=== PATIENT | male | born 1945 | race Caucasian/White ===

== ENCOUNTER 2016-03-24 15:42 | Inpatient (IN) | payer MEDICARE, MEDICAID ==
[~2016-03-24] VITALS: Ht 167.6 cm; Wt 52.8 kg
[2016-03-24] MEDS ORDERED: SOD CHLORIDE 0.9% 1,000 ML IV STA (16:36)
[2016-03-24] MEDS ORDERED: DONE5TAB7 PO (17:11)
[2016-03-24] MEDS ORDERED: ENOX40DI14 SC (17:12)
[2016-03-24] MEDS ORDERED: FER325 PO (17:12)
[2016-03-24] MEDS ORDERED: MULT-371 PO (17:13)
[2016-03-24] MEDS ORDERED: MEMA5TAB PO (17:13)
[2016-03-24] MEDS ORDERED: PANT40TA3 PO (17:17)
[2016-03-24] MEDS ORDERED: CLOP75TA27 PO (17:18)
[2016-03-24] MEDS ORDERED: ATOR40TA68 PO (17:18)
[2016-03-24] MEDS ORDERED: DOCU-144 PO (17:18)
[2016-03-24] MEDS ORDERED: INSU100C SQ (17:23)
[2016-03-24] MEDS ORDERED: HYDR-906 PO (17:24)
[2016-03-24] MEDS ORDERED: ACET-2047 PO (17:25)
[2016-03-24] MEDS ORDERED: ACET-141 PO (17:25)
[2016-03-24] MEDS ORDERED: MAGN400O4 PO (17:26)
[2016-03-24] MEDS ORDERED: BISA10SU55 RC (17:27)
[2016-03-24] MEDS ORDERED: ONDANSETRON 4 MG INJ IV STA (17:31)
[2016-03-24] MEDS ORDERED: morphine 4 MG/ML VIAL IV STA (17:31)
[2016-03-24 17:36] LABS: ADD SCAN DIFF NO
[2016-03-24 17:38] LABS: BASOPHILS % 0.4 % (0.0-2.0); EOSINOPHILS # 0.2 10^3/ul (0.0-0.5); EOSINOPHILS % 2.5 % (0.0-7.0); HEMATOCRIT 40.3 % (42.0-52.0); HEMOGLOBIN 13.4 g/dl (14.0-18.0); LYMPHOCYTES # 1.3 10^3/ul (0.8-2.9); LYMPHOCYTES % 13.4 % (15.0-51.0); MEAN CORPUSCULAR HEMOGLOBIN 30.6 pg (29.0-33.0); MEAN CORPUSCULAR HGB CONC 33.3 g/dl (32.0-37.0); MONOCYTE # 0.9 10^3/ul (0.3-0.9); MONOCYTES % 8.9 % (0.0-11.0); NEUTROPHIL # 7.1 10^3/ul (1.6-7.5); NEUTROPHILS % 74.1 % (39.0-77.0); PLATELET COUNT 463 10^3/UL (140-415); RED BLOOD COUNT 4.38 10^6/ul (4.70-6.10); RED CELL DISTRIBUTION WIDTH 14.8 % (11.5-14.5); WHITE BLOOD COUNT 9.6 10^3/ul (4.8-10.8)
[2016-03-24 17:49] LABS: INR 1.01; PROTIME 13.3 Sec (12.2-14.2)
[2016-03-24 17:52] LABS: ALBUMIN 3.1 g/dl (3.3-4.9); CHLORIDE 102 mmol/L (97-110); SODIUM 139 mmol/L (135-144)
--- NOTE | 2016-03-24 17:52 | RADRPT ---
PROCEDURE: Chest Radiograph. CLINICAL INDICATION: Cough TECHNIQUE: Single frontal chest radiograph. COMPARISON: None available FINDINGS: A left chest wall dual lead implantable pacer is in place. Heart size is within normal limits.. N o infiltrate or effusion is seen. The bones are intact. IMPRESSION: 1. No evidence of acute cardiopulmonary disease. RPTAT: [facility] .Salo Feldman MD, MD Date Time Electronically viewed and signed by .Salo Feldman MD, on 03/24/2016 17:52 .B/
[2016-03-24 17:53] LABS: POTASSIUM 4.1 mmol/L (3.5-5.1)
[2016-03-24 17:54] LABS: CREATININE 0.94 mg/dl (0.61-1.24)
[2016-03-24 17:55] LABS: ALANINE AMINOTRANSFERASE 48 IU/L (13-69); ALBUMIN/GLOBULIN RATIO 0.86; ALKALINE PHOSPHATASE 151 IU/L (42-121); ANION GAP 13 (8-16); ASPARTATE AMINO TRANSFERASE 61 IU/L (15-46); BILIRUBIN,INDIRECT 0.8 mg/dl (0-1.1); BILIRUBIN,TOTAL 0.8 mg/dl (0.2-1.3); BLOOD UREA NITROGEN 18 mg/dl (7-20); CALCIUM 8.7 mg/dl (8.4-10.2); CARBON DIOXIDE 28 mmol/L (21-31); GLUCOSE 119 mg/dl (70-220); TOTAL PROTEIN 6.7 g/dl (6.1-8.1)
[2016-03-24] MEDS ORDERED: ASPIRIN 325 MG TAB PO ONE (18:00)
--- NOTE | 2016-03-24 18:00 | ERA ---
ER Documentation Chief Complaint Date/Time DATE: 03/24/16 TIME: 17:46 Chief Complaint BIB RA FOR EVAL OF BILAT DVT'S SENT BY PMD HPI 70-year-old man referred here by his cardiothoracic surgeon to rule out aortoiliac disease. Patient recently developed blue toe syndrome to both feet and a recent arterial color Doppler ultrasound of the lower extremities was negative for hemodynamically significant thrombosis or stenosis. Although given his continued symptoms and toe discoloration a CT angiogram of the abdomen with IV contrast runoff was ordered today. Patient has had no fevers or chills, no vomiting or diarrhea. HPI was supplemented by reviewing past medical history, halfway records, and later speaking to his PMD. ROS All systems reviewed and are negative except as per history of present illness. Medications Home Meds Reported Medications Bisacodyl (Dulcolax) 10 Mg Supp.rect, 10 MG RC DAILY Y for CONSTIPATION, SUPP.RECT 03/24/16 Magnesium Hydroxide* (Milk Of Magnesia*) 400 Mg/5 Ml Oral.susp, 30 ML PO DAILY Y for CONSTIPATION, ML 03/24/16 Acetaminophen* (Acetaminophen*) 500 MG Extra Strength Tablet, 1000 MG PO Q4 Y for MODERATE PAIN LEVEL 4-6, TAB 03/24/16 Acetaminophen* (Acetaminophen*) 650 Mg Tablet, 650 MG PO Q4 Y for PAIN AND OR ELEVATED TEMP, #30 TAB 03/24/16 Hydrocodone/Acetaminophen ([place] 5-325 Tablet) 1 Each Tablet, 1 EACH PO Q4H WHILE AWAKE Y for SEVERE PAIN LEVEL 7-10, TAB 03/24/16 Insulin Lispro (Humalog) 100 Unit/1 Ml Cartridge, 0 SQ AC MEALS AND BEDTIME SLIDING SCALE 150-199 = 1 UNIT 200-249 =2 UNITS 250-299 =3 UNITS 300-349 =4 UNITS 350-399 =5 UNITS 400 = 6 UNITS OVER 400 CALL MD BELOW 80 CALL MD MAY GIVE ORANGE JUICE BY MOUTH 03/24/16 Atorvastatin* (Atorvastatin*) 40 Mg Tablet, 40 MG PO QHS, #30 TAB 03/24/16 Clopidogrel Bisulfate (Clopidogrel) 75 Mg Tablet, 75 MG PO DAILY, #30 TAB 03/24/16 Docusate Sodium* (Colace*) 100 Mg Capsule, 200 MG PO DAILY, #30 CAP 03/24/16 Pantoprazole* (Protonix*) 40 Mg Tablet.dr, 40 MG PO DAILY, TAB 03/24/16 Multivitamin with Minerals (One Daily Complete) 1 Each Tablet, 1 EACH PO DAILY, TAB 03/24/16 Memantine* (Namenda*) 5 Mg Tablet, 5 MG PO BID, #60 TAB 03/24/16 Ferrous Sulfate* (Ferrous Sulfate*) 325 Mg Tabec, 325 MG PO BID, TAB 03/24/16 Enoxaparin Sodium* (Lovenox*) 40 Mg/0.4 Ml Syringe, 40 MG SC DAILY, SYR 03/24/16 Donepezil* (Donepezil*) 5 Mg Tablet, 5 MG PO QHS, #30 TAB 03/24/16 Allergies Allergies: Coded Allergies: No Known Allergy (Unverified , 03/24/16) PMhx/Soc Dementia, chronic encephalopathy, chronic recurrent left hip dislocation, anemia , diabetes mellitus, coronary artery disease, pacemaker Hx Alcohol Use: No Hx Substance Use: No Hx Tobacco Use: No Smoking Status: Never smoker FmHx Family History: No diabetes Physical Exam Vitals Vital Signs Date Time Temp Pulse Resp B/P Pulse Ox O2 Delivery O2 Flow Rate FiO2 03/24/16 15:42 97.9 86 20 133/65 100 Physical Exam GENERAL: Elderly, dehydrated man, mild discomfort, afebrile HEENT: Dry mucous membranes pink conjunctiva, no cervical spine tenderness or step-off deformities, no goiter, no jaundice or icterus, extraocular movements intact without pain. No submandibular induration, and no pharyngeal erythema NEURO: Alert and oriented 1, able to follow simple commands and answer simple questions, cranial nerves II through XII intact bilaterally, pupils equal round reactive to light, no focal deficits or facial asymmetry, diffuse muscular wasting CARDIAC: Regular rate and rhythm, positive holosystolic murmur, no gallops LUNGS: Clear bilaterally no wheezing crackles or stridor ABDOMEN: Abdominal examination is limited as patient because patient is swinging although I do appreciate voluntary guarding and a large mildly tender pulsatile abdominal mass in the hypogastrium, no splenomegaly palpated SKIN: Warm and dry to touch, dorsal aspect of both feet and toes are erythematous and there is bluish discoloration to the padding of the toes of both feet, there is superficial upper extremity ecchymoses, no lacerations or ulcers noted EXTREMITIES: No clubbing cyanosis or edema, calves are bilaterally symmetrical, no Homans sign, no popliteal cord sign. Distal pulses equal and bilateral PSYCH: Agitated Result Diagram: 03/24/16 1700 Results 24 hrs Laboratory Tests Test 03/24/16 17:00 Basophils # 0.010^3/ul Basophils % 0.4% Eosinophils # 0.210^3/ul Eosinophils % 2.5% Hematocrit 40.3% Hemoglobin 13.4g/dl Lymphocytes # 1.310^3/ul Lymphocytes % 13.4% Mean Corpuscular Hemoglobin 30.6pg Mean Corpuscular Hemoglobin Concent 33.3g/dl Mean Corpuscular Volume 92.0fl Mean Platelet Volume 9.0fl Monocytes # 0.910^3/ul Monocytes % 8.9% Neutrophils # 7.110^3/ul Neutrophils % 74.1% Nucleated Red Blood Cells # 0.010^3/ul Nucleated Red Blood Cells % 0.0/100WBC Platelet Count 55320^3/UL Red Blood Count 4.3810^6/ul Red Cell Distribution Width 14.8% White Blood Count 9.610^3/ul Current Medications Medications (Trade) Dose Ordered Sig/Rohan Route PRN Reason Start Time Stop Time Status Last Admin Dose Admin Sodium Chloride (NS) 1,000 ml @ 1,000 mls/hr Q1H STAT IV 03/24/16 16:36 03/24/16 17:35 DC 03/24/16 17:10 Morphine Sulfate (morphine) 4 mg ONCE STAT IV 03/24/16 17:31 03/24/16 17:32 DC 03/24/16 17:42 Ondansetron HCl (Zofran Inj) 4 mg ONCE STAT IV 03/24/16 17:31 03/24/16 17:32 DC 03/24/16 17:42 Aspirin (Aspirin) 325 mg ONCE ONCE PO 03/24/16 18:00 03/24/16 18:01 03/24/16 17:42 Procedures/MDM IV line was established patient was placed on nuclear monitoring technician rhythm strip revealed a sinus rhythm at about 70 bpm with upright P and T waves. Patient was afebrile. EKG performed, read by me: 68 bpm, normal sinus rhythm, normal axis, no acute ST segment changes, narrow QRS complex, with good R-wave progression in precordial leads. One view chest x-ray performed, read by me there is a pacemaker in the left chest with wires intact, atelectatic changes bilaterally, no acute infiltrates, no pneumothorax. CT angiogram with runoff revealed a right common iliac artery aneurysm with a large irregular protruding atherosclerotic plaque within it as well as the distal aorta, which is most likely the source of micro emboli. There was also severe stenosis to the proximal posterior tibial artery and anterior tibial artery on the left. Please refer to radiologist dictation for full report. I ordered 1 L normal saline intravenously, morphine 4 mg IV, and Zofran 4 mg IV. Also ordered aspirin 325 mg p.o., which the patient tolerated without difficulty. I will defer further anticoagulation to safety physician and cardiothoracic surgeon. CBC and coagulation profile was unremarkable, electrolytes liver function tests were normal, troponin was negative. Patient admitted to telemetry setting. Departure Diagnosis: Primary Impression: Aneurysm artery, iliac common Additional Impressions: Chronic distal aortic occlusion Gangrene of toe Ischemic toe Condition: Serious TAB MCCOLLUM MD Mar 24, 2016 17:58
[2016-03-24] MEDS: SOD CHLORIDE 0.9% 1,000 ML IV SCH (18:04)
--- NOTE | 2016-03-24 18:04 | HP ---
Date/Time of Note Date/Time of Note DATE: 03/24/16 TIME: 17:56 Assessment/Plan VTE Prophylaxis VTE Prophylaxis Intervention: heparin Assessment/Plan Assessment/Plan 70 yo male with a past medical history of dementia, type II DM, CAD, anemia - chronic, s/p pacemaker, who presents with "Blue Toe Syndrome". 1. Blue toe syndrome - will admit the patient to telemetry, consult vascular surgery, consult cardiology, start heparin drip, monitor pulses, possible angiogram with angioplasty/thrombectomy. 2. Type II DM - will check [id number], ISS 3. S/P pacemaker/CAD - aspirin 4. Anemia - chronic - monitor H/H 5. Dementia - re-orient patient as needed 6. GI ppx - protonix 7. DVT ppx - heparin as per clinical course. this history and physical took greater then 45 minutes to complete HPI/ROS Admit Date/Time Admit Date/Time 03/24/2016, 5:56 pm Hx of Present Illness 70 yo male with a past medical history of dementia, type II DM, CAD, anemia - chronic, s/p pacemaker, who presents with "Blue Toe Syndrome". The patient was sent to the vascular surgeon's office, Dr. Mondragon, who was evaluating the patient for PAD/PVD. He noticed that bilateral lower extremities had decreased pulses, and discoloration. Otherwise no fevers/chills, nausea/vomiting/diarrhea or other constitutional symptoms. All the information was gathered from the chart and ER physician, as the patient is non-verbal. ROS Subjective hx not possible: pt non-verbal PMH/Family/Social Past Medical History anemia- chronic, dementia Medical History: coronary artery disease, diabetes Past Surgical History LEONCIO, s/p pacemaker Family History Significant Family History: no pertinent family hx, cancer (none), COPD (none) , hypertension (none) Social History Alcohol Use: none Smoking Status: Former smoker Drug Use: none Exam/Review of Systems Vital Signs Vitals Vital Signs Date Time Temp Pulse Resp B/P Pulse Ox O2 Delivery O2 Flow Rate FiO2 03/24/16 15:42 97.9 86 20 133/65 100 Exam Exam Gen Thania: NAD, Alert to self HEENT: NC/AT, PERRLA, EOMI, no pharyngeal erythema, no tonsillar exudates, no lymphadenopathy, no JVD, no carotid bruits NECK: supple, no thyromegaly THORAX: symmetrical, no obvious deformities CV: S1S2, RRR, II/ systolic murmur best heard over tricuspid area Lungs: CTAB no W/C/R/R Abd: soft, NT/ND, +BS, no rebound, no guarding, neg HSM EXT: 1/2+ pitting edema bilateral lower extremities with diminished pulses, bluish hue to the all toes noted Neuro: non-verbal no focal deficits Psych: fair mood and affect Skin: decreased skin turgor Labs Result Diagram: 03/24/16 1700 Medications Medications Current Medications Aspirin (Aspirin) 325 mg ONCE ONCE PO Last administered on 03/24/16t 17:42; Admin Dose 325 MG; Start 03/24/16 at 18:00; Stop 03/24/16 at 18:[address] angiogram abdominal IMPRESSION: 1. Right common iliac artery aneurysm is identified measuring 2.1 cm. Markedly irregular, protruding atherosclerotic plaque is identified within the distal aorta and right common iliac artery - this may represent a source of embolic disease. 2. No evidence of hemodynamically significant stenosis is seen in the right lower extremity. Right foot arteries are not well visualized beyond the proximal foot. 3. There are severe focal stenoses at the origins of the left anterior and posterior tibial arteries - distally these arteries are patent into the distal foot. 4. Indeterminate rim enhancing collection is identified in the deep posterior calf musculature on the left, as described above - muscular abscess is not excluded. 5. Diffuse arterial atherosclerotic calcifications are present. 6. Mild left pleural effusion is noted. 7. Scattered colonic diverticula are seen without diverticulitis. 8. No mass or lymphadenopathy is seen. MARYAM VALENCIA MD Mar 24, 2016 18:04
[2016-03-24 18:08] LABS: TROPONIN-I < 0.012 ng/ml (0.00-0.12)
[2016-03-24] MEDS ORDERED: DEXTROSE 50% 50 ML SYRINGE IV PRN ×2 (18:30)
[2016-03-24] MEDS ORDERED: GLUCOSE GEL 15 GRAM TUBE PO PRN ×2 (18:30)
[2016-03-24] MEDS ORDERED: HEPARIN 25000 UNITS/250 ML 250 ML IV SCH (18:30)
[2016-03-24] MEDS ORDERED: GLUCOSE GEL 15 GRAM TUBE BUCCAL PRN (18:30)
[2016-03-24] MEDS ORDERED: GLUCAGON 1 MG INJ IM PRN (18:30)
[2016-03-24] MEDS ORDERED: NITROGLYCERIN (SL) 0.4 MG TAB SL PRN (18:30)
[2016-03-24] MEDS ORDERED: ONDANSETRON 4 MG INJ IV PRN (18:30)
[2016-03-24] MEDS ORDERED: ACETAMINOPHEN 325 MG TAB PO PRN (18:30)
[2016-03-24] MEDS ORDERED: HEPARIN 1000 UNITS/ML 10 ML INJ IV PRN ×2 (18:30)
[2016-03-24] MEDS ORDERED: NACL 0.9% 3 ML SYG IV SCH (18:30)
--- NOTE | 2016-03-24 19:46 | CONS ---
DATE OF ADMISSION: 03/24/2016 DATE OF CONSULTATION: 03/24/2016 CARDIOLOGY CONSULTATION REASON FOR CONSULTATION: Abnormal electrocardiogram, preoperative evaluation. REQUESTING PHYSICIAN: Fredrick Gross MD HISTORY OF PRESENT ILLNESS: Mr. Smith is a 70-year-old male with a history of hip dislocation, dani ntia, diabetes mellitus, coronary artery disease, permanent pacemaker who had initially presented to an outside hospital at [facility] with change in his toe colors with blue toes. The patient was ev aluated at that time by arterial ultrasound, was not found to have any arterial occlusions. He did have some moderate stenoses of his superficial femoral artery and profunda femoral arteries. The abdi martinez was then referred to [facility] where he was evaluated by Dr. Gross and underwent a CT scan of the lower extremities which revealed a right common iliac artery aneurysm measuring 2.1 cm, a markedly regular protruding atherosclerotic plaque within the right commo n iliac hemodynamically significant stenosis in right lower extremity, several focal stenoses origins of the left anterior and posterior tibial arteries, indeterminate rim enhancing collection i s identified in deep posterior calf musculature. Deep arteriosclerotic calcifications are present. The patient subsequently sent to the emergency department for further evaluation where initially up on arrival, temperature 97.9, blood pressure 132/65, pulse 86, respiratory rate 20, saturating 100%. Patient's labs were notable for white count of 9.6, hemoglobin 13.4, platelet count of 463. INR o f 1.0. The patient's electrocardiogram revealed sinus rhythm, rate of 79 with borderline inferior Q 's. The patient has been treated with morphine, Zofran, IV fluid hydration, aspirin, is to be start ed on blood thinners. Will be admitted to the floor for further evaluation and treatment with possi ble need for surgery to prevent further embolic phenomenon and treatment of peripheral arterial dise ase. At this time, the patient does not respond clearly to questions pertaining to chest pain or sh ortness of breath. PAST MEDICAL HISTORY: As above in HPI. MEDICATIONS: Prior to admit: 1. Plavix 75 mg daily. 2. Lovenox 20 mg subcutaneous daily. 3. Ferrous sulfate 325 mg p.o. b.i.d. 4. Atorvastatin 40 mg at bedtime. 5. Tylenol p.r.n. 6. [place] p.r.n. 7. Namenda 5 mg b.i.d. 8. Dulcolax. 9. Colace. 10. Protonix 40 mg daily. 11. Insulin multivite. 12. Aricept. ALLERGIES: NO KNOWN DRUG ALLERGIES. SOCIAL HISTORY: No current tobacco, ETOH, or illicit drug use. FAMILY HISTORY: Negative for sudden cardiac or early CAD. REVIEW OF SYSTEMS: As above in HPI. CONSTITUTIONAL: No fevers, chills. PULMONARY: Shortness of breath. CARDIOVASCULAR: Abnormal electrocardiogram, atherosclerotic plaque in the periphery. GASTROINTESTINAL: No vomiting. Tenderness to palpation of abdomen. GENITOURINARY: No hematuria. MUSCULOSKELETAL: Blue toes. Signs of peripheral arterial disease. PHYSICAL EXAMINATION: VITAL SIGNS: Temperature 97.9, blood pressure 132/65, pulse 86, respiratory rate 20, saturating 10 0%. GENERAL: The patient is alert, awake, in no acute distress. Complaining of pain in his abdomen and toes. NECK: Jugular distention of 8 to 9 cm of water. CHEST: Decreased breath sounds at the base bilaterally. HEART: Regular rate and rhythm. Normal S1, S2, I/ systolic murmur, nondisplaced PMI. ABDOMEN: Positive bowel sounds, positive tenderness to palpation diffusely. EXTREMITIES: Cyanosis with blue color of the toes. Difficult to palpate distal pulses bilaterally, posterior tibial, dorsalis pedis, trace lower extremity edema, decreased hair in the lower extremit ies. LABORATORIES: As above in HPI. No further labs for my review at this time. IMAGING STUDIES: As above in HPI. No further imaging studies for my review at this time. ELECTROCARDIOGRAM: As above in HPI. No further electrocardiograms for my review at this time. IMPRESSION: 1. Abnormal electrocardiogram, assess for acute coronary syndrome. 2. Hypertension. 3. Peripheral arterial disease at aortoiliac bifurcation with likely embolic phenomenon. 4. Dyslipidemia. 5. Hypertension. 6. Diabetes mellitus. 7. Iliac artery aneurysm. 8. Coronary artery disease. 9. Dementia. 10. Permanent pacemaker. RECOMMENDATIONS: 1. At this time, would admit patient to telemetry monitoring to follow rhythm and rate closely. 2. Complete a rule out for myocardial infarction to ensure that the patient's constellation of symp toms have not resulted in or are the result of any acute coronary syndrome such as acute myocardial infarction. 3. Continue the patient's aspirin and agree with initiation of systemic anticoagulation and will sybil fleming resume the patient's Plavix additionally. 4. Continue the patient's current statin therapy and adjust it according to a fasting lipid panel t hat should be checked. 5. Check a 2-D echocardiogram to further assess the patient's ejection fraction, wall motion, and m ajor valve abnormalities. 6. Continue to check serial EKGs to assess for any significant ongoing changes. An EKG in the [facility], EKG for any complaints of chest pain or change in rhythm. 7. Would initiate the patient on low-dose beta vinay in the setting of coronary artery disease, p eripheral arterial disease, abnormal electrocardiogram findings. 8. Further workup and treatment of the patient's ongoing clinical issues including peripheral arter ial disease and embolic phenomenon, iliac artery aneurysm per PMD, and alternative consulting vascul ar physicians. Dictated By: NICANOR ALLEN/IMELDA Conf#: [id number] DID#: [id number] CC: MARYAM VALENCIA MD; FREDRICK GROSS MD;*EndCC*
[2016-03-24 20:25] LABS: ADD SCAN DIFF NO
[2016-03-24 20:39] LABS: BASOPHIL # 0.1 10^3/ul (0.0-0.1); BASOPHILS % 0.6 % (0.0-2.0); EOSINOPHILS # 0.3 10^3/ul (0.0-0.5); EOSINOPHILS % 3.1 % (0.0-7.0); HEMATOCRIT 37.5 % (42.0-52.0); HEMOGLOBIN 12.3 g/dl (14.0-18.0); LYMPHOCYTES # 1.6 10^3/ul (0.8-2.9); LYMPHOCYTES % 18.3 % (15.0-51.0); MEAN CORPUSCULAR HEMOGLOBIN 30.4 pg (29.0-33.0); MEAN CORPUSCULAR HGB CONC 32.8 g/dl (32.0-37.0); MEAN CORPUSCULAR VOLUME 92.6 fl (82.0-101.0); MEAN PLATELET VOLUME 8.9 fl (7.4-10.4); MONOCYTE # 0.9 10^3/ul (0.3-0.9); MONOCYTES % 10.6 % (0.0-11.0); NEUTROPHIL # 5.8 10^3/ul (1.6-7.5); NEUTROPHILS % 66.6 % (39.0-77.0); PLATELET COUNT 429 10^3/UL (140-415); RED BLOOD COUNT 4.05 10^6/ul (4.70-6.10); RED CELL DISTRIBUTION WIDTH 14.8 % (11.5-14.5); WHITE BLOOD COUNT 8.7 10^3/ul (4.8-10.8)
[2016-03-24 20:44] LABS: INR 0.99; PROTIME 13.1 Sec (12.2-14.2)
[2016-03-24 20:45] LABS: PARTIAL THROMBOPLASTIN TIME 33.7 Sec (25.0-35.0)
[2016-03-24 20:48] LABS: CHOL/HDL RATIO 3.9 RATIO
[2016-03-24] MEDS: DONEPEZIL 5 MG TAB PO SCH (21:00)
[2016-03-24] MEDS: INSULIN ASPART [NOVOLOG] 3 ML PEN SC SCH (21:00)
[2016-03-24 21:53] LABS: THYROID STIMULATING HORMONE 4.51 MIU/L (0.465-4.680)
[2016-03-24 22:44] VITALS: PULSE 69
[2016-03-24] MEDS: ATORVASTATIN 40 MG TAB PO SCH (23:00)
[2016-03-24] MEDS: FERROUS SULFATE (EC) 325 MG TAB PO SCH (23:00)
[2016-03-24] MEDS: MEMANTINE 5 MG TAB PO SCH (23:00)
[2016-03-24 23:58] VITALS: Ht 167.6 cm; Wt 52.8 kg
[2016-03-25] VITALS (12 sets, daily range): BP systolic 124–164; BP diastolic 64–75; PULSE 65–95; RESP 15–19
[2016-03-25] MEDS: PANTOPRAZOLE 40 MG INJ IV SCH (05:02)
[2016-03-25] MEDS: LORAZEPAM 2 MG INJ IV PRN (05:55)
[2016-03-25 06:36] LABS: ADD SCAN DIFF NO
[2016-03-25 06:39] LABS: BASOPHIL # 0.1 10^3/ul (0.0-0.1); BASOPHILS % 0.6 % (0.0-2.0); EOSINOPHILS # 0.2 10^3/ul (0.0-0.5); EOSINOPHILS % 2.1 % (0.0-7.0); HEMATOCRIT 34.8 % (42.0-52.0); HEMOGLOBIN 11.3 g/dl (14.0-18.0); LYMPHOCYTES # 1.4 10^3/ul (0.8-2.9); LYMPHOCYTES % 14.8 % (15.0-51.0); MEAN CORPUSCULAR HEMOGLOBIN 30.1 pg (29.0-33.0); MEAN CORPUSCULAR HGB CONC 32.5 g/dl (32.0-37.0); MEAN CORPUSCULAR VOLUME 92.8 fl (82.0-101.0); MONOCYTE # 0.9 10^3/ul (0.3-0.9); MONOCYTES % 9.9 % (0.0-11.0); NEUTROPHIL # 6.8 10^3/ul (1.6-7.5); NEUTROPHILS % 71.9 % (39.0-77.0); PLATELET COUNT 430 10^3/UL (140-415); RED BLOOD COUNT 3.75 10^6/ul (4.70-6.10); RED CELL DISTRIBUTION WIDTH 14.6 % (11.5-14.5); WHITE BLOOD COUNT 9.4 10^3/ul (4.8-10.8)
[2016-03-25 07:08] LABS: POTASSIUM 3.5 mmol/L (3.5-5.1)
[2016-03-25 07:10] LABS: CREATININE 0.56 mg/dl (0.61-1.24)
[2016-03-25 07:11] LABS: CALCIUM 7.9 mg/dl (8.4-10.2)
[2016-03-25] MEDS: INSULIN ASPART [NOVOLOG] 3 ML PEN SC SCH ×4 (07:37→20:33)
[2016-03-25] MEDS: MEMANTINE 5 MG TAB PO SCH ×2 (09:21→22:09)
[2016-03-25] MEDS: FERROUS SULFATE (EC) 325 MG TAB PO SCH ×2 (09:22→22:09)
--- NOTE | 2016-03-25 10:09 | CONS ---
Date/Time of Note Date/Time of Note DATE: 03/25/16 TIME: 10:09 Consultation Date/Type/Reason Admit Date/Time 03/24/2016, 5:56 pm Hx of Present Illness DATE OF ADMISSION: 03/24/2016 VASCULAR SURGERY HISTORY AND PHYSICAL Dear Doctors: Mr. Smith is a 70-year-old gentleman who had presented to [facility] back on 03/21/2016, with presentation of bilateral lower extremity blue toes. The patient was evaluated at that time and was identified on arterial ultrasound that the patient did not have arterial occlusion of bilateral lower extremities; however, he did have a 30% to 49% stenosis of the right mid SFA and left profunda femoris arteries. Otherwise, it did not identify any hemodynamic significant stenosis. The patient was sent to our vascular office for further evaluation. He is currently in assisted living for acute rehabilitation as he had recent left hip surgery after a fracture. The patient currently denies shortness of breath, chest pain, nausea, vomiting, fever or chills. He does have some complaint of mild abdominal pain that seems to be in the left lower quadrant mainly upon palpation. REVIEW OF SYSTEMS: A 12-point review performed and negative except what is mentioned in the HPI. He does have some tenderness of his toes upon palpation as well. PAST MEDICAL HISTORY: Entails left hip dislocation, encephalopathy, dementia, anemia, diabetes, atherosclerotic heart disease, cardiac pacemaker. PAST SURGICAL HISTORY: Entails hip arthroplasty, pacemaker. SOCIAL HISTORY: He has had a history of tobacco in the past, however, currently denies tobacco, alcohol or illicit drug use. FAMILY HISTORY: Noncontributory. PHYSICAL EXAMINATION: GENERAL: He is awake and alert and able to answer questions. HEENT: Normocephalic. EOMI. Mucosa moist. NECK: Supple. No carotid bruit. PULMONARY: Clear to auscultation bilaterally. No crackles. CARDIOVASCULAR: S1, S2 present. No murmurs. ABDOMEN: Soft. Left lower quadrant tenderness mild and has a pulsatile mass and it is palpated in the umbilicus in the left lower quadrant. Bowel sounds positive. EXTREMITIES: He has palpable femoral pulses, nonpalpable pedal pulses. Motor, sensory intact. Capillary refill 2 seconds. On the right, the first 3 toes have bluish discoloration. On the left, all 5 toes have bluish discoloration. He does have some edema about 1+, specifically in the forefoot area. ASSESSMENT AND PLAN: Bilateral lower extremity atherosclerosis and aortoiliac atherosclerotic disease with rest pain: It seems that the patient has developed blue toe syndrome, bilateral lower extremities. We would need to have the patient have a workup done as to why the patient has developed these new findings. There is concern this may be a cardiac source; however, upon his recent admission, there was no identification of any abnormal heart rhythm suggesting that he may have a mural thrombus associated with atrial fibrillation. Though on his exam, he does have a pulsatile abdominal mass which is concerning for a possible aneurysm. Therefore, we will plan to obtain a CT angiography of the abdomen and pelvis with bilateral lower extremity runoff to better elucidate the findings on physical examination with what might be the underlying atherosclerotic disease that could potentially even have embolized. Discussed findings, plan and management with the patient's care provider. We will plan to obtain the CT. Optimize vascular status (BP meds, diet, nutrition, exercise, sugar control, antiplatelets). Thank you for allowing us to partake in the care of your patient. Please call with any questions. Past Medical History Medical History: coronary artery disease, diabetes Social History Alcohol Use: none Smoking Status: Unknown if ever smoked Drug Use: none Exam/Review of Systems Vital Signs Vitals Vital Signs Date Time Temp Pulse Resp B/P Pulse Ox O2 Delivery O2 Flow Rate FiO2 03/25/16 08:20 87 03/25/16 07:31 98.7 19 129/64 96 03/24/16 21:33 Room Air Results Result Diagram: 03/25/16 0558 03/25/16 0558 Results 24 hrs Laboratory Tests Test 03/24/16 17:00 03/24/16 19:10 03/24/16 22:32 03/25/16 05:58 Alanine Aminotransferase (ALT/SGPT) 48 Albumin 3.1 L Albumin/Globulin Ratio 0.86 Alkaline Phosphatase 151 H Anion Gap 13 13 Aspartate Amino Transf (AST/SGOT) 61 H Basophils # 0.0 0.1 0.1 Basophils % 0.4 0.6 0.6 Blood Urea Nitrogen 18 15 Calcium Level 8.7 7.9 L Carbon Dioxide Level 28 25 Chloride Level 102 106 Creatinine 0.94 0.56 L Direct Bilirubin 0.00 Eosinophils # 0.2 0.3 0.2 Eosinophils % 2.5 3.1 2.1 Globulin 3.60 H Glucose Level 119 91 Hematocrit 40.3 L 37.5 L 34.8 L Hemoglobin 13.4 L 12.3 L 11.3 L INR International Normalized Ratio 1.01 0.99 Indirect Bilirubin 0.8 Lipase 83 Lymphocytes # 1.3 1.6 1.4 Lymphocytes % 13.4 L 18.3 14.8 L Mean Corpuscular Hemoglobin 30.6 30.4 30.1 Mean Corpuscular Hemoglobin Concent 33.3 32.8 32.5 Mean Corpuscular Volume 92.0 92.6 92.8 Mean Platelet Volume 9.0 8.9 9.0 Monocytes # 0.9 0.9 0.9 Monocytes % 8.9 10.6 9.9 Neutrophils # 7.1 5.8 6.8 Neutrophils % 74.1 66.6 71.9 Nucleated Red Blood Cells # 0.0 0.0 0.0 Nucleated Red Blood Cells % 0.0 0.0 0.0 Platelet Count 463 H 429 H 430 H Potassium Level 4.1 3.5 Prothrombin Time 13.3 13.1 Prothrombin Time Ratio 1.0 1.0 Red Blood Count 4.38 L 4.05 L 3.75 L Red Cell Distribution Width 14.8 H 14.8 H 14.6 H Sodium Level 139 140 Total Bilirubin 0.8 Total Protein 6.7 Troponin I < 0.012 White Blood Count 9.6 8.7 9.4 Activated Partial Thromboplast Time 33.7 > 180.0 *H Cholesterol Level 110 Cholesterol/HDL Ratio 3.9 HDL Cholesterol 28 L Hemoglobin A1c 5.5 LDL Cholesterol, Calculated 68 Magnesium Level 2.0 Thyroid Stimulating Hormone (TSH) 4.510 Triglycerides Level 72 Bedside Glucose 89 Test 03/25/16 07:17 Bedside Glucose 85 Medications Medications Current Medications Sodium Chloride (NS) 1,000 ml @ 50 mls/hr Q20H IV Last administered on 18:04; Admin Dose 50 MLS/HR; Start 03/24/16 at 18:04 Lorazepam (Ativan) 0.5 mg Q6H PRN IV ANXIETY Last administered on 03/25/16 05: 55; Admin Dose 0.5 MG; Start 03/24/16 at 18:30 Ondansetron HCl (Zofran Inj) 4 mg Q6H PRN IV NAUSEA AND/OR VOMITING; Start 03/24 at 18:30 Nitroglycerin (Nitroglycerin (Sl Tab) 0.4 Mg) 1 tab Q5M PRN SL CHEST PAIN; Start 03/24/16 at 18:30 Acetaminophen (Tylenol Tab) 650 mg Q6H PRN PO PAIN LEVEL 1-3 OR FEVER; Start at 18:30 Morphine Sulfate (morphine) 2 mg Q4H PRN IV PAIN LEVEL 7-10; Start 03/24/16 at 18:30 Pantoprazole (Protonix Iv) 40 mg DAILY@06 IV Last administered on 03/25/16 05: 02; Admin Dose 40 MG; Start 03/25/16 at 06:00 Atorvastatin Calcium (Lipitor) 40 mg QHS PO Last administered on 03/24/16 23:00 ; Admin Dose 40 MG; Start 03/24/16 at 21:00 Donepezil HCl (Aricept) 5 mg QHS PO ; Start 03/24/16 at 21:00 Ferrous Sulfate (Ferrous Sulfate (Ec)) 325 mg BID PO Last administered on 09:22; Admin Dose 325 MG; Start 03/24/16 at 21:00 Memantine (Namenda) 5 mg BID PO Last administered on 03/25/16 09:21; Admin Dose 5 MG; Start 03/24/16 at 21:00 Miscellaneous Information 1 ea NOTE XX ; Start 03/24/16 at 18:30 Glucose (Glutose) 15 gm Q15M PRN PO DECREASED GLUCOSE; Start 03/24/16 at 18:30 Glucose (Glutose) 22.5 gm Q15M PRN PO DECREASED GLUCOSE; Start 03/24/16 at 18:30 Dextrose (D50w Syringe) 25 ml Q15M PRN IV DECREASED GLUCOSE; Start 03/24/16 at 18:30 Dextrose (D50w Syringe) 50 ml Q15M PRN IV DECREASED GLUCOSE; Start 03/24/16 at 18:30 Glucagon (Glucagen) 1 mg Q15M PRN IM DECREASED GLUCOSE; Start 03/24/16 at 18:30 Glucose (Glutose) 15 gm Q15M PRN BUCCAL DECREASED GLUCOSE; Start 03/24/16 at 18: 30 Influenza Virus Vaccine (Fluzone) 0.5 ml ONCE ONCE IM* ; Start 03/27/16 at 09:00 ; Stop 03/27/16 at 09:01 Hydromorphone HCl (Dilaudid) 1 mg Q4H PRN IV PAIN; Start 03/25/16 at 06:30 ANN GROSS MD Mar 25, 2016 10:09
--- NOTE | 2016-03-25 10:23 | PN ---
Date/Time of Note Date/Time of Note DATE: 03/25/16 TIME: : Assessment/Plan VTE Prophylaxis VTE Prophylaxis Intervention: heparin Lines/Catheters IV Catheter Type (from [facility]): Peripheral IV Urinary Cath still in place: No Assessment/Plan Assessment/Plan 70 yo male with a past medical history of dementia, type II DM, CAD, anemia - chronic, s/p pacemaker, who presents with "Blue Toe Syndrome". 1. Blue toe syndrome - hold heparin drip, appreciate vascular surgery recs, monitor acute changes, angiogram needed 2. Type II DM - hgba1c 5.5, ISS 3. S/P pacemaker/CAD - aspirin 4. Anemia - chronic - monitor H/H - stable for now - transfuse as needed 5. Dementia - re-orient patient as needed 6. GI ppx - protonix 7. DVT ppx - heparin - on hold as per clinical course. f/u recs - fall risks precautions, check left hip x- ray. Daughter is DPOA - will f/u for code status this progress note took greater than 40 minutes to complete Subjective 24 Hr Interval Summary Free Text/Dictation Patient was admitted yesterday for "Blue toe syndrome". He was placed on heparin , but because of bleeding, and elevated PTT, heparin was stopped. He had a fall as well. Spoke to the nurse about the care plan. 40 minutes spent. Exam/Review of Systems Vital Signs Vitals Vital Signs Date Time Temp Pulse Resp B/P Pulse Ox O2 Delivery O2 Flow Rate FiO2 03/25/16 08:20 87 03/25/16 07:31 98.7 19 129/64 96 03/24/16 21:33 Room Air Exam Gen Thania: NAD, Alert to self HEENT: NC/AT, PERRLA, EOMI, no pharyngeal erythema, no tonsillar exudates, no lymphadenopathy, no JVD, no carotid bruits NECK: supple, no thyromegaly THORAX: symmetrical, no obvious deformities CV: S1S2, RRR, II/ systolic murmur best heard over tricuspid area Lungs: CTAB no W/C/R/R Abd: soft, NT/ND, +BS, no rebound, no guarding, neg HSM EXT: 1/2+ pitting edema bilateral lower extremities with diminished pulses, bluish hue to the all toes noted Neuro: non-verbal no focal deficits Psych: fair mood and affect Skin: decreased skin turgor Results Result Diagram: 03/25/16 0558 03/25/16 0558 Results 24 hrs Laboratory Tests Test 03/24/16 17:00 03/24/16 19:10 03/24/16 22:32 03/25/16 05:58 Alanine Aminotransferase (ALT/SGPT) 48 Albumin 3.1 L Albumin/Globulin Ratio 0.86 Alkaline Phosphatase 151 H Anion Gap 13 13 Aspartate Amino Transf (AST/SGOT) 61 H Basophils # 0.0 0.1 0.1 Basophils % 0.4 0.6 0.6 Blood Urea Nitrogen 18 15 Calcium Level 8.7 7.9 L Carbon Dioxide Level 28 25 Chloride Level 102 106 Creatinine 0.94 0.56 L Direct Bilirubin 0.00 Eosinophils # 0.2 0.3 0.2 Eosinophils % 2.5 3.1 2.1 Globulin 3.60 H Glucose Level 119 91 Hematocrit 40.3 L 37.5 L 34.8 L Hemoglobin 13.4 L 12.3 L 11.3 L INR International Normalized Ratio 1.01 0.99 Indirect Bilirubin 0.8 Lipase 83 Lymphocytes # 1.3 1.6 1.4 Lymphocytes % 13.4 L 18.3 14.8 L Mean Corpuscular Hemoglobin 30.6 30.4 30.1 Mean Corpuscular Hemoglobin Concent 33.3 32.8 32.5 Mean Corpuscular Volume 92.0 92.6 92.8 Mean Platelet Volume 9.0 8.9 9.0 Monocytes # 0.9 0.9 0.9 Monocytes % 8.9 10.6 9.9 Neutrophils # 7.1 5.8 6.8 Neutrophils % 74.1 66.6 71.9 Nucleated Red Blood Cells # 0.0 0.0 0.0 Nucleated Red Blood Cells % 0.0 0.0 0.0 Platelet Count 463 H 429 H 430 H Potassium Level 4.1 3.5 Prothrombin Time 13.3 13.1 Prothrombin Time Ratio 1.0 1.0 Red Blood Count 4.38 L 4.05 L 3.75 L Red Cell Distribution Width 14.8 H 14.8 H 14.6 H Sodium Level 139 140 Total Bilirubin 0.8 Total Protein 6.7 Troponin I < 0.012 White Blood Count 9.6 8.7 9.4 Activated Partial Thromboplast Time 33.7 > 180.0 *H Cholesterol Level 110 Cholesterol/HDL Ratio 3.9 HDL Cholesterol 28 L Hemoglobin A1c 5.5 LDL Cholesterol, Calculated 68 Magnesium Level 2.0 Thyroid Stimulating Hormone (TSH) 4.510 Triglycerides Level 72 Bedside Glucose 89 Test 03/25/16 07:17 Bedside Glucose 85 Medications Medications Current Medications Sodium Chloride (NS) 1,000 ml @ 50 mls/hr Q20H IV Last administered on 18:04; Admin Dose 50 MLS/HR; Start 03/24/16 at 18:04 Lorazepam (Ativan) 0.5 mg Q6H PRN IV ANXIETY Last administered on 03/25/16 05: 55; Admin Dose 0.5 MG; Start 03/24/16 at 18:30 Ondansetron HCl (Zofran Inj) 4 mg Q6H PRN IV NAUSEA AND/OR VOMITING; Start 03/24 at 18:30 Nitroglycerin (Nitroglycerin (Sl Tab) 0.4 Mg) 1 tab Q5M PRN SL CHEST PAIN; Start 03/24/16 at 18:30 Acetaminophen (Tylenol Tab) 650 mg Q6H PRN PO PAIN LEVEL 1-3 OR FEVER; Start at 18:30 Morphine Sulfate (morphine) 2 mg Q4H PRN IV PAIN LEVEL 7-10; Start 03/24/16 at 18:30 Pantoprazole (Protonix Iv) 40 mg DAILY@06 IV Last administered on 03/25/16 05: 02; Admin Dose 40 MG; Start 03/25/16 at 06:00 Atorvastatin Calcium (Lipitor) 40 mg QHS PO Last administered on 03/24/16 23:00 ; Admin Dose 40 MG; Start 03/24/16 at 21:00 Donepezil HCl (Aricept) 5 mg QHS PO ; Start 03/24/16 at 21:00 Ferrous Sulfate (Ferrous Sulfate (Ec)) 325 mg BID PO Last administered on 09:22; Admin Dose 325 MG; Start 03/24/16 at 21:00 Memantine (Namenda) 5 mg BID PO Last administered on 03/25/16 09:21; Admin Dose 5 MG; Start 03/24/16 at 21:00 Miscellaneous Information 1 ea NOTE XX ; Start 03/24/16 at 18:30 Glucose (Glutose) 15 gm Q15M PRN PO DECREASED GLUCOSE; Start 03/24/16 at 18:30 Glucose (Glutose) 22.5 gm Q15M PRN PO DECREASED GLUCOSE; Start 03/24/16 at 18:30 Dextrose (D50w Syringe) 25 ml Q15M PRN IV DECREASED GLUCOSE; Start 03/24/16 at 18:30 Dextrose (D50w Syringe) 50 ml Q15M PRN IV DECREASED GLUCOSE; Start 03/24/16 at 18:30 Glucagon (Glucagen) 1 mg Q15M PRN IM DECREASED GLUCOSE; Start 03/24/16 at 18:30 Glucose (Glutose) 15 gm Q15M PRN BUCCAL DECREASED GLUCOSE; Start 03/24/16 at 18: 30 Influenza Virus Vaccine (Fluzone) 0.5 ml ONCE ONCE IM* ; Start 03/27/16 at 09:00 ; Stop 03/27/16 at 09:01 Hydromorphone HCl (Dilaudid) 1 mg Q4H PRN IV PAIN; Start 03/25/16 at 06:30 MARYAM VALENCIA MD Mar 25, 2016 10:23
--- NOTE | 2016-03-25 11:47 | RADRPT ---
PROCEDURE: XR left hip. CLINICAL INDICATION: Hip pain /fall TECHNIQUE: Two views available for review. COMPARISON: None available FINDINGS: There is superior lateral dislocation of a noncemented left total hip replacement. The osseous structures are otherwise normal in mineralization, architecture and alignment. No fract ures are identified. No osseous lesions are identified. The soft tissues are unremarkable. IMPRESSION: Superior lateral dislocation of a noncemented left total hip replacement No fracture identified RPTAT: DB .Clyde Jin MD, Date Time Electronically viewed and signed by .Clyde Jin MD, on 03/25/2016 11:47 .B/
[2016-03-25 12:26] LABS: CREATINE KINASE 167 IU/L (23-200)
[2016-03-25 12:39] LABS: CK-MB 4.46 ng/ml (0.0-2.4); TROPONIN-I < 0.012 ng/ml (0.00-0.12)
[2016-03-25] MEDS: SOD CHLORIDE 0.9% 1,000 ML IV SCH (13:44)
[2016-03-25 13:54] LABS: ADD UMIC YES; URINE BILIRUBIN (Dip) NEGATIVE (NEGATIVE); URINE BLOOD (Dip) 3+ (NEGATIVE); URINE COLOR LT. YELLOW (YELLOW); URINE GLUCOSE (Dip) NEGATIVE (NEGATIVE); URINE KETONES (Dip) TRACE (NEGATIVE); URINE LEUKOCYTE ESTERASE (Dip) 1+ (NEGATIVE); URINE NITRITE (Dip) NEGATIVE (NEGATIVE); URINE TOTAL PROTEIN (Dip) NEGATIVE (NEGATIVE); URINE UROBILINOGEN (Dip) 1.0 E.U./dL (0.1-1.0)
[2016-03-25 13:58] LABS: CHOLESTEROL 108 mg/dl (100-200); CREATINE KINASE 222 IU/L (23-200); TRIGLYCERIDES 72 mg/dl (0-149)
[2016-03-25 13:59] LABS: CHOL/HDL RATIO 3.4 RATIO; HDL CHOLESTEROL 31 mg/dl (31-75)
[2016-03-25 14:17] LABS: BACTERIA,URINE FEW
[2016-03-25 14:25] LABS: CK-MB 4.83 ng/ml (0.0-2.4); TROPONIN-I < 0.012 ng/ml (0.00-0.12)
--- NOTE | 2016-03-25 14:50 | CONS ---
Date/Time of Note Date/Time of Note DATE: 03/25/16 TIME: 14:47 Assessment/Plan Assessment/Plan Chief Complaint/Hosp Course IMPRESSION: 1. Abnormal electrocardiogram, assess for acute coronary syndrome.-negative troponin x 3 2. Hypertension. 3. Peripheral arterial disease at aortoiliac bifurcation with likely embolic phenomenon/"Blue toes" 4. Dyslipidemia. 5. Hypertension. 6. Diabetes mellitus. 7. Iliac artery aneurysm. 8. Coronary artery disease. 9. Dementia. 10. Permanent pacemaker. Recc: -Tele monitoring -Continue statin -Heparin/asa as possible -Will f/u echo -start low dose BB -Lexciscan stress test in am Problems: Consultation Date/Type/Reason Admit Date/Time Mar 24, 2016 at 17:40 Initial Consult Date 03/24/16 Type of Consultation: Cardiology Reason for Consultation CHF Referring Provider: MARYAM VALENCIA MD Exam/Review of Systems Vital Signs Vitals Vital Signs Date Time Temp Pulse Resp B/P Pulse Ox O2 Delivery O2 Flow Rate FiO2 03/25/16 12:37 82 03/25/16 11:13 98.9 18 136/70 99 03/24/16 21:33 Room Air Exam Review of Systems: CONSTITUTIONAL: No fevers, chills. PULMONARY: No sob CARDIOVASCULAR: No chest pain/palpitations GASTROINTESTINAL: No nausea/vomiting. GENITOURINARY: No hematuria/dysuria. MUSCULOSKELETAL: DJD/Blue toes PSYCHIATRIC: The patient denies depression. NEUROLOGIC: confused/lethargic Constitutional: alert Psych: confusion Head: normocephalic ENMT: mucosa pink and moist Neck: supple Respiratory: diminished breath sounds (at bases/B) Cardiovascular: regular rate and rhythm Gastrointestinal: soft, tender (miildly) Musculoskeletal: muscle weakness (generalized) Extremities: edema (none) Neurological: other (No focal deficits) Results Result Diagram: 03/25/16 0558 03/25/16 0558 Results 24 hrs Laboratory Tests Test 03/24/16 17:00 03/24/16 19:10 03/24/16 22:32 03/25/16 05:58 Alanine Aminotransferase (ALT/SGPT) 48 Albumin 3.1 L Albumin/Globulin Ratio 0.86 Alkaline Phosphatase 151 H Anion Gap 13 13 Aspartate Amino Transf (AST/SGOT) 61 H Basophils # 0.0 0.1 0.1 Basophils % 0.4 0.6 0.6 Blood Urea Nitrogen 18 15 Calcium Level 8.7 7.9 L Carbon Dioxide Level 28 25 Chloride Level 102 106 Creatinine 0.94 0.56 L Direct Bilirubin 0.00 Eosinophils # 0.2 0.3 0.2 Eosinophils % 2.5 3.1 2.1 Globulin 3.60 H Glucose Level 119 91 Hematocrit 40.3 L 37.5 L 34.8 L Hemoglobin 13.4 L 12.3 L 11.3 L INR International Normalized Ratio 1.01 0.99 Indirect Bilirubin 0.8 Lipase 83 Lymphocytes # 1.3 1.6 1.4 Lymphocytes % 13.4 L 18.3 14.8 L Mean Corpuscular Hemoglobin 30.6 30.4 30.1 Mean Corpuscular Hemoglobin Concent 33.3 32.8 32.5 Mean Corpuscular Volume 92.0 92.6 92.8 Mean Platelet Volume 9.0 8.9 9.0 Monocytes # 0.9 0.9 0.9 Monocytes % 8.9 10.6 9.9 Neutrophils # 7.1 5.8 6.8 Neutrophils % 74.1 66.6 71.9 Nucleated Red Blood Cells # 0.0 0.0 0.0 Nucleated Red Blood Cells % 0.0 0.0 0.0 Platelet Count 463 H 429 H 430 H Potassium Level 4.1 3.5 Prothrombin Time 13.3 13.1 Prothrombin Time Ratio 1.0 1.0 Red Blood Count 4.38 L 4.05 L 3.75 L Red Cell Distribution Width 14.8 H 14.8 H 14.6 H Sodium Level 139 140 Total Bilirubin 0.8 Total Protein 6.7 Troponin I < 0.012 < 0.012 White Blood Count 9.6 8.7 9.4 Activated Partial Thromboplast Time 33.7 > 180.0 *H Cholesterol Level 110 108 Cholesterol/HDL Ratio 3.9 3.4 HDL Cholesterol 28 L 31 Hemoglobin A1c 5.5 LDL Cholesterol, Calculated 68 63 Magnesium Level 2.0 Thyroid Stimulating Hormone (TSH) 4.510 Triglycerides Level 72 72 Bedside Glucose 89 Creatine Kinase 222 H Creatine Kinase Index 2.2 Creatinine Kinase MB (Mass) 4.83 H Test 03/25/16 07:17 03/25/16 11:55 03/25/16 12:05 03/25/16 12:30 Bedside Glucose 85 93 Creatine Kinase 167 Creatine Kinase Index 2.7 Creatinine Kinase MB (Mass) 4.46 H Troponin I < 0.012 Urine Bacteria FEW Urine Bilirubin NEGATIVE Urine Clarity SLIGHTLY CLOUDY Urine Color LT. YELLOW Urine Epithelial Cells RARE Urine Glucose NEGATIVE Urine Hemoglobin 3+ H Urine Ketones TRACE Urine Leukocyte Esterase 1+ H Urine Microscopic RBC 5-10 Urine Microscopic WBC 5-10 Urine Nitrite NEGATIVE Urine Specific [place] 1.025 Urine Total Protein NEGATIVE Urine Urobilinogen 1.0 E.U./dL Urine Yeast MANY Urine pH 6.0 Medications Medications Current Medications Sodium Chloride (NS) 1,000 ml @ 50 mls/hr Q20H IV Last administered on 13:44; Admin Dose 50 MLS/HR; Start 03/24/16 at 18:04 Lorazepam (Ativan) 0.5 mg Q6H PRN IV ANXIETY Last administered on 03/25/16 05: 55; Admin Dose 0.5 MG; Start 03/24/16 at 18:30 Ondansetron HCl (Zofran Inj) 4 mg Q6H PRN IV NAUSEA AND/OR VOMITING; Start 03/24 at 18:30 Nitroglycerin (Nitroglycerin (Sl Tab) 0.4 Mg) 1 tab Q5M PRN SL CHEST PAIN; Start 03/24/16 at 18:30 Acetaminophen (Tylenol Tab) 650 mg Q6H PRN PO PAIN LEVEL 1-3 OR FEVER; Start at 18:30 Morphine Sulfate (morphine) 2 mg Q4H PRN IV PAIN LEVEL 7-10; Start 03/24/16 at 18:30 Pantoprazole (Protonix Iv) 40 mg DAILY@06 IV Last administered on 03/25/16 05: 02; Admin Dose 40 MG; Start 03/25/16 at 06:00 Atorvastatin Calcium (Lipitor) 40 mg QHS PO Last administered on 03/24/16 23:00 ; Admin Dose 40 MG; Start 03/24/16 at 21:00 Donepezil HCl (Aricept) 5 mg QHS PO ; Start 03/24/16 at 21:00 Ferrous Sulfate (Ferrous Sulfate (Ec)) 325 mg BID PO Last administered on 09:22; Admin Dose 325 MG; Start 03/24/16 at 21:00 Memantine (Namenda) 5 mg BID PO Last administered on 03/25/16t 09:21; Admin Dose 5 MG; Start 03/24/16 at 21:00 Miscellaneous Information 1 ea NOTE XX ; Start 03/24/16 at 18:30 Glucose (Glutose) 15 gm Q15M PRN PO DECREASED GLUCOSE; Start 03/24/16 at 18:30 Glucose (Glutose) 22.5 gm Q15M PRN PO DECREASED GLUCOSE; Start 03/24/16 at 18:30 Dextrose (D50w Syringe) 25 ml Q15M PRN IV DECREASED GLUCOSE; Start 03/24/16 at 18:30 Dextrose (D50w Syringe) 50 ml Q15M PRN IV DECREASED GLUCOSE; Start 03/24/16 at 18:30 Glucagon (Glucagen) 1 mg Q15M PRN IM DECREASED GLUCOSE; Start 03/24/16 at 18:30 Glucose (Glutose) 15 gm Q15M PRN BUCCAL DECREASED GLUCOSE; Start 03/24/16 at 18: 30 Influenza Virus Vaccine (Fluzone) 0.5 ml ONCE ONCE IM* ; Start 03/27/16 at 09:00 ; Stop 03/27/16 at 09:01 Hydromorphone HCl (Dilaudid) 1 mg Q4H PRN IV PAIN; Start 03/25/16 at 06:30 NICANOR VARGAS Mar 25, 2016 14:50
--- NOTE | 2016-03-25 15:27 | RADRPT ---
Echocardiogram Report Patient Name: ALBA DUARTE Gender: Male Date: 1945 Study Date: 25-Mar-2016 Personal Fitness Trainer: Mary Resendez RDCS Location: [facility] Ref. Physician: MARYAM VALENCIA Quality: Technically Difficult Study Procedures: Transthoracic echocardiogram with complete 2D, M-Mode, and doppler examination. Indications: Cardiac Clearance. 2D/M Mode Doppler Measurement Value Normal Ranges Measurement Value Normal Ranges LVIDd 2D 4.5 3.5 - 5.6 cm AV Peak Padilla 1.2 m/sec LVIDs 2D 2.6 2.1 - 4.1 cm AV Peak PG 6.0 mmHg FS 2D 40.8 % LVOT Peak Padilla 0.8 m/sec LVPWd 2D 0.9 0.6 - 1.1 cm LVOT Peak PG 3.0 mmHg IVSd 2D 0.9 0.6 - 1.1 cm MV E Peak Padilla 0.5 m/sec IVS/LVPW 2D 1.0 MV A Peak Padilla 1.0 m/sec AoR Diam 2D 3.1 2.0 - 3.7 cm MV E/A 0.5 LA/Ao 2D 1 0 - 1 MV Decel Time 201 msec EDV 2D 88.7 cm3 MV E/A 0.5 ESV 2D 18.4 cm3 TR Peak Padilla 2.1 m/sec LA Dimen 2D 3.1 2.3 - 4.0 cm TR Peak PG 18.0 mmHg RVSP 21.0 mmHg Findings Left Ventricle: Normal left ventricular systolic function. Normal left ventricular cavity size. Normal left ventricular wall thickness. Ejection fraction is visually estimated at 55 %. Tissue Doppler/Mitral Doppler indices are consistent with impaired relaxation (Stage I diastolic dysfunction). Right Ventricle: Normal right ventricular size. Normal right ventricular systolic function. Pacemaker right heart. Left Atrium: The left atrium is normal in size. Right Atrium: The right atrium is normal in size. Mitral Valve: Mitral valve leaflets appear mildly thickened. Mild mitral annular calcification. Trace mitral regurgitation. Aortic Valve: No significant aortic stenosis or insufficiency. Aortic cusps appear mildly calcified. Tricuspid Valve: Normal appearance of the tricuspid valve. Estimated peak PA systolic pressure 21 mmHg. There is trace tricuspid regurgitation. Pericardium: Left pleural effusion seen. Aorta: Normal aortic root. IVC: Normal size and normal respiratory collapse consistent with normal right atrial pressure. Conclusions 1.Normal left ventricular systolic function. Normal left ventricular cavity size. Normal left ventricular wall thickness. Ejection fraction is visually estimated at 55 %. Tissue Doppler/Mitral Doppler indices are consistent with impaired relaxation (Stage I diastolic dysfunction). 2.Normal right ventricular size. Normal right ventricular systolic function. Pacemaker right heart. 3.Mitral valve leaflets appear mildly thickened. Mild mitral annular calcification. Trace mitral regurgitation. 4.Normal appearance of the tricuspid valve. Estimated peak PA systolic pressure 21 mmHg. There is trace tricuspid regurgitation. Electronically Signed By: Leandro Peters 25-Mar-2016 15:26:43 -0800 Patient Name: ALBA DUARTE Study Date: [id number]-[id number]
[2016-03-25] MEDS: METOPROLOL 25 MG TAB PO SCH (22:09)
[2016-03-25] MEDS: ATORVASTATIN 40 MG TAB PO SCH (22:09)
[2016-03-25] MEDS: DONEPEZIL 5 MG TAB PO SCH (22:09)
[2016-03-26] VITALS (11 sets, daily range): BP systolic 117–138; BP diastolic 56–75; PULSE 69–90; RESP 16–20
[2016-03-26] MEDS: PANTOPRAZOLE 40 MG INJ IV SCH (05:30)
[2016-03-26 07:20] LABS: ADD SCAN DIFF NO
[2016-03-26 07:27] LABS: BASOPHILS % 0.3 % (0.0-2.0); EOSINOPHILS # 0.1 10^3/ul (0.0-0.5); EOSINOPHILS % 1.4 % (0.0-7.0); HEMOGLOBIN 11.1 g/dl (14.0-18.0); LYMPHOCYTES # 1.2 10^3/ul (0.8-2.9); LYMPHOCYTES % 12.7 % (15.0-51.0); MEAN CORPUSCULAR HGB CONC 33.7 g/dl (32.0-37.0); MEAN CORPUSCULAR VOLUME 92.2 fl (82.0-101.0); MEAN PLATELET VOLUME 7.2 fl (7.4-10.4); MONOCYTE # 0.9 10^3/ul (0.3-0.9); MONOCYTES % 9.9 % (0.0-11.0); NEUTROPHIL # 6.9 10^3/ul (1.6-7.5); NEUTROPHILS % 75.7 % (39.0-77.0); PLATELET COUNT 446 10^3/UL (140-440); RED BLOOD COUNT 3.58 10^6/ul (4.70-6.10); RED CELL DISTRIBUTION WIDTH 15.4 % (11.5-14.5); WHITE BLOOD COUNT 9.1 10^3/ul (4.8-10.8)
[2016-03-26 07:29] LABS: POTASSIUM 3.7 mmol/L (3.5-5.1)
[2016-03-26 07:31] LABS: CREATININE 0.58 mg/dl (0.61-1.24)
[2016-03-26 07:32] LABS: CALCIUM 8.1 mg/dl (8.4-10.2)
--- NOTE | 2016-03-26 07:40 | CONS ---
DATE OF ADMISSION: 03/24/2016 DATE OF CONSULTATION: 03/25/2016 REQUESTING PHYSICIAN: Dr. Lopez Dear Gonzales, thank you for asking me to help in the care of Mr. Smith. As you know, he is a 70-year-old male who was brought to [facility] because the ut scular surgeon, Dr. Mondragon noticed that he has bilateral lower extremity decreased pulses and dis coloration. The patient does have multiple medical problems and the information was obtained from h is medical record as the patient himself is not verbal and is not communicative. On reviewing his medical record showed that he does have a history of dementia, type 2 diabetes ramirez itus, coronary artery disease, anemia, chronic, and he is status post pacemaker placement and attemp ts by the nursing staff yesterday and last night to insert a Torrez catheter were not successful. Th erefore, a urological consultation was requested, especially also that the patient was bleeding from his urethra after multiple attempts to catheterize. MEDICATIONS: The medications he has been on include: 1. Metoprolol. 2. Protonix. 3. Insulin. 4. Lipitor. 5. Aricept. 6. Ferrous sulfate. 7. Namenda. 8. Ativan. 9. Zofran. ALLERGIES: THE PATIENT HAS NO KNOWN DRUG ALLERGIES. SOCIAL HISTORY: At the present, he is not a smoker or drinker. PHYSICAL EXAMINATION: GENERAL: Reveals a 70-year-old male. He weighs 52.8 kilograms. He is 66 inches tall, and he does have contracture of the right lower extremity and the abdomen is soft. HEAD AND NECK: Unremarkable. There is no adenopathy and no jugular vein distention. The neck is tejeda pple otherwise. CHEST: The chest has no obvious deformities. LUNGS: Clear to auscultation. ABDOMEN: Soft. There is no rebound, has positive bowel sounds. EXTERNAL GENITALIA: He does have some bleeding at the tip of the penis and otherwise the genitalia are normal. EXTREMITIES: He does have some contracture of the right lower extremity. LABORATORY DATA: CBC shows a white count of 9.4, hemoglobin 11.3, hematocrit 34.8. The BUN is 15, creatinine 0.56. Electrolytes are normal. IMPRESSION: Traumatic hematuria from attempts at prior catheterization. PLAN: I went ahead and prepped the genital area and then gave him 2% lidocaine jelly for analgesia. Then I inserted a 14-Mohawk coude catheter and in fact it did have some resistance from proximally , but I was able to direct it into the bladder. The patient prior to the insertion of the catheter also was voiding and the urine coming out was clear. The Torrez catheter was inserted into the bladde r and I used a syringe with 60 mL catheter tip syringe and aspirated about 80 mL out of his bladder and was clear and was sent for culture and sensitivity. I double checked once the balloon was infla giselle. I pushed the catheter into the bladder with the balloon inflated and that goes in easy, and the n pulled back and it get hooked at the bladder neck. Therefore, the Torrez catheter was left in plac e and this could be removed any time if there is no need for monitoring his urine output. Dictated By: ABDI SEGOVIA/IMELDA Conf#: [id number] DID#: [id number]
[2016-03-26] MEDS: INSULIN ASPART [NOVOLOG] 3 ML PEN SC SCH ×4 (07:55→21:00)
--- NOTE | 2016-03-26 08:17 | PN ---
Date/Time of Note Date/Time of Note DATE: 03/26/16 TIME: 08:03 Assessment/Plan Lines/Catheters IV Catheter Type (from [facility]): Peripheral IV Torrez in Place (from [facility]): Yes Assessment/Plan Chief Complaint/Hosp Course -Aortoiliac atherosclerotic disease, ectatic right common iliac artery with thrombus: It seems seems that the patient has developed blue toe syndrome, bilateral lower extremities. will need to have the patient workup as to why he developed these new findings. There is concern this may be a from the infrarenal aortic disease with area of ulcer/dissection or possible cardiac source; Patient being evaluate by cardiology and appreciate feedback -Bilateral lower extremity atherosclerosis: at the moment the LE's are viable and would recommend to continue with the Heparin gtt. some of the discoloration has improved -Will schedule the pt for OR this upcoming Monday to cover and exclude the areas of disease and thrombus. Will plan to expose the right LOCATION ANALYST while we deploy the devices from the L LOCATION ANALYST percutaneously -Discussed findings, plan and management with the patient's care provider. We will plan to obtain the CT. -Optimize vascular status (BP meds, diet, nutrition, exercise, sugar control, antiplatelets). -Thank you for allowing us to partake in the care of your patient. Please call with any questions. Problems: Subjective 24 Hr Interval Summary No new vascular events overnight, some discomfort of the bilateral toes, Exam/Review of Systems Vital Signs Vitals Vital Signs Date Time Temp Pulse Resp B/P Pulse Ox O2 Delivery O2 Flow Rate FiO2 03/26/16 07:07 98.2 79 19 117/56 03/26/16 04:00 98 03/26/16 00:00 Room Air Intake and Output 03/25/16 03/25/16 03/26/16 15:00 23:00 07:00 Intake Total 240 ml 120 ml Output Total 1300 ml 650 ml Balance -1060 ml -530 ml Exam Free Text/Dictation GENERAL: He is awake and alert and able to answer questions. PULMONARY: Clear to auscultation bilaterally. CARDIOVASCULAR: S1, S2 present. ABDOMEN: Soft. Left lower quadrant tenderness mild and has a pulsatile mass and it is palpated near the umbilicus. Bowel sounds positive. EXTREMITIES: Palpable femoral pulses, nonpalpable pedal pulses. Motor, sensory intact. Capillary refill 2 seconds. On the right, the first 3 toes have bluish discoloration. On the left, all 5 toes have bluish discoloration. Edema 1+, specifically in the forefoot area. Results Result Diagram: 03/26/1615 03/26/1615 ANN GROSS MD Mar 26, 2016 08:17
[2016-03-26] MEDS: METOPROLOL 25 MG TAB PO SCH ×2 (08:23→22:03)
[2016-03-26] MEDS: FERROUS SULFATE (EC) 325 MG TAB PO SCH ×2 (08:23→22:01)
[2016-03-26] MEDS: MEMANTINE 5 MG TAB PO SCH ×2 (08:23→22:01)
[2016-03-26] MEDS: morphine 2 MG INJ IV PRN ×2 (08:32→14:59)
[2016-03-26] MEDS: SOD CHLORIDE 0.9% 1,000 ML IV SCH (10:04)
[2016-03-26] MEDS ORDERED: REGADENOSON 0.4 MG/5 ML SYG ONE (10:34)
--- NOTE | 2016-03-26 11:41 | PN ---
Date/Time of Note Date/Time of Note DATE: 03/26/16 TIME: 11:37 Assessment/Plan Lines/Catheters IV Catheter Type (from [facility]): Peripheral IV Urinary Cath still in place: Yes Assessment/Plan Assessment/Plan 70 yo male with a past medical history of dementia, type II DM, CAD, anemia - chronic, s/p pacemaker, who presents with "Blue Toe Syndrome". 1. Blue toe syndrome - hold heparin drip, appreciate vascular surgery recs, monitor acute changes, angiogram needed 2. Type II DM - hgba1c 5.5 - glycemic control 3. S/P pacemaker/CAD - aspirin 4. Anemia - chronic - monitor H/H - stable for now - transfuse as needed 5. Dementia - re-orient patient as needed 6. GI ppx - protonix 7. DVT ppx - heparin - on hold 8. Hx of hip surgery per daughter per patient. Staff to request other the hospital for medical records as per clinical course. f/u recs - fall risks precautions, check left hip x- ray. Daughter is DPOA - will f/u for code status this progress note took greater than 40 minutes to complete DW Dr Poole Subjective 24 Hr Interval Summary Free Text/Dictation off floor for Alda now. A venous scan done today per staff. dw staff. Exam/Review of Systems Vital Signs Vitals Vital Signs Date Time Temp Pulse Resp B/P Pulse Ox O2 Delivery O2 Flow Rate FiO2 03/26/16 08:15 77 03/26/16 07:07 98.2 19 117/56 03/26/16 04:00 98 03/26/16 00:00 Room Air Intake and Output 03/25/16 03/25/16 03/26/16 15:00 23:00 07:00 Intake Total 240 ml 120 ml Output Total 1300 ml 650 ml Balance -1060 ml -530 ml Results Result Diagram: 03/26/16 0615 03/26/16 0615 Results 24 hrs Laboratory Tests Test 03/25/16 11:55 03/25/16 12:05 03/25/16 12:30 03/25/16 17:16 Creatine Kinase 167 Creatine Kinase Index 2.7 Creatinine Kinase MB (Mass) 4.46 H Troponin I < 0.012 Bedside Glucose 93 94 Urine Bacteria FEW Urine Bilirubin NEGATIVE Urine Clarity SLIGHTLY CLOUDY Urine Color LT. YELLOW Urine Epithelial Cells RARE Urine Glucose NEGATIVE Urine Hemoglobin 3+ H Urine Ketones TRACE Urine Leukocyte Esterase 1+ H Urine Microscopic RBC 5-10 Urine Microscopic WBC 5-10 Urine Nitrite NEGATIVE Urine Specific [place] 1.025 Urine Total Protein NEGATIVE Urine Urobilinogen 1.0 E.U./dL Urine Yeast MANY Urine pH 6.0 Test 03/25/16 20:32 03/26/16 06:15 Bedside Glucose 136 Anion Gap 12 Basophils # 0.0 Basophils % 0.3 Blood Morphology Comment Blood Urea Nitrogen 13 Calcium Level 8.1 L Carbon Dioxide Level 25 Chloride Level 104 Creatinine 0.58 L Eosinophils # 0.1 Eosinophils % 1.4 Glucose Level 91 Hematocrit 33.0 L Hemoglobin 11.1 L Lymphocytes # 1.2 Lymphocytes % 12.7 L Mean Corpuscular Hemoglobin 31.0 Mean Corpuscular Hemoglobin Concent 33.7 Mean Corpuscular Volume 92.2 Mean Platelet Volume 7.2 L Monocytes # 0.9 Monocytes % 9.9 Neutrophils # 6.9 Neutrophils % 75.7 Nucleated Red Blood Cells # 0.0 Nucleated Red Blood Cells % 0.0 Platelet Count 446 H Potassium Level 3.7 Red Blood Count 3.58 L Red Cell Distribution Width 15.4 H Sodium Level 137 White Blood Count 9.1 Medications Medications Current Medications Sodium Chloride (NS) 1,000 ml @ 50 mls/hr Q20H IV Last administered on 13:44; Admin Dose 50 MLS/HR; Start 03/24/16 at 18:04 Lorazepam (Ativan) 0.5 mg Q6H PRN IV ANXIETY Last administered on 03/25/16 05: 55; Admin Dose 0.5 MG; Start 03/24/16 at 18:30 Ondansetron HCl (Zofran Inj) 4 mg Q6H PRN IV NAUSEA AND/OR VOMITING; Start 03/24 at 18:30 Nitroglycerin (Nitroglycerin (Sl Tab) 0.4 Mg) 1 tab Q5M PRN SL CHEST PAIN; Start 03/24/16 at 18:30 Acetaminophen (Tylenol Tab) 650 mg Q6H PRN PO PAIN LEVEL 1-3 OR FEVER; Start at 18:30 Morphine Sulfate (morphine) 2 mg Q4H PRN IV PAIN LEVEL 7-10 Last administered on 03/26/16 08:32; Admin Dose 2 MG; Start 03/24/16 at 18:30 Pantoprazole (Protonix Iv) 40 mg DAILY@06 IV Last administered on 03/26/16 05: 30; Admin Dose 40 MG; Start 03/25/16 at 06:00 Atorvastatin Calcium (Lipitor) 40 mg QHS PO Last administered on 03/25/16 22: 09; Admin Dose 40 MG; Start 03/24/16 at 21:00 Donepezil HCl (Aricept) 5 mg QHS PO Last administered on 03/25/16 22:09; Admin Dose 5 MG; Start 03/24/16 at 21:00 Ferrous Sulfate (Ferrous Sulfate (Ec)) 325 mg BID PO Last administered on 08:23; Admin Dose 325 MG; Start 03/24/16 at 21:00 Memantine (Namenda) 5 mg BID PO Last administered on 03/26/16 08:23; Admin Dose 5 MG; Start 03/24/16 at 21:00 Miscellaneous Information 1 ea NOTE XX ; Start 03/24/16 at 18:30 Glucose (Glutose) 15 gm Q15M PRN PO DECREASED GLUCOSE; Start 03/24/16 at 18:30 Glucose (Glutose) 22.5 gm Q15M PRN PO DECREASED GLUCOSE; Start 03/24/16 at 18:30 Dextrose (D50w Syringe) 25 ml Q15M PRN IV DECREASED GLUCOSE; Start 03/24/16 at 18:30 Dextrose (D50w Syringe) 50 ml Q15M PRN IV DECREASED GLUCOSE; Start 03/24/16 at 18:30 Glucagon (Glucagen) 1 mg Q15M PRN IM DECREASED GLUCOSE; Start 03/24/16 at 18:30 Glucose (Glutose) 15 gm Q15M PRN BUCCAL DECREASED GLUCOSE; Start 03/24/16 at 18: 30 Influenza Virus Vaccine (Fluzone) 0.5 ml ONCE ONCE IM* ; Start 03/27/16 at 09:00 ; Stop 03/27/16 at 09:01 Hydromorphone HCl (Dilaudid) 1 mg Q4H PRN IV PAIN; Start 03/25/16 at 06:30 Metoprolol Tartrate (Lopressor) 25 mg BID PO Last administered on 03/26/16 08: 23; Admin Dose 25 MG; Start 03/25/16 at 21:00 FLOR ALDANA Mar 26, 2016 11:40
--- NOTE | 2016-03-26 12:15 | PN ---
DATE: 03/26/2016 SUBJECTIVE: The patient did have hematuria from prior attempts to catheterize him. I did insert a Torrez catheter on him. The patient is comfortable at the present, and he does not seem to be in kerry n. He has limited communication. OBJECTIVE VITAL SIGNS: His temperature is 98.2, pulse is 79, respirations 19, blood pressure 117/56. ABDOMEN: Soft. The Torrez catheter is draining clear urine. LABORATORY DATA: The CBC shows a white count of 9.1, hemoglobin 11.1, hematocrit 33.0, BUN is 13, c reatinine 0.58. Electrolytes are normal. IMPRESSION: Hematuria that has cleared and patient is comfortable at the present. PLAN: To keep the Torrez catheter in case we need an output recording; otherwise, we could take it o ut and apparently, the patient will be able to urinate as when I tried to put the catheter in for h im before he did urinate at that time and it appears that he has a reasonably good stream. Dictated By: ABDI SEGOVIA/IMELDA Conf#: [id number] DID#: [id number]
--- NOTE | 2016-03-26 12:49 | CONS ---
Date/Time of Note Date/Time of Note DATE: 03/26/16 TIME: 12:47 Assessment/Plan Assessment/Plan Chief Complaint/Hosp Course IMPRESSION: 1. Abnormal electrocardiogram, assess for acute coronary syndrome.-negative troponin x 3/NL EF by echo 2. Hypertension. 3. Peripheral arterial disease at aortoiliac bifurcation with likely embolic phenomenon/"Blue toes" 4. Dyslipidemia. 5. Hypertension. 6. Diabetes mellitus. 7. Iliac artery aneurysm. 8. Coronary artery disease. 9. Dementia. 10. Permanent pacemaker. Recc: -Tele monitoring -Continue statin -Heparin/asa as possible -Continue BB -Lexciscan stress test today Problems: Consultation Date/Type/Reason Admit Date/Time Mar 24, 2016 at 17:40 Initial Consult Date 03/24/16 Type of Consultation: Cardiology Reason for Consultation pre-op Referring Provider: MARYAM VALENCIA MD Exam/Review of Systems Vital Signs Vitals Vital Signs Date Time Temp Pulse Resp B/P Pulse Ox O2 Delivery O2 Flow Rate FiO2 03/26/16 08:15 77 03/26/16 07:07 98.2 19 117/56 03/26/16 04:00 98 03/26/16 00:00 Room Air Intake and Output 03/25/16 03/25/16 03/26/16 15:00 23:00 07:00 Intake Total 240 ml 120 ml Output Total 1300 ml 650 ml Balance -1060 ml -530 ml Exam Review of Systems: CONSTITUTIONAL: No fevers, chills. PULMONARY: No sob CARDIOVASCULAR: No chest pain/palpitations GASTROINTESTINAL: No nausea/vomiting. GENITOURINARY: No hematuria/dysuria. MUSCULOSKELETAL: No myagias/arthalgias. PSYCHIATRIC: The patient denies depression. NEUROLOGIC: lethargic Constitutional: other (sleeping) Head: atraumatic, normocephalic ENMT: mucosa pink and moist Neck: jvd (8-9 cm water), supple Respiratory: diminished breath sounds (at bases/B) Cardiovascular: regular rate and rhythm Gastrointestinal: non-tender, soft Musculoskeletal: muscle tone (normal) Extremities: edema (none) Neurological: other (No focal deficits) Results Result Diagram: 03/26/16 0615 03/26/16 0615 Results 24 hrs Laboratory Tests Test 03/25/16 17:16 03/25/16 20:32 03/26/16 06:15 Bedside Glucose 94 136 Anion Gap 12 Basophils # 0.0 Basophils % 0.3 Blood Morphology Comment Blood Urea Nitrogen 13 Calcium Level 8.1 L Carbon Dioxide Level 25 Chloride Level 104 Creatinine 0.58 L Eosinophils # 0.1 Eosinophils % 1.4 Glucose Level 91 Hematocrit 33.0 L Hemoglobin 11.1 L Lymphocytes # 1.2 Lymphocytes % 12.7 L Mean Corpuscular Hemoglobin 31.0 Mean Corpuscular Hemoglobin Concent 33.7 Mean Corpuscular Volume 92.2 Mean Platelet Volume 7.2 L Monocytes # 0.9 Monocytes % 9.9 Neutrophils # 6.9 Neutrophils % 75.7 Nucleated Red Blood Cells # 0.0 Nucleated Red Blood Cells % 0.0 Platelet Count 446 H Potassium Level 3.7 Red Blood Count 3.58 L Red Cell Distribution Width 15.4 H Sodium Level 137 White Blood Count 9.1 Medications Medications Current Medications Sodium Chloride (NS) 1,000 ml @ 50 mls/hr Q20H IV Last administered on 13:44; Admin Dose 50 MLS/HR; Start 03/24/16 at 18:04 Lorazepam (Ativan) 0.5 mg Q6H PRN IV ANXIETY Last administered on 03/25/16 05: 55; Admin Dose 0.5 MG; Start 03/24/16 at 18:30 Ondansetron HCl (Zofran Inj) 4 mg Q6H PRN IV NAUSEA AND/OR VOMITING; Start 03/24 at 18:30 Nitroglycerin (Nitroglycerin (Sl Tab) 0.4 Mg) 1 tab Q5M PRN SL CHEST PAIN; Start 03/24/16 at 18:30 Acetaminophen (Tylenol Tab) 650 mg Q6H PRN PO PAIN LEVEL 1-3 OR FEVER; Start at 18:30 Morphine Sulfate (morphine) 2 mg Q4H PRN IV PAIN LEVEL 7-10 Last administered on 03/26/16 08:32; Admin Dose 2 MG; Start 03/24/16 at 18:30 Pantoprazole (Protonix Iv) 40 mg DAILY@06 IV Last administered on 03/26/16 05: 30; Admin Dose 40 MG; Start 03/25/16 at 06:00 Atorvastatin Calcium (Lipitor) 40 mg QHS PO Last administered on 03/25/16 22: 09; Admin Dose 40 MG; Start 03/24/16 at 21:00 Donepezil HCl (Aricept) 5 mg QHS PO Last administered on 03/25/16 22:09; Admin Dose 5 MG; Start 03/24/16 at 21:00 Ferrous Sulfate (Ferrous Sulfate (Ec)) 325 mg BID PO Last administered on 08:23; Admin Dose 325 MG; Start 03/24/16 at 21:00 Memantine (Namenda) 5 mg BID PO Last administered on 03/26/16 08:23; Admin Dose 5 MG; Start 03/24/16 at 21:00 Miscellaneous Information 1 ea NOTE XX ; Start 03/24/16 at 18:30 Glucose (Glutose) 15 gm Q15M PRN PO DECREASED GLUCOSE; Start 03/24/16 at 18:30 Glucose (Glutose) 22.5 gm Q15M PRN PO DECREASED GLUCOSE; Start 03/24/16 at 18:30 Dextrose (D50w Syringe) 25 ml Q15M PRN IV DECREASED GLUCOSE; Start 03/24/16 at 18:30 Dextrose (D50w Syringe) 50 ml Q15M PRN IV DECREASED GLUCOSE; Start 03/24/16 at 18:30 Glucagon (Glucagen) 1 mg Q15M PRN IM DECREASED GLUCOSE; Start 03/24/16 at 18:30 Glucose (Glutose) 15 gm Q15M PRN BUCCAL DECREASED GLUCOSE; Start 03/24/16 at 18: 30 Influenza Virus Vaccine (Fluzone) 0.5 ml ONCE ONCE IM* ; Start 03/27/16 at 09:00 ; Stop 03/27/16 at 09:01 Hydromorphone HCl (Dilaudid) 1 mg Q4H PRN IV PAIN; Start 03/25/16 at 06:30 Metoprolol Tartrate (Lopressor) 25 mg BID PO Last administered on 03/26/16 08: 23; Admin Dose 25 MG; Start 03/25/16 at 21:00 NICANOR VARGAS Mar 26, 2016 12:49
--- NOTE | 2016-03-26 15:48 | RADRPT ---
PROCEDURE: US Lower extremity Veins. CLINICAL INDICATION: Greater saphenous vein condylar. Preoperative evaluation. TECHNIQUE: Multiple longitudinal and transverse images of the bilateral lower extremity venous diogenes e was obtained with simon scale and color Doppler imaging. COMPARISON: None available FINDINGS: Right lower extremity: Groin GSV0.26 cm Upper thigh GSV 0.31 cm Mid thigh GSV 0.22 cm Lower thigh GSV 0.25 cm Knee GSV 0.23 cm Upper calf GSV 0.23 cm Mid calf GSV 0.25 cm Ankle GSV0.18 cm Left lower extremity: Groin GSV0.41 cm Upper thigh GSV 0.36 cm Mid thigh GSV 0.32 cm Lower thigh GSV 0.39 cm Knee GSV 0.34 cm Upper calf GSV 0.31 cm Mid calf GSV 0.24 cm Ankle GSV0.30 cm The greater saphenous veins are patent bilaterally. IMPRESSION: 1. Bilateral lower extremity venous mapping as detailed above. RPTAT: EE .Joesph Dillon MD, Date Time Electronically viewed and signed by .Joesph Dillon MD, MD on 03/26/2016 15:47 .P/
--- NOTE | 2016-03-26 16:54 | RADRPT ---
PROCEDURE: Lexiscan myocardial perfusion study CLINICAL INDICATION: 70 -year-old patient complaining of chest pain. TECHNIQUE: Lexiscan 0.4 mg intravenously separate acquisition gated myocardial perfusion SPECT usi ng Tc 99m Myoview 30.0 mCi intravenously at stress and Tc-99m Myoview, 10.0 mCi intravenously at res t was performed using the rest/stress sequence. Poststress Myoview SPECT images were obtained in th e supine position. COMPARISON: No prior studies. FINDINGS: Perfusion images are significantly compromised by the patient motion during the imaging acquisition, demonstrate nonreversible perfusion abnormality in the inferior wall. Lexiscan post stress gated SPECT images demonstrate no definite wall motion abnormalities. IMPRESSION: 1. The type and distribution of the scintigraphic abnormalities are most consistent with nonreversi ble perfusion abnormality in the inferior wall. However, the quality of the study is significantly compromised by the patient motion during the imaging acquisition. 2. No definite wall motion abnormalities. 3. The left ventricle ejection fraction at stress is 40%. RPTAT: QQ .Nimco Bravo MD, MD Date Time Electronically viewed and signed by .Nimco Bravo MD, MD on 03/26/2016 16:53 .L/
[2016-03-26] MEDS: ATORVASTATIN 40 MG TAB PO SCH (22:01)
[2016-03-26] MEDS: DONEPEZIL 5 MG TAB PO SCH (22:01)
[2016-03-27] VITALS (12 sets, daily range): BP systolic 108–170; BP diastolic 66–88; PULSE 63–90; RESP 15–19
--- NOTE | 2016-03-27 03:28 | CARRPT ---
DATE OF PROCEDURE: 03/26/2016 LEXISCAN CARDIOLITE STRESS TEST, ELECTROCARDIOGRAM PORTION INDICATIO: Abnormal electrocardiogram, preoperative evaluation. REQUESTING PHYSICIAN: Dr. Mondragon for the vascular surgery service. BASELINE VITAL SIGNS AND ELECTROCARDIOGRAM: Pulse 60, blood pressure 113/76. Electrocardiogram rev eals a sinus rhythm, rate of approximately 75, normal axis, normal intervals, with nonspecific ST an d T wave abnormalities diffusely. PROCEDURE: The patient underwent standard Lexiscan infusion protocol over 10 seconds followed by ra diolabeled tracer. The patient's test was stopped due to completion of protocol. Maximal achieved blood pressure during the test 133/71. Maximal achieved heart rate during the test 102. ELECTROCARDIOGRAM FINDINGS: The patient did not develop any new Lexiscan-induced ST or T-wave erickson es from baseline abnormalities. No documented PVCs. SYMPTOMS: The patient had no complaints of chest pain or shortness of breath during stress testing. IMPRESSION: 1. No Lexiscan-induced ST or T wave changes from baseline abnormalities diagnostic of cardiac ische rere. 2. No complaints of chest pain or shortness of breath during stress test. 3. No documented premature ventricular contractions during stress testing. 4. Report of nuclear images to follow in separate dictation. Dictated By: NICANOR ALLEN/IMELDA Conf#: [id number] DID#: [id number] CC: ANN MONDRAGON MD;*End*
[2016-03-27] MEDS: PANTOPRAZOLE 40 MG INJ IV SCH (05:10)
[2016-03-27] MEDS: SOD CHLORIDE 0.9% 1,000 ML IV SCH (05:12)
[2016-03-27 06:39] LABS: BASOPHILS % 0.4 % (0.0-2.0); EOSINOPHILS # 0.2 10^3/ul (0.0-0.5); EOSINOPHILS % 2.1 % (0.0-7.0); HEMATOCRIT 33.3 % (42.0-52.0); HEMOGLOBIN 11.3 g/dl (14.0-18.0); LYMPHOCYTES # 1.3 10^3/ul (0.8-2.9); LYMPHOCYTES % 15.6 % (15.0-51.0); MEAN CORPUSCULAR HEMOGLOBIN 31.3 pg (29.0-33.0); MEAN CORPUSCULAR HGB CONC 33.8 g/dl (32.0-37.0); MEAN CORPUSCULAR VOLUME 92.8 fl (82.0-101.0); MONOCYTE # 0.9 10^3/ul (0.3-0.9); MONOCYTES % 10.5 % (0.0-11.0); NEUTROPHIL # 6.1 10^3/ul (1.6-7.5); NEUTROPHILS % 71.4 % (39.0-77.0); PLATELET COUNT 456 10^3/UL (140-440); RED BLOOD COUNT 3.59 10^6/ul (4.70-6.10); RED CELL DISTRIBUTION WIDTH 15.6 % (11.5-14.5); UNCORRECTED WBC 8.6 10^3/ul (4.8-10.8); WHITE BLOOD COUNT 8.6 10^3/ul (4.8-10.8)
[2016-03-27 06:42] LABS: POTASSIUM 3.5 mmol/L (3.5-5.1)
[2016-03-27 06:43] LABS: CONDITION 1; LH ANALYZER COMMENTS 1
[2016-03-27 06:45] LABS: CREATININE 0.56 mg/dl (0.61-1.24)
[2016-03-27 06:46] LABS: CALCIUM 8.2 mg/dl (8.4-10.2)
[2016-03-27] MEDS: INSULIN ASPART [NOVOLOG] 3 ML PEN SC SCH ×4 (07:55→21:00)
[2016-03-27] MEDS: METOPROLOL 25 MG TAB PO SCH ×2 (08:19→21:02)
[2016-03-27] MEDS: FERROUS SULFATE (EC) 325 MG TAB PO SCH ×2 (08:19→21:00)
[2016-03-27] MEDS: MEMANTINE 5 MG TAB PO SCH ×2 (08:19→21:00)
[2016-03-27] MEDS ORDERED: INFLUENZA VIRUS VACCINE 0.5 ML (DISPENSING) IM* ONE (09:00)
--- NOTE | 2016-03-27 09:36 | RADRPT ---
PROCEDURE: US bilateral lower extremity arteries. CLINICAL INDICATION: Bilateral leg pain. Claudication that interferes significantly with the jessi ent's lifestyle. Gangrene. TECHNIQUE: Multiple longitudinal and transverse images of the bilateral lower extremity arteries w ere obtained with simon scale, pulsed Doppler, and color Doppler imaging. COMPARISON: No prior studies are available for comparison. FINDINGS: Right STREET OPENINGS INSPECTOR:93 cm/sec PSFA:128 cm/sec MSFA:147 cm/sec DSFA:67 cm/sec POP:72 cm/sec LINING IRONER:75 cm/sec DPA:11 cm/sec Left STREET OPENINGS INSPECTOR:105 cm/sec PSFA:137 cm/sec MSFA:105 cm/sec DSFA:83 cm/sec POP:60 cm/sec LINING IRONER:62 cm/sec DPA:42 cm/sec The right ankle-brachial index is 0.88 and the left ankle-brachial index is 1.0. On the right side, there is normal triphasic flow in the common femoral artery and superficial femor al artery. Biphasic flow is present in the popliteal artery, and posterior tibial artery. There is monophasic flow in the right dorsalis pedis artery. On the left side, there is normal triphasic flow in the common femoral artery and superficial femora l artery. Monophasic flow is present in the popliteal, posterior tibial, and dorsalis pedis artery. IMPRESSION: 1. On the right side, abnormal flow in the popliteal and calf arteries. 2. On the left side, abnormal flow in the popliteal and calf arteries. RPTAT: QQ .David Cintron MD, MD Date Time Electronically viewed and signed by .David Cintron MD, on 03/27/2016 09:36 .R/
--- NOTE | 2016-03-27 13:01 | CONS ---
Date/Time of Note Date/Time of Note DATE: 03/27/16 TIME: 12:58 Assessment/Plan Assessment/Plan Chief Complaint/Hosp Course IMPRESSION: 1. Abnormal electrocardiogram, assess for acute coronary syndrome.-negative troponin x 3/NL EF by echo. Lexiscan affected by artifact but no ischemia only scar. Thus at this time patient has no cardiac contraindication to proceeding to OR on current medications without further non-invasive evaluation. Patient is at moderate risk for CV complications. 2. Hypertension. 3. Peripheral arterial disease at aortoiliac bifurcation with likely embolic phenomenon/"Blue toes" 4. Dyslipidemia. 5. Hypertension. 6. Diabetes mellitus. 7. Iliac artery aneurysm. 8. Coronary artery disease. 9. Dementia. 10. Permanent pacemaker. Recc: -Tele monitoring -Continue statin -Heparin/asa as possible -Continue BB Problems: Consultation Date/Type/Reason Admit Date/Time Mar 24, 2016 at 17:40 Initial Consult Date 03/24/16 Type of Consultation: Cardiology Reason for Consultation Pre-op Referring Provider: MARYAM VALENCIA MD Exam/Review of Systems Vital Signs Vitals Vital Signs Date Time Temp Pulse Resp B/P Pulse Ox O2 Delivery O2 Flow Rate FiO2 03/27/16 12:16 63 03/27/16 11:50 98.6 17 108/67 98 03/26/16 00:00 Room Air Intake and Output 03/26/16 03/26/16 03/27/16 15:00 23:00 07:00 Intake Total 690 ml 750 ml Output Total 800 ml 750 ml Balance -110 ml 0 ml Exam Review of Systems: CONSTITUTIONAL: No fevers, chills. PULMONARY: No sob CARDIOVASCULAR: No chest pain/palpitations GASTROINTESTINAL: No nausea/vomiting. GENITOURINARY: No hematuria/dysuria. MUSCULOSKELETAL: No myagias/arthalgias. PSYCHIATRIC: The patient denies depression. NEUROLOGIC: No weakness Constitutional: alert Psych: no complaints Head: normocephalic ENMT: mucosa pink and moist Neck: jvd, supple Respiratory: diminished breath sounds Cardiovascular: regular rate and rhythm Gastrointestinal: non-tender, soft Extremities: edema (blue toes) Neurological: lethargic Results Result Diagram: 03/27/16 0557 03/27/16 0557 Results 24 hrs Laboratory Tests Test 03/26/16 22:00 03/27/16 05:57 03/27/16 07:24 03/27/16 11:34 Bedside Glucose 88 79 99 Anion Gap 15 Basophils # 0.0 Basophils % 0.4 Blood Morphology Comment Blood Urea Nitrogen 13 Calcium Level 8.2 L Carbon Dioxide Level 23 Chloride Level 104 Creatinine 0.56 L Eosinophils # 0.2 Eosinophils % 2.1 Glucose Level 87 Hematocrit 33.3 L Hemoglobin 11.3 L Lymphocytes # 1.3 Lymphocytes % 15.6 Mean Corpuscular Hemoglobin 31.3 Mean Corpuscular Hemoglobin Concent 33.8 Mean Corpuscular Volume 92.8 Mean Platelet Volume 7.0 L Monocytes # 0.9 Monocytes % 10.5 Neutrophils # 6.1 Neutrophils % 71.4 Nucleated Red Blood Cells # 0.0 Nucleated Red Blood Cells % 0.0 Platelet Count 456 H Potassium Level 3.5 Red Blood Count 3.59 L Red Cell Distribution Width 15.6 H Sodium Level 138 White Blood Count 8.6 Medications Medications Current Medications Sodium Chloride (NS) 1,000 ml @ 50 mls/hr Q20H IV Last administered on 05:12; Admin Dose 50 MLS/HR; Start 03/24/16 at 18:04 Lorazepam (Ativan) 0.5 mg Q6H PRN IV ANXIETY Last administered on 03/25/16 05: 55; Admin Dose 0.5 MG; Start 03/24/16 at 18:30 Ondansetron HCl (Zofran Inj) 4 mg Q6H PRN IV NAUSEA AND/OR VOMITING; Start 03/24 at 18:30 Nitroglycerin (Nitroglycerin (Sl Tab) 0.4 Mg) 1 tab Q5M PRN SL CHEST PAIN; Start 03/24/16 at 18:30 Acetaminophen (Tylenol Tab) 650 mg Q6H PRN PO PAIN LEVEL 1-3 OR FEVER; Start at 18:30 Morphine Sulfate (morphine) 2 mg Q4H PRN IV PAIN LEVEL 7-10 Last administered on 03/26/16 14:59; Admin Dose 2 MG; Start 03/24/16 at 18:30 Pantoprazole (Protonix Iv) 40 mg DAILY@06 IV Last administered on 03/27/16 05: 10; Admin Dose 40 MG; Start 03/25/16 at 06:00 Atorvastatin Calcium (Lipitor) 40 mg QHS PO Last administered on 03/26/16 22: 01; Admin Dose 40 MG; Start 03/24/16 at 21:00 Donepezil HCl (Aricept) 5 mg QHS PO Last administered on 03/26/16 22:01; Admin Dose 5 MG; Start 03/24/16 at 21:00 Ferrous Sulfate (Ferrous Sulfate (Ec)) 325 mg BID PO Last administered on 08:19; Admin Dose 325 MG; Start 03/24/16 at 21:00 Memantine (Namenda) 5 mg BID PO Last administered on 03/27/16 08:19; Admin Dose 5 MG; Start 03/24/16 at 21:00 Miscellaneous Information 1 ea NOTE XX ; Start 03/24/16 at 18:30 Glucose (Glutose) 15 gm Q15M PRN PO DECREASED GLUCOSE; Start 03/24/16 at 18:30 Glucose (Glutose) 22.5 gm Q15M PRN PO DECREASED GLUCOSE; Start 03/24/16 at 18:30 Dextrose (D50w Syringe) 25 ml Q15M PRN IV DECREASED GLUCOSE; Start 03/24/16 at 18:30 Dextrose (D50w Syringe) 50 ml Q15M PRN IV DECREASED GLUCOSE; Start 03/24/16 at 18:30 Glucagon (Glucagen) 1 mg Q15M PRN IM DECREASED GLUCOSE; Start 03/24/16 at 18:30 Glucose (Glutose) 15 gm Q15M PRN BUCCAL DECREASED GLUCOSE; Start 03/24/16 at 18: 30 Influenza Virus Vaccine (Fluzone) 0.5 ml ONCE ONCE IM* ; Start 03/27/16 at 09:00 ; Stop 03/27/16 at 09:01 Hydromorphone HCl (Dilaudid) 1 mg Q4H PRN IV PAIN; Start 03/25/16 at 06:30 Metoprolol Tartrate (Lopressor) 25 mg BID PO Last administered on 03/27/16 08: 19; Admin Dose 25 MG; Start 03/25/16 at 21:00 NICANOR VARGAS 12, 2017 13:01
--- NOTE | 2016-03-27 13:07 | PN ---
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 cleared for surgery per cardiology 2. Type II DM - hgba1c 5.5 - glycemic control 3. S/P pacemaker/CAD - aspirin 4. Anemia - chronic - monitor H/H - stable for now - transfuse as needed 5. Dementia - re-orient patient as needed 6. GI ppx - protonix 7. DVT ppx - heparin - on hold 8. Hx of hip surgery per daughter per patient. Staff to request other the hospital for medical records as per clinical course. f/u recs - fall risks precautions, check left hip x- ray. Daughter is DPOA - will f/u for code status this progress note took greater than 40 minutes to complete DW Dr Poole Exam/Review of Systems Vital Signs Vitals Vital Signs Date Time Temp Pulse Resp B/P Pulse Ox O2 Delivery O2 Flow Rate FiO2 03/27/16 12:16 63 03/27/16 11:50 98.6 17 108/67 98 03/26/16 00:00 Room Air Intake and Output 03/26/16 03/26/16 03/27/16 15:00 23:00 07:00 Intake Total 690 ml 750 ml Output Total 800 ml 750 ml Balance -110 ml 0 ml Exam Constitutional: alert, well developed Psych: nl mood/affect Head: atraumatic Eyes: EOMI, PERRL, nl sclera ENMT: nl external ears & nose Neck: non-tender Respiratory: clear to auscultation Cardiovascular: nl pulses Gastrointestinal: non-tender, soft Musculoskeletal: other (sp right hip sx - site is erythamtous, fidelina noted.) Extremities: normal pulses Neurological: confused Skin: other Lymph: nontender Results Result Diagram: 03/27/1657 03/27/1657 Results 24 hrs Laboratory Tests Test 03/26/16 22:00 03/27/16 05:57 03/27/16 07:24 03/27/16 11:34 Bedside Glucose 88 79 99 Anion Gap 15 Basophils # 0.0 Basophils % 0.4 Blood Morphology Comment Blood Urea Nitrogen 13 Calcium Level 8.2 L Carbon Dioxide Level 23 Chloride Level 104 Creatinine 0.56 L Eosinophils # 0.2 Eosinophils % 2.1 Glucose Level 87 Hematocrit 33.3 L Hemoglobin 11.3 L Lymphocytes # 1.3 Lymphocytes % 15.6 Mean Corpuscular Hemoglobin 31.3 Mean Corpuscular Hemoglobin Concent 33.8 Mean Corpuscular Volume 92.8 Mean Platelet Volume 7.0 L Monocytes # 0.9 Monocytes % 10.5 Neutrophils # 6.1 Neutrophils % 71.4 Nucleated Red Blood Cells # 0.0 Nucleated Red Blood Cells % 0.0 Platelet Count 456 H Potassium Level 3.5 Red Blood Count 3.59 L Red Cell Distribution Width 15.6 H Sodium Level 138 White Blood Count 8.6 Medications Medications Current Medications Sodium Chloride (NS) 1,000 ml @ 50 mls/hr Q20H IV Last administered on 05:12; Admin Dose 50 MLS/HR; Start 03/24/16 at 18:04 Lorazepam (Ativan) 0.5 mg Q6H PRN IV ANXIETY Last administered on 03/25/16 05: 55; Admin Dose 0.5 MG; Start 03/24/16 at 18:30 Ondansetron HCl (Zofran Inj) 4 mg Q6H PRN IV NAUSEA AND/OR VOMITING; Start 03/24 at 18:30 Nitroglycerin (Nitroglycerin (Sl Tab) 0.4 Mg) 1 tab Q5M PRN SL CHEST PAIN; Start 03/24/16 at 18:30 Acetaminophen (Tylenol Tab) 650 mg Q6H PRN PO PAIN LEVEL 1-3 OR FEVER; Start at 18:30 Morphine Sulfate (morphine) 2 mg Q4H PRN IV PAIN LEVEL 7-10 Last administered on 03/26/16 14:59; Admin Dose 2 MG; Start 03/24/16 at 18:30 Pantoprazole (Protonix Iv) 40 mg DAILY@06 IV Last administered on 03/27/16 05: 10; Admin Dose 40 MG; Start 03/25/16 at 06:00 Atorvastatin Calcium (Lipitor) 40 mg QHS PO Last administered on 03/26/16 22: 01; Admin Dose 40 MG; Start 03/24/16 at 21:00 Donepezil HCl (Aricept) 5 mg QHS PO Last administered on 03/26/16 22:01; Admin Dose 5 MG; Start 03/24/16 at 21:00 Ferrous Sulfate (Ferrous Sulfate (Ec)) 325 mg BID PO Last administered on 08:19; Admin Dose 325 MG; Start 03/24/16 at 21:00 Memantine (Namenda) 5 mg BID PO Last administered on 03/27/16 08:19; Admin Dose 5 MG; Start 03/24/16 at 21:00 Miscellaneous Information 1 ea NOTE XX ; Start 03/24/16 at 18:30 Glucose (Glutose) 15 gm Q15M PRN PO DECREASED GLUCOSE; Start 03/24/16 at 18:30 Glucose (Glutose) 22.5 gm Q15M PRN PO DECREASED GLUCOSE; Start 03/24/16 at 18:30 Dextrose (D50w Syringe) 25 ml Q15M PRN IV DECREASED GLUCOSE; Start 03/24/16 at 18:30 Dextrose (D50w Syringe) 50 ml Q15M PRN IV DECREASED GLUCOSE; Start 03/24/16 at 18:30 Glucagon (Glucagen) 1 mg Q15M PRN IM DECREASED GLUCOSE; Start 03/24/16 at 18:30 Glucose (Glutose) 15 gm Q15M PRN BUCCAL DECREASED GLUCOSE; Start 03/24/16 at 18: 30 Influenza Virus Vaccine (Fluzone) 0.5 ml ONCE ONCE IM* ; Start 03/27/16 at 09:00 ; Stop 03/27/16 at 09:01 Hydromorphone HCl (Dilaudid) 1 mg Q4H PRN IV PAIN; Start 03/25/16 at 06:30 Metoprolol Tartrate (Lopressor) 25 mg BID PO Last administered on 03/27/16 08: 19; Admin Dose 25 MG; Start 03/25/16 at 21:00 FLOR ALDANA Mar 27, 2016 13:06
--- NOTE | 2016-03-27 16:14 | RADRPT ---
PROCEDURE: XR left Hip. CLINICAL INDICATION: Possible infection TECHNIQUE: AP and frog lateral views of the right hip were performed. COMPARISON: 03/25/2016 FINDINGS: There is superior lateral dislocation of the acetabular cup and femoral component. No definite stefano prosthetic fracture is identified. Surgical fidelina seen in the soft tissues. IMPRESSION: 1. Superior and lateral dislocation of the acetabular cup containing the femoral head prosthesis. RPTAT: PP .Ashutosh Villatroo MD, MD Date Time Electronically viewed and signed by .Ashutosh Vlilatoro MD, MD on 03/27/2016 16:13 .d/
[2016-03-27] MEDS: MUPIROCIN 2% 22 GM OINT TOP SCH ×2 (17:51→21:03)
[2016-03-27] MEDS: morphine 2 MG INJ IV PRN (17:53)
--- NOTE | 2016-03-27 19:41 | PN ---
DATE: 03/27/2016 UROLOGICAL SUBJECTIVE: Hematuria post-attempts to catheterize the nursing staff. The patient himse lf is not capable of expressing any complaint. OBJECTIVE: VITAL SIGNS: His temperature is 98.8, respiration is 19, blood pressure 126/76, and the pulse is 71 . ABDOMEN: Soft. The Torrez catheter that he has is draining clear urine. LABORATORY DATA: CBC shows a white count of 8.6, hemoglobin 11.3, hematocrit 33.3. BUN is 13, crea tinine 0.56. Electrolytes are normal. The urine culture showing Tomasa species, not albicans. ASSESSMENT AND PLAN: From a urological standpoint, the patient is afebrile, and the white count is normal. The Torrez now is draining clear urine. If the catheter is needed to monitor his urine outp ut, may keep it for now. However, if the catheter is not needed for his urine output, one could dis continue it, and the patient should be able to urinate on his own. Dictated By: ABDI SEBASTIAN MD BB/IMELDA Conf#: [id number] DID#: [id number] CC: LAVELL BRADLEY MD;*EndCC*
--- NOTE | 2016-03-27 19:49 | QN ---
Documentation Comment Possible OM of left hip s/p surgery. ID consult requested. Dr. Maria will see pt shortly. Thank you. MARIANA ZUNIGA NP Mar 27, 2016 19:49
[2016-03-27] MEDS: ATORVASTATIN 40 MG TAB PO SCH (21:00)
[2016-03-27] MEDS: DONEPEZIL 5 MG TAB PO SCH (21:00)
[2016-03-28] VITALS (13 sets, daily range): BP systolic 118–181; BP diastolic 61–94; PULSE 60–90; RESP 18–20
[2016-03-28] MEDS: SOD CHLORIDE 0.9% 1,000 ML IV SCH ×2 (03:42→22:04)
[2016-03-28] MEDS: PANTOPRAZOLE (EC) 40 MG TAB PO SCH (06:12)
[2016-03-28] MEDS: INSULIN ASPART [NOVOLOG] 3 ML PEN SC SCH ×4 (07:55→21:00)
[2016-03-28] MEDS: MEMANTINE 5 MG TAB PO SCH ×2 (09:38→21:13)
[2016-03-28] MEDS: FERROUS SULFATE (EC) 325 MG TAB PO SCH ×2 (09:38→21:12)
[2016-03-28] MEDS: METOPROLOL 25 MG TAB PO SCH ×2 (09:39→21:13)
[2016-03-28] MEDS: MUPIROCIN 2% 22 GM OINT TOP SCH ×2 (09:45→21:12)
--- NOTE | 2016-03-28 10:43 | CONS ---
DATE OF ADMISSION: 03/24/2016 DATE OF CONSULTATION: 03/27/2016 ORTHOPEDIC CONSULTATION REQUESTING PHYSICIAN: Hi Poole MD CHIEF COMPLAINT: Left hip pain. HISTORY OF PRESENT ILLNESS: The patient is a poor historian, admitted for medical evaluation. He h as fidelina on the left hip with some redness at the incision, no actual discharge noted. The patien t is status post recent left hip surgery. X-rays are reviewed that show that patient is status post a total hip replacement; however, the acet abular component and the hip are dislocated superiorly. There is a question of loosening of the fem oral component as well and possible trochanteric osteolysis. We are in the process of finding out where the patient had the surgery from the family. It would be best if patient were to follow up with the center where he had the surgery with the orthopedic surg harriett. More than likely patient will require major revision surgery for this complication. I spoke w ith Dr. Poole's team and my recommendation would be for the patient to be transferred to either t operating surgeon or to a higher level for revision surgery. Dictated By: ADAM MOSER/NTS Conf#: [id number] DID#: [id number]
--- NOTE | 2016-03-28 11:27 | CONS ---
Date/Time of Note Date/Time of Note DATE: 03/28/16 TIME: 11:24 Assessment/Plan Assessment/Plan Chief Complaint/Hosp Course IMPRESSION: 1. Abnormal electrocardiogram, assess for acute coronary syndrome.-negative troponin x 3/NL EF by echo. Lexiscan affected by artifact but no ischemia only scar. Thus at this time patient has no cardiac contraindication to proceeding to OR on current medications without further non-invasive evaluation. Patient is at moderate risk for CV complications. 2. Hypertension. 3. Peripheral arterial disease at aortoiliac bifurcation with likely embolic phenomenon/"Blue toes" 4. Dyslipidemia. 5. Hypertension. 6. Diabetes mellitus. 7. Iliac artery aneurysm. 8. Coronary artery disease. 9. Dementia. 10. Permanent pacemaker. 11.H/O Hip replacement with possible need for revision Recc: -Tele monitoring -Continue statin -Heparin/asa as possible -Continue BB -Ongoing ortho and vascular surgery eval ongoing Problems: Consultation Date/Type/Reason Admit Date/Time Mar 24, 2016 at 17:40 Initial Consult Date 03/24/16 Type of Consultation: Cardiology Reason for Consultation pre-op Referring Provider: MARYAM VALENCIA MD Exam/Review of Systems Vital Signs Vitals Vital Signs Date Time Temp Pulse Resp B/P Pulse Ox O2 Delivery O2 Flow Rate FiO2 03/28/16 10:15 78 03/28/16 08:41 98.2 19 118/74 95 03/26/16 00:00 Room Air Intake and Output 03/27/16 03/27/16 03/28/16 15:00 23:00 07:00 Intake Total 740 ml 1100 ml Output Total 1250 ml Balance -510 ml 1100 ml Exam Review of Systems: CONSTITUTIONAL: No fevers, chills. PULMONARY: No sob CARDIOVASCULAR: No chest pain/palpitations GASTROINTESTINAL: No nausea/vomiting. GENITOURINARY: No hematuria/dysuria. MUSCULOSKELETAL: No myagias/arthalgias. PSYCHIATRIC: The patient denies depression. NEUROLOGIC: lethargic Constitutional: alert Psych: confusion, no complaints Head: normocephalic ENMT: mucosa pink and moist Neck: jvd, supple Respiratory: diminished breath sounds (at bases/B) Cardiovascular: regular rate and rhythm Gastrointestinal: non-tender, soft Musculoskeletal: muscle tone (normal) Extremities: edema (none) Results Result Diagram: 03/27/16 0557 03/27/16 0557 Results 24 hrs Laboratory Tests Test 03/27/16 11:34 03/27/16 18:02 03/27/16 21:01 03/28/16 08:08 Bedside Glucose 99 88 130 103 Medications Medications Current Medications Sodium Chloride (NS) 1,000 ml @ 50 mls/hr Q20H IV Last administered on 03:42; Admin Dose 50 MLS/HR; Start 03/24/16 at 18:04 Lorazepam (Ativan) 0.5 mg Q6H PRN IV ANXIETY Last administered on 03/25/16 05: 55; Admin Dose 0.5 MG; Start 03/24/16 at 18:30 Ondansetron HCl (Zofran Inj) 4 mg Q6H PRN IV NAUSEA AND/OR VOMITING; Start 03/24 at 18:30 Nitroglycerin (Nitroglycerin (Sl Tab) 0.4 Mg) 1 tab Q5M PRN SL CHEST PAIN; Start 03/24/16 at 18:30 Acetaminophen (Tylenol Tab) 650 mg Q6H PRN PO PAIN LEVEL 1-3 OR FEVER; Start at 18:30 Morphine Sulfate (morphine) 2 mg Q4H PRN IV PAIN LEVEL 7-10 Last administered on 03/27/16 17:53; Admin Dose 2 MG; Start 03/24/16 at 18:30 Atorvastatin Calcium (Lipitor) 40 mg QHS PO Last administered on 03/27/16 21: 00; Admin Dose 40 MG; Start 03/24/16 at 21:00 Donepezil HCl (Aricept) 5 mg QHS PO Last administered on 03/27/16 21:00; Admin Dose 5 MG; Start 03/24/16 at 21:00 Ferrous Sulfate (Ferrous Sulfate (Ec)) 325 mg BID PO Last administered on 09:38; Admin Dose 325 MG; Start 03/24/16 at 21:00 Memantine (Namenda) 5 mg BID PO Last administered on 03/28/16 09:38; Admin Dose 5 MG; Start 03/24/16 at 21:00 Miscellaneous Information 1 ea NOTE XX ; Start 03/24/16 at 18:30 Glucose (Glutose) 15 gm Q15M PRN PO DECREASED GLUCOSE; Start 03/24/16 at 18:30 Glucose (Glutose) 22.5 gm Q15M PRN PO DECREASED GLUCOSE; Start 03/24/16 at 18:30 Dextrose (D50w Syringe) 25 ml Q15M PRN IV DECREASED GLUCOSE; Start 03/24/16 at 18:30 Dextrose (D50w Syringe) 50 ml Q15M PRN IV DECREASED GLUCOSE; Start 03/24/16 at 18:30 Glucagon (Glucagen) 1 mg Q15M PRN IM DECREASED GLUCOSE; Start 03/24/16 at 18:30 Glucose (Glutose) 15 gm Q15M PRN BUCCAL DECREASED GLUCOSE; Start 03/24/16 at 18: 30 Hydromorphone HCl (Dilaudid) 1 mg Q4H PRN IV PAIN; Start 03/25/16 at 06:30 Metoprolol Tartrate (Lopressor) 25 mg BID PO Last administered on 03/28/16 09: 39; Admin Dose 25 MG; Start 03/25/16 at 21:00 Mupirocin (Bactroban) 1 applic BID TOP Last administered on 03/28/16 09:45; Admin Dose 1 APPLIC; Start 03/27/16 at 14:30 Pantoprazole (Protonix Tab) 40 mg DAILY@06 PO Last administered on 03/28/16 06 :12; Admin Dose 40 MG; Start 03/28/16 at 06:00 NICANOR VARGAS Mar 28, 2016 11:27
--- NOTE | 2016-03-28 13:16 | PN ---
Date/Time of Note Date/Time of Note DATE: 03/28/16 TIME: 13:13 Assessment/Plan Lines/Catheters IV Catheter Type (from [facility]): Peripheral IV Torrez in Place (from [facility]): Yes Assessment/Plan Chief Complaint/Hosp Course -Aortoiliac atherosclerotic disease, ectatic right common iliac artery with thrombus: It seems seems that the patient has developed blue toe syndrome, bilateral lower extremities. will need to have the patient workup as to why he developed these new findings. There is concern this may be a from the infrarenal aortic disease with area of ulcer/dissection or possible cardiac source; Patient being evaluate by cardiology and appreciate feedback -Bilateral lower extremity atherosclerosis: at the moment the LE's are viable and would recommend to continue with the Heparin gtt. some of the discoloration has improved -Will schedule the pt for OR this upcoming Monday to cover and exclude the areas of disease and thrombus. Will plan to expose the right FRAUD ANALYST while we deploy the devices from the L FRAUD ANALYST percutaneously -Discussed findings, plan and management with the patient's care provider. We will plan to obtain the CT. -Optimize vascular status (BP meds, diet, nutrition, exercise, sugar control, antiplatelets). -Thank you for allowing us to partake in the care of your patient. Please call with any questions. Problems: Subjective 24 Hr Interval Summary No new vascular events overnight Exam/Review of Systems Vital Signs Vitals Vital Signs Date Time Temp Pulse Resp B/P Pulse Ox O2 Delivery O2 Flow Rate FiO2 03/28/16 12:36 62 03/28/16 12:13 98.4 20 167/74 96 03/26/16 00:00 Room Air Intake and Output 03/27/16 03/27/16 03/28/16 15:00 23:00 07:00 Intake Total 740 ml 1100 ml Output Total 1250 ml Balance -510 ml 1100 ml Exam Free Text/Dictation GENERAL: He is awake and alert and able to answer questions. PULMONARY: Clear to auscultation bilaterally. CARDIOVASCULAR: S1, S2 present. ABDOMEN: Soft. Left lower quadrant tenderness mild and has a pulsatile mass and it is palpated near the umbilicus. Bowel sounds positive. EXTREMITIES: Palpable femoral pulses, nonpalpable pedal pulses. Motor, sensory intact. Capillary refill 2 seconds. On the right, the first 3 toes have bluish discoloration. On the left, all 5 toes have bluish discoloration. Edema 1+, specifically in the forefoot area. Results Result Diagram: 03/27/16 0557 03/27/16 0557 ANN GROSS MD Mar 28, 2016 13:16
--- NOTE | 2016-03-28 15:33 | CONS ---
Date/Time of Note Date/Time of Note DATE: 03/28/16 TIME: 15:22 Assessment/Plan Assessment/Plan Chief Complaint/Hosp Course 1. 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 Hx of dementia, type II DM, CAD, anemia - chronic, s/p pacemaker 4. Blue toe syndrome R: Ortho eval for arthrocentesis Consider CT hip mrsa nasal screen bcxs procalc esr hold off abx for now but will likely start vanco/ctx once drainage done Problems: Consultation Date/Type/Reason Admit Date/Time Mar 24, 2016 at 17:40 Date of Consultation: Mar 28, 2016 Reason for Consultation antibiotic recommendations Referring Provider: LAVELL BRADLEY MD Hx of Present Illness This is a 70 yo male with a past medical history of dementia, type II DM, CAD, anemia - chronic, s/p pacemaker, who presented with "Blue Toe Syndrome". He is scheduled to undergo vascular intervention for Aortoiliac atherosclerotic disease and ectatic right common iliac artery with thrombus. He has been noted to have warmth of left hip. He apparently had a hip replacement approx 1 month ago. He is also noted to have erythema of the stiches. Xray has revealed dislocation. We have been asked to evaluate for infection. patient is unable to provide ros Eyes: no complaints ENT: no complaints Respiratory: no complaints Cardiovascular: no complaints Gastrointestinal: no complaints Genitourinary: no complaints Psychological: confusion, no complaints Past Medical History as per hpi Medical History: coronary artery disease, diabetes Social History Alcohol Use: none Smoking Status: Unknown if ever smoked Drug Use: none Exam/Review of Systems Vital Signs Vitals Vital Signs Date Time Temp Pulse Resp B/P Pulse Ox O2 Delivery O2 Flow Rate FiO2 03/28/16 12:36 62 03/28/16 12:13 98.4 20 167/74 96 03/26/16 00:00 Room Air Intake and Output 03/27/16 03/27/16 03/28/16 15:00 23:00 07:00 Intake Total 740 ml 1100 ml Output Total 1250 ml Balance -510 ml 1100 ml Exam Constitutional: alert, non-verbal Psych: confusion, depression Head: atraumatic, normocephalic Eyes: EOMI, nl conjunctiva ENMT: nl external ears & nose, nl lips & teeth, nl nasal mucosa & septum Respiratory: clear to auscultation, normal air movement Cardiovascular: nl pulses, regular rate and rhythm Gastrointestinal: nl liver, spleen, non-tender, soft Extremities: other (left hip warm all over, suture site is red) Results Result Diagram: 03/27/16 0557 03/27/16 0557 Results 24 hrs Laboratory Tests Test 03/27/16 18:02 03/27/16 21:01 03/28/16 08:08 Bedside Glucose 88 130 103 Medications Medications Current Medications Sodium Chloride (NS) 1,000 ml @ 50 mls/hr Q20H IV Last administered on 03:42; Admin Dose 50 MLS/HR; Start 03/24/16 at 18:04 Lorazepam (Ativan) 0.5 mg Q6H PRN IV ANXIETY Last administered on 03/25/16 05: 55; Admin Dose 0.5 MG; Start 03/24/16 at 18:30 Ondansetron HCl (Zofran Inj) 4 mg Q6H PRN IV NAUSEA AND/OR VOMITING; Start 03/24 at 18:30 Nitroglycerin (Nitroglycerin (Sl Tab) 0.4 Mg) 1 tab Q5M PRN SL CHEST PAIN; Start 03/24/16 at 18:30 Acetaminophen (Tylenol Tab) 650 mg Q6H PRN PO PAIN LEVEL 1-3 OR FEVER; Start at 18:30 Morphine Sulfate (morphine) 2 mg Q4H PRN IV PAIN LEVEL 7-10 Last administered on 03/27/16 17:53; Admin Dose 2 MG; Start 03/24/16 at 18:30 Atorvastatin Calcium (Lipitor) 40 mg QHS PO Last administered on 03/27/16 21: 00; Admin Dose 40 MG; Start 03/24/16 at 21:00 Donepezil HCl (Aricept) 5 mg QHS PO Last administered on 03/27/16 21:00; Admin Dose 5 MG; Start 03/24/16 at 21:00 Ferrous Sulfate (Ferrous Sulfate (Ec)) 325 mg BID PO Last administered on 09:38; Admin Dose 325 MG; Start 03/24/16 at 21:00 Memantine (Namenda) 5 mg BID PO Last administered on 03/28/16 09:38; Admin Dose 5 MG; Start 03/24/16 at 21:00 Miscellaneous Information 1 ea NOTE XX ; Start 03/24/16 at 18:30 Glucose (Glutose) 15 gm Q15M PRN PO DECREASED GLUCOSE; Start 03/24/16 at 18:30 Glucose (Glutose) 22.5 gm Q15M PRN PO DECREASED GLUCOSE; Start 03/24/16 at 18:30 Dextrose (D50w Syringe) 25 ml Q15M PRN IV DECREASED GLUCOSE; Start 03/24/16 at 18:30 Dextrose (D50w Syringe) 50 ml Q15M PRN IV DECREASED GLUCOSE; Start 03/24/16 at 18:30 Glucagon (Glucagen) 1 mg Q15M PRN IM DECREASED GLUCOSE; Start 03/24/16 at 18:30 Glucose (Glutose) 15 gm Q15M PRN BUCCAL DECREASED GLUCOSE; Start 03/24/16 at 18: 30 Hydromorphone HCl (Dilaudid) 1 mg Q4H PRN IV PAIN; Start 03/25/16 at 06:30 Metoprolol Tartrate (Lopressor) 25 mg BID PO Last administered on 03/28/16 09: 39; Admin Dose 25 MG; Start 03/25/16 at 21:00 Mupirocin (Bactroban) 1 applic BID TOP Last administered on 03/28/16 09:45; Admin Dose 1 APPLIC; Start 03/27/16 at 14:30 Pantoprazole (Protonix Tab) 40 mg DAILY@06 PO Last administered on 03/28/16 06 :12; Admin Dose 40 MG; Start 03/28/16 at 06:00 SHAHIDA MOORE MD Mar 28, 2016 15:32
[2016-03-28 16:05] LABS: HEMATOCRIT 36.3 % (42.0-52.0); HEMOGLOBIN 12.4 g/dl (14.0-18.0)
--- NOTE | 2016-03-28 17:49 | PN ---
DATE: 03/28/2016 SUBJECTIVE: Gross hematuria. The patient had traumatic attempts to catheterize him before. I had inserted a 14-Mong[place]ian coude catheter and the urine has since gradually cleared up. The patient himse lf is not capable of giving any complaints. OBJECTIVE: VITAL SIGNS: Temperature is 98.4, pulse 62, respirations 20, blood pressure 167/74. ABDOMEN: Soft. GENITOURINARY: The Torrez catheter is draining clear urine. LABORATORY DATA: CBC: WBC 8.6, hemoglobin 11.3, hematocrit 33.3. BUN is 13, creatinine 0.56, sodi um 138, potassium 3.5, chloride 104, CO2 of 23. IMPRESSION: Gross hematuria that has cleared. PLAN: To continue the present treatment. If the Torrez catheter is not needed for monitoring his ur ine output, we shall discontinue it and have him urinate on his own. Dictated By: ABDI SEBASTIAN MD BB/NTS Conf#: [id number] DID#: [id number] CC: LAVELL BRADLEY MD;*EndCC*
--- NOTE | 2016-03-28 18:55 | PN ---
Date/Time of Note Date/Time of Note DATE: 03/28/16 TIME: 18:45 Assessment/Plan VTE Prophylaxis VTE Prophylaxis Intervention: contraindicated VTE Contraindication Reason: bleeding Lines/Catheters IV Catheter Type (from Nrsg): Peripheral IV Urinary Cath still in place: Yes Reason Cath still needed: terminal illness/intractable pain Assessment/Plan Chief Complaint/Hosp Course Assessment and plan - Probable Left hip replacement infection. Dr. Maria is following from infectious disease standpoint. Continue antibiotics per ID. Status post evaluation by orthopedic surgeon with recommendation to follow-up with operating surgeon or to transfer patient to a high level of care. - Aortoiliac atherosclerotic disease, ectatic right common iliac artery with thrombus. Dr. Mondragon is following in vascular surgery consultation. Plan for vascular intervention tomorrow. -Hematuria status post attempt in a catheterization, patient is followed by Dr. Rankin and neurology consultation. Status post Torrez catheter placement by urology. Continue to monitor H&H. Aspirin and Lovenox is on held due to hematuria. - Blue toe syndrome - Dementia, continue Aricept and Namenda. - Diabetes mellitus type 2 - Coronary artery disease. Dr. Peters is following and cardiology consultation. - Hypertension, continue metoprolol. - Permanent pacemaker - Chronic anemia Continue Protonix for peptic ulcer disease prophylaxis Further recommendations based on clinical course. Plan of care discussed with Dr. Poole. Problems: Subjective 24 Hr Interval Summary Free Text/Dictation Patient continues to have hematuria, no shortness of breath no chest pain sinus rhythm was occasional PVCs Exam/Review of Systems Vital Signs Vitals Vital Signs Date Time Temp Pulse Resp B/P Pulse Ox O2 Delivery O2 Flow Rate FiO2 03/28/16 16:53 70 03/28/16 15:45 98.2 18 148/78 100 03/26/16 00:00 Room Air Intake and Output 03/27/16 03/27/16 03/28/16 15:00 23:00 07:00 Intake Total 740 ml 1100 ml Output Total 1250 ml Balance -510 ml 1100 ml Exam Constitutional: alert, well developed Head: atraumatic, normocephalic Eyes: nl conjunctiva ENMT: nl external ears & nose Neck: jvd, supple Respiratory: clear to auscultation Cardiovascular: regular rate and rhythm Gastrointestinal: nl liver, spleen, soft Genitourinary - Male: nl penis, other ( Torrez catheter ) Musculoskeletal: nl extremities to inspection, nl gait and stance Extremities: normal pulses Results Result Diagram: 03/28/16 1545 03/27/16 0557 Results 24 hrs Laboratory Tests Test 03/27/16 21:01 03/28/16 08:08 03/28/16 15:45 03/28/16 16:33 Bedside Glucose 130 103 91 Erythrocyte Sedimentation Rate 44 H Hematocrit 36.3 L Hemoglobin 12.4 L Medications Medications Current Medications Sodium Chloride (NS) 1,000 ml @ 50 mls/hr Q20H IV Last administered on 03:42; Admin Dose 50 MLS/HR; Start 03/24/16 at 18:04 Lorazepam (Ativan) 0.5 mg Q6H PRN IV ANXIETY Last administered on 03/25/16 05: 55; Admin Dose 0.5 MG; Start 03/24/16 at 18:30 Ondansetron HCl (Zofran Inj) 4 mg Q6H PRN IV NAUSEA AND/OR VOMITING; Start 03/24 at 18:30 Nitroglycerin (Nitroglycerin (Sl Tab) 0.4 Mg) 1 tab Q5M PRN SL CHEST PAIN; Start 03/24/16 at 18:30 Acetaminophen (Tylenol Tab) 650 mg Q6H PRN PO PAIN LEVEL 1-3 OR FEVER; Start at 18:30 Morphine Sulfate (morphine) 2 mg Q4H PRN IV PAIN LEVEL 7-10 Last administered on 03/27/16 17:53; Admin Dose 2 MG; Start 03/24/16 at 18:30 Atorvastatin Calcium (Lipitor) 40 mg QHS PO Last administered on 03/27/16 21: 00; Admin Dose 40 MG; Start 03/24/16 at 21:00 Donepezil HCl (Aricept) 5 mg QHS PO Last administered on 03/27/16 21:00; Admin Dose 5 MG; Start 03/24/16 at 21:00 Ferrous Sulfate (Ferrous Sulfate (Ec)) 325 mg BID PO Last administered on 09:38; Admin Dose 325 MG; Start 03/24/16 at 21:00 Memantine (Namenda) 5 mg BID PO Last administered on 03/28/16 09:38; Admin Dose 5 MG; Start 03/24/16 at 21:00 Miscellaneous Information 1 ea NOTE XX ; Start 03/24/16 at 18:30 Glucose (Glutose) 15 gm Q15M PRN PO DECREASED GLUCOSE; Start 03/24/16 at 18:30 Glucose (Glutose) 22.5 gm Q15M PRN PO DECREASED GLUCOSE; Start 03/24/16 at 18:30 Dextrose (D50w Syringe) 25 ml Q15M PRN IV DECREASED GLUCOSE; Start 03/24/16 at 18:30 Dextrose (D50w Syringe) 50 ml Q15M PRN IV DECREASED GLUCOSE; Start 03/24/16 at 18:30 Glucagon (Glucagen) 1 mg Q15M PRN IM DECREASED GLUCOSE; Start 03/24/16 at 18:30 Glucose (Glutose) 15 gm Q15M PRN BUCCAL DECREASED GLUCOSE; Start 03/24/16 at 18: 30 Hydromorphone HCl (Dilaudid) 1 mg Q4H PRN IV PAIN; Start 03/25/16 at 06:30 Metoprolol Tartrate (Lopressor) 25 mg BID PO Last administered on 03/28/16 09: 39; Admin Dose 25 MG; Start 03/25/16 at 21:00 Mupirocin (Bactroban) 1 applic BID TOP Last administered on 03/28/16 09:45; Admin Dose 1 APPLIC; Start 03/27/16 at 14:30 Pantoprazole (Protonix Tab) 40 mg DAILY@06 PO Last administered on 03/28/16 06 :12; Admin Dose 40 MG; Start 03/28/16 at 06:00 ALICIA MONTGOMERY Mar 28, 2016 18:55
[2016-03-28] MEDS: ATORVASTATIN 40 MG TAB PO SCH (21:12)
[2016-03-28] MEDS: DONEPEZIL 5 MG TAB PO SCH (21:13)
[2016-03-28] MEDS: VORICONAZOLE 200 MG/NS 100 ML IVPB SCH (21:19)
[2016-03-29] VITALS (31 sets, daily range): BP systolic 107–178; BP diastolic 49–95; PULSE 59–108; RESP 13–23
[2016-03-29] MEDS: PANTOPRAZOLE (EC) 40 MG TAB PO SCH (05:17)
[2016-03-29] MEDS: SOD CHLORIDE 0.9% 1,000 ML IV SCH ×2 (06:52→19:10)
[2016-03-29 07:26] LABS: BASOPHILS % 0.4 % (0.0-2.0); EOSINOPHILS # 0.2 10^3/ul (0.0-0.5); HEMATOCRIT 34.6 % (42.0-52.0); HEMOGLOBIN 11.8 g/dl (14.0-18.0); LYMPHOCYTES # 1.4 10^3/ul (0.8-2.9); LYMPHOCYTES % 13.3 % (15.0-51.0); MEAN CORPUSCULAR HGB CONC 34.2 g/dl (32.0-37.0); MEAN CORPUSCULAR VOLUME 93.6 fl (82.0-101.0); MEAN PLATELET VOLUME 7.2 fl (7.4-10.4); MONOCYTE # 0.9 10^3/ul (0.3-0.9); MONOCYTES % 8.1 % (0.0-11.0); NEUTROPHIL # 8.3 10^3/ul (1.6-7.5); NEUTROPHILS % 76.2 % (39.0-77.0); PLATELET COUNT 541 10^3/UL (140-440); POTASSIUM 3.3 mmol/L (3.5-5.1); RED CELL DISTRIBUTION WIDTH 15.7 % (11.5-14.5); UNCORRECTED WBC 10.9 10^3/ul (4.8-10.8); WHITE BLOOD COUNT 10.9 10^3/ul (4.8-10.8)
[2016-03-29 07:29] LABS: CALCIUM 8.3 mg/dl (8.4-10.2); CREATININE 0.61 mg/dl (0.61-1.24)
[2016-03-29 07:43] LABS: CONDITION 1; LH ANALYZER COMMENTS 1
[2016-03-29] MEDS: FERROUS SULFATE (EC) 325 MG TAB PO SCH ×2 (09:00→21:00)
[2016-03-29] MEDS: METOPROLOL 25 MG TAB PO SCH ×2 (09:01→21:00)
[2016-03-29] MEDS: MEMANTINE 5 MG TAB PO SCH ×2 (09:02→21:00)
[2016-03-29] MEDS: VORICONAZOLE 200 MG/NS 100 ML IVPB SCH ×2 (09:03→21:10)
[2016-03-29] MEDS: INSULIN ASPART [NOVOLOG] 3 ML PEN SC SCH ×4 (09:08→21:00)
[2016-03-29] MEDS: MUPIROCIN 2% 22 GM OINT TOP SCH ×2 (09:09→21:10)
--- NOTE | 2016-03-29 09:55 | PN ---
DATE: 03/29/2016 SUBJECTIVE: Initial urological problem was hematuria, after attempting to catheterize the patient. Since then, I did insert the Torrez catheter and the urine is perfectly clear and the patient, in fa ct, as I was trying to do the catheterization, he did urinate and he did urinate well. OBJECTIVE VITAL SIGNS: His temperature is 97.5, pulse is 75, respiration is 18, blood pressure 127/64. ABDOMEN: Soft. The Torrez catheter is draining clear urine. The external genitalia are normal. LABORATORY DATA: His CBC shows a white count 10.9, hemoglobin 11.8, hematocrit 34.6. BUN is 13, cr eatinine 0.61. Sodium 140, potassium 3.3. The chloride 102, CO2 27. The urine culture had Tomasa . The patient is on Voriconazole. PLAN: Discontinue the Torrez catheter and apply a condom catheter so the patient should be able to u rinate. Dictated By: ABDI SEGOVIA/IMELDA Conf#: [id number] DID#: [id number]
--- NOTE | 2016-03-29 09:58 | CONS ---
Date/Time of Note Date/Time of Note DATE: 03/29/16 TIME: 09:56 Assessment/Plan Assessment/Plan Additional Assessment/Plan 1. Abnormal electrocardiogram, assess for acute coronary syndrome.-negative troponin x 3/NL EF by echo. Lexiscan affected by artifact but no ischemia only scar. Con't stefano-op care as needed. 2. Hypertension- well Rx, con't Med Rx. 3. Peripheral arterial disease at aortoiliac bifurcation with likely embolic phenomenon/"Blue toes" - vascular team follows, 4. Dyslipidemia. 5. Diabetes mellitus- con't to keep euglycemic. 7. Iliac artery aneurysm - med rx for now. 8. Coronary artery disease- no rev ischemai by stres test. 9. Dementia. 10. Permanent pacemaker- no evidence of pacing. 11.H/O Hip replacement with possible need for revision Consultation Date/Type/Reason Admit Date/Time Mar 24, 2016 at 17:40 Initial Consult Date 03/28/16 Type of Consultation: Cardiology Referring Provider: LAVELL BRADLEY MD 24 HR Interval Summary Free Text/Dictation No acute events - no ectopy on tele. HR >80-s mostly - no pacing noted. ROS: No fever, no chills, no nausea, no vomiting, no diarrhea/constipation No recent weight changes No chest pain, no PND, no orthopnea No dizziness, blurred vision No thirst, no heat or cold intolerance PVD - severe Exam/Review of Systems Vital Signs Vitals Vital Signs Date Time Temp Pulse Resp B/P Pulse Ox O2 Delivery O2 Flow Rate FiO2 03/29/16 08:57 81 03/29/16 07:47 97.5 18 127/64 96 03/26/16 00:00 Room Air Intake and Output 03/28/16 03/28/16 03/29/16 15:00 23:00 07:00 Intake Total 300 ml 120 ml 805 ml Output Total 900 ml 180 ml Balance -600 ml -60 ml 805 ml Exam General: WN/WD/NAD, AOx 1-2 HEENT: Unicetric/atraumatic/EOMI (does not follow commands) NECK: JVD elevated, no thyromegaly Lymph: no lymphadenopathy HEART: regular with no S3, II/ systolic murmur at apex LUNGS: Coarse sounds ABD: soft, NT, ND, +BS : Intact Neuro: non focal SKIN: chronic changes EXT: trace edema, severe PVD Results Result Diagram: 03/29/16 0543 03/29/16 0543 Results 24 hrs Laboratory Tests Test 03/28/16 15:45 03/28/16 16:33 03/28/16 21:20 03/29/16 05:43 Erythrocyte Sedimentation Rate 44 H Hematocrit 36.3 L 34.6 L Hemoglobin 12.4 L 11.8 L Bedside Glucose 91 142 Anion Gap 14 Basophils # 0.0 Basophils % 0.4 Blood Morphology Comment Blood Urea Nitrogen 13 Calcium Level 8.3 L Carbon Dioxide Level 27 Chloride Level 102 Creatinine 0.61 Eosinophils # 0.2 Eosinophils % 2.0 Glucose Level 93 Lymphocytes # 1.4 Lymphocytes % 13.3 L Mean Corpuscular Hemoglobin 32.0 Mean Corpuscular Hemoglobin Concent 34.2 Mean Corpuscular Volume 93.6 Mean Platelet Volume 7.2 L Monocytes # 0.9 Monocytes % 8.1 Neutrophils # 8.3 H Neutrophils % 76.2 Nucleated Red Blood Cells # 0.0 Nucleated Red Blood Cells % 0.0 Platelet Count 541 H Potassium Level 3.3 L Red Blood Count 3.70 L Red Cell Distribution Width 15.7 H Sodium Level 140 White Blood Count 10.9 #H Test 03/29/16 09:07 Bedside Glucose 97 Medications Medications Current Medications Sodium Chloride (NS) 1,000 ml @ 50 mls/hr Q20H IV Last administered on 06:52; Admin Dose 50 MLS/HR; Start 03/24/16 at 18:04 Lorazepam (Ativan) 0.5 mg Q6H PRN IV ANXIETY Last administered on 03/25/16 05: 55; Admin Dose 0.5 MG; Start 03/24/16 at 18:30 Ondansetron HCl (Zofran Inj) 4 mg Q6H PRN IV NAUSEA AND/OR VOMITING; Start 03/24 at 18:30 Nitroglycerin (Nitroglycerin (Sl Tab) 0.4 Mg) 1 tab Q5M PRN SL CHEST PAIN; Start 03/24/16 at 18:30 Acetaminophen (Tylenol Tab) 650 mg Q6H PRN PO PAIN LEVEL 1-3 OR FEVER; Start at 18:30 Morphine Sulfate (morphine) 2 mg Q4H PRN IV PAIN LEVEL 7-10 Last administered on 03/27/16 17:53; Admin Dose 2 MG; Start 03/24/16 at 18:30 Atorvastatin Calcium (Lipitor) 40 mg QHS PO Last administered on 03/28/16 21: 12; Admin Dose 40 MG; Start 03/24/16 at 21:00 Donepezil HCl (Aricept) 5 mg QHS PO Last administered on 03/28/16 21:13; Admin Dose 5 MG; Start 03/24/16 at 21:00 Ferrous Sulfate (Ferrous Sulfate (Ec)) 325 mg BID PO Last administered on 21:12; Admin Dose 325 MG; Start 03/24/16 at 21:00 Memantine (Namenda) 5 mg BID PO Last administered on 03/29/16 09:02; Admin Dose 5 MG; Start 03/24/16 at 21:00 Miscellaneous Information 1 ea NOTE XX ; Start 03/24/16 at 18:30 Glucose (Glutose) 15 gm Q15M PRN PO DECREASED GLUCOSE; Start 03/24/16 at 18:30 Glucose (Glutose) 22.5 gm Q15M PRN PO DECREASED GLUCOSE; Start 03/24/16 at 18:30 Dextrose (D50w Syringe) 25 ml Q15M PRN IV DECREASED GLUCOSE; Start 03/24/16 at 18:30 Dextrose (D50w Syringe) 50 ml Q15M PRN IV DECREASED GLUCOSE; Start 03/24/16 at 18:30 Glucagon (Glucagen) 1 mg Q15M PRN IM DECREASED GLUCOSE; Start 03/24/16 at 18:30 Glucose (Glutose) 15 gm Q15M PRN BUCCAL DECREASED GLUCOSE; Start 03/24/16 at 18: 30 Hydromorphone HCl (Dilaudid) 1 mg Q4H PRN IV PAIN; Start 03/25/16 at 06:30 Metoprolol Tartrate (Lopressor) 25 mg BID PO Last administered on 03/29/16 09: 01; Admin Dose 25 MG; Start 03/25/16 at 21:00 Mupirocin (Bactroban) 1 applic BID TOP Last administered on 03/29/16 09:09; Admin Dose 1 APPLIC; Start 03/27/16 at 14:30 Pantoprazole 40 mg 40 mg DAILY@06 PO Last administered on 03/28/16 06:12; Admin Dose 40 MG; Start 03/28/16 at 06:00 Voriconazole (Vfend 200mg/NS) 100 ml @ 50 mls/hr Q12 IVPB Last administered on 03/29/16 09:03; Admin Dose 50 MLS/HR; Start 03/28/16 at 21:00 LEORA SARAVIA MD Mar 29, 2016 09:58
[2016-03-29] MEDS ORDERED: ETOMIDATE 20 MG INJ ONE (11:56)
[2016-03-29] MEDS ORDERED: ROCURONIUM 50 MG INJ ONE ×2 (11:57→12:03)
[2016-03-29] MEDS ORDERED: LIDOCAINE 2% (SDV) 5 ML INJ ONE (12:03)
[2016-03-29] MEDS ORDERED: PHENYLephrine (100 MCG/ML) 5ML SYG ONE (12:04)
[2016-03-29] MEDS ORDERED: EPHEDrine SULFATE 50 MG/5 ML SYG ONE (12:04)
[2016-03-29] MEDS ORDERED: nitroGLYCerin 50 MG INJ ONE (12:04)
[2016-03-29] MEDS ORDERED: IOHEXOL 300MG/ML 150 ML BTL ONE (12:14)
[2016-03-29] MEDS ORDERED: MIDAZOLAM 1 MG/ML 2 ML INJ ONE ×2 (12:22)
[2016-03-29] MEDS ORDERED: GELATIN SIZE 100 SPONGE ONE (12:24)
[2016-03-29] MEDS ORDERED: HEPARIN 1000 UNITS/ML 10 ML INJ ONE ×2 (12:25→13:55)
[2016-03-29] MEDS ORDERED: THROMBIN 5000 UNIT VIAL ONE (12:26)
--- NOTE | 2016-03-29 12:34 | CONS ---
Date/Time of Note Date/Time of Note DATE: 03/29/16 TIME: 12:31 Assessment/Plan Assessment/Plan Chief Complaint/Hosp Course 1. Probable Left hip replacement infection 2. 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 Hx of dementia, type II DM, CAD, anemia - chronic, s/p pacemaker 4. Blue toe syndrome Recommendations: - Ortho eval for arthrocentesis; Seen by Dr. Santiago who recommended pt to be transferred to either the operating surgeon or to a higher level for revision surgery. - Consider CT hip - bcxs - F/u procalc (pending); esr (44) - hold off abx for now but will likely start vanco/ctx once drainage done - Above d/w Dr. Maria Problems: Consultation Date/Type/Reason Admit Date/Time Mar 24, 2016 at 17:40 Initial Consult Date 03/28/16 Type of Consultation: Infectious Disease Referring Provider: LAVELL BRADLEY MD 24 HR Interval Summary Free Text/Dictation Pt went to OR for Endovascular aneurysm repair per nursing staff. Exam/Review of Systems Vital Signs Vitals Vital Signs Date Time Temp Pulse Resp B/P Pulse Ox O2 Delivery O2 Flow Rate FiO2 03/29/16 12:13 61 03/29/16 11:17 98.5 18 141/85 93 03/26/16 00:00 Room Air Intake and Output 03/28/16 03/28/16 03/29/16 15:00 23:00 07:00 Intake Total 300 ml 120 ml 805 ml Output Total 900 ml 180 ml Balance -600 ml -60 ml 805 ml Exam Unable to perform; pt not in room. Results Result Diagram: 03/29/16 0543 03/29/16 0543 Results 24 hrs Laboratory Tests Test 03/28/16 15:45 03/28/16 16:33 03/28/16 21:20 03/29/16 05:43 Erythrocyte Sedimentation Rate 44 H Hematocrit 36.3 L 34.6 L Hemoglobin 12.4 L 11.8 L Bedside Glucose 91 142 Anion Gap 14 Basophils # 0.0 Basophils % 0.4 Blood Morphology Comment Blood Urea Nitrogen 13 Calcium Level 8.3 L Carbon Dioxide Level 27 Chloride Level 102 Creatinine 0.61 Eosinophils # 0.2 Eosinophils % 2.0 Glucose Level 93 Lymphocytes # 1.4 Lymphocytes % 13.3 L Mean Corpuscular Hemoglobin 32.0 Mean Corpuscular Hemoglobin Concent 34.2 Mean Corpuscular Volume 93.6 Mean Platelet Volume 7.2 L Monocytes # 0.9 Monocytes % 8.1 Neutrophils # 8.3 H Neutrophils % 76.2 Nucleated Red Blood Cells # 0.0 Nucleated Red Blood Cells % 0.0 Platelet Count 541 H Potassium Level 3.3 L Red Blood Count 3.70 L Red Cell Distribution Width 15.7 H Sodium Level 140 White Blood Count 10.9 #H Test 03/29/16 09:07 Bedside Glucose 97 Medications Medications Current Medications Sodium Chloride (NS) 1,000 ml @ 50 mls/hr Q20H IV Last administered on 06:52; Admin Dose 50 MLS/HR; Start 03/24/16 at 18:04 Lorazepam (Ativan) 0.5 mg Q6H PRN IV ANXIETY Last administered on 03/25/16 05: 55; Admin Dose 0.5 MG; Start 03/24/16 at 18:30 Ondansetron HCl (Zofran Inj) 4 mg Q6H PRN IV NAUSEA AND/OR VOMITING; Start 03/24 at 18:30 Nitroglycerin (Nitroglycerin (Sl Tab) 0.4 Mg) 1 tab Q5M PRN SL CHEST PAIN; Start 03/24/16 at 18:30 Acetaminophen (Tylenol Tab) 650 mg Q6H PRN PO PAIN LEVEL 1-3 OR FEVER; Start at 18:30 Morphine Sulfate (morphine) 2 mg Q4H PRN IV PAIN LEVEL 7-10 Last administered on 03/27/16 17:53; Admin Dose 2 MG; Start 03/24/16 at 18:30 Atorvastatin Calcium (Lipitor) 40 mg QHS PO Last administered on 03/28/16 21: 12; Admin Dose 40 MG; Start 03/24/16 at 21:00 Donepezil HCl (Aricept) 5 mg QHS PO Last administered on 03/28/16 21:13; Admin Dose 5 MG; Start 03/24/16 at 21:00 Ferrous Sulfate (Ferrous Sulfate (Ec)) 325 mg BID PO Last administered on 21:12; Admin Dose 325 MG; Start 03/24/16 at 21:00 Memantine (Namenda) 5 mg BID PO Last administered on 03/29/16 09:02; Admin Dose 5 MG; Start 03/24/16 at 21:00 Miscellaneous Information 1 ea NOTE XX ; Start 03/24/16 at 18:30 Glucose (Glutose) 15 gm Q15M PRN PO DECREASED GLUCOSE; Start 03/24/16 at 18:30 Glucose (Glutose) 22.5 gm Q15M PRN PO DECREASED GLUCOSE; Start 03/24/16 at 18:30 Dextrose (D50w Syringe) 25 ml Q15M PRN IV DECREASED GLUCOSE; Start 03/24/16 at 18:30 Dextrose (D50w Syringe) 50 ml Q15M PRN IV DECREASED GLUCOSE; Start 03/24/16 at 18:30 Glucagon (Glucagen) 1 mg Q15M PRN IM DECREASED GLUCOSE; Start 03/24/16 at 18:30 Glucose (Glutose) 15 gm Q15M PRN BUCCAL DECREASED GLUCOSE; Start 03/24/16 at 18: 30 Hydromorphone HCl (Dilaudid) 1 mg Q4H PRN IV PAIN; Start 03/25/16 at 06:30 Metoprolol Tartrate (Lopressor) 25 mg BID PO Last administered on 03/29/16 09: 01; Admin Dose 25 MG; Start 03/25/16 at 21:00 Mupirocin (Bactroban) 1 applic BID TOP Last administered on 03/29/16 09:09; Admin Dose 1 APPLIC; Start 03/27/16 at 14:30 Pantoprazole 40 mg 40 mg DAILY@06 PO Last administered on 03/28/16 06:12; Admin Dose 40 MG; Start 03/28/16 at 06:00 Voriconazole (Vfend 200mg/NS) 100 ml @ 50 mls/hr Q12 IVPB Last administered on 03/29/16 09:03; Admin Dose 50 MLS/HR; Start 03/28/16 at 21:00 MARIANA ZUNIGA NP Mar 29, 2016 12:34
[2016-03-29] MEDS: morphine 2 MG INJ IV PRN (12:36)
[2016-03-29] MEDS ORDERED: IOHEXOL 300MG/ML 30 ML BTL ONE ×3 (12:50→13:26)
[2016-03-29] MEDS ORDERED: POLYMYXIN/BACITRACIN 1L IRRIG ONE (12:52)
[2016-03-29] MEDS ORDERED: FENTAnyl 50 MCG/ML VIAL IV PRN ×6 (13:00→17:00)
[2016-03-29] MEDS ORDERED: hydrALAzine 20 MG INJ IV PRN ×2 (13:00→17:00)
[2016-03-29] MEDS ORDERED: EPHEDrine SULFATE 50 MG/5 ML SYG IV PRN ×2 (13:00→17:00)
[2016-03-29] MEDS ORDERED: LABETALOL HCL 20MG INJ IV PRN ×2 (13:00→17:00)
[2016-03-29] MEDS ORDERED: MEPERIDINE 25 MG INJ IV PRN ×2 (13:00→17:00)
[2016-03-29] MEDS ORDERED: ONDANSETRON 4 MG INJ IV PRN ×2 (13:00→17:00)
[2016-03-29] MEDS ORDERED: HYDROmorphONE (0.2 MG/ML) 10ML SYG IV PRN ×3 (13:00)
[2016-03-29] MEDS ORDERED: VANCOMYCIN 1 GM (PMX) 250 ML ONE (13:38)
--- NOTE | 2016-03-29 14:58 | CONS ---
DATE OF ADMISSION: 03/24/2016 DATE OF CONSULTATION: 03/28/2016 PALLIATIVE CARE FAMILY CONFERENCE HISTORY OF PRESENT ILLNESS: I was asked to see this patient by Dr. Gonzales Lopez when he was still i n the hospitalist service, to speak to family members concerning code status. The patient is a dani nted 70-year-old gentleman with a past medical history of diabetes, coronary heart disease, and now presents to [facility] with blue to syndrome. He has been by cardiology, vascular surgery, urology consultation and orthopedic surgery. The patient was a full code. . MEDICATIONS: Please refer to reconciliation. ALLERGIES: NO KNOWN DRUG ALLERGIES. MAJOR MEDICAL PROBLEMS IN THE PAST: Extensive, please refer to the history and physical that was do ne by Dr. Gonzales Lopez, but include also a history of type 2 diabetes, coronary heart disease, anem ia of chronic disease, pacer implantation unknown reasons, and most significantly history of advanci ng dementia. SOCIAL HISTORY: Lives at home with a daughter and without history of smoking or drinking. FAMILY HISTORY: Noncontributory. REVIEW OF SYSTEMS: Cannot be obtained. PHYSICAL EXAMINATION: GENERAL: Shows an ill-appearing, cachectic gentleman who is moaning and groaning. HEENT: Normocephalic and atraumatic. Anicteric, acyanotic on examination. CHEST: Clear. COR: S1, S2, without S3, S4, murmur, gallop, rub. Normal rate, normal rhythm. ABDOMEN: Grossly benign on examination. NEUROLOGIC: He follows no simple commands. He looks into space. He does not track me at all. He does move any 4 extremities in a purposeful manner. ASSESSMENT AND PLAN: I have had an extensive conversation with the patient's daughter who gave me a past history of this gentleman has been deteriorating neurologically for some period of time prior to this presentation. He can minimally do his ADLs and only eat, otherwise requires all the other A DLs with assistance. He is primarily confined to either wheelchair or bed throughout the day. [facility] the [facility]. The daughter I spoke has durable power of admitted attorneys for health care and she has made it very clear that would never want to see him on a ventil ator, nor have cardiopulmonary resuscitation. I have made those changes in the chart here and docum ented my conversation with patient's daughter. Since patient has been transferred from the hospital ist service to the service of Dr. Poole, I will sign off. Dictated By: JAMARI MONTIEL MD, LP/IMELDA Conf#: [id number] DID#: [id number]
[2016-03-29] MEDS ORDERED: PROTAMINE 250 MG INJ ONE (15:56)
[2016-03-29] MEDS ORDERED: FUROSEMIDE 20 MG INJ ONE (16:06)
[2016-03-29] MEDS ORDERED: NEOSTIGMINE 3 MG/3 ML SYRINGE ONE (16:07)
[2016-03-29] MEDS ORDERED: GLYCOPYRROLATE 1 MG INJ ONE (16:07)
--- NOTE | 2016-03-29 16:57 | PN ---
Date/Time of Note Date/Time of Note DATE: 03/29/16 TIME: 16:56 Assessment/Plan VTE Prophylaxis VTE Prophylaxis Intervention: SCD's Lines/Catheters IV Catheter Type (from [facility]): Peripheral IV Urinary Cath still in place: Yes Assessment/Plan Chief Complaint/Hosp Course Assessment and plan - Probable Left hip replacement infection. Dr. Maria is following from infectious disease standpoint. Continue antibiotics per ID. Status post evaluation by orthopedic surgeon with recommendation to follow-up with operating surgeon or to transfer patient to a high level of care. - Aortoiliac atherosclerotic disease, ectatic right common iliac artery with thrombus. Dr. Mondragon is following in vascular surgery consultation. Plan for vascular intervention tomorrow. -Hematuria status post attempt in a catheterization, patient is followed by Dr. Rankin and neurology consultation. Status post Torrez catheter placement by urology. Continue to monitor H&H. Aspirin and Lovenox is on held due to hematuria. - Blue toe syndrome - Dementia, continue Aricept and Namenda. - Diabetes mellitus type 2 - Coronary artery disease. Dr. Peters is following and cardiology consultation. - Hypertension, continue metoprolol. - Permanent pacemaker - Chronic anemia Continue Protonix for peptic ulcer disease prophylaxis Further recommendations based on clinical course. Plan of care discussed with Dr. Poole. Problems: Subjective 24 Hr Interval Summary Free Text/Dictation Patient is currently undergoing endovascular aneurysm repair, in OR. Exam/Review of Systems Vital Signs Vitals Vital Signs Date Time Temp Pulse Resp B/P Pulse Ox O2 Delivery O2 Flow Rate FiO2 03/29/16 12:51 98.0 59 21 107/63 99 Room Air Intake and Output 03/28/16 03/28/16 03/29/16 15:00 23:00 07:00 Intake Total 300 ml 120 ml 805 ml Output Total 900 ml 180 ml Balance -600 ml -60 ml 805 ml Results Result Diagram: 03/29/16 0543 03/29/1643 Results 24 hrs Laboratory Tests Test 03/28/16 21:20 03/29/16 05:43 03/29/16 09:07 Bedside Glucose 142 97 Anion Gap 14 Basophils # 0.0 Basophils % 0.4 Blood Morphology Comment Blood Urea Nitrogen 13 Calcium Level 8.3 L Carbon Dioxide Level 27 Chloride Level 102 Creatinine 0.61 Eosinophils # 0.2 Eosinophils % 2.0 Glucose Level 93 Hematocrit 34.6 L Hemoglobin 11.8 L Lymphocytes # 1.4 Lymphocytes % 13.3 L Mean Corpuscular Hemoglobin 32.0 Mean Corpuscular Hemoglobin Concent 34.2 Mean Corpuscular Volume 93.6 Mean Platelet Volume 7.2 L Monocytes # 0.9 Monocytes % 8.1 Neutrophils # 8.3 H Neutrophils % 76.2 Nucleated Red Blood Cells # 0.0 Nucleated Red Blood Cells % 0.0 Platelet Count 541 H Potassium Level 3.3 L Red Blood Count 3.70 L Red Cell Distribution Width 15.7 H Sodium Level 140 White Blood Count 10.9 #H Medications Medications Current Medications Sodium Chloride (NS) 1,000 ml @ 50 mls/hr Q20H IV Last administered on 06:52; Admin Dose 50 MLS/HR; Start 03/24/16 at 18:04 Lorazepam (Ativan) 0.5 mg Q6H PRN IV ANXIETY Last administered on 03/25/16 05: 55; Admin Dose 0.5 MG; Start 03/24/16 at 18:30 Ondansetron HCl (Zofran Inj) 4 mg Q6H PRN IV NAUSEA AND/OR VOMITING; Start 03/24 at 18:30 Nitroglycerin (Nitroglycerin (Sl Tab) 0.4 Mg) 1 tab Q5M PRN SL CHEST PAIN; Start 03/24/16 at 18:30 Acetaminophen (Tylenol Tab) 650 mg Q6H PRN PO PAIN LEVEL 1-3 OR FEVER; Start at 18:30 Morphine Sulfate (morphine) 2 mg Q4H PRN IV PAIN LEVEL 7-10 Last administered on 03/29/16 12:36; Admin Dose 2 MG; Start 03/24/16 at 18:30 Atorvastatin Calcium (Lipitor) 40 mg QHS PO Last administered on 03/28/16 21: 12; Admin Dose 40 MG; Start 03/24/16 at 21:00 Donepezil HCl (Aricept) 5 mg QHS PO Last administered on 03/28/16 21:13; Admin Dose 5 MG; Start 03/24/16 at 21:00 Ferrous Sulfate (Ferrous Sulfate (Ec)) 325 mg BID PO Last administered on 21:12; Admin Dose 325 MG; Start 03/24/16 at 21:00 Memantine (Namenda) 5 mg BID PO Last administered on 03/29/16 09:02; Admin Dose 5 MG; Start 03/24/16 at 21:00 Miscellaneous Information 1 ea NOTE XX ; Start 03/24/16 at 18:30 Glucose (Glutose) 15 gm Q15M PRN PO DECREASED GLUCOSE; Start 03/24/16 at 18:30 Glucose (Glutose) 22.5 gm Q15M PRN PO DECREASED GLUCOSE; Start 03/24/16 at 18:30 Dextrose (D50w Syringe) 25 ml Q15M PRN IV DECREASED GLUCOSE; Start 03/24/16 at 18:30 Dextrose (D50w Syringe) 50 ml Q15M PRN IV DECREASED GLUCOSE; Start 03/24/16 at 18:30 Glucagon (Glucagen) 1 mg Q15M PRN IM DECREASED GLUCOSE; Start 03/24/16 at 18:30 Glucose (Glutose) 15 gm Q15M PRN BUCCAL DECREASED GLUCOSE; Start 03/24/16 at 18: 30 Hydromorphone HCl (Dilaudid) 1 mg Q4H PRN IV PAIN; Start 03/25/16 at 06:30 Metoprolol Tartrate (Lopressor) 25 mg BID PO Last administered on 03/29/16 09: 01; Admin Dose 25 MG; Start 03/25/16 at 21:00 Mupirocin (Bactroban) 1 applic BID TOP Last administered on 03/29/16 09:09; Admin Dose 1 APPLIC; Start 03/27/16 at 14:30 Pantoprazole 40 mg 40 mg DAILY@06 PO Last administered on 03/28/16 06:12; Admin Dose 40 MG; Start 03/28/16 at 06:00 Voriconazole (Vfend 200mg/NS) 100 ml @ 50 mls/hr Q12 IVPB Last administered on 03/29/16 09:03; Admin Dose 50 MLS/HR; Start 03/28/16 at 21:00 ALICIA MONTGOMERY Mar 29, 2016 16:56
[2016-03-29] MEDS ORDERED: GLUCAGON 1 MG INJ IM PRN (17:00)
[2016-03-29] MEDS ORDERED: INSULIN ASPART [NOVOLOG] 3 ML PEN SC ONE (17:00)
[2016-03-29] MEDS ORDERED: GLUCOSE GEL 15 GRAM TUBE PO PRN ×2 (17:00)
[2016-03-29] MEDS ORDERED: HYDROmorphONE 1 MG/ML SYG IV PRN ×3 (17:00)
[2016-03-29] MEDS ORDERED: DEXTROSE 50% 50 ML SYRINGE IV PRN ×2 (17:00)
[2016-03-29] MEDS ORDERED: GLUCOSE GEL 15 GRAM TUBE BUCCAL PRN (17:00)
[2016-03-29] MEDS ORDERED: HYPOGLYCEMIA PROTOCOL when Glucose is <70 mg/dL or symptomatic <90 mg/dL. XX ONE (17:00)
[2016-03-29] MEDS: DONEPEZIL 5 MG TAB PO SCH (21:00)
[2016-03-29] MEDS: ATORVASTATIN 40 MG TAB PO SCH (21:00)
[2016-03-29] MEDS: HEPARIN 5,000 UNIT/0.5 ML SYG SC SCH (21:12)
[2016-03-29 21:22] LABS: BASOPHILS % 0.4 % (0.0-2.0); CONDITION 1; EOSINOPHILS # 0.2 10^3/ul (0.0-0.5); EOSINOPHILS % 2.1 % (0.0-7.0); HEMATOCRIT 42.3 % (42.0-52.0); HEMOGLOBIN 13.8 g/dl (14.0-18.0); LH ANALYZER COMMENTS 1; LYMPHOCYTES # 1.6 10^3/ul (0.8-2.9); LYMPHOCYTES % 13.8 % (15.0-51.0); MEAN CORPUSCULAR HEMOGLOBIN 30.3 pg (29.0-33.0); MEAN CORPUSCULAR HGB CONC 32.7 g/dl (32.0-37.0); MEAN CORPUSCULAR VOLUME 92.6 fl (82.0-101.0); MONOCYTE # 1.1 10^3/ul (0.3-0.9); MONOCYTES % 9.3 % (0.0-11.0); NEUTROPHIL # 8.6 10^3/ul (1.6-7.5); NEUTROPHILS % 74.4 % (39.0-77.0); PLATELET COUNT 505 10^3/UL (140-440); RED BLOOD COUNT 4.57 10^6/ul (4.70-6.10); RED CELL DISTRIBUTION WIDTH 16.3 % (11.5-14.5); UNCORRECTED WBC 11.6 10^3/ul (4.8-10.8); WHITE BLOOD COUNT 11.6 10^3/ul (4.8-10.8)
--- NOTE | 2016-03-29 22:34 | CONS ---
Date/Time of Note Date/Time of Note DATE: 03/29/16 TIME: 22:29 Assessment/Plan Assessment/Plan Problems: (1) Gangrene of toe Status: Acute (2) Ischemic toe Status: Acute (3) Chronic distal aortic occlusion Status: Acute Additional Assessment/Plan At this time, no surgery is recommended for patient's foot problems. Patient has ischemic changes in the right lower extremity. I have ordered a bed cradle to be placed at the end of the bed to minimize pressure on the feet. Patient will be followed in-house. Thank you very much for consultation. Thank you again for involving me in the care of this patient. If you have any questions regarding this case, please feel free to contact me at pager: [phone] or reach me at mobile: [phone]. Consultation Date/Type/Reason Admit Date/Time Mar 24, 2016 at 17:40 Date of Consultation: Mar 29, 2016 Type of Consultation: Foot and ankle surgery Reason for Consultation Foot and ankle evaluation Referring Provider: ANN GROSS MD Hx of Present Illness Thank you very much for involving me in the care of this patient. As you very well know this is a 70-year-old male patient with multiple medical problems including type 2 diabetes mellitus, dementia, status post pacemaker who presented to the hospital with "blue toe syndrome". Patient is currently in the ICU. I was consulted for evaluation and treatment of feet. Patient's family was present in the room. Patient is noncommunicative to verbal command at this time. As per history of present illness. Eyes: no complaints ENT: no complaints Respiratory: no complaints Cardiovascular: no complaints Gastrointestinal: no complaints Genitourinary: no complaints Psychological: confusion, depression Past Medical History As per history of present illness. Medical History: coronary artery disease, diabetes Past Surgical History As per history of present illness. Social History As per history of present illness. Alcohol Use: none Smoking Status: Unknown if ever smoked Drug Use: none Exam/Review of Systems Vital Signs Vitals Vital Signs Date Time Temp Pulse Resp B/P Pulse Ox O2 Delivery O2 Flow Rate FiO2 03/29/16 20:00 80 03/29/16 19:30 18 140/67 03/29/16 19:00 100 Nasal Cannula 03/29/16 17:30 97.6 03/29/16 17:00 5.0 Intake and Output 03/28/16 03/28/16 03/29/16 15:00 23:00 07:00 Intake Total 300 ml 120 ml 805 ml Output Total 900 ml 180 ml Balance -600 ml -60 ml 805 ml Exam Patient is laying supine in bed in no acute distress. Patient's feet were examined. Patient has cyanotic toes on the right foot. Temperature gradient is significantly increased on the right lower extremity. Left lower extremity edema noted with decreased temperature gradient. There is rubor of skin on the left lower extremity. No open wounds noted on both feet. Dorsalis pedis and posterior tibial pulses not palpable. Capillary refill time is delayed significantly bilaterally. Patient has decreased sensation to sharp, dull, vibratory and temperature stimuli. Labs reviewed. Results Result Diagram: 03/29/16 2100 03/29/16 0543 Results 24 hrs Laboratory Tests Test 03/29/16 05:43 03/29/16 09:07 03/29/16 18:35 03/29/16 21:00 Anion Gap 14 Basophils # 0.0 0.0 Basophils % 0.4 0.4 Blood Morphology Comment Blood Urea Nitrogen 13 Calcium Level 8.3 L Carbon Dioxide Level 27 Chloride Level 102 Creatinine 0.61 Eosinophils # 0.2 0.2 Eosinophils % 2.0 2.1 Glucose Level 93 Hematocrit 34.6 L 42.3 # Hemoglobin 11.8 L 13.8 L Lymphocytes # 1.4 1.6 Lymphocytes % 13.3 L 13.8 L Mean Corpuscular Hemoglobin 32.0 30.3 Mean Corpuscular Hemoglobin Concent 34.2 32.7 Mean Corpuscular Volume 93.6 92.6 Mean Platelet Volume 7.2 L 7.0 L Monocytes # 0.9 1.1 H Monocytes % 8.1 9.3 Neutrophils # 8.3 H 8.6 H Neutrophils % 76.2 74.4 Nucleated Red Blood Cells # 0.0 0.0 Nucleated Red Blood Cells % 0.0 0.0 Platelet Count 541 H 505 H Potassium Level 3.3 L Red Blood Count 3.70 L 4.57 #L Red Cell Distribution Width 15.7 H 16.3 H Sodium Level 140 White Blood Count 10.9 #H 11.6 H Bedside Glucose 97 96 Test 03/29/16 21:13 03/29/16 21:36 Bedside Glucose 67 L 119 Medications Medications Current Medications Lorazepam (Ativan) 0.5 mg Q6H PRN IV ANXIETY Last administered on 03/25/16 05: 55; Admin Dose 0.5 MG; Start 03/24/16 at 18:30 Ondansetron HCl (Zofran Inj) 4 mg Q6H PRN IV NAUSEA AND/OR VOMITING; Start 03/24 at 18:30 Nitroglycerin (Nitroglycerin (Sl Tab) 0.4 Mg) 1 tab Q5M PRN SL CHEST PAIN; Start 03/24/16 at 18:30 Acetaminophen (Tylenol Tab) 650 mg Q6H PRN PO PAIN LEVEL 1-3 OR FEVER; Start at 18:30 Morphine Sulfate (morphine) 2 mg Q4H PRN IV PAIN LEVEL 7-10 Last administered on 03/29/16 12:36; Admin Dose 2 MG; Start 03/24/16 at 18:30 Atorvastatin Calcium (Lipitor) 40 mg QHS PO Last administered on 03/28/16 21: 12; Admin Dose 40 MG; Start 03/24/16 at 21:00 Donepezil HCl (Aricept) 5 mg QHS PO Last administered on 03/28/16 21:13; Admin Dose 5 MG; Start 03/24/16 at 21:00 Ferrous Sulfate (Ferrous Sulfate (Ec)) 325 mg BID PO Last administered on 21:12; Admin Dose 325 MG; Start 03/24/16 at 21:00 Memantine (Namenda) 5 mg BID PO Last administered on 03/29/16 09:02; Admin Dose 5 MG; Start 03/24/16 at 21:00 Miscellaneous Information 1 ea NOTE XX ; Start 03/24/16 at 18:30 Glucose (Glutose) 15 gm Q15M PRN PO DECREASED GLUCOSE; Start 03/24/16 at 18:30 Glucose (Glutose) 22.5 gm Q15M PRN PO DECREASED GLUCOSE; Start 03/24/16 at 18:30 Dextrose (D50w Syringe) 25 ml Q15M PRN IV DECREASED GLUCOSE; Start 03/24/16 at 18:30 Dextrose (D50w Syringe) 50 ml Q15M PRN IV DECREASED GLUCOSE Last administered on 03/29/16 21:16; Admin Dose 50 ML; Start 03/24/16 at 18:30 Glucagon (Glucagen) 1 mg Q15M PRN IM DECREASED GLUCOSE; Start 03/24/16 at 18:30 Glucose (Glutose) 15 gm Q15M PRN BUCCAL DECREASED GLUCOSE; Start 03/24/16 at 18: 30 Hydromorphone HCl (Dilaudid) 1 mg Q4H PRN IV PAIN; Start 03/25/16 at 06:30 Metoprolol Tartrate (Lopressor) 25 mg BID PO Last administered on 03/29/16 09: 01; Admin Dose 25 MG; Start 03/25/16 at 21:00 Mupirocin (Bactroban) 1 applic BID TOP Last administered on 03/29/16 21:10; Admin Dose 1 APPLIC; Start 03/27/16 at 14:30 Pantoprazole 40 mg 40 mg DAILY@06 PO Last administered on 03/28/16 06:12; Admin Dose 40 MG; Start 03/28/16 at 06:00 Voriconazole (Vfend 200mg/NS) 100 ml @ 50 mls/hr Q12 IVPB Last administered on 03/29/16 21:10; Admin Dose 50 MLS/HR; Start 03/28/16 at 21:00 Miscellaneous Information 1 ea NOTE XX ; Start 03/29/16 at 17:00 Glucose (Glutose) 15 gm Q15M PRN PO DECREASED GLUCOSE; Start 03/29/16 at 17:00 Glucose (Glutose) 22.5 gm Q15M PRN PO DECREASED GLUCOSE; Start 03/29/16 at 17: 00 Dextrose (D50w Syringe) 25 ml Q15M PRN IV DECREASED GLUCOSE; Start 03/29/16 at 17:00 Dextrose (D50w Syringe) 50 ml Q15M PRN IV DECREASED GLUCOSE; Start 03/29/16 at 17:00 Glucagon (Glucagen) 1 mg Q15M PRN IM DECREASED GLUCOSE; Start 03/29/16 at 17:00 Glucose 15 gm 15 gm Q15M PRN BUCCAL DECREASED GLUCOSE; Start 03/29/16 at 17:00 Sodium Chloride (NS) 1,000 ml @ 75 mls/hr [id number] IV Last administered on 03/29 19:10; Admin Dose 75 MLS/HR; Start 03/29/16 at 17:30 Heparin Sodium (Porcine) (Heparin (5000 Units/0.5 ml)) 5,000 unit Q8 SC Last administered on 03/29/16t 21:12; Admin Dose 5,000 UNIT; Start 03/29/16 at 22:00 MERE BAPTISTE DPM Mar 29, 2016 22:34
[2016-03-30] VITALS (44 sets, daily range): BP systolic 81–170; BP diastolic 41–85; PULSE 60–122; RESP 15–30
[2016-03-30 05:22] LABS: BASOPHILS % 0.2 % (0.0-2.0); EOSINOPHILS # 0.2 10^3/ul (0.0-0.5); EOSINOPHILS % 1.8 % (0.0-7.0); HEMATOCRIT 34.9 % (42.0-52.0); HEMOGLOBIN 11.8 g/dl (14.0-18.0); LYMPHOCYTES # 1.2 10^3/ul (0.8-2.9); LYMPHOCYTES % 10.2 % (15.0-51.0); MEAN CORPUSCULAR HEMOGLOBIN 30.8 pg (29.0-33.0); MEAN CORPUSCULAR HGB CONC 33.8 g/dl (32.0-37.0); MEAN CORPUSCULAR VOLUME 91.2 fl (82.0-101.0); MEAN PLATELET VOLUME 7.1 fl (7.4-10.4); MONOCYTES % 8.6 % (0.0-11.0); NEUTROPHIL # 9.4 10^3/ul (1.6-7.5); NEUTROPHILS % 79.2 % (39.0-77.0); PLATELET COUNT 523 10^3/UL (140-440); RED BLOOD COUNT 3.83 10^6/ul (4.70-6.10); RED CELL DISTRIBUTION WIDTH 16.1 % (11.5-14.5); UNCORRECTED WBC 11.9 10^3/ul (4.8-10.8); WHITE BLOOD COUNT 11.9 10^3/ul (4.8-10.8)
[2016-03-30] MEDS: PANTOPRAZOLE (EC) 40 MG TAB PO SCH (05:22)
[2016-03-30 05:25] LABS: CONDITION 1; LH ANALYZER COMMENTS 1
[2016-03-30 05:42] LABS: POTASSIUM 3.8 mmol/L (3.5-5.1)
[2016-03-30 05:44] LABS: CREATININE 0.69 mg/dl (0.61-1.24)
[2016-03-30 05:45] LABS: CALCIUM 7.7 mg/dl (8.4-10.2)
[2016-03-30] MEDS: SOD CHLORIDE 0.9% 1,000 ML IV SCH (06:24)
[2016-03-30] MEDS: HEPARIN 5,000 UNIT/0.5 ML SYG SC SCH ×3 (06:25→22:59)
[2016-03-30] MEDS: INSULIN ASPART [NOVOLOG] 3 ML PEN SC SCH ×4 (07:35→21:00)
[2016-03-30] MEDS: FERROUS SULFATE (EC) 325 MG TAB PO SCH ×2 (09:01→21:04)
[2016-03-30] MEDS: METOPROLOL 25 MG TAB PO SCH ×2 (09:02→21:04)
[2016-03-30] MEDS: MEMANTINE 5 MG TAB PO SCH ×2 (09:02→21:07)
[2016-03-30] MEDS: MUPIROCIN 2% 22 GM OINT TOP SCH ×2 (09:02→21:05)
--- NOTE | 2016-03-30 09:56 | CONS ---
Date/Time of Note Date/Time of Note DATE: 03/30/16 TIME: 09:53 Assessment/Plan Assessment/Plan Chief Complaint/Hosp Course IMPRESSION: 1. Abnormal electrocardiogram, assess for acute coronary syndrome.-negative troponin x 3/NL EF by echo. Lexiscan affected by artifact but no ischemia only scar. Thus at this time patient has no cardiac contraindication to proceeding to OR on current medications without further non-invasive evaluation. Patient is at moderate risk for CV complications. 2. Hypertension. 3. Peripheral arterial disease at aortoiliac bifurcation with likely embolic phenomenon/"Blue toes"-Now post-op Day # s/p peripheral vascular surgery 4. Dyslipidemia. 5. Hypertension. 6. Diabetes mellitus. 7. Iliac artery aneurysm. 8. Coronary artery disease. 9. Dementia. 10. Permanent pacemaker. 11.H/O Hip replacement with possible need for revision Recc: -Tele monitoring in ICU -Continue statin -Continue Heparin Sq -Continue BB -Local wound care -ASA as possible given bleeding complications prior -Pain control Problems: Consultation Date/Type/Reason Admit Date/Time Mar 24, 2016 at 17:40 Initial Consult Date 03/24/16 Type of Consultation: Cardiology Reason for Consultation pre-op Referring Provider: ANN GROSS MD Exam/Review of Systems Vital Signs Vitals Vital Signs Date Time Temp Pulse Resp B/P Pulse Ox O2 Delivery O2 Flow Rate FiO2 03/30/16 08:00 89 03/30/16 07:00 23 125/75 99 Nasal Cannula 03/30/16 04:57 2.0 03/30/16 04:00 97.5 Intake and Output 03/29/16 03/29/16 03/30/16 15:00 23:00 07:00 Intake Total 1400 ml 600 ml 525 ml Output Total 400 ml 2050 ml 800 ml Balance 1000 ml -1450 ml -275 ml Exam Review of Systems: CONSTITUTIONAL: No fevers, chills. PULMONARY: No sob CARDIOVASCULAR: No obvious chest pain/palpitations GASTROINTESTINAL: No nausea/vomiting. GENITOURINARY: No hematuria/dysuria. MUSCULOSKELETAL: No obvious myagias/arthalgias. PSYCHIATRIC: The patient denies depression. NEUROLOGIC: confused/lethargic Constitutional: alert Psych: confusion, no complaints ENMT: mucosa pink and moist Neck: jvd (9 cm water), supple Respiratory: diminished breath sounds (at bases/B) Cardiovascular: regular rate and rhythm Gastrointestinal: non-tender, soft Musculoskeletal: muscle tone (normal) Extremities: edema (none) Neurological: lethargic Results Result Diagram: 03/30/16 0415 03/30/16 0415 Results 24 hrs Laboratory Tests Test 03/29/16 18:35 03/29/16 21:00 03/29/16 21:13 03/29/16 21:36 Bedside Glucose 96 67 L 119 Basophils # 0.0 Basophils % 0.4 Blood Morphology Comment Eosinophils # 0.2 Eosinophils % 2.1 Hematocrit 42.3 # Hemoglobin 13.8 L Lymphocytes # 1.6 Lymphocytes % 13.8 L Mean Corpuscular Hemoglobin 30.3 Mean Corpuscular Hemoglobin Concent 32.7 Mean Corpuscular Volume 92.6 Mean Platelet Volume 7.0 L Monocytes # 1.1 H Monocytes % 9.3 Neutrophils # 8.6 H Neutrophils % 74.4 Nucleated Red Blood Cells # 0.0 Nucleated Red Blood Cells % 0.0 Platelet Count 505 H Red Blood Count 4.57 #L Red Cell Distribution Width 16.3 H White Blood Count 11.6 H Test 03/29/16 21:41 03/30/16 01:46 03/30/16 04:15 Potassium Level 3.9 3.8 Bedside Glucose 83 Anion Gap 12 Basophils # 0.0 Basophils % 0.2 Blood Morphology Comment Blood Urea Nitrogen 10 Calcium Level 7.7 L Carbon Dioxide Level 24 Chloride Level 109 Creatinine 0.69 Eosinophils # 0.2 Eosinophils % 1.8 Glucose Level 90 Hematocrit 34.9 L Hemoglobin 11.8 L Lymphocytes # 1.2 Lymphocytes % 10.2 L Mean Corpuscular Hemoglobin 30.8 Mean Corpuscular Hemoglobin Concent 33.8 Mean Corpuscular Volume 91.2 Mean Platelet Volume 7.1 L Monocytes # 1.0 H Monocytes % 8.6 Neutrophils # 9.4 H Neutrophils % 79.2 H Nucleated Red Blood Cells # 0.0 Nucleated Red Blood Cells % 0.0 Platelet Count 523 H Red Blood Count 3.83 L Red Cell Distribution Width 16.1 H Sodium Level 141 White Blood Count 11.9 H Medications Medications Current Medications Lorazepam (Ativan) 0.5 mg Q6H PRN IV ANXIETY Last administered on 03/25/16t 05: 55; Admin Dose 0.5 MG; Start 03/24/16 at 18:30 Ondansetron HCl (Zofran Inj) 4 mg Q6H PRN IV NAUSEA AND/OR VOMITING; Start 03/24 at 18:30 Nitroglycerin (Nitroglycerin (Sl Tab) 0.4 Mg) 1 tab Q5M PRN SL CHEST PAIN; Start 03/24/16 at 18:30 Acetaminophen (Tylenol Tab) 650 mg Q6H PRN PO PAIN LEVEL 1-3 OR FEVER; Start at 18:30 Morphine Sulfate (morphine) 2 mg Q4H PRN IV PAIN LEVEL 7-10 Last administered on 03/29/16 12:36; Admin Dose 2 MG; Start 03/24/16 at 18:30 Atorvastatin Calcium (Lipitor) 40 mg QHS PO Last administered on 03/28/16 21: 12; Admin Dose 40 MG; Start 03/24/16 at 21:00 Donepezil HCl (Aricept) 5 mg QHS PO Last administered on 03/28/16 21:13; Admin Dose 5 MG; Start 03/24/16 at 21:00 Ferrous Sulfate (Ferrous Sulfate (Ec)) 325 mg BID PO Last administered on 09:01; Admin Dose 325 MG; Start 03/24/16 at 21:00 Memantine (Namenda) 5 mg BID PO Last administered on 03/30/16 09:02; Admin Dose 5 MG; Start 03/24/16 at 21:00 Miscellaneous Information 1 ea NOTE XX ; Start 03/24/16 at 18:30 Glucose (Glutose) 15 gm Q15M PRN PO DECREASED GLUCOSE; Start 03/24/16 at 18:30 Glucose (Glutose) 22.5 gm Q15M PRN PO DECREASED GLUCOSE; Start 03/24/16 at 18:30 Dextrose (D50w Syringe) 25 ml Q15M PRN IV DECREASED GLUCOSE; Start 03/24/16 at 18:30 Dextrose (D50w Syringe) 50 ml Q15M PRN IV DECREASED GLUCOSE Last administered on 03/29/16 21:16; Admin Dose 50 ML; Start 03/24/16 at 18:30 Glucagon (Glucagen) 1 mg Q15M PRN IM DECREASED GLUCOSE; Start 03/24/16 at 18:30 Glucose (Glutose) 15 gm Q15M PRN BUCCAL DECREASED GLUCOSE; Start 03/24/16 at 18: 30 Hydromorphone HCl (Dilaudid) 1 mg Q4H PRN IV PAIN; Start 03/25/16 at 06:30 Metoprolol Tartrate (Lopressor) 25 mg BID PO Last administered on 03/30/16 09: 02; Admin Dose 25 MG; Start 03/25/16 at 21:00 Mupirocin (Bactroban) 1 applic BID TOP Last administered on 03/30/16 09:02; Admin Dose 1 APPLIC; Start 03/27/16 at 14:30 Pantoprazole 40 mg 40 mg DAILY@06 PO Last administered on 03/28/16 06:12; Admin Dose 40 MG; Start 03/28/16 at 06:00 Voriconazole (Vfend 200mg/NS) 100 ml @ 50 mls/hr Q12 IVPB Last administered on 03/29/16 21:10; Admin Dose 50 MLS/HR; Start 03/28/16 at 21:00 Miscellaneous Information 1 ea NOTE XX ; Start 03/29/16 at 17:00 Glucose (Glutose) 15 gm Q15M PRN PO DECREASED GLUCOSE; Start 03/29/16 at 17:00 Glucose (Glutose) 22.5 gm Q15M PRN PO DECREASED GLUCOSE; Start 03/29/16 at 17: 00 Dextrose (D50w Syringe) 25 ml Q15M PRN IV DECREASED GLUCOSE; Start 03/29/16 at 17:00 Dextrose (D50w Syringe) 50 ml Q15M PRN IV DECREASED GLUCOSE; Start 03/29/16 at 17:00 Glucagon (Glucagen) 1 mg Q15M PRN IM DECREASED GLUCOSE; Start 03/29/16 at 17:00 Glucose 15 gm 15 gm Q15M PRN BUCCAL DECREASED GLUCOSE; Start 03/29/16 at 17:00 Sodium Chloride (NS) 1,000 ml @ 75 mls/hr [id number] IV Last administered on 03/30 06:24; Admin Dose 75 MLS/HR; Start 03/29/16 at 17:30 Heparin Sodium (Porcine) (Heparin (5000 Units/0.5 ml)) 5,000 unit Q8 SC Last administered on 03/30/16 06:25; Admin Dose 5,000 UNIT; Start 03/29/16 at 22:00 NICANOR VARGAS Mar 30, 2016 09:56
[2016-03-30] MEDS: VORICONAZOLE 200 MG/NS 100 ML IVPB SCH (10:36)
--- NOTE | 2016-03-30 12:16 | RADRPT ---
PROCEDURE: Intraoperative imaging of the abdomen and pelvis with fluoroscopy. CLINICAL INDICATION: Right common iliac artery aneurysm. Stent placement. Intraoperative. TECHNIQUE: 11 images of the abdomen and pelvis were obtained in the operating room with an image i ntensifier. No radiologist was in attendance. 827 seconds of fluoroscopy time was used. COMPARISON: CT scan of the abdomen and pelvis dated 03/24/2016. FINDINGS: Images demonstrate placement of an aortic stent graft with bilateral iliac artery stents. Contrast was injected into the abdominal aorta. Images were viewed at the time of the study by the referring physician. IMPRESSION: 1. Intraoperative imaging of the abdomen and pelvis. RPTAT: QQ .David Cintron MD, MD Date Time Electronically viewed and signed by .David Cintron MD, on 03/30/2016 12:15 .R/
--- NOTE | 2016-03-30 12:25 | CONS ---
Date/Time of Note Date/Time of Note DATE: 03/30/16 TIME: 12:24 Assessment/Plan Assessment/Plan Chief Complaint/Hosp Course 1. Possible Left hip replacement infection 2.Aortoiliac atherosclerotic disease, ectatic right common iliac artery with thrombus 3. Hx of dementia, type II DM, CAD, anemia - chronic, s/p pacemaker 4. Blue toe syndrome R: Consider CT hip f/u cxs-- reordered bcxs procalc crp hold off abx for now consider stopping vfend Problems: Consultation Date/Type/Reason Admit Date/Time Mar 24, 2016 at 17:40 Initial Consult Date 03/29/16 Type of Consultation: id Referring Provider: LAVELL BRADLEY MD 24 HR Interval Summary Free Text/Dictation transferred to icu for arrthymia Exam/Review of Systems Vital Signs Vitals Vital Signs Date Time Temp Pulse Resp B/P Pulse Ox O2 Delivery O2 Flow Rate FiO2 03/30/16 08:00 89 03/30/16 07:00 23 125/75 99 Nasal Cannula 03/30/16 04:57 2.0 03/30/16 04:00 97.5 Intake and Output 03/29/16 03/29/16 03/30/16 15:00 23:00 07:00 Intake Total 1400 ml 600 ml 525 ml Output Total 400 ml 2050 ml 800 ml Balance 1000 ml -1450 ml -275 ml Exam Constitutional: alert, oriented, well developed Psych: nl mood/affect, no complaints Head: atraumatic, normocephalic Eyes: EOMI, PERRL, nl conjunctiva, nl lids, nl sclera Neck: non-tender, supple Respiratory: clear to auscultation, normal air movement Cardiovascular: nl pulses, regular rate and rhythm Musculoskeletal: other (hip less warm, less erythema at incision site) Results Result Diagram: 03/30/16 0415 03/30/16 0415 Results 24 hrs Laboratory Tests Test 03/29/16 18:35 03/29/16 21:00 03/29/16 21:13 03/29/16 21:36 Bedside Glucose 96 67 L 119 Basophils # 0.0 Basophils % 0.4 Blood Morphology Comment Eosinophils # 0.2 Eosinophils % 2.1 Hematocrit 42.3 # Hemoglobin 13.8 L Lymphocytes # 1.6 Lymphocytes % 13.8 L Mean Corpuscular Hemoglobin 30.3 Mean Corpuscular Hemoglobin Concent 32.7 Mean Corpuscular Volume 92.6 Mean Platelet Volume 7.0 L Monocytes # 1.1 H Monocytes % 9.3 Neutrophils # 8.6 H Neutrophils % 74.4 Nucleated Red Blood Cells # 0.0 Nucleated Red Blood Cells % 0.0 Platelet Count 505 H Red Blood Count 4.57 #L Red Cell Distribution Width 16.3 H White Blood Count 11.6 H Test 03/29/16 21:41 03/30/16 01:46 03/30/16 04:15 Potassium Level 3.9 3.8 Bedside Glucose 83 Anion Gap 12 Basophils # 0.0 Basophils % 0.2 Blood Morphology Comment Blood Urea Nitrogen 10 Calcium Level 7.7 L Carbon Dioxide Level 24 Chloride Level 109 Creatinine 0.69 Eosinophils # 0.2 Eosinophils % 1.8 Glucose Level 90 Hematocrit 34.9 L Hemoglobin 11.8 L Lymphocytes # 1.2 Lymphocytes % 10.2 L Mean Corpuscular Hemoglobin 30.8 Mean Corpuscular Hemoglobin Concent 33.8 Mean Corpuscular Volume 91.2 Mean Platelet Volume 7.1 L Monocytes # 1.0 H Monocytes % 8.6 Neutrophils # 9.4 H Neutrophils % 79.2 H Nucleated Red Blood Cells # 0.0 Nucleated Red Blood Cells % 0.0 Platelet Count 523 H Red Blood Count 3.83 L Red Cell Distribution Width 16.1 H Sodium Level 141 White Blood Count 11.9 H Medications Medications Current Medications Lorazepam (Ativan) 0.5 mg Q6H PRN IV ANXIETY Last administered on 03/25/16 05: 55; Admin Dose 0.5 MG; Start 03/24/16 at 18:30 Ondansetron HCl (Zofran Inj) 4 mg Q6H PRN IV NAUSEA AND/OR VOMITING; Start 03/24 at 18:30 Nitroglycerin (Nitroglycerin (Sl Tab) 0.4 Mg) 1 tab Q5M PRN SL CHEST PAIN; Start 03/24/16 at 18:30 Acetaminophen (Tylenol Tab) 650 mg Q6H PRN PO PAIN LEVEL 1-3 OR FEVER; Start at 18:30 Morphine Sulfate (morphine) 2 mg Q4H PRN IV PAIN LEVEL 7-10 Last administered on 03/29/16 12:36; Admin Dose 2 MG; Start 03/24/16 at 18:30 Atorvastatin Calcium (Lipitor) 40 mg QHS PO Last administered on 03/28/16 21: 12; Admin Dose 40 MG; Start 03/24/16 at 21:00 Donepezil HCl (Aricept) 5 mg QHS PO Last administered on 03/28/16 21:13; Admin Dose 5 MG; Start 03/24/16 at 21:00 Ferrous Sulfate (Ferrous Sulfate (Ec)) 325 mg BID PO Last administered on 09:01; Admin Dose 325 MG; Start 03/24/16 at 21:00 Memantine (Namenda) 5 mg BID PO Last administered on 03/30/16 09:02; Admin Dose 5 MG; Start 03/24/16 at 21:00 Miscellaneous Information 1 ea NOTE XX ; Start 03/24/16 at 18:30 Glucose (Glutose) 15 gm Q15M PRN PO DECREASED GLUCOSE; Start 03/24/16 at 18:30 Glucose (Glutose) 22.5 gm Q15M PRN PO DECREASED GLUCOSE; Start 03/24/16 at 18:30 Dextrose (D50w Syringe) 25 ml Q15M PRN IV DECREASED GLUCOSE; Start 03/24/16 at 18:30 Dextrose (D50w Syringe) 50 ml Q15M PRN IV DECREASED GLUCOSE Last administered on 03/29/16 21:16; Admin Dose 50 ML; Start 03/24/16 at 18:30 Glucagon (Glucagen) 1 mg Q15M PRN IM DECREASED GLUCOSE; Start 03/24/16 at 18:30 Glucose (Glutose) 15 gm Q15M PRN BUCCAL DECREASED GLUCOSE; Start 03/24/16 at 18: 30 Hydromorphone HCl (Dilaudid) 1 mg Q4H PRN IV PAIN; Start 03/25/16 at 06:30 Metoprolol Tartrate (Lopressor) 25 mg BID PO Last administered on 03/30/16 09: 02; Admin Dose 25 MG; Start 03/25/16 at 21:00 Mupirocin (Bactroban) 1 applic BID TOP Last administered on 03/30/16 09:02; Admin Dose 1 APPLIC; Start 03/27/16 at 14:30 Pantoprazole 40 mg 40 mg DAILY@06 PO Last administered on 03/28/16 06:12; Admin Dose 40 MG; Start 03/28/16 at 06:00 Voriconazole (Vfend 200mg/NS) 100 ml @ 50 mls/hr Q12 IVPB Last administered on 03/30/16 10:36; Admin Dose 50 MLS/HR; Start 03/28/16 at 21:00 Miscellaneous Information 1 ea NOTE XX ; Start 03/29/16 at 17:00 Glucose (Glutose) 15 gm Q15M PRN PO DECREASED GLUCOSE; Start 03/29/16 at 17:00 Glucose (Glutose) 22.5 gm Q15M PRN PO DECREASED GLUCOSE; Start 03/29/16 at 17: 00 Dextrose (D50w Syringe) 25 ml Q15M PRN IV DECREASED GLUCOSE; Start 03/29/16 at 17:00 Dextrose (D50w Syringe) 50 ml Q15M PRN IV DECREASED GLUCOSE; Start 03/29/16 at 17:00 Glucagon (Glucagen) 1 mg Q15M PRN IM DECREASED GLUCOSE; Start 03/29/16 at 17:00 Glucose 15 gm 15 gm Q15M PRN BUCCAL DECREASED GLUCOSE; Start 03/29/16 at 17:00 Sodium Chloride (NS) 1,000 ml @ 75 mls/hr [id number] IV Last administered on 03/30 06:24; Admin Dose 75 MLS/HR; Start 03/29/16 at 17:30 Heparin Sodium (Porcine) (Heparin (5000 Units/0.5 ml)) 5,000 unit Q8 SC Last administered on 03/30/16 06:25; Admin Dose 5,000 UNIT; Start 03/29/16 at 22:00 SHAHIDA MOORE MD Mar 30, 2016 12:25
--- NOTE | 2016-03-30 15:50 | PN ---
Date/Time of Note Date/Time of Note DATE: 03/30/16 TIME: 15:45 Assessment/Plan VTE Prophylaxis VTE Prophylaxis Intervention: SCD's Lines/Catheters IV Catheter Type (from [facility]): Peripheral IV Urinary Cath still in place: Yes Reason Cath still needed: urinary retention Assessment/Plan Chief Complaint/Hosp Course Assessment and plan - Probable Left hip replacement infection. Dr. Maria is following from infectious disease standpoint. Continue antibiotics per ID. Status post evaluation by orthopedic surgeon with recommendation to follow-up with operating surgeon or to transfer patient to a high level of care. - Aortoiliac atherosclerotic disease, ectatic right common iliac artery with thrombus. Dr. Mondragon is following in vascular surgery consultation. Plan for vascular intervention tomorrow. -Hematuria status post attempt in a catheterization, patient is followed by Dr. Rankin and neurology consultation. Status post Torrez catheter placement by urology. Continue to monitor H&H. Aspirin and Lovenox is on held due to hematuria. - Blue toe syndrome - Dementia, continue Aricept and Namenda. - Diabetes mellitus type 2 - Coronary artery disease. Dr. Peters is following and cardiology consultation. - Hypertension, continue metoprolol. - Permanent pacemaker - Chronic anemia PICC line placement Continue Protonix for peptic ulcer disease prophylaxis Further recommendations based on clinical course. Plan of care discussed with Dr. Poole. Problems: Subjective 24 Hr Interval Summary Free Text/Dictation Patient is currently is awake alert to name, denies nausea vomiting, afebrile, patient status post vascular intervention, no bleeding noted from surgical sites. Exam/Review of Systems Vital Signs Vitals Vital Signs Date Time Temp Pulse Resp B/P Pulse Ox O2 Delivery O2 Flow Rate FiO2 03/30/16 12:00 68 03/30/16 07:00 23 125/75 99 Nasal Cannula 03/30/16 04:57 2.0 03/30/16 04:00 97.5 Intake and Output 03/29/16 03/29/16 03/30/16 15:00 23:00 07:00 Intake Total 1400 ml 600 ml 525 ml Output Total 400 ml 2050 ml 920 ml Balance 1000 ml -1450 ml -395 ml Exam Constitutional: alert, well developed Head: atraumatic, normocephalic Eyes: nl conjunctiva ENMT: nl external ears & nose Neck: jvd, supple Respiratory: clear to auscultation Cardiovascular: regular rate and rhythm Gastrointestinal: nl liver, spleen, soft Genitourinary - Male: nl penis, other ( Torrez catheter ) Musculoskeletal: nl extremities to inspection, nl gait and stance Extremities: normal pulses, bilateral LE s/p vascular intervention Results Result Diagram: 03/30/16 0415 03/30/16 0415 Results 24 hrs Laboratory Tests Test 03/29/16 18:35 03/29/16 21:00 03/29/16 21:13 03/29/16 21:36 Bedside Glucose 96 67 L 119 Basophils # 0.0 Basophils % 0.4 Blood Morphology Comment Eosinophils # 0.2 Eosinophils % 2.1 Hematocrit 42.3 # Hemoglobin 13.8 L Lymphocytes # 1.6 Lymphocytes % 13.8 L Mean Corpuscular Hemoglobin 30.3 Mean Corpuscular Hemoglobin Concent 32.7 Mean Corpuscular Volume 92.6 Mean Platelet Volume 7.0 L Monocytes # 1.1 H Monocytes % 9.3 Neutrophils # 8.6 H Neutrophils % 74.4 Nucleated Red Blood Cells # 0.0 Nucleated Red Blood Cells % 0.0 Platelet Count 505 H Red Blood Count 4.57 #L Red Cell Distribution Width 16.3 H White Blood Count 11.6 H Test 03/29/16 21:41 03/30/16 01:46 03/30/16 04:15 Potassium Level 3.9 3.8 Bedside Glucose 83 Anion Gap 12 Basophils # 0.0 Basophils % 0.2 Blood Morphology Comment Blood Urea Nitrogen 10 Calcium Level 7.7 L Carbon Dioxide Level 24 Chloride Level 109 Creatinine 0.69 Eosinophils # 0.2 Eosinophils % 1.8 Glucose Level 90 Hematocrit 34.9 L Hemoglobin 11.8 L Lymphocytes # 1.2 Lymphocytes % 10.2 L Mean Corpuscular Hemoglobin 30.8 Mean Corpuscular Hemoglobin Concent 33.8 Mean Corpuscular Volume 91.2 Mean Platelet Volume 7.1 L Monocytes # 1.0 H Monocytes % 8.6 Neutrophils # 9.4 H Neutrophils % 79.2 H Nucleated Red Blood Cells # 0.0 Nucleated Red Blood Cells % 0.0 Platelet Count 523 H Red Blood Count 3.83 L Red Cell Distribution Width 16.1 H Sodium Level 141 White Blood Count 11.9 H Medications Medications Current Medications Lorazepam (Ativan) 0.5 mg Q6H PRN IV ANXIETY Last administered on 2/10/17at 05: 55; Admin Dose 0.5 MG; Start 03/24/16 at 18:30 Ondansetron HCl (Zofran Inj) 4 mg Q6H PRN IV NAUSEA AND/OR VOMITING; Start 03/24 at 18:30 Nitroglycerin (Nitroglycerin (Sl Tab) 0.4 Mg) 1 tab Q5M PRN SL CHEST PAIN; Start 03/24/16 at 18:30 Acetaminophen (Tylenol Tab) 650 mg Q6H PRN PO PAIN LEVEL 1-3 OR FEVER; Start at 18:30 Morphine Sulfate (morphine) 2 mg Q4H PRN IV PAIN LEVEL 7-10 Last administered on 03/29/16 12:36; Admin Dose 2 MG; Start 03/24/16 at 18:30 Atorvastatin Calcium (Lipitor) 40 mg QHS PO Last administered on 03/28/16 21: 12; Admin Dose 40 MG; Start 03/24/16 at 21:00 Donepezil HCl (Aricept) 5 mg QHS PO Last administered on 03/28/16 21:13; Admin Dose 5 MG; Start 03/24/16 at 21:00 Ferrous Sulfate (Ferrous Sulfate (Ec)) 325 mg BID PO Last administered on 09:01; Admin Dose 325 MG; Start 03/24/16 at 21:00 Memantine (Namenda) 5 mg BID PO Last administered on 03/30/16 09:02; Admin Dose 5 MG; Start 03/24/16 at 21:00 Miscellaneous Information 1 ea NOTE XX ; Start 03/24/16 at 18:30 Glucose (Glutose) 15 gm Q15M PRN PO DECREASED GLUCOSE; Start 03/24/16 at 18:30 Glucose (Glutose) 22.5 gm Q15M PRN PO DECREASED GLUCOSE; Start 03/24/16 at 18:30 Dextrose (D50w Syringe) 25 ml Q15M PRN IV DECREASED GLUCOSE; Start 03/24/16 at 18:30 Dextrose (D50w Syringe) 50 ml Q15M PRN IV DECREASED GLUCOSE Last administered on 03/29/16 21:16; Admin Dose 50 ML; Start 03/24/16 at 18:30 Glucagon (Glucagen) 1 mg Q15M PRN IM DECREASED GLUCOSE; Start 03/24/16 at 18:30 Glucose (Glutose) 15 gm Q15M PRN BUCCAL DECREASED GLUCOSE; Start 03/24/16 at 18: 30 Hydromorphone HCl (Dilaudid) 1 mg Q4H PRN IV PAIN; Start 03/25/16 at 06:30 Metoprolol Tartrate (Lopressor) 25 mg BID PO Last administered on 03/30/16 09: 02; Admin Dose 25 MG; Start 03/25/16 at 21:00 Mupirocin (Bactroban) 1 applic BID TOP Last administered on 03/30/16 09:02; Admin Dose 1 APPLIC; Start 03/27/16 at 14:30 Pantoprazole 40 mg 40 mg DAILY@06 PO Last administered on 03/28/16 06:12; Admin Dose 40 MG; Start 03/28/16 at 06:00 Voriconazole (Vfend 200mg/NS) 100 ml @ 50 mls/hr Q12 IVPB Last administered on 03/30/16 10:36; Admin Dose 50 MLS/HR; Start 03/28/16 at 21:00 Miscellaneous Information 1 ea NOTE XX ; Start 03/29/16 at 17:00 Glucose (Glutose) 15 gm Q15M PRN PO DECREASED GLUCOSE; Start 03/29/16 at 17:00 Glucose (Glutose) 22.5 gm Q15M PRN PO DECREASED GLUCOSE; Start 03/29/16 at 17: 00 Dextrose (D50w Syringe) 25 ml Q15M PRN IV DECREASED GLUCOSE; Start 03/29/16 at 17:00 Dextrose (D50w Syringe) 50 ml Q15M PRN IV DECREASED GLUCOSE; Start 03/29/16 at 17:00 Glucagon (Glucagen) 1 mg Q15M PRN IM DECREASED GLUCOSE; Start 03/29/16 at 17:00 Glucose 15 gm 15 gm Q15M PRN BUCCAL DECREASED GLUCOSE; Start 03/29/16 at 17:00 Sodium Chloride (NS) 1,000 ml @ 50 mls/hr Q20H IV Last administered on 06:24; Admin Dose 75 MLS/HR; Start 03/29/16 at 17:30 Heparin Sodium (Porcine) (Heparin (5000 Units/0.5 ml)) 5,000 unit Q8 SC Last administered on 03/30/16t 15:30; Admin Dose 5,000 UNIT; Start 03/29/16 at 22:00 ALICIA MONTGOMERY Mar 30, 2016 15:50
[2016-03-30] MEDS ORDERED: LIDOCAINE 1% (MDV) 20 ML INJ SC ONE (16:00)
--- NOTE | 2016-03-30 19:24 | PN ---
DATE: 03/30/2016 SUBJECTIVE: History of hematuria before, and the patient had an indwelling Torrez catheter that was eventually removed, and a condom catheter is put on. OBJECTIVE: GENERAL: The patient is afebrile. His temperature is 97.5. The pulse is 98, respiration 23, blood pressure 125/75. GENITOURINARY: The patient does have a condom catheter on, and that is draining clear urine. The b ladder is not distended. LABORATORY DATA: His CBC shows a white count of 11.9, hemoglobin 11.8, hematocrit 34.9. BUN is 10, creatinine 0.69. Electrolytes are normal. IMPRESSION: The patient is voiding well. There is no hematuria. Recommend continue using the cond om catheter, and he should be able to urinate. Dictated By: ABDI SEGOVIA/IMELDA Conf#: [id number] DID#: [id number]
--- NOTE | 2016-03-30 20:36 | PN ---
Date/Time of Note Date/Time of Note DATE: 03/30/16 TIME: 20:36 Assessment/Plan Lines/Catheters IV Catheter Type (from [facility]): Peripheral IV Torrez in Place (from [facility]): Yes Assessment/Plan Chief Complaint/Hosp Course -Aortoiliac atherosclerotic disease, ectatic right common iliac artery with thrombus: S/P EVAR -No need for anticoagulation any longer. -PT/OT, pt has left hip dislocation - Orthopedics involved -Discharge planning -Discussed findings, plan and management with the patient's care provider. -Optimize vascular status (BP meds, diet, nutrition, exercise, sugar control, antiplatelets). -Thank you for allowing us to partake in the care of your patient. Please call with any questions. Problems: Exam/Review of Systems Vital Signs Vitals Vital Signs Date Time Temp Pulse Resp B/P Pulse Ox O2 Delivery O2 Flow Rate FiO2 03/31/16 07:00 83 22 132/61 100 Room Air 03/31/16 04:48 21 03/31/16 04:00 98.1 03/30/16 16:10 2.0 Intake and Output 03/30/16 03/30/16 03/31/16 15:00 23:00 07:00 Intake Total 1040 ml 600 ml 350 ml Output Total 550 ml 335 ml 285 ml Balance 490 ml 265 ml 65 ml Exam Free Text/Dictation GENERAL: Awake and alert and able to answer some questions. PULMONARY: Clear to auscultation bilaterally. CARDIOVASCULAR: S1, S2 present. ABDOMEN: Soft. NTND Bowel sounds positive. EXTREMITIES: RLE: Palpable femoral pulses, dressing clean and dry, faint palpable pedal pulses. Motor, sensory intact. Capillary refill 2 seconds. On the right, the first 3 toes have bluish discoloration. LLE: Palpable femoral pulses, puncture site without hematoma and soft, nonpalpable pedal pulses. Motor, sensory intact. Capillary refill 2-3 seconds. all toes have bluish discoloration. Edema 1+, dopplerable signal PT/DP Results Result Diagram: 03/31/16 0555 03/31/16 0555 ANN GROSS MD Mar 30, 2016 20:36
[2016-03-30] MEDS: DONEPEZIL 5 MG TAB PO SCH (21:03)
[2016-03-30] MEDS: ATORVASTATIN 40 MG TAB PO SCH (21:04)
[2016-03-31] VITALS (24 sets, daily range): BP systolic 119–156; BP diastolic 57–82; PULSE 60–88; RESP 17–31
[2016-03-31] MEDS: SOD CHLORIDE 0.9% 1,000 ML IV SCH ×2 (00:01→18:57)
[2016-03-31] MEDS: PANTOPRAZOLE (EC) 40 MG TAB PO SCH (05:40)
[2016-03-31] MEDS: HEPARIN 5,000 UNIT/0.5 ML SYG SC SCH ×3 (05:42→20:44)
[2016-03-31 06:39] LABS: EOSINOPHILS # 0.2 10^3/ul (0.0-0.5); EOSINOPHILS % 1.2 % (0.0-7.0); HEMATOCRIT 33.3 % (42.0-52.0); HEMOGLOBIN 11.2 g/dl (14.0-18.0); LYMPHOCYTES # 1.5 10^3/ul (0.8-2.9); LYMPHOCYTES % 11.3 % (15.0-51.0); MEAN CORPUSCULAR HEMOGLOBIN 30.9 pg (29.0-33.0); MEAN CORPUSCULAR HGB CONC 33.7 g/dl (32.0-37.0); MEAN CORPUSCULAR VOLUME 91.6 fl (82.0-101.0); MEAN PLATELET VOLUME 6.9 fl (7.4-10.4); MONOCYTE # 1.3 10^3/ul (0.3-0.9); MONOCYTES % 10.3 % (0.0-11.0); NEUTROPHILS % 77.2 % (39.0-77.0); PLATELET COUNT 480 10^3/UL (140-440); RED BLOOD COUNT 3.64 10^6/ul (4.70-6.10); RED CELL DISTRIBUTION WIDTH 16.7 % (11.5-14.5)
[2016-03-31 06:42] LABS: POTASSIUM 3.7 mmol/L (3.5-5.1)
[2016-03-31 06:45] LABS: CALCIUM 8.3 mg/dl (8.4-10.2); CREATININE 0.7 mg/dl (0.61-1.24)
[2016-03-31 06:50] LABS: CONDITION 1; LH ANALYZER COMMENTS 1
--- NOTE | 2016-03-31 07:20 | PN ---
Date/Time of Note Date/Time of Note DATE: 03/31/16 TIME: : Assessment/Plan Lines/Catheters IV Catheter Type (from [facility]): Peripheral IV Torrez in Place (from [facility]): No ([facility] CATH INPLACE) Assessment/Plan Chief Complaint/Hosp Course -Aortoiliac atherosclerotic disease, ectatic right common iliac artery with thrombus: It seems seems that the patient has developed blue toe syndrome, bilateral lower extremities. will need to have the patient workup as to why he developed these new findings. There is concern this may be a from the infrarenal aortic disease with area of ulcer/dissection or possible cardiac source; Patient being evaluate by cardiology and appreciate feedback -Bilateral lower extremity atherosclerosis: at the moment the LE's are viable and would recommend to continue with the Heparin gtt. some of the discoloration has improved -Will schedule the pt for OR this upcoming Monday to cover and exclude the areas of disease and thrombus. Will plan to expose the right [employer] while we deploy the devices from the L [employer] REPAIR[employer] percutaneously -Discussed findings, plan and management with the patient's care provider. We will plan to obtain the CT. -Optimize vascular status (BP meds, diet, nutrition, exercise, sugar control, antiplatelets). -Thank you for allowing us to partake in the care of your patient. Please call with any questions. Problems: Subjective 24 Hr Interval Summary no new events overnight, S/P EVAR Exam/Review of Systems Vital Signs Vitals Vital Signs Date Time Temp Pulse Resp B/P Pulse Ox O2 Delivery O2 Flow Rate FiO2 03/31/16 07:00 83 22 132/61 100 Room Air 03/31/16 04:48 21 03/31/16 04:00 98.1 03/30/16 16:10 2.0 Intake and Output 03/30/16 03/30/16 03/31/16 15:00 23:00 07:00 Intake Total 1040 ml 600 ml 350 ml Output Total 550 ml 335 ml 285 ml Balance 490 ml 265 ml 65 ml Exam Free Text/Dictation GENERAL: Awake and alert and able to answer some questions. PULMONARY: Clear to auscultation bilaterally. CARDIOVASCULAR: S1, S2 present. ABDOMEN: Soft. NTND Bowel sounds positive. EXTREMITIES: RLE: Palpable femoral pulses, dressing removed and incision clean and dry, faint palpable pedal pulses. Motor, sensory intact. Capillary refill 2 seconds. On the right, the first 3 toes have bluish discoloration. LLE: Palpable femoral pulses, puncture site without hematoma and soft, nonpalpable pedal pulses. Motor, sensory intact. Capillary refill 2-3 seconds. all toes have bluish discoloration. Edema 1+, dopplerable signal PT/DP Results Result Diagram: 03/31/16 0555 03/31/16 0555 ANN GROSS MD Mar 31, 2016 07:20
[2016-03-31] MEDS: INSULIN ASPART [NOVOLOG] 3 ML PEN SC SCH ×4 (07:35→20:38)
[2016-03-31] MEDS: FERROUS SULFATE (EC) 325 MG TAB PO SCH ×2 (08:24→20:33)
[2016-03-31] MEDS: LORAZEPAM 2 MG INJ IV PRN (08:24)
[2016-03-31] MEDS: MEMANTINE 5 MG TAB PO SCH ×2 (08:25→20:37)
[2016-03-31] MEDS: METOPROLOL 25 MG TAB PO SCH ×2 (08:25→20:34)
[2016-03-31] MEDS: MUPIROCIN 2% 22 GM OINT TOP SCH ×2 (08:26→20:34)
--- NOTE | 2016-03-31 10:38 | CONS ---
Date/Time of Note Date/Time of Note DATE: 03/31/16 TIME: 10:28 Assessment/Plan Assessment/Plan Chief Complaint/Hosp Course - Probable Left hip replacement infection - GPC bacteremia in 1/2 bottles, ? contaminant - Aortoiliac atherosclerotic disease, ectatic right common iliac artery with thrombus s/p EVAR 03/29/16 - Blue toe syndrome - CAD, PPM, HTN - T2DM Hgb A1c 5.5% - HLD associated with DM - ACD s/p 1 unit PRBC 03/29/16 - dementia - DNR Recommendations: - Repeat bcx; initial bcxs (GPC in 1/2 bottles) - Start Vanco - Consider CT hip - Appreciate Ortho eval; Seen by Dr. Santiago who recommended pt to be transferred to either the operating surgeon or to a higher level for revision surgery. - F/u procalc 03/28/16 (pending); crp (8.8); esr (44) - Management d/w pt's RN - Above d/w Dr. Maria - Critical care time spent: 45 minutes Problems: Consultation Date/Type/Reason Admit Date/Time Mar 24, 2016 at 17:40 Initial Consult Date 03/28/16 Type of Consultation: Infectious Disease Referring Provider: LAVELL BRADLEY MD 24 HR Interval Summary Free Text/Dictation Usually follows simple commands but is intermittently confused; Afebrile; getting PICC placed today and blood cx growing GPC in 1/2 bottles per RN De. Nods no to pain or SOB. Exam/Review of Systems Vital Signs Vitals Vital Signs Date Time Temp Pulse Resp B/P Pulse Ox O2 Delivery O2 Flow Rate FiO2 03/31/16 08:00 75 03/31/16 07:00 22 132/61 100 Room Air 03/31/16 04:48 21 03/31/16 04:00 98.1 03/30/16 16:10 2.0 Intake and Output 03/30/16 03/30/16 03/31/16 15:00 23:00 07:00 Intake Total 1040 ml 600 ml 350 ml Output Total 550 ml 335 ml 285 ml Balance 490 ml 265 ml 65 ml Exam Constitutional: alert, frail, non-verbal, other (cachectic, bilateral wrist restraints in place; Staff setting up for PICC placement) Head: atraumatic, normocephalic Eyes: nl conjunctiva ENMT: other (mucous membranes pink and dry) Neck: supple, No jvd Respiratory: clear to auscultation, normal air movement Cardiovascular: regular rate and rhythm Gastrointestinal: non-tender, soft Genitourinary - Male: other (condom catheter intact slightly hazy tomás urine) Extremities: cyanosis (LLE all toes and RLE 1st 3 toes bluish discoloration noted), edema (1+ edema on LLE), other (DP faintly palpable on R and difficult to palpate on L), No clubbing Neurological: lethargic, other (selectively follows simple commands) Skin: nl turgor, other (RLQ dressing c/d/i; surgical glue on LLQ c/d/i) Results Result Diagram: 03/31/16 0555 03/31/16 0555 Results 24 hrs Laboratory Tests Test 03/30/16 14:20 03/30/16 21:03 03/31/16 05:55 C-Reactive Protein 8.8 H Bedside Glucose 90 Anion Gap 12 Basophils # 0.0 Basophils % 0.0 Blood Morphology Comment Blood Urea Nitrogen 11 Calcium Level 8.3 L Carbon Dioxide Level 28 Chloride Level 109 Creatinine 0.70 Eosinophils # 0.2 Eosinophils % 1.2 Glucose Level 101 Hematocrit 33.3 L Hemoglobin 11.2 L Lymphocytes # 1.5 Lymphocytes % 11.3 L Mean Corpuscular Hemoglobin 30.9 Mean Corpuscular Hemoglobin Concent 33.7 Mean Corpuscular Volume 91.6 Mean Platelet Volume 6.9 L Monocytes # 1.3 H Monocytes % 10.3 Neutrophils # 10.0 H Neutrophils % 77.2 H Nucleated Red Blood Cells # 0.0 Nucleated Red Blood Cells % 0.0 Platelet Count 480 H Potassium Level 3.7 Red Blood Count 3.64 L Red Cell Distribution Width 16.7 H Sodium Level 145 H White Blood Count 13.0 H Medications Medications Current Medications Lorazepam (Ativan) 0.5 mg Q6H PRN IV ANXIETY Last administered on 03/31/16t 08: 24; Admin Dose 0.5 MG; Start 03/24/16 at 18:30 Ondansetron HCl (Zofran Inj) 4 mg Q6H PRN IV NAUSEA AND/OR VOMITING; Start 03/24 at 18:30 Nitroglycerin (Nitroglycerin (Sl Tab) 0.4 Mg) 1 tab Q5M PRN SL CHEST PAIN; Start 03/24/16 at 18:30 Acetaminophen (Tylenol Tab) 650 mg Q6H PRN PO PAIN LEVEL 1-3 OR FEVER; Start at 18:30 Morphine Sulfate (morphine) 2 mg Q4H PRN IV PAIN LEVEL 7-10 Last administered on 03/29/16 12:36; Admin Dose 2 MG; Start 03/24/16 at 18:30 Atorvastatin Calcium (Lipitor) 40 mg QHS PO Last administered on 03/30/16 21: 04; Admin Dose 40 MG; Start 03/24/16 at 21:00 Donepezil HCl (Aricept) 5 mg QHS PO Last administered on 03/30/16 21:03; Admin Dose 5 MG; Start 03/24/16 at 21:00 Ferrous Sulfate (Ferrous Sulfate (Ec)) 325 mg BID PO Last administered on 08:24; Admin Dose 325 MG; Start 03/24/16 at 21:00 Memantine (Namenda) 5 mg BID PO Last administered on 03/31/16 08:25; Admin Dose 5 MG; Start 03/24/16 at 21:00 Miscellaneous Information 1 ea NOTE XX ; Start 03/24/16 at 18:30 Glucose (Glutose) 15 gm Q15M PRN PO DECREASED GLUCOSE; Start 03/24/16 at 18:30 Glucose (Glutose) 22.5 gm Q15M PRN PO DECREASED GLUCOSE; Start 03/24/16 at 18:30 Dextrose (D50w Syringe) 25 ml Q15M PRN IV DECREASED GLUCOSE; Start 03/24/16 at 18:30 Dextrose (D50w Syringe) 50 ml Q15M PRN IV DECREASED GLUCOSE Last administered on 03/29/16 21:16; Admin Dose 50 ML; Start 03/24/16 at 18:30 Glucagon (Glucagen) 1 mg Q15M PRN IM DECREASED GLUCOSE; Start 03/24/16 at 18:30 Glucose (Glutose) 15 gm Q15M PRN BUCCAL DECREASED GLUCOSE; Start 03/24/16 at 18: 30 Hydromorphone HCl (Dilaudid) 1 mg Q4H PRN IV PAIN; Start 03/25/16 at 06:30 Metoprolol Tartrate (Lopressor) 25 mg BID PO Last administered on 03/31/16 08: 25; Admin Dose 25 MG; Start 03/25/16 at 21:00 Mupirocin (Bactroban) 1 applic BID TOP Last administered on 03/31/16 08:26; Admin Dose 1 APPLIC; Start 03/27/16 at 14:30 Pantoprazole (Protonix Tab) 40 mg DAILY@06 PO Last administered on 03/31/16 05 :40; Admin Dose 40 MG; Start 03/28/16 at 06:00 Miscellaneous Information 1 ea NOTE XX ; Start 03/29/16 at 17:00 Glucose (Glutose) 15 gm Q15M PRN PO DECREASED GLUCOSE; Start 03/29/16 at 17:00 Glucose (Glutose) 22.5 gm Q15M PRN PO DECREASED GLUCOSE; Start 03/29/16 at 17: 00 Dextrose (D50w Syringe) 25 ml Q15M PRN IV DECREASED GLUCOSE; Start 03/29/16 at 17:00 Dextrose (D50w Syringe) 50 ml Q15M PRN IV DECREASED GLUCOSE; Start 03/29/16 at 17:00 Glucagon (Glucagen) 1 mg Q15M PRN IM DECREASED GLUCOSE; Start 03/29/16 at 17:00 Glucose 15 gm 15 gm Q15M PRN BUCCAL DECREASED GLUCOSE; Start 03/29/16 at 17:00 Sodium Chloride (NS) 1,000 ml @ 50 mls/hr Q20H IV Last administered on 00:01; Admin Dose 50 MLS/HR; Start 03/29/16 at 17:30 Heparin Sodium (Porcine) (Heparin (5000 Units/0.5 ml)) 5,000 unit Q8 SC Last administered on 03/31/16 05:42; Admin Dose 5,000 UNIT; Start 03/29/16 at 22:00 MARIANA ZUNIGA NP Mar 31, 2016 10:38
--- NOTE | 2016-03-31 11:55 | CONS ---
Date/Time of Note Date/Time of Note DATE: 03/31/16 TIME: 11:52 Assessment/Plan Assessment/Plan Chief Complaint/Hosp Course IMPRESSION: 1. Abnormal electrocardiogram, assess for acute coronary syndrome.-negative troponin x 3/NL EF by echo. Lexiscan affected by artifact but no ischemia only scar. Thus at this time patient has no cardiac contraindication to proceeding to OR on current medications without further non-invasive evaluation. Patient is at moderate risk for CV complications. 2. Hypertension. 3. Peripheral arterial disease at aortoiliac bifurcation with likely embolic phenomenon/"Blue toes"-Now post-op Day #2 s/p peripheral vascular surgery 4. Dyslipidemia. 5. Hypertension. 6. Diabetes mellitus. 7. Iliac artery aneurysm. 8. Coronary artery disease. 9. Dementia. 10. Permanent pacemaker. 11.H/O Hip replacement with possible need for revision Recc: -Tele monitoring in ICU -Continue statin -Continue Heparin Sq -Continue BB -Local wound care -ASA as possible given bleeding complications prior -Pain control Problems: Consultation Date/Type/Reason Admit Date/Time Mar 24, 2016 at 17:40 Initial Consult Date 03/24/16 Type of Consultation: Cardiology Reason for Consultation Pre-op Referring Provider: LAVELL BRADLEY MD Exam/Review of Systems Vital Signs Vitals Vital Signs Date Time Temp Pulse Resp B/P Pulse Ox O2 Delivery O2 Flow Rate FiO2 03/31/16 08:00 75 03/31/16 07:00 22 132/61 100 Room Air 03/31/16 04:48 21 03/31/16 04:00 98.1 03/30/16 16:10 2.0 Intake and Output 03/30/16 03/30/16 03/31/16 15:00 23:00 07:00 Intake Total 1040 ml 600 ml 350 ml Output Total 550 ml 335 ml 285 ml Balance 490 ml 265 ml 65 ml Exam Review of Systems: CONSTITUTIONAL: No fevers, chills. PULMONARY: No sob CARDIOVASCULAR: No chest pain/palpitations GASTROINTESTINAL: No nausea/vomiting. GENITOURINARY: No hematuria/dysuria. MUSCULOSKELETAL: No myagias/arthalgias. PSYCHIATRIC: The patient denies depression. NEUROLOGIC: lethargic Constitutional: alert, oriented Psych: no complaints Head: normocephalic ENMT: mucosa pink and moist Neck: jvd (8 cm water), supple Respiratory: diminished breath sounds (at bases/B) Cardiovascular: regular rate and rhythm Gastrointestinal: non-tender, soft Musculoskeletal: muscle weakness (generalized weakness) Extremities: edema (None) Neurological: other (No focal deficits) Results Result Diagram: 03/31/16 0555 03/31/16 0555 Results 24 hrs Laboratory Tests Test 03/30/16 14:20 03/30/16 21:03 03/31/16 05:55 C-Reactive Protein 8.8 H Bedside Glucose 90 Anion Gap 12 Basophils # 0.0 Basophils % 0.0 Blood Morphology Comment Blood Urea Nitrogen 11 Calcium Level 8.3 L Carbon Dioxide Level 28 Chloride Level 109 Creatinine 0.70 Eosinophils # 0.2 Eosinophils % 1.2 Glucose Level 101 Hematocrit 33.3 L Hemoglobin 11.2 L Lymphocytes # 1.5 Lymphocytes % 11.3 L Mean Corpuscular Hemoglobin 30.9 Mean Corpuscular Hemoglobin Concent 33.7 Mean Corpuscular Volume 91.6 Mean Platelet Volume 6.9 L Monocytes # 1.3 H Monocytes % 10.3 Neutrophils # 10.0 H Neutrophils % 77.2 H Nucleated Red Blood Cells # 0.0 Nucleated Red Blood Cells % 0.0 Platelet Count 480 H Potassium Level 3.7 Red Blood Count 3.64 L Red Cell Distribution Width 16.7 H Sodium Level 145 H White Blood Count 13.0 H Medications Medications Current Medications Lorazepam (Ativan) 0.5 mg Q6H PRN IV ANXIETY Last administered on 03/31/16 08: 24; Admin Dose 0.5 MG; Start 03/24/16 at 18:30 Ondansetron HCl (Zofran Inj) 4 mg Q6H PRN IV NAUSEA AND/OR VOMITING; Start 03/24 at 18:30 Nitroglycerin (Nitroglycerin (Sl Tab) 0.4 Mg) 1 tab Q5M PRN SL CHEST PAIN; Start 03/24/16 at 18:30 Acetaminophen (Tylenol Tab) 650 mg Q6H PRN PO PAIN LEVEL 1-3 OR FEVER; Start at 18:30 Morphine Sulfate (morphine) 2 mg Q4H PRN IV PAIN LEVEL 7-10 Last administered on 03/29/16 12:36; Admin Dose 2 MG; Start 03/24/16 at 18:30 Atorvastatin Calcium (Lipitor) 40 mg QHS PO Last administered on 03/30/16 21: 04; Admin Dose 40 MG; Start 03/24/16 at 21:00 Donepezil HCl (Aricept) 5 mg QHS PO Last administered on 03/30/16 21:03; Admin Dose 5 MG; Start 03/24/16 at 21:00 Ferrous Sulfate (Ferrous Sulfate (Ec)) 325 mg BID PO Last administered on 08:24; Admin Dose 325 MG; Start 03/24/16 at 21:00 Memantine (Namenda) 5 mg BID PO Last administered on 03/31/16 08:25; Admin Dose 5 MG; Start 03/24/16 at 21:00 Miscellaneous Information 1 ea NOTE XX ; Start 03/24/16 at 18:30 Glucose (Glutose) 15 gm Q15M PRN PO DECREASED GLUCOSE; Start 03/24/16 at 18:30 Glucose (Glutose) 22.5 gm Q15M PRN PO DECREASED GLUCOSE; Start 03/24/16 at 18:30 Dextrose (D50w Syringe) 25 ml Q15M PRN IV DECREASED GLUCOSE; Start 03/24/16 at 18:30 Dextrose (D50w Syringe) 50 ml Q15M PRN IV DECREASED GLUCOSE Last administered on 03/29/16 21:16; Admin Dose 50 ML; Start 03/24/16 at 18:30 Glucagon (Glucagen) 1 mg Q15M PRN IM DECREASED GLUCOSE; Start 03/24/16 at 18:30 Glucose (Glutose) 15 gm Q15M PRN BUCCAL DECREASED GLUCOSE; Start 03/24/16 at 18: 30 Hydromorphone HCl (Dilaudid) 1 mg Q4H PRN IV PAIN; Start 03/25/16 at 06:30 Metoprolol Tartrate (Lopressor) 25 mg BID PO Last administered on 03/31/16 08: 25; Admin Dose 25 MG; Start 03/25/16 at 21:00 Mupirocin (Bactroban) 1 applic BID TOP Last administered on 03/31/16 08:26; Admin Dose 1 APPLIC; Start 03/27/16 at 14:30 Pantoprazole (Protonix Tab) 40 mg DAILY@06 PO Last administered on 03/31/16 05 :40; Admin Dose 40 MG; Start 03/28/16 at 06:00 Miscellaneous Information 1 ea NOTE XX ; Start 03/29/16 at 17:00 Glucose (Glutose) 15 gm Q15M PRN PO DECREASED GLUCOSE; Start 03/29/16 at 17:00 Glucose (Glutose) 22.5 gm Q15M PRN PO DECREASED GLUCOSE; Start 03/29/16 at 17: 00 Dextrose (D50w Syringe) 25 ml Q15M PRN IV DECREASED GLUCOSE; Start 03/29/16 at 17:00 Dextrose (D50w Syringe) 50 ml Q15M PRN IV DECREASED GLUCOSE; Start 03/29/16 at 17:00 Glucagon (Glucagen) 1 mg Q15M PRN IM DECREASED GLUCOSE; Start 03/29/16 at 17:00 Glucose 15 gm 15 gm Q15M PRN BUCCAL DECREASED GLUCOSE; Start 03/29/16 at 17:00 Sodium Chloride (NS) 1,000 ml @ 50 mls/hr Q20H IV Last administered on 00:01; Admin Dose 50 MLS/HR; Start 03/29/16 at 17:30 Heparin Sodium (Porcine) (Heparin (5000 Units/0.5 ml)) 5,000 unit Q8 SC Last administered on 03/31/16 05:42; Admin Dose 5,000 UNIT; Start 03/29/16 at 22:00 NICANOR VARGAS Mar 31, 2016 11:55
[2016-03-31] MEDS ORDERED: VANCOMYCIN IV PER PHARMACY XX SCH (12:30)
[2016-03-31] MEDS ORDERED: VANCOMYCIN 1 GM in NS 250 ML IVPB ONE (13:00)
--- NOTE | 2016-03-31 13:43 | RADRPT ---
PROCEDURE: US guidance for PICC line CLINICAL INDICATION: PICC line placement TECHNIQUE: Multiple real-time images were acquired of the patient's arm utilizing a high resolutio n transducer. This was performed by the PICC line nurse for venous access. COMPARISON: None FINDINGS: Ultrasound guidance for PICC line placement. IMPRESSION: Ultrasound guidance for PICC line placement. RPTAT: AA .Rashid Troy MD, MD Date Time Electronically viewed and signed by .Rashid Troy MD, on 03/31/2016 13:43 .S/
--- NOTE | 2016-03-31 13:51 | PN ---
Date/Time of Note Date/Time of Note DATE: 03/31/16 TIME: 13:48 Assessment/Plan Lines/Catheters IV Catheter Type (from [facility]): Peripheral IV Urinary Cath still in place: No ([facility] CATH INPLACE) Assessment/Plan Assessment/Plan - Probable Left hip replacement infection. Dr. Maria is following from infectious disease standpoint. Continue antibiotics per ID. Status post evaluation by orthopedic surgeon with recommendation to follow-up with operating surgeon or to transfer patient to a high level of care. - Aortoiliac atherosclerotic disease, ectatic right common iliac artery with thrombus. Dr. Mondragon is following in vascular surgery consultation. Plan for vascular intervention tomorrow. -Hematuria status post attempt in a catheterization, patient is followed by Dr. Rankin and neurology consultation. Status post Torrez catheter placement by urology. Continue to monitor H&H. Aspirin and Lovenox is on held due to hematuria. - Blue toe syndrome - Dementia, continue Aricept and Namenda. - Diabetes mellitus type 2 - Coronary artery disease. Dr. Peters is following and cardiology consultation. - Hypertension, continue metoprolol. - Permanent pacemaker - Chronic anemia -PICC line placement -Protonix for peptic ulcer disease prophylaxis Further recommendations based on clinical course.Total critical time spent 35 mins.Plan of care discussed with Dr. Poole. Subjective 24 Hr Interval Summary Free Text/Dictation NAD, FOR MS transfer.dw staff. Constitutional: requiring IVF, requiring O2 Exam/Review of Systems Vital Signs Vitals Vital Signs Date Time Temp Pulse Resp B/P Pulse Ox O2 Delivery O2 Flow Rate FiO2 03/31/16 12:00 77 03/31/16 07:00 22 132/61 100 Room Air 03/31/16 04:48 21 03/31/16 04:00 98.1 03/30/16 16:10 2.0 Intake and Output 03/30/16 03/30/16 03/31/16 15:00 23:00 07:00 Intake Total 1040 ml 600 ml 350 ml Output Total 550 ml 335 ml 285 ml Balance 490 ml 265 ml 65 ml Exam Constitutional: alert Psych: no complaints Head: atraumatic Eyes: EOMI ENMT: nl external ears & nose Neck: non-tender Respiratory: diminished breath sounds Cardiovascular: nl pulses Gastrointestinal: non-tender, soft Musculoskeletal: other Extremities: other Neurological: confused Skin: other Lymph: nontender Results Result Diagram: 03/31/16 0555 03/31/16 0555 Results 24 hrs Laboratory Tests Test 03/30/16 14:20 03/30/16 21:03 03/31/16 05:55 03/31/16 12:27 C-Reactive Protein 8.8 H Bedside Glucose 90 96 Anion Gap 12 Basophils # 0.0 Basophils % 0.0 Blood Morphology Comment Blood Urea Nitrogen 11 Calcium Level 8.3 L Carbon Dioxide Level 28 Chloride Level 109 Creatinine 0.70 Eosinophils # 0.2 Eosinophils % 1.2 Glucose Level 101 Hematocrit 33.3 L Hemoglobin 11.2 L Lymphocytes # 1.5 Lymphocytes % 11.3 L Mean Corpuscular Hemoglobin 30.9 Mean Corpuscular Hemoglobin Concent 33.7 Mean Corpuscular Volume 91.6 Mean Platelet Volume 6.9 L Monocytes # 1.3 H Monocytes % 10.3 Neutrophils # 10.0 H Neutrophils % 77.2 H Nucleated Red Blood Cells # 0.0 Nucleated Red Blood Cells % 0.0 Platelet Count 480 H Potassium Level 3.7 Red Blood Count 3.64 L Red Cell Distribution Width 16.7 H Sodium Level 145 H White Blood Count 13.0 H Medications Medications Current Medications Lorazepam (Ativan) 0.5 mg Q6H PRN IV ANXIETY Last administered on 03/31/16 08: 24; Admin Dose 0.5 MG; Start 03/24/16 at 18:30 Ondansetron HCl (Zofran Inj) 4 mg Q6H PRN IV NAUSEA AND/OR VOMITING; Start 03/24 at 18:30 Nitroglycerin (Nitroglycerin (Sl Tab) 0.4 Mg) 1 tab Q5M PRN SL CHEST PAIN; Start 03/24/16 at 18:30 Acetaminophen (Tylenol Tab) 650 mg Q6H PRN PO PAIN LEVEL 1-3 OR FEVER; Start at 18:30 Morphine Sulfate (morphine) 2 mg Q4H PRN IV PAIN LEVEL 7-10 Last administered on 03/29/16 12:36; Admin Dose 2 MG; Start 03/24/16 at 18:30 Atorvastatin Calcium (Lipitor) 40 mg QHS PO Last administered on 03/30/16 21: 04; Admin Dose 40 MG; Start 03/24/16 at 21:00 Donepezil HCl (Aricept) 5 mg QHS PO Last administered on 03/30/16 21:03; Admin Dose 5 MG; Start 03/24/16 at 21:00 Ferrous Sulfate (Ferrous Sulfate (Ec)) 325 mg BID PO Last administered on 08:24; Admin Dose 325 MG; Start 03/24/16 at 21:00 Memantine (Namenda) 5 mg BID PO Last administered on 03/31/16 08:25; Admin Dose 5 MG; Start 03/24/16 at 21:00 Miscellaneous Information 1 ea NOTE XX ; Start 03/24/16 at 18:30 Glucose (Glutose) 15 gm Q15M PRN PO DECREASED GLUCOSE; Start 03/24/16 at 18:30 Glucose (Glutose) 22.5 gm Q15M PRN PO DECREASED GLUCOSE; Start 03/24/16 at 18:30 Dextrose (D50w Syringe) 25 ml Q15M PRN IV DECREASED GLUCOSE; Start 03/24/16 at 18:30 Dextrose (D50w Syringe) 50 ml Q15M PRN IV DECREASED GLUCOSE Last administered on 03/29/16 21:16; Admin Dose 50 ML; Start 03/24/16 at 18:30 Glucagon (Glucagen) 1 mg Q15M PRN IM DECREASED GLUCOSE; Start 03/24/16 at 18:30 Glucose (Glutose) 15 gm Q15M PRN BUCCAL DECREASED GLUCOSE; Start 03/24/16 at 18: 30 Hydromorphone HCl (Dilaudid) 1 mg Q4H PRN IV PAIN; Start 03/25/16 at 06:30 Metoprolol Tartrate (Lopressor) 25 mg BID PO Last administered on 03/31/16 08: 25; Admin Dose 25 MG; Start 03/25/16 at 21:00 Mupirocin (Bactroban) 1 applic BID TOP Last administered on 03/31/16 08:26; Admin Dose 1 APPLIC; Start 03/27/16 at 14:30 Pantoprazole (Protonix Tab) 40 mg DAILY@06 PO Last administered on 03/31/16 05 :40; Admin Dose 40 MG; Start 03/28/16 at 06:00 Miscellaneous Information 1 ea NOTE XX ; Start 03/29/16 at 17:00 Glucose (Glutose) 15 gm Q15M PRN PO DECREASED GLUCOSE; Start 03/29/16 at 17:00 Glucose (Glutose) 22.5 gm Q15M PRN PO DECREASED GLUCOSE; Start 03/29/16 at 17: 00 Dextrose (D50w Syringe) 25 ml Q15M PRN IV DECREASED GLUCOSE; Start 03/29/16 at 17:00 Dextrose (D50w Syringe) 50 ml Q15M PRN IV DECREASED GLUCOSE; Start 03/29/16 at 17:00 Glucagon (Glucagen) 1 mg Q15M PRN IM DECREASED GLUCOSE; Start 03/29/16 at 17:00 Glucose 15 gm 15 gm Q15M PRN BUCCAL DECREASED GLUCOSE; Start 03/29/16 at 17:00 Sodium Chloride (NS) 1,000 ml @ 50 mls/hr Q20H IV Last administered on 00:01; Admin Dose 50 MLS/HR; Start 03/29/16 at 17:30 Heparin Sodium (Porcine) 5000 unit 5,000 unit Q8 SC Last administered on 05:42; Admin Dose 5,000 UNIT; Start 03/29/16 at 22:00 Vancomycin HCl 250 ml @ 125 mls/hr ONCE ONCE IVPB ; Start 03/31/16 at 13:00; Stop 03/31/16 at 14:59 Vancomycin HCl (Vancocin) 100 ml @ 100 mls/hr Q12H IVPB ; Start 04/01/16 at 01: 00 FLOR ALDANA Mar 31, 2016 13:51
--- NOTE | 2016-03-31 15:44 | RADRPT ---
PROCEDURE: XR Chest. CLINICAL INDICATION: PICC line placement. TECHNIQUE: Single AP portable chest COMPARISON: 03/24/2016 FINDINGS: The cardiomediastinal silhouette is within normal limits of size . Dual chamber left chest pacemaker in place. Right PICC line catheter tip overlying the proximal superior vena cava. .The lungs are clear without pleural effusion or focal consolidation. No pneumothorax. The osseous structures and s oft tissues are unremarkable. IMPRESSION: 1. No evidence for active cardiopulmonary disease. Right PICC line catheter in satisfactory position . RPTAT:AAJJ Physician Jon Date Time Electronically viewed and signed by Physician Jon on 03/31/2016 15:44 BIKA/
[2016-03-31] MEDS ORDERED: SOD CHLORIDE 0.9% 100 ML ONE (16:39)
--- NOTE | 2016-03-31 20:24 | PN ---
DATE: 03/31/2016 SUBJECTIVE: Hematuria that has cleared. There was difficulty inserting a Torrez catheter by the sta ff, and then I did insert a Torrez catheter for him, and as I inserted the catheter, patient did void prior to the insertion, and I watched him urinating, and he did urinate with a good stream. Theref ore, I recommended to have the catheter removed when it's not needed for accurate output monitoring, and indeed the catheter was removed. The patient has a condom catheter on, and he is voiding throu gh it and the urine still remaining clear. OBJECTIVE: His temperature is 98.1, pulse is 88, the respirations 25, blood pressure 139/82. LABORATORY: The CBC shows a white count of 13.0, hemoglobin 11.2, hematocrit 33.3. BUN is 11, crea tinine 0.7, sodium 145, potassium 3.7, chloride 109, CO2 28. The patient had blood cultures that are positive for gram-positive cocci. He is on vancomycin. From a urological standpoint, he is voiding well, and the condom catheter is on and should continue with the same management. Dictated By: ABDI SEBASTIAN MD BB/IMELDA Conf#: [id number] DID#: [id number]
[2016-03-31] MEDS: ATORVASTATIN 40 MG TAB PO SCH (20:33)
[2016-03-31] MEDS: DONEPEZIL 5 MG TAB PO SCH (20:33)
--- NOTE | 2016-03-31 22:25 | OPR ---
DATE OF OPERATION: 03/29/2016 SURGEON: Fredrick Mondragon MD MARRIAGE COUNSELOR: Haja Fabian MD FLUOROSCOPY HENRY: Haja Fabian MD PREOPERATIVE DIAGNOSES: 1. 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 2. Right common iliac aneurysm with thrombus. 3. Bilateral lower extremity blue toe syndrome. POSTOPERATIVE DIAGNOSES: 1. 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 2. Right common iliac aneurysm with thrombus. 3. Bilateral lower extremity blue toe syndrome. ANESTHESIA: General. BLOOD LOSS: 400 TRANSFUSION: One unit of packed red blood cells. URINE OUTPUT: As recorded. COMPLICATIONS: None. SPECIMEN: None. INDICATIONS: This is a 70-year-old gentleman who had presented with bilateral lower extremity blue toe syndrome, and based on these findings, the patient underwent a CT angiography that demonstrated patient having an ectatic distal infrarenal aorta near the bifurcation with thrombus that extended i nto the right common iliac artery, which was also aneurysmal. The infrarenal aorta also had areas t hat looked like there were ulcers with possible focal dissection, and based on these findings, the r isks and benefits were discussed with the patient's daughters and not limited to , [place], stroke, pneumonia, thrombosis of graft, possible future revisions, infections, nephrotoxicity, spinal ischem ia, ureter injury, pseudoaneurysms, graft infection, limb ischemia, bleeding, and following discussi on with family, they agreed and elected to undergo surgical intervention. PROCEDURE: 1. Endovascular abdominal aortic aneurysm repair using [place] Excluder endoprosthesis 23 x 12 x 12 mm main body, then 12 mm x 12 cm ipsilateral limb with 20 mm x 11.5 ipsilateral contralateral limb ext ension. 2. Aortoiliac angiogram. 3. Right common femoral artery exploration and localized endarterectomy. 4. Percutaneous access of the left common femoral artery. DESCRIPTION OF PROCEDURE: The patient was brought into the operating room and placed in supine posi tion. The normal bony prominences were padded. Anesthesia team had placed appropriate lines, and g eneral anesthesia was induced. A Torrez catheter was already placed. Radial arterial line and appro priate intravenous access were obtained. The abdomen and both groins were prepped and draped in usu al standard sterile fashion. Timeout and appropriate site were marked and confirmed. Preoperative antibiotics were given. Appropriate grafts were available. The right common femoral artery pulse was identified. A vertical incision was then made over the [facility] common femoral artery. The fascia and lymphatics were dissected. The distal external iliac art selene, common femoral artery and the superficial femoral artery and profunda femoral arteries were dis sected and isolated with Silastic vessel loops. It was identified that the area of the proximal-mos t aspect of the common femoral artery was soft. Once the exposure was obtained of the common femora l artery, there was area that was calcified. At this point, the left common femoral artery was iden tified using ultrasound guidance and was accessed using a Seldinger needle, and a Bentson wire was t hen passed under fluoroscopic guidance into the abdominal aorta above the renal vessels. A 6-Lao sheath was then placed. The sheath was then flushed with heparinized saline solution, and using a ProGlide closure device, the sheath was removed, and a suture was placed at the 10-o'clock position. Bentson wire was then reintroduced into the infrarenal aorta, and a second ProGlide suture was raffaele lied in a 2-o'clock position. At this point, using a stiff Sanford wire, was placed into the supraren al aorta and the ProGlide device was removed, and using a 12-Lao sheath dilator, the track was di lated, and we went ahead and placed a 16-Lao [place] device into the infrarenal aorta above the aort ic bifurcation. The patient was given 8000 of heparin. ACT was checked to be above 250. At this p oint we went ahead, and using a Seldinger needle, the right common femoral artery was accessed. Rafa tson wire was then passed under fluoroscopic guidance into the abdominal aorta, and a 6-Lao sheat h was then placed. At this point, the sheath was flushed with heparinized saline solution. The Rafa tson wire was then exchanged to a Sanford and placed into suprarenal aorta. Once this was established , using a 12-Lao Cook sheath, this was also placed in the distal aorta. Both of these sheaths we re then flushed with heparinized saline solution. The C3 excluder device was then flushed and advan fiona over the left groin Sanford wire to above the level of the renal arteries. The stent graft was th en oriented using radiopaque markers. All manipulations were performed under fluoroscopic guidance. At this point, using a 5-Lao Omniflush catheter with 1 cm margins, was then advanced over the c ontralateral wire under fluoroscopy to level of the renal arteries, then the wires were withdrawn. An aortogram including the renal arteries and the bifurcation was obtained with a pressure injector. The level of the renal arteries and the aortic bifurcation was marked under fluoroscopic screen. The left renal artery and the right renal artery seemed to be about 3 o'clock and 9 o'clock. The de vice was positioned to desired landing zone, and deployment was started. Once this first stent was opened, repeat arteriogram showed proper infrarenal positioning. The contralateral marker catheter was then exchanged over a Glidewire to a Berenstein catheter. Using a guiding Berenstein catheter, the contralateral limb of the excluder device was cannulated under continuous fluoroscopy, and the w jessica was advanced into the proximal aspect of the graft. At this point, the Berenstein catheter was exchanged with an Omniflush catheter to assure the intra-graft position with cannulating the contral ateral limb and being able to rotate freely within the device. A retrograde angiogram was then performed on the contralateral limb to locate the epigastric artery. Once the appropriate limb extension was selected, the device was inserted into the gate, the sheat h was withdrawn, and the contralateral limb was deployed overlapping the gate completely proximal to the internal iliac artery. At this point, deployment of the main body was continued on the ipsilat eral side until the device was fully deployed and the sheath reached the radiopaque junction of the runners. The flush catheter was then reintroduced over the stiff wire on the ipsilateral limb, and a retrograde angiogram was performed to locate the ipsilateral hypogastric arteries. Once appropria te limb extension was selected, the device was inserted into the gate, the sheath was withdrawn, and the limb was deployed, overlapping the gate completely proximal to the internal iliac artery. The flush catheter was then reintroduced over a stiff wire positioned proximally to the endograft device . Using aortic occlusion balloon, the proximal aspect of the device, overlapping areas of the endog raft stents, and the distal end of the bilateral limbs were secured. A completion angiogram was per formed to assess for any endoleaks and confirm positioning. No endoleaks were identified. The rig ht external iliac artery and the left external iliac artery looked adequate. At this point, adequat e inflow without any obstruction, stenosis or arterial dissection was identified. The completion an giogram also showed good positioning of the endograft with complete exclusion of the aneurysm and th e thrombus. There was no apparent endoleak, stenosis or kinks. The renal, internal iliac arteries were widely patent. Using ProGlide closure device, the left groin access site was percutaneously cl osed, and all wires and catheters and sheaths were withdrawn. The right groin exposure site, we use d a 5-0 Prolene suture to repair the puncture site of the right common femoral artery. There was so me local calcification, which we performed an endarterectomy, and this was closed in an interrupted transverse fashion. For the entirety of the case prior to insertion of the wire or the sheath in th e right common femoral artery, we had placed a Castillo clamp in the distal aspect of the common femor al artery as to prevent any distal embolization of the thrombus that was identified in the CAT scan, distal aorta and the right common iliac artery. At this point a proximal clamp on the common femor al artery was removed, and flow was reestablished for a few seconds, and at this point we went ahead and removed the clamp on the distal aspect of the common femoral artery, and flow was reestablished into the right lower extremity. Using Doppler, we identified having triphasic flow through the colette ateral common femoral arteries. At this point, Dermabond was applied to the left groin puncture sit e. On the right lower extremity, we used a 3-0 Prolene suture to close the deep fascia and the supe rficial fascia. The subcutaneous tissue was then closed with a 3-0 Vicryl running suture. Skin sta ples were applied. A sterile dressing and Tegaderm were applied. All instruments catheters, wires, needle, sponges and sheaths were removed and correct x2. The patient tolerated procedure well and was taken to the intensive care unit for overnight observation in stable condition. Dictated By: FREDRICK KWONG/IMELDA Conf#: [id number] DID#: [id number]
--- NOTE | 2016-03-31 23:47 | PN ---
Date/Time of Note Date/Time of Note DATE: 03/31/16 TIME: 23:47 Assessment/Plan Lines/Catheters IV Catheter Type (from [facility]): PICC Line Assessment/Plan Problems: (1) Ischemic ulcer of toe of right foot (2) Peripheral vascular disease Assessment/Plan Continue to monitor patient. Continue bad cradle. Patient will be followed in- house. Subjective 24 Hr Interval Summary Patient is seen and examined at bedside. Patient continues to have ischemic changes in his right lower extremity. Bed cradle is present. There is no complaints of significant pain. Constitutional: no complaints Pain Control: well controlled Exam/Review of Systems Vital Signs Vitals Vital Signs Date Time Temp Pulse Resp B/P Pulse Ox O2 Delivery O2 Flow Rate FiO2 04/08/16 08:28 97.9 89 20 139/80 99 Exam Free Text/Dictation Patient is in no acute distress. Bed cradle intact. Right foot distal ischemia noted. No active open wound present and no pus noted. Pedal pulses are not palpable. Decreased sensation noted to sharp dull vibratory and temperature stimuli. Contracted toes present. Results Result Diagram: 04/08/16 0530 04/08/16 0530 MERE BAPTISTE DPM Mar 31, 2016 23:47 Results Result Diagram: 03/31/16 0555 03/31/16 0555 MERE BAPTISTE DPM Mar 31, 2016 23:47
[2016-04-01] VITALS (23 sets, daily range): BP systolic 112–159; BP diastolic 56–88; PULSE 60–88; RESP 15–24
[2016-04-01] MEDS ORDERED: VANCOMYCIN 500MG/NS (PMX) 100 ML IVPB SCH (01:00)
[2016-04-01 04:57] LABS: BASOPHILS % 0.2 % (0.0-2.0); EOSINOPHILS # 0.2 10^3/ul (0.0-0.5); EOSINOPHILS % 1.8 % (0.0-7.0); HEMATOCRIT 29.1 % (42.0-52.0); HEMOGLOBIN 9.8 g/dl (14.0-18.0); LYMPHOCYTES # 1.3 10^3/ul (0.8-2.9); LYMPHOCYTES % 11.4 % (15.0-51.0); MEAN CORPUSCULAR HEMOGLOBIN 30.7 pg (29.0-33.0); MEAN CORPUSCULAR HGB CONC 33.6 g/dl (32.0-37.0); MEAN CORPUSCULAR VOLUME 91.5 fl (82.0-101.0); MEAN PLATELET VOLUME 7.2 fl (7.4-10.4); MONOCYTES % 9.1 % (0.0-11.0); NEUTROPHIL # 8.7 10^3/ul (1.6-7.5); NEUTROPHILS % 77.5 % (39.0-77.0); PLATELET COUNT 416 10^3/UL (140-440); RED BLOOD COUNT 3.18 10^6/ul (4.70-6.10); RED CELL DISTRIBUTION WIDTH 16.7 % (11.5-14.5); UNCORRECTED WBC 11.2 10^3/ul (4.8-10.8); WHITE BLOOD COUNT 11.2 10^3/ul (4.8-10.8)
[2016-04-01 05:02] LABS: CREATININE 0.63 mg/dl (0.61-1.24)
[2016-04-01 05:03] LABS: CALCIUM 7.3 mg/dl (8.4-10.2)
[2016-04-01 05:09] LABS: CONDITION 1; LH ANALYZER COMMENTS 1
[2016-04-01 05:15] LABS: POTASSIUM 2.6 mmol/L (3.5-5.1)
[2016-04-01] MEDS: PANTOPRAZOLE (EC) 40 MG TAB PO SCH (05:35)
[2016-04-01] MEDS: HEPARIN 5,000 UNIT/0.5 ML SYG SC SCH ×3 (05:42→21:16)
[2016-04-01] MEDS: POTASSIUM CHLORIDE 250 ML IVPB SCH ×2 (07:12→11:21)
[2016-04-01] MEDS: INSULIN ASPART [NOVOLOG] 3 ML PEN SC SCH ×3 (07:35→17:35)
[2016-04-01] MEDS: METOPROLOL 25 MG TAB PO SCH ×2 (09:54→21:24)
[2016-04-01] MEDS: MEMANTINE 5 MG TAB PO SCH ×2 (09:54→21:24)
[2016-04-01] MEDS: FERROUS SULFATE (EC) 325 MG TAB PO SCH ×2 (09:54→21:24)
[2016-04-01] MEDS: MUPIROCIN 2% 22 GM OINT TOP SCH ×2 (09:55→21:47)
[2016-04-01] MEDS: SOD CHLORIDE 0.9% 1,000 ML IV SCH (13:57)
--- NOTE | 2016-04-01 14:06 | CONS ---
Date/Time of Note Date/Time of Note DATE: 04/01/16 TIME: 14:04 Assessment/Plan Assessment/Plan Chief Complaint/Hosp Course IMPRESSION: 1. Abnormal electrocardiogram, assess for acute coronary syndrome.-negative troponin x 3/NL EF by echo. Lexiscan affected by artifact but no ischemia only scar. Thus at this time patient has no cardiac contraindication to proceeding to OR on current medications without further non-invasive evaluation. Patient is at moderate risk for CV complications. 2. Hypertension. 3. Peripheral arterial disease at aortoiliac bifurcation with likely embolic phenomenon/"Blue toes"-Now post-op Day #2 s/p peripheral vascular surgery 4. Dyslipidemia. 5. Hypertension. 6. Diabetes mellitus. 7. Iliac artery aneurysm s/p endarterectomy 8. Coronary artery disease. 9. Dementia. 10. Permanent pacemaker. 11.H/O Hip replacement with possible need for revision 12.Hematuria Recc: -Tele monitoring in ICU -Continue statin -Continue Heparin Sq -Continue BB -Local wound care -ASA as possible given bleeding complications prior -Pain control -Follow volume status closely Problems: Consultation Date/Type/Reason Admit Date/Time Mar 24, 2016 at 17:40 Initial Consult Date 03/24/16 Type of Consultation: Cardiology Reason for Consultation Pre-op/abnl ecg Referring Provider: LAVELL BRADLEY MD Exam/Review of Systems Vital Signs Vitals Vital Signs Date Time Temp Pulse Resp B/P Pulse Ox O2 Delivery O2 Flow Rate FiO2 04/01/16 12:43 61 04/01/16 12:00 20 126/73 100 Room Air 04/01/16 08:00 98.3 04/01/16 05:36 21 03/30/16 16:10 2.0 Intake and Output 03/31/16 03/31/16 04/01/16 15:00 23:00 07:00 Intake Total 300 ml 1610 ml 400 ml Output Total 460 ml 320 ml 270 ml Balance -160 ml 1290 ml 130 ml Exam Review of Systems: CONSTITUTIONAL: No fevers, chills. PULMONARY: No sob CARDIOVASCULAR: No chest pain/palpitations GASTROINTESTINAL: No nausea/vomiting. GENITOURINARY: No hematuria/dysuria. MUSCULOSKELETAL: No myagias/arthalgias. PSYCHIATRIC: The patient denies depression. NEUROLOGIC: lethargic Constitutional: alert Psych: no complaints Head: normocephalic ENMT: mucosa pink and moist Neck: jvd, supple Respiratory: diminished breath sounds Gastrointestinal: non-tender, soft Musculoskeletal: muscle tone Extremities: normal pulses Neurological: other Results Result Diagram: 04/01/16 0400 04/01/16 0400 Results 24 hrs Laboratory Tests Test 03/31/16 17:53 03/31/16 20:38 04/01/16 04:00 04/01/16 08:29 Bedside Glucose 89 92 86 Anion Gap 13 Basophils # 0.0 Basophils % 0.2 Blood Morphology Comment Blood Urea Nitrogen 12 Calcium Level 7.3 L Carbon Dioxide Level 22 Chloride Level 112 H Creatinine 0.63 Eosinophils # 0.2 Eosinophils % 1.8 Glucose Level 83 Hematocrit 29.1 L Hemoglobin 9.8 L Lymphocytes # 1.3 Lymphocytes % 11.4 L Mean Corpuscular Hemoglobin 30.7 Mean Corpuscular Hemoglobin Concent 33.6 Mean Corpuscular Volume 91.5 Mean Platelet Volume 7.2 L Monocytes # 1.0 H Monocytes % 9.1 Neutrophils # 8.7 H Neutrophils % 77.5 H Nucleated Red Blood Cells # 0.0 Nucleated Red Blood Cells % 0.0 Platelet Count 416 Potassium Level 2.6 *L Red Blood Count 3.18 L Red Cell Distribution Width 16.7 H Sodium Level 144 White Blood Count 11.2 H Test 04/01/16 12:30 Bedside Glucose 97 Medications Medications Current Medications Lorazepam (Ativan) 0.5 mg Q6H PRN IV ANXIETY Last administered on 03/31/16 08: 24; Admin Dose 0.5 MG; Start 03/24/16 at 18:30 Ondansetron HCl (Zofran Inj) 4 mg Q6H PRN IV NAUSEA AND/OR VOMITING; Start 03/24 at 18:30 Nitroglycerin (Nitroglycerin (Sl Tab) 0.4 Mg) 1 tab Q5M PRN SL CHEST PAIN; Start 03/24/16 at 18:30 Acetaminophen (Tylenol Tab) 650 mg Q6H PRN PO PAIN LEVEL 1-3 OR FEVER; Start at 18:30 Morphine Sulfate (morphine) 2 mg Q4H PRN IV PAIN LEVEL 7-10 Last administered on 03/29/16 12:36; Admin Dose 2 MG; Start 03/24/16 at 18:30 Atorvastatin Calcium (Lipitor) 40 mg QHS PO Last administered on 03/31/16 20: 33; Admin Dose 40 MG; Start 03/24/16 at 21:00 Donepezil HCl (Aricept) 5 mg QHS PO Last administered on 03/31/16 20:33; Admin Dose 5 MG; Start 03/24/16 at 21:00 Ferrous Sulfate (Ferrous Sulfate (Ec)) 325 mg BID PO Last administered on 09:54; Admin Dose 325 MG; Start 03/24/16 at 21:00 Memantine (Namenda) 5 mg BID PO Last administered on 04/01/16 09:54; Admin Dose 5 MG; Start 03/24/16 at 21:00 Miscellaneous Information 1 ea NOTE XX ; Start 03/24/16 at 18:30 Glucose (Glutose) 15 gm Q15M PRN PO DECREASED GLUCOSE; Start 03/24/16 at 18:30 Glucose (Glutose) 22.5 gm Q15M PRN PO DECREASED GLUCOSE; Start 03/24/16 at 18:30 Dextrose (D50w Syringe) 25 ml Q15M PRN IV DECREASED GLUCOSE; Start 03/24/16 at 18:30 Dextrose (D50w Syringe) 50 ml Q15M PRN IV DECREASED GLUCOSE Last administered on 03/29/16 21:16; Admin Dose 50 ML; Start 03/24/16 at 18:30 Glucagon (Glucagen) 1 mg Q15M PRN IM DECREASED GLUCOSE; Start 03/24/16 at 18:30 Glucose (Glutose) 15 gm Q15M PRN BUCCAL DECREASED GLUCOSE; Start 03/24/16 at 18: 30 Hydromorphone HCl (Dilaudid) 1 mg Q4H PRN IV PAIN; Start 03/25/16 at 06:30 Metoprolol Tartrate (Lopressor) 25 mg BID PO Last administered on 04/01/16 09: 54; Admin Dose 25 MG; Start 03/25/16 at 21:00 Mupirocin (Bactroban) 1 applic BID TOP Last administered on 04/01/16 09:55; Admin Dose 1 APPLIC; Start 03/27/16 at 14:30 Pantoprazole (Protonix Tab) 40 mg DAILY@06 PO Last administered on 04/01/16 05 :35; Admin Dose 40 MG; Start 03/28/16 at 06:00 Miscellaneous Information 1 ea NOTE XX ; Start 03/29/16 at 17:00 Glucose (Glutose) 15 gm Q15M PRN PO DECREASED GLUCOSE; Start 03/29/16 at 17:00 Glucose (Glutose) 22.5 gm Q15M PRN PO DECREASED GLUCOSE; Start 03/29/16 at 17: 00 Dextrose (D50w Syringe) 25 ml Q15M PRN IV DECREASED GLUCOSE; Start 03/29/16 at 17:00 Dextrose (D50w Syringe) 50 ml Q15M PRN IV DECREASED GLUCOSE; Start 03/29/16 at 17:00 Glucagon (Glucagen) 1 mg Q15M PRN IM DECREASED GLUCOSE; Start 03/29/16 at 17:00 Glucose 15 gm 15 gm Q15M PRN BUCCAL DECREASED GLUCOSE; Start 03/29/16 at 17:00 Sodium Chloride (NS) 1,000 ml @ 50 mls/hr Q20H IV Last administered on 13:57; Admin Dose 50 MLS/HR; Start 03/29/16 at 17:30 Heparin Sodium (Porcine) (Heparin (5000 Units/0.5 ml)) 5,000 unit Q8 SC Last administered on 04/01/16 13:58; Admin Dose 5,000 UNIT; Start 03/29/16 at 22:00 IV Flush 10 ml 10 ml PRN PRN IV IV PROTOCOL; Start 03/31/16 at 18:00 Potassium Chloride 250 ml @ 62.5 mls/hr Q4H IVPB Last administered on 11:21; Admin Dose 62.5 MLS/HR; Start 04/01/16 at 06:30; Stop 04/01/16 at 14 :29 Vancomycin HCl (Vancocin) 100 ml @ 100 mls/hr Q12H IVPB ; Start 04/01/16 at 13: 00 NICANOR VARGAS Apr 01, 2016 14:06
--- NOTE | 2016-04-01 14:36 | CONS ---
Date/Time of Note Date/Time of Note DATE: 04/01/16 TIME: 14:19 Assessment/Plan Assessment/Plan Chief Complaint/Hosp Course - Probable Left hip replacement infection - GPC bacteremia in 2/2 bottles - Aortoiliac atherosclerotic disease, ectatic right common iliac artery with thrombus s/p EVAR 03/29/16 - Blue toe syndrome - Funguria (s/p Vfend 03/28-03/30) - SIRS vs early sepsis d/t above - WBC downward trending and tachycardia resolved - CAD - PPM - T2DM Hgb A1c 5.5% - HTN associated with DM - HLD associated with DM - ACD s/p 1 unit PRBC 03/29/16 - Hypokalemia - dementia - DNR Recommendations: - F/u repeat and final bcx results (03/31/16 pending; 03/30/15 GPC in 2/2 bottles) - Continue Vanco (03/31/16-) - Consider CT hip - Appreciate Ortho eval; Seen by Dr. Santiago who recommended pt to be transferred to either the operating surgeon or to a higher level for revision surgery. - F/u procalc 03/28/16 & 03/30/16 (pending); crp (8.8); esr (44) - Management d/w pt's RN - Above d/w Dr. Maria Problems: Consultation Date/Type/Reason Admit Date/Time Mar 24, 2016 at 17:40 Initial Consult Date 03/28/16 Type of Consultation: Infectious Disease Referring Provider: LAVELL BRADLEY MD 24 HR Interval Summary Free Text/Dictation Pt on telemetry status in ICU while awaiting for telemetry bed; remains afebrile with stable VS; ate well for breakfast but did not want to eat lunch; had large semi-formed BM per RN Liss. Pt sleeping; non-communicative when aroused. Exam/Review of Systems Vital Signs Vitals Vital Signs Date Time Temp Pulse Resp B/P Pulse Ox O2 Delivery O2 Flow Rate FiO2 04/01/16 12:43 61 04/01/16 12:00 20 126/73 100 Room Air 04/01/16 08:00 98.3 04/01/16 05:36 21 03/30/16 16:10 2.0 Intake and Output 03/31/16 03/31/16 04/01/16 15:00 23:00 07:00 Intake Total 300 ml 1610 ml 400 ml Output Total 460 ml 320 ml 270 ml Balance -160 ml 1290 ml 130 ml Exam Constitutional: asleep but easily arousable, frail, non-verbal, other ( cachectic) Head: atraumatic, normocephalic Eyes: nl conjunctiva Neck: supple, No jvd Respiratory: clear to auscultation, normal air movement. Left chest wall PM noted intact. Cardiovascular: regular rate and rhythm, Normal S1 and S2 Gastrointestinal: non-tender, soft Genitourinary - Male: other (condom catheter intact mild hematuria) Extremities: cyanosis (LLE all toes but mostly big toe and RLE 2nd toe bluish discoloration noted), edema (1+ edema on LLE), other (DP palpable on R and faintly palpable on L), No clubbing. RUE PICC line c/d/i. Neurological: lethargic, other (opens eyes to verbal stimuli; no commands) Skin: nl turgor, other (multiple pressure ulcers - see Nurse's notes for detials; RLQ dressing c/d/i; surgical glue on LLQ c/d/i) Results MICROBIOLOGY: Blood cultures 03/30/16: BLOOD CULTURE Preliminary BCULT GRAM BOTTLE 1 Gram positive cocci in clusters 1 of 2 bottles . seen on gram stain of the broth BCULT GRAM BOTTLE 2 Gram positive cocci in clusters 2 of 2 bottles . seen on gram stain of the broth Organism 1 GRAM POSITIVE COCCI IN CLUSTER CRITICAL TEST VALUE BTL 1 . PHONED TO & READ BACK BY JULES BARKER,ICU AT 1037 03/31/16 JV BCULT BOTTLE #2 GRAM POSTIVE RODS SEEN ON GRAM STAIN OF THE BROTH,PHONED TO AND READ BACK BY MIRNA VALDEZ,[id number],AR Result Diagram: 04/01/16 0400 04/01/16 0400 Results 24 hrs Laboratory Tests Test 03/31/16 17:53 03/31/16 20:38 04/01/16 04:00 04/01/16 08:29 Bedside Glucose 89 92 86 Anion Gap 13 Basophils # 0.0 Basophils % 0.2 Blood Morphology Comment Blood Urea Nitrogen 12 Calcium Level 7.3 L Carbon Dioxide Level 22 Chloride Level 112 H Creatinine 0.63 Eosinophils # 0.2 Eosinophils % 1.8 Glucose Level 83 Hematocrit 29.1 L Hemoglobin 9.8 L Lymphocytes # 1.3 Lymphocytes % 11.4 L Mean Corpuscular Hemoglobin 30.7 Mean Corpuscular Hemoglobin Concent 33.6 Mean Corpuscular Volume 91.5 Mean Platelet Volume 7.2 L Monocytes # 1.0 H Monocytes % 9.1 Neutrophils # 8.7 H Neutrophils % 77.5 H Nucleated Red Blood Cells # 0.0 Nucleated Red Blood Cells % 0.0 Platelet Count 416 Potassium Level 2.6 *L Red Blood Count 3.18 L Red Cell Distribution Width 16.7 H Sodium Level 144 White Blood Count 11.2 H Test 04/01/16 12:30 Bedside Glucose 97 Medications Medications Current Medications Lorazepam (Ativan) 0.5 mg Q6H PRN IV ANXIETY Last administered on 03/31/16 08: 24; Admin Dose 0.5 MG; Start 03/24/16 at 18:30 Ondansetron HCl (Zofran Inj) 4 mg Q6H PRN IV NAUSEA AND/OR VOMITING; Start 03/24 at 18:30 Nitroglycerin (Nitroglycerin (Sl Tab) 0.4 Mg) 1 tab Q5M PRN SL CHEST PAIN; Start 03/24/16 at 18:30 Acetaminophen (Tylenol Tab) 650 mg Q6H PRN PO PAIN LEVEL 1-3 OR FEVER; Start at 18:30 Morphine Sulfate (morphine) 2 mg Q4H PRN IV PAIN LEVEL 7-10 Last administered on 03/29/16 12:36; Admin Dose 2 MG; Start 03/24/16 at 18:30 Atorvastatin Calcium (Lipitor) 40 mg QHS PO Last administered on 03/31/16 20: 33; Admin Dose 40 MG; Start 03/24/16 at 21:00 Donepezil HCl (Aricept) 5 mg QHS PO Last administered on 03/31/16 20:33; Admin Dose 5 MG; Start 03/24/16 at 21:00 Ferrous Sulfate (Ferrous Sulfate (Ec)) 325 mg BID PO Last administered on 09:54; Admin Dose 325 MG; Start 03/24/16 at 21:00 Memantine (Namenda) 5 mg BID PO Last administered on 04/01/16 09:54; Admin Dose 5 MG; Start 03/24/16 at 21:00 Miscellaneous Information 1 ea NOTE XX ; Start 03/24/16 at 18:30 Glucose (Glutose) 15 gm Q15M PRN PO DECREASED GLUCOSE; Start 03/24/16 at 18:30 Glucose (Glutose) 22.5 gm Q15M PRN PO DECREASED GLUCOSE; Start 03/24/16 at 18:30 Dextrose (D50w Syringe) 25 ml Q15M PRN IV DECREASED GLUCOSE; Start 03/24/16 at 18:30 Dextrose (D50w Syringe) 50 ml Q15M PRN IV DECREASED GLUCOSE Last administered on 03/29/16 21:16; Admin Dose 50 ML; Start 03/24/16 at 18:30 Glucagon (Glucagen) 1 mg Q15M PRN IM DECREASED GLUCOSE; Start 03/24/16 at 18:30 Glucose (Glutose) 15 gm Q15M PRN BUCCAL DECREASED GLUCOSE; Start 03/24/16 at 18: 30 Hydromorphone HCl (Dilaudid) 1 mg Q4H PRN IV PAIN; Start 03/25/16 at 06:30 Metoprolol Tartrate (Lopressor) 25 mg BID PO Last administered on 04/01/16 09: 54; Admin Dose 25 MG; Start 03/25/16 at 21:00 Mupirocin (Bactroban) 1 applic BID TOP Last administered on 04/01/16 09:55; Admin Dose 1 APPLIC; Start 03/27/16 at 14:30 Pantoprazole (Protonix Tab) 40 mg DAILY@06 PO Last administered on 04/01/16 05 :35; Admin Dose 40 MG; Start 03/28/16 at 06:00 Miscellaneous Information 1 ea NOTE XX ; Start 03/29/16 at 17:00 Glucose (Glutose) 15 gm Q15M PRN PO DECREASED GLUCOSE; Start 03/29/16 at 17:00 Glucose (Glutose) 22.5 gm Q15M PRN PO DECREASED GLUCOSE; Start 03/29/16 at 17: 00 Dextrose (D50w Syringe) 25 ml Q15M PRN IV DECREASED GLUCOSE; Start 03/29/16 at 17:00 Dextrose (D50w Syringe) 50 ml Q15M PRN IV DECREASED GLUCOSE; Start 03/29/16 at 17:00 Glucagon (Glucagen) 1 mg Q15M PRN IM DECREASED GLUCOSE; Start 03/29/16 at 17:00 Glucose 15 gm 15 gm Q15M PRN BUCCAL DECREASED GLUCOSE; Start 03/29/16 at 17:00 Sodium Chloride (NS) 1,000 ml @ 50 mls/hr Q20H IV Last administered on 13:57; Admin Dose 50 MLS/HR; Start 03/29/16 at 17:30 Heparin Sodium (Porcine) (Heparin (5000 Units/0.5 ml)) 5,000 unit Q8 SC Last administered on 04/01/16 13:58; Admin Dose 5,000 UNIT; Start 03/29/16 at 22:00 IV Flush 10 ml 10 ml PRN PRN IV IV PROTOCOL; Start 03/31/16 at 18:00 Potassium Chloride 250 ml @ 62.5 mls/hr Q4H IVPB Last administered on 11:21; Admin Dose 62.5 MLS/HR; Start 04/01/16 at 06:30; Stop 04/01/16 at 14 :29 Vancomycin HCl (Vancocin) 100 ml @ 100 mls/hr Q12H IVPB ; Start 04/01/16 at 13: 00 MARIANA ZUNIGA NP Apr 01, 2016 14:30
[2016-04-01] MEDS: VANCOMYCIN 500MG/NS (PMX) 100 ML IVPB SCH (14:59)
--- NOTE | 2016-04-01 20:08 | PN ---
Date/Time of Note Date/Time of Note DATE: 04/01/16 TIME: 20:02 Assessment/Plan VTE Prophylaxis VTE Prophylaxis Intervention: SCD's Lines/Catheters [facility] ([facility] PICC Line Central line still needed: Yes Assessment/Plan Chief Complaint/Hosp Course Assessment and plan - Probable Left hip replacement infection. Dr. Maria is following from infectious disease standpoint. Continue antibiotics per ID. Status post evaluation by orthopedic surgeon with recommendation to follow-up with operating surgeon or to transfer patient to a high level of care. - Aortoiliac atherosclerotic disease, ectatic right common iliac artery with thrombus. Dr. Mondragon is following in vascular surgery consultation. S/p endovascular aortic aneurysm repair and right common femoral artery localized endarterectomy on 03/31. -Hematuria status post attempt in a catheterization, patient is followed by Dr. Rankin and neurology consultation. Status post Torrez catheter placement by urology. Continue to monitor H&H. Aspirin and Lovenox is on held due to hematuria. - Blue toe syndrome - Dementia, continue Aricept and Namenda. - Diabetes mellitus type 2 - Coronary artery disease. Dr. Peters is following and cardiology consultation. - Hypertension, continue metoprolol. - Permanent pacemaker - Chronic anemia Continue Protonix for peptic ulcer disease prophylaxis Further recommendations based on clinical course. Plan of care discussed with Dr. Poole. Problems: Subjective 24 Hr Interval Summary Free Text/Dictation Patient continues to have mild hematuria, continue to monitor H&H, awake alert to name, denies any pain. Exam/Review of Systems Vital Signs Vitals Vital Signs Date Time Temp Pulse Resp B/P Pulse Ox O2 Delivery O2 Flow Rate FiO2 04/01/16 16:15 64 04/01/16 16:01 97.4 112/88 100 Room Air 04/01/16 12:00 20 04/01/16 05:36 21 03/30/16 16:10 2.0 Intake and Output 03/31/16 03/31/16 04/01/16 15:00 23:00 07:00 Intake Total 300 ml 1610 ml 400 ml Output Total 460 ml 320 ml 270 ml Balance -160 ml 1290 ml 130 ml Exam Constitutional: alert, well developed Head: atraumatic, normocephalic Eyes: nl conjunctiva ENMT: nl external ears & nose Neck: jvd, supple Respiratory: clear to auscultation Cardiovascular: regular rate and rhythm Gastrointestinal: nl liver, spleen, soft Genitourinary - Male: nl penis, other ( Torrez catheter ) Musculoskeletal: nl extremities to inspection, nl gait and stance Extremities: normal pulses, bilateral LE s/p vascular intervention Results Result Diagram: 04/01/16 0400 04/01/16 0400 Results 24 hrs Laboratory Tests Test 03/31/16 20:38 04/01/16 04:00 04/01/16 08:29 04/01/16 12:30 Bedside Glucose 92 86 97 Anion Gap 13 Basophils # 0.0 Basophils % 0.2 Blood Morphology Comment Blood Urea Nitrogen 12 Calcium Level 7.3 L Carbon Dioxide Level 22 Chloride Level 112 H Creatinine 0.63 Eosinophils # 0.2 Eosinophils % 1.8 Glucose Level 83 Hematocrit 29.1 L Hemoglobin 9.8 L Lymphocytes # 1.3 Lymphocytes % 11.4 L Mean Corpuscular Hemoglobin 30.7 Mean Corpuscular Hemoglobin Concent 33.6 Mean Corpuscular Volume 91.5 Mean Platelet Volume 7.2 L Monocytes # 1.0 H Monocytes % 9.1 Neutrophils # 8.7 H Neutrophils % 77.5 H Nucleated Red Blood Cells # 0.0 Nucleated Red Blood Cells % 0.0 Platelet Count 416 Potassium Level 2.6 *L Red Blood Count 3.18 L Red Cell Distribution Width 16.7 H Sodium Level 144 White Blood Count 11.2 H Test 04/01/16 17:25 Bedside Glucose 79 Medications Medications Current Medications Lorazepam (Ativan) 0.5 mg Q6H PRN IV ANXIETY Last administered on 03/31/16 08: 24; Admin Dose 0.5 MG; Start 03/24/16 at 18:30 Ondansetron HCl (Zofran Inj) 4 mg Q6H PRN IV NAUSEA AND/OR VOMITING; Start 03/24 at 18:30 Nitroglycerin (Nitroglycerin (Sl Tab) 0.4 Mg) 1 tab Q5M PRN SL CHEST PAIN; Start 03/24/16 at 18:30 Acetaminophen (Tylenol Tab) 650 mg Q6H PRN PO PAIN LEVEL 1-3 OR FEVER; Start at 18:30 Morphine Sulfate (morphine) 2 mg Q4H PRN IV PAIN LEVEL 7-10 Last administered on 03/29/16 12:36; Admin Dose 2 MG; Start 03/24/16 at 18:30 Atorvastatin Calcium (Lipitor) 40 mg QHS PO Last administered on 03/31/16 20: 33; Admin Dose 40 MG; Start 03/24/16 at 21:00 Donepezil HCl (Aricept) 5 mg QHS PO Last administered on 03/31/16 20:33; Admin Dose 5 MG; Start 03/24/16 at 21:00 Ferrous Sulfate (Ferrous Sulfate (Ec)) 325 mg BID PO Last administered on 09:54; Admin Dose 325 MG; Start 03/24/16 at 21:00 Memantine (Namenda) 5 mg BID PO Last administered on 04/01/16 09:54; Admin Dose 5 MG; Start 03/24/16 at 21:00 Hydromorphone HCl (Dilaudid) 1 mg Q4H PRN IV PAIN; Start 03/25/16 at 06:30 Metoprolol Tartrate (Lopressor) 25 mg BID PO Last administered on 04/01/16 09: 54; Admin Dose 25 MG; Start 03/25/16 at 21:00 Mupirocin (Bactroban) 1 applic BID TOP Last administered on 04/01/16 09:55; Admin Dose 1 APPLIC; Start 03/27/16 at 14:30 Pantoprazole 40 mg 40 mg DAILY@06 PO Last administered on 04/01/16 05:35; Admin Dose 40 MG; Start 03/28/16 at 06:00 Sodium Chloride (NS) 1,000 ml @ 50 mls/hr Q20H IV Last administered on 13:57; Admin Dose 50 MLS/HR; Start 03/29/16 at 17:30 Heparin Sodium (Porcine) (Heparin (5000 Units/0.5 ml)) 5,000 unit Q8 SC Last administered on 04/01/16 13:58; Admin Dose 5,000 UNIT; Start 03/29/16 at 22:00 IV Flush 10 ml 10 ml PRN PRN IV IV PROTOCOL; Start 03/31/16 at 18:00 Vancomycin HCl (Vancocin) 100 ml @ 100 mls/hr Q12H IVPB Last administered on 14:59; Admin Dose 100 MLS/HR; Start 04/01/16 at 13:00 ALICIA MONTGOMERY Apr 01, 2016 20:08
[2016-04-01] MEDS: DONEPEZIL 5 MG TAB PO SCH (21:24)
[2016-04-01] MEDS: ATORVASTATIN 40 MG TAB PO SCH (21:27)
[2016-04-01] MEDS: LORAZEPAM 2 MG INJ IV PRN (22:27)
[2016-04-02] VITALS (12 sets, daily range): BP systolic 127–170; BP diastolic 60–74; PULSE 73–91; RESP 16–22
[2016-04-02] MEDS: VANCOMYCIN 500MG/NS (PMX) 100 ML IVPB SCH ×2 (00:17→13:35)
[2016-04-02] MEDS: PANTOPRAZOLE (EC) 40 MG TAB PO SCH (05:15)
[2016-04-02] MEDS: HEPARIN 5,000 UNIT/0.5 ML SYG SC SCH ×3 (05:16→21:55)
[2016-04-02 06:56] LABS: BASOPHILS % 0.1 % (0.0-2.0); EOSINOPHILS # 0.3 10^3/ul (0.0-0.5); EOSINOPHILS % 2.7 % (0.0-7.0); HEMATOCRIT 29.8 % (42.0-52.0); HEMOGLOBIN 10.1 g/dl (14.0-18.0); LYMPHOCYTES # 1.2 10^3/ul (0.8-2.9); MEAN CORPUSCULAR HEMOGLOBIN 31.2 pg (29.0-33.0); MEAN CORPUSCULAR HGB CONC 33.9 g/dl (32.0-37.0); MEAN CORPUSCULAR VOLUME 91.8 fl (82.0-101.0); MONOCYTE # 0.8 10^3/ul (0.3-0.9); MONOCYTES % 8.7 % (0.0-11.0); NEUTROPHIL # 7.2 10^3/ul (1.6-7.5); NEUTROPHILS % 75.5 % (39.0-77.0); PLATELET COUNT 402 10^3/UL (140-440); RED BLOOD COUNT 3.24 10^6/ul (4.70-6.10); RED CELL DISTRIBUTION WIDTH 16.8 % (11.5-14.5); UNCORRECTED WBC 9.5 10^3/ul (4.8-10.8); WHITE BLOOD COUNT 9.5 10^3/ul (4.8-10.8)
[2016-04-02 07:00] LABS: CONDITION 1; LH ANALYZER COMMENTS 1
[2016-04-02 07:18] LABS: POTASSIUM 3.1 mmol/L (3.5-5.1)
[2016-04-02 07:21] LABS: CREATININE 0.59 mg/dl (0.61-1.24)
[2016-04-02 07:22] LABS: CALCIUM 7.7 mg/dl (8.4-10.2)
--- NOTE | 2016-04-02 09:34 | PN ---
Date/Time of Note Date/Time of Note DATE: 04/02/16 TIME: 09:34 Assessment/Plan VTE Prophylaxis VTE Prophylaxis Intervention: other Lines/Catheters IV [facility]ter Type ([facility]): PICC Line Central line still needed: Yes Assessment/Plan Chief Complaint/Hosp Course - Probable Left hip replacement infection. Dr. Maria is following from infectious disease standpoint. Continue antibiotics per ID. Status post evaluation by orthopedic surgeon with recommendation to follow-up with operating surgeon or to transfer patient to a high level of care. - Aortoiliac atherosclerotic disease, ectatic right common iliac artery with thrombus. Dr. Mondragon is following in vascular surgery consultation. S/p endovascular aortic aneurysm repair and right common femoral artery localized endarterectomy on 03/31. -Hematuria status post attempt in a catheterization, patient is followed by Dr. Rankin and neurology consultation. Status post Torrez catheter placement by urology. Continue to monitor H&H. Aspirin and Lovenox is on held due to hematuria. - Blue toe syndrome - Dementia, continue Aricept and Namenda. - Diabetes mellitus type 2 - Coronary artery disease. Dr. Peters is following and cardiology consultation. - Hypertension, continue metoprolol. - Permanent pacemaker - Chronic anemia Problems: Subjective 24 Hr Interval Summary Free Text/Dictation Patient resting, not verbally responsive Exam/Review of Systems Vital Signs Vitals Vital Signs Date Time Temp Pulse Resp B/P Pulse Ox O2 Delivery O2 Flow Rate FiO2 04/02/16 08:48 86 04/02/16 07:57 98.1 20 127/60 98 04/02/16 04:12 Room Air 04/01/16 05:36 21 03/30/16 16:10 2.0 Intake and Output 04/01/16 04/01/16 04/02/16 15:00 23:00 07:00 Intake Total 450.0 ml 950 ml 660 ml Output Total 195 ml 435 ml 500 ml Balance 255.0 ml 515 ml 160 ml Exam Constitutional: well developed Head: atraumatic, normocephalic Neck: supple Respiratory: diminished breath sounds Cardiovascular: regular rate and rhythm Gastrointestinal: non-tender, soft Results Result Diagram: 04/02/16 0625 04/02/16 0625 Results 24 hrs Laboratory Tests Test 04/01/16 12:30 04/01/16 17:25 04/02/16 06:25 Bedside Glucose 97 79 Anion Gap 11 Basophils # 0.0 Basophils % 0.1 Blood Morphology Comment Blood Urea Nitrogen 12 Calcium Level 7.7 L Carbon Dioxide Level 24 Chloride Level 109 Creatinine 0.59 L Eosinophils # 0.3 Eosinophils % 2.7 Glucose Level 87 Hematocrit 29.8 L Hemoglobin 10.1 L Lymphocytes # 1.2 Lymphocytes % 13.0 L Mean Corpuscular Hemoglobin 31.2 Mean Corpuscular Hemoglobin Concent 33.9 Mean Corpuscular Volume 91.8 Mean Platelet Volume 7.0 L Monocytes # 0.8 Monocytes % 8.7 Neutrophils # 7.2 Neutrophils % 75.5 Nucleated Red Blood Cells # 0.0 Nucleated Red Blood Cells % 0.0 Platelet Count 402 Potassium Level 3.1 L Red Blood Count 3.24 L Red Cell Distribution Width 16.8 H Sodium Level 141 White Blood Count 9.5 Medications Medications Current Medications Lorazepam (Ativan) 0.5 mg Q6H PRN IV ANXIETY Last administered on 04/01/16 22: 27; Admin Dose 0.5 MG; Start 03/24/16 at 18:30 Ondansetron HCl (Zofran Inj) 4 mg Q6H PRN IV NAUSEA AND/OR VOMITING; Start 03/24 at 18:30 Nitroglycerin (Nitroglycerin (Sl Tab) 0.4 Mg) 1 tab Q5M PRN SL CHEST PAIN; Start 03/24/16 at 18:30 Acetaminophen (Tylenol Tab) 650 mg Q6H PRN PO PAIN LEVEL 1-3 OR FEVER; Start at 18:30 Morphine Sulfate (morphine) 2 mg Q4H PRN IV PAIN LEVEL 7-10 Last administered on 03/29/16 12:36; Admin Dose 2 MG; Start 03/24/16 at 18:30 Atorvastatin Calcium (Lipitor) 40 mg QHS PO Last administered on 04/01/16 21: 27; Admin Dose 40 MG; Start 03/24/16 at 21:00 Donepezil HCl (Aricept) 5 mg QHS PO Last administered on 04/01/16 21:24; Admin Dose 5 MG; Start 03/24/16 at 21:00 Ferrous Sulfate (Ferrous Sulfate (Ec)) 325 mg BID PO Last administered on 21:24; Admin Dose 325 MG; Start 03/24/16 at 21:00 Memantine (Namenda) 5 mg BID PO Last administered on 04/01/16 21:24; Admin Dose 5 MG; Start 03/24/16 at 21:00 Hydromorphone HCl (Dilaudid) 1 mg Q4H PRN IV PAIN; Start 03/25/16 at 06:30 Metoprolol Tartrate (Lopressor) 25 mg BID PO Last administered on 04/01/16 21: 24; Admin Dose 25 MG; Start 03/25/16 at 21:00 Mupirocin (Bactroban) 1 applic BID TOP Last administered on 04/01/16 21:47; Admin Dose 1 APPLIC; Start 03/27/16 at 14:30 Pantoprazole 40 mg 40 mg DAILY@06 PO Last administered on 04/02/16 05:15; Admin Dose 40 MG; Start 03/28/16 at 06:00 Sodium Chloride (NS) 1,000 ml @ 50 mls/hr Q20H IV Last administered on 13:57; Admin Dose 50 MLS/HR; Start 03/29/16 at 17:30 Heparin Sodium (Porcine) (Heparin (5000 Units/0.5 ml)) 5,000 unit Q8 SC Last administered on 04/02/16 05:16; Admin Dose 5,000 UNIT; Start 03/29/16 at 22:00 IV Flush 10 ml 10 ml PRN PRN IV IV PROTOCOL; Start 03/31/16 at 18:00 Vancomycin HCl (Vancocin) 100 ml @ 100 mls/hr Q12H IVPB Last administered on 00:17; Admin Dose 100 MLS/HR; Start 04/01/16 at 13:00 DEMOND RAMON Apr 02, 2016 09:34
[2016-04-02] MEDS ORDERED: POTASSIUM CHLORIDE 20 MEQ POWDER FOR ORAL SOLN PO ONE (10:00)
[2016-04-02] MEDS: MUPIROCIN 2% 22 GM OINT TOP SCH ×2 (10:16→20:27)
[2016-04-02] MEDS: MEMANTINE 5 MG TAB PO SCH ×2 (10:17→20:26)
[2016-04-02] MEDS: METOPROLOL 25 MG TAB PO SCH ×2 (10:17→20:26)
[2016-04-02] MEDS: FERROUS SULFATE (EC) 325 MG TAB PO SCH ×2 (10:17→20:26)
--- NOTE | 2016-04-02 10:49 | PN ---
Date/Time of Note Date/Time of Note DATE: 04/02/16 TIME: 10:43 Assessment/Plan Lines/Catheters IV [facility] Type ([facility]): PICC Line Assessment/Plan Chief Complaint/Hosp Course -Aortoiliac atherosclerotic disease, ectatic right common iliac artery with thrombus: S/P EVAR -No need for anticoagulation any longer. -PT/OT, pt has left hip dislocation - Orthopedics involved, There does not seem to be an infection of the hip. No fluctuance, no induration, no erythema, On CTA there was no fluid collection identified in the vicinity of the implant ( although artifact). Elevated WBC likely reactive to Torrez catheter placement which was difficult preoperatively during his workup and reactive to his new abdominal surgery. -Discharge planning -Discussed findings, plan and management with the patient's care provider. -Optimize vascular status (BP meds, diet, nutrition, exercise, sugar control, antiplatelets). -Thank you for allowing us to partake in the care of your patient. Please call with any questions. Problems: Subjective 24 Hr Interval Summary no new vascular events overnight. there's no hip infection. No tenderness, fluctuance or induration Exam/Review of Systems Vital Signs Vitals Vital Signs Date Time Temp Pulse Resp B/P Pulse Ox O2 Delivery O2 Flow Rate FiO2 04/02/16 08:48 86 04/02/16 07:57 98.1 20 127/60 98 04/02/16 04:12 Room Air 04/01/16 05:36 21 03/30/16 16:10 2.0 Intake and Output 04/01/16 04/01/16 04/02/16 15:00 23:00 07:00 Intake Total 450.0 ml 950 ml 660 ml Output Total 195 ml 435 ml 500 ml Balance 255.0 ml 515 ml 160 ml Exam Free Text/Dictation GENERAL: Awake and alert and able to answer some questions. PULMONARY: Clear to auscultation bilaterally. CARDIOVASCULAR: S1, S2 present. ABDOMEN: Soft. NTND Bowel sounds positive. EXTREMITIES: RLE: Palpable femoral pulses, dressing removed and incision clean and dry, faint palpable pedal pulses. Motor, sensory intact. Capillary refill 2 seconds. On the right, the first 3 toes have bluish discoloration. LLE: Palpable femoral pulses, puncture site without hematoma and soft, nonpalpable pedal pulses. Motor, sensory intact. Capillary refill 2-3 seconds. all toes have bluish discoloration. Edema 1+, dopplerable signal PT/ DP. The staple line of the left hip incision has some staple line irritation, no fluctuance, no induration and no erythema Results Result Diagram: 04/02/1625 04/02/1625 ANN GROSS MD Apr 02, 2016 10:49
--- NOTE | 2016-04-02 12:03 | CONS ---
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 true bloodstream infection. Transthoracic echo did no demonstrate valvular vegetation - Aortoiliac atherosclerotic disease, ectatic right common iliac artery with thrombus s/p EVAR 03/29/16 - h/o blue toe syndrome - h/o funguria - CAD, PPM - DM - ACD s/p 1 unit PRBC 03/29/16 - dementia recommendations: - I requested sensitivity of strains of coagulase negative Staph in his blood cultures (tech: Tet). If only one species is identified, I favor bloodstream infection instead of colonization - repeat blood cultures x2 today - continue IV vancomycin management d/w Pt's RN Problems: Consultation Date/Type/Reason Admit Date/Time Mar 24, 2016 at 17:40 Initial Consult Date 03/29/16 Type of Consultation: Infectious Disease Referring Provider: LAVELL BRADLEY MD 24 HR Interval Summary Subjective hx not possible: pt non-verbal Exam/Review of Systems Vital Signs Vitals Vital Signs Date Time Temp Pulse Resp B/P Pulse Ox O2 Delivery O2 Flow Rate FiO2 04/02/16 11:43 98.7 75 20 131/61 97 04/02/16 04:12 Room Air 04/01/16 05:36 21 03/30/16 16:10 2.0 Intake and Output 04/01/16 04/01/16 04/02/16 15:00 23:00 07:00 Intake Total 450.0 ml 950 ml 660 ml Output Total 195 ml 435 ml 500 ml Balance 255.0 ml 515 ml 160 ml Exam Constitutional: frail, non-verbal Psych: confusion Head: atraumatic, normocephalic Eyes: nl conjunctiva, nl lids ENMT: nl external ears & nose Respiratory: clear to auscultation, normal air movement Cardiovascular: nl pulses, regular rate and rhythm Gastrointestinal: non-tender, soft Musculoskeletal: nl extremities to inspection, No joint tenderness, No swelling Extremities: No edema Neurological: lethargic Skin: nl turgor Results Result Diagram: 04/02/16 0625 04/02/16 0625 Results 24 hrs Laboratory Tests Test 04/01/16 12:30 2/17/17 17:25 04/02/16 06:25 Bedside Glucose 97 79 Anion Gap 11 Basophils # 0.0 Basophils % 0.1 Blood Morphology Comment Blood Urea Nitrogen 12 Calcium Level 7.7 L Carbon Dioxide Level 24 Chloride Level 109 Creatinine 0.59 L Eosinophils # 0.3 Eosinophils % 2.7 Glucose Level 87 Hematocrit 29.8 L Hemoglobin 10.1 L Lymphocytes # 1.2 Lymphocytes % 13.0 L Mean Corpuscular Hemoglobin 31.2 Mean Corpuscular Hemoglobin Concent 33.9 Mean Corpuscular Volume 91.8 Mean Platelet Volume 7.0 L Monocytes # 0.8 Monocytes % 8.7 Neutrophils # 7.2 Neutrophils % 75.5 Nucleated Red Blood Cells # 0.0 Nucleated Red Blood Cells % 0.0 Platelet Count 402 Potassium Level 3.1 L Red Blood Count 3.24 L Red Cell Distribution Width 16.8 H Sodium Level 141 White Blood Count 9.5 Medications Medications Current Medications Lorazepam (Ativan) 0.5 mg Q6H PRN IV ANXIETY Last administered on 04/01/16 22: 27; Admin Dose 0.5 MG; Start 03/24/16 at 18:30 Ondansetron HCl (Zofran Inj) 4 mg Q6H PRN IV NAUSEA AND/OR VOMITING; Start 03/24 at 18:30 Nitroglycerin (Nitroglycerin (Sl Tab) 0.4 Mg) 1 tab Q5M PRN SL CHEST PAIN; Start 03/24/16 at 18:30 Acetaminophen (Tylenol Tab) 650 mg Q6H PRN PO PAIN LEVEL 1-3 OR FEVER; Start at 18:30 Morphine Sulfate (morphine) 2 mg Q4H PRN IV PAIN LEVEL 7-10 Last administered on 03/29/16 12:36; Admin Dose 2 MG; Start 03/24/16 at 18:30 Atorvastatin Calcium (Lipitor) 40 mg QHS PO Last administered on 04/01/16 21: 27; Admin Dose 40 MG; Start 03/24/16 at 21:00 Donepezil HCl (Aricept) 5 mg QHS PO Last administered on 04/01/16 21:24; Admin Dose 5 MG; Start 03/24/16 at 21:00 Ferrous Sulfate (Ferrous Sulfate (Ec)) 325 mg BID PO Last administered on 10:17; Admin Dose 325 MG; Start 03/24/16 at 21:00 Memantine (Namenda) 5 mg BID PO Last administered on 04/02/16 10:17; Admin Dose 5 MG; Start 03/24/16 at 21:00 Hydromorphone HCl (Dilaudid) 1 mg Q4H PRN IV PAIN; Start 03/25/16 at 06:30 Metoprolol Tartrate (Lopressor) 25 mg BID PO Last administered on 04/02/16 10: 17; Admin Dose 25 MG; Start 03/25/16 at 21:00 Mupirocin (Bactroban) 1 applic BID TOP Last administered on 04/02/16 10:16; Admin Dose 1 APPLIC; Start 03/27/16 at 14:30 Pantoprazole 40 mg 40 mg DAILY@06 PO Last administered on 04/02/16 05:15; Admin Dose 40 MG; Start 03/28/16 at 06:00 Sodium Chloride (NS) 1,000 ml @ 50 mls/hr Q20H IV Last administered on 13:57; Admin Dose 50 MLS/HR; Start 03/29/16 at 17:30 Heparin Sodium (Porcine) (Heparin (5000 Units/0.5 ml)) 5,000 unit Q8 SC Last administered on 04/02/16 05:16; Admin Dose 5,000 UNIT; Start 03/29/16 at 22:00 IV Flush 10 ml 10 ml PRN PRN IV IV PROTOCOL; Start 03/31/16 at 18:00 Vancomycin HCl (Vancocin) 100 ml @ 100 mls/hr Q12H IVPB Last administered on 00:17; Admin Dose 100 MLS/HR; Start 04/01/16 at 13:00 GEOVANNA SHEN M.D. Apr 02, 2016 12:02
--- NOTE | 2016-04-02 12:07 | PN ---
DATE: 04/02/2016 SUBJECTIVE: Initially hematuria from traumatic insertion of a catheter. Patient had a Torrez cathet er which I inserted after that, and his urine was clear and the patient had the Torrez catheter remov ed and an external catheter was placed on and the patient has been voiding and the urine is clear. OBJECTIVE: VITAL SIGNS: Temperature is 98.1, pulse is 86, respiration 20, blood pressure 127/60. ABDOMEN: Soft. LABORATORY DATA: CBC: WBC 9.5, hemoglobin 10.1, hematocrit 29.8. BUN is 12, creatinine 0.59. The patient had a positive blood culture on 03/31/2016, gram-positive cocci, but from a urological marbin dpoint is to keep the external catheter on him and there is no need to insert the Torrez catheter. Jeremie chavarria is able to urinate on his own. Dictated By: ABDI SEGOVIA/IMELDA Conf#: [id number] DID#: [id number]
--- NOTE | 2016-04-02 13:20 | CONS ---
Date/Time of Note Date/Time of Note DATE: 04/02/16 TIME: 13:17 Assessment/Plan Assessment/Plan Chief Complaint/Hosp Course IMPRESSION: 1. Abnormal electrocardiogram, assess for acute coronary syndrome.-negative troponin x 3/NL EF by echo. Lexiscan affected by artifact but no ischemia only scar. Thus at this time patient has no cardiac contraindication to proceeding to OR on current medications without further non-invasive evaluation. Patient is at moderate risk for CV complications. 2. Hypertension. 3. Peripheral arterial disease at aortoiliac bifurcation with likely embolic phenomenon/"Blue toes"-Now post-op s/p peripheral vascular surgery 4. Dyslipidemia. 5. Hypertension. 6. Diabetes mellitus. 7. Iliac artery aneurysm s/p endarterectomy 8. Coronary artery disease. 9. Dementia. 10. Permanent pacemaker. 11.H/O Hip replacement with possible need for revision 12.Hematuria 14. Hypokalemia Recc: -Tele -Continue statin -Continue Heparin Sq -Continue BB -Local wound care -ASA as possible given bleeding complications prior -Pain control -Follow volume status closely -Replete KCL as you are doing Problems: Consultation Date/Type/Reason Admit Date/Time Mar 24, 2016 at 17:40 Initial Consult Date 03/24/16 Type of Consultation: Cardiology Reason for Consultation abnl ecg/HTN Referring Provider: LAVELL BRADLEY MD Exam/Review of Systems Vital Signs Vitals Vital Signs Date Time Temp Pulse Resp B/P Pulse Ox O2 Delivery O2 Flow Rate FiO2 04/02/16 12:33 73 04/02/16 11:43 98.7 20 131/61 97 04/02/16 04:12 Room Air 04/01/16 05:36 21 03/30/16 16:10 2.0 Intake and Output 04/01/16 04/01/16 04/02/16 15:00 23:00 07:00 Intake Total 450.0 ml 950 ml 660 ml Output Total 195 ml 435 ml 500 ml Balance 255.0 ml 515 ml 160 ml Exam Review of Systems: CONSTITUTIONAL: No fevers, chills. PULMONARY: No sob CARDIOVASCULAR: No chest pain/palpitations GASTROINTESTINAL: No nausea/vomiting. GENITOURINARY: No hematuria/dysuria. MUSCULOSKELETAL: No myagias/arthalgias. PSYCHIATRIC: The patient denies depression. NEUROLOGIC: lethargic Constitutional: alert Psych: no complaints Head: normocephalic ENMT: mucosa pink and moist Neck: jvd (8-9 cm water), supple Respiratory: diminished breath sounds (at bases/B) Cardiovascular: regular rate and rhythm Gastrointestinal: non-tender, soft Musculoskeletal: muscle weakness (generalized) Extremities: edema (none), other (toe cyanosis) Neurological: lethargic Results Result Diagram: 04/02/16 0625 04/02/16 0625 Results 24 hrs Laboratory Tests Test 04/01/16 17:25 04/02/16 06:25 Bedside Glucose 79 Anion Gap 11 Basophils # 0.0 Basophils % 0.1 Blood Morphology Comment Blood Urea Nitrogen 12 Calcium Level 7.7 L Carbon Dioxide Level 24 Chloride Level 109 Creatinine 0.59 L Eosinophils # 0.3 Eosinophils % 2.7 Glucose Level 87 Hematocrit 29.8 L Hemoglobin 10.1 L Lymphocytes # 1.2 Lymphocytes % 13.0 L Mean Corpuscular Hemoglobin 31.2 Mean Corpuscular Hemoglobin Concent 33.9 Mean Corpuscular Volume 91.8 Mean Platelet Volume 7.0 L Monocytes # 0.8 Monocytes % 8.7 Neutrophils # 7.2 Neutrophils % 75.5 Nucleated Red Blood Cells # 0.0 Nucleated Red Blood Cells % 0.0 Platelet Count 402 Potassium Level 3.1 L Red Blood Count 3.24 L Red Cell Distribution Width 16.8 H Sodium Level 141 White Blood Count 9.5 Medications Medications Current Medications Lorazepam (Ativan) 0.5 mg Q6H PRN IV ANXIETY Last administered on 04/01/16 22: 27; Admin Dose 0.5 MG; Start 03/24/16 at 18:30 Ondansetron HCl (Zofran Inj) 4 mg Q6H PRN IV NAUSEA AND/OR VOMITING; Start 03/24 at 18:30 Nitroglycerin (Nitroglycerin (Sl Tab) 0.4 Mg) 1 tab Q5M PRN SL CHEST PAIN; Start 03/24/16 at 18:30 Acetaminophen (Tylenol Tab) 650 mg Q6H PRN PO PAIN LEVEL 1-3 OR FEVER; Start at 18:30 Morphine Sulfate (morphine) 2 mg Q4H PRN IV PAIN LEVEL 7-10 Last administered on 03/29/16 12:36; Admin Dose 2 MG; Start 03/24/16 at 18:30 Atorvastatin Calcium (Lipitor) 40 mg QHS PO Last administered on 04/01/16 21: 27; Admin Dose 40 MG; Start 03/24/16 at 21:00 Donepezil HCl (Aricept) 5 mg QHS PO Last administered on 04/01/16 21:24; Admin Dose 5 MG; Start 03/24/16 at 21:00 Ferrous Sulfate (Ferrous Sulfate (Ec)) 325 mg BID PO Last administered on 10:17; Admin Dose 325 MG; Start 03/24/16 at 21:00 Memantine (Namenda) 5 mg BID PO Last administered on 04/02/16 10:17; Admin Dose 5 MG; Start 03/24/16 at 21:00 Hydromorphone HCl (Dilaudid) 1 mg Q4H PRN IV PAIN; Start 03/25/16 at 06:30 Metoprolol Tartrate (Lopressor) 25 mg BID PO Last administered on 04/02/16 10: 17; Admin Dose 25 MG; Start 03/25/16 at 21:00 Mupirocin (Bactroban) 1 applic BID TOP Last administered on 04/02/16 10:16; Admin Dose 1 APPLIC; Start 03/27/16 at 14:30 Pantoprazole 40 mg 40 mg DAILY@06 PO Last administered on 04/02/16 05:15; Admin Dose 40 MG; Start 03/28/16 at 06:00 Sodium Chloride (NS) 1,000 ml @ 50 mls/hr Q20H IV Last administered on 13:57; Admin Dose 50 MLS/HR; Start 03/29/16 at 17:30 Heparin Sodium (Porcine) (Heparin (5000 Units/0.5 ml)) 5,000 unit Q8 SC Last administered on 04/02/16 05:16; Admin Dose 5,000 UNIT; Start 03/29/16 at 22:00 IV Flush 10 ml 10 ml PRN PRN IV IV PROTOCOL; Start 03/31/16 at 18:00 Vancomycin HCl (Vancocin) 100 ml @ 100 mls/hr Q12H IVPB Last administered on 00:17; Admin Dose 100 MLS/HR; Start 04/01/16 at 13:00 Miscellaneous Information (*Rx Drug Level Order Reminder*) VANCOMYCIN TROUGH AT 0000 ONCE ONCE XX ; Start 04/03/16 at 00:00; Stop 04/03/16 at 00:01 NICANOR VARGAS Apr 02, 2016 13:20
[2016-04-02] MEDS: SOD CHLORIDE 0.9% 1,000 ML IV SCH (13:34)
[2016-04-02] MEDS: ATORVASTATIN 40 MG TAB PO SCH (20:26)
[2016-04-02] MEDS: DONEPEZIL 5 MG TAB PO SCH (21:54)
--- NOTE | 2016-04-02 23:52 | PN ---
Date/Time of Note Date/Time of Note DATE: 04/02/16 TIME: 23:52 Assessment/Plan Lines/Catheters IV Catheter Type (from [facility]): PICC Line Assessment/Plan Chief Complaint/Hosp Course Thank you very much for involving me in the care of this patient. As you very well know this is a 70-year-old male patient with multiple medical problems including type 2 diabetes mellitus, dementia, status post pacemaker who presented to the hospital with "blue toe syndrome". Patient is currently in the ICU. I was consulted for evaluation and treatment of feet. Patient's family was present in the room. Patient is noncommunicative to verbal command at this time. Problems: Exam/Review of Systems Vital Signs Vitals Vital Signs Date Time Temp Pulse Resp B/P Pulse Ox O2 Delivery O2 Flow Rate FiO2 04/02/16 20:30 82 04/02/16 19:52 98.8 16 170/74 97 04/02/16 04:12 Room Air 04/01/16 05:36 21 03/30/16 16:10 2.0 Intake and Output 04/01/16 04/01/16 04/02/16 15:00 23:00 07:00 Intake Total 450.0 ml 950 ml 660 ml Output Total 195 ml 435 ml 500 ml Balance 255.0 ml 515 ml 160 ml Results Result Diagram: 04/02/16 0625 04/02/16 0625 MERE BAPTISTE DPM Apr 02, 2016 23:52
[2016-04-03] VITALS (11 sets, daily range): BP systolic 129–154; BP diastolic 57–87; PULSE 59–76; RESP 16–18
[2016-04-03] MEDS: morphine 2 MG INJ IV PRN ×3 (01:13→22:21)
[2016-04-03] MEDS: VANCOMYCIN 1 GM in NS 250 ML IVPB SCH ×2 (02:04→13:39)
[2016-04-03] MEDS: PANTOPRAZOLE (EC) 40 MG TAB PO SCH (05:32)
[2016-04-03] MEDS: SOD CHLORIDE 0.9% 1,000 ML IV SCH ×2 (05:45→13:40)
[2016-04-03] MEDS: HEPARIN 5,000 UNIT/0.5 ML SYG SC SCH ×3 (05:45→22:17)
[2016-04-03] MEDS: MEMANTINE 5 MG TAB PO SCH ×2 (07:43→20:39)
[2016-04-03] MEDS: METOPROLOL 25 MG TAB PO SCH ×2 (07:43→20:39)
[2016-04-03] MEDS: FERROUS SULFATE (EC) 325 MG TAB PO SCH ×2 (07:43→20:39)
[2016-04-03] MEDS: MUPIROCIN 2% 22 GM OINT TOP SCH ×2 (07:44→20:39)
--- NOTE | 2016-04-03 11:23 | PN ---
Date/Time of Note Date/Time of Note DATE: 04/03/16 TIME: 11:22 Assessment/Plan VTE Prophylaxis VTE Prophylaxis Intervention: other Lines/Catheters IV [facility] Type ([facility] PICC Line Central line still needed: Yes Assessment/Plan Chief Complaint/Hosp Course - Probable Left hip replacement infection. Dr. Maria is following from infectious disease standpoint. Continue antibiotics per ID. Status post evaluation by orthopedic surgeon with recommendation to follow-up with operating surgeon or to transfer patient to a high level of care. - Aortoiliac atherosclerotic disease, ectatic right common iliac artery with thrombus. Dr. Mondragon is following in vascular surgery consultation. S/p endovascular aortic aneurysm repair and right common femoral artery localized endarterectomy on 03/31. -Hematuria status post attempt in a catheterization, patient is followed by Dr. Rankin and neurology consultation. Status post Torrez catheter placement by urology. Continue to monitor H&H. Aspirin and Lovenox is on held due to hematuria. - Blue toe syndrome - Dementia, continue Aricept and Namenda. - Diabetes mellitus type 2 - Coronary artery disease. Dr. Peters is following and cardiology consultation. - Hypertension, continue metoprolol. - Permanent pacemaker - Chronic anemia Problems: Subjective 24 Hr Interval Summary Free Text/Dictation Patient resting comfortably, has no complaints Exam/Review of Systems Vital Signs Vitals Vital Signs Date Time Temp Pulse Resp B/P Pulse Ox O2 Delivery O2 Flow Rate FiO2 04/03/16 11:05 98.4 78 18 129/67 97 04/02/16 04:12 Room Air 04/01/16 05:36 21 03/30/16 16:10 2.0 Intake and Output 04/02/16 04/02/16 04/03/16 15:00 23:00 07:00 Intake Total 450 ml 990 ml Output Total 720 ml 600 ml Balance -270 ml 390 ml Exam Constitutional: well developed Head: atraumatic, normocephalic Neck: supple Respiratory: diminished breath sounds Cardiovascular: regular rate and rhythm Gastrointestinal: non-tender, soft Results Result Diagram: 04/02/16 0625 04/02/16 0625 Results 24 hrs Laboratory Tests Test 04/03/16 00:25 Vancomycin Level Trough 7.9 L Medications Medications Current Medications Lorazepam (Ativan) 0.5 mg Q6H PRN IV ANXIETY Last administered on 04/01/16 22: 27; Admin Dose 0.5 MG; Start 03/24/16 at 18:30 Ondansetron HCl (Zofran Inj) 4 mg Q6H PRN IV NAUSEA AND/OR VOMITING; Start 03/24 at 18:30 Nitroglycerin (Nitroglycerin (Sl Tab) 0.4 Mg) 1 tab Q5M PRN SL CHEST PAIN; Start 03/24/16 at 18:30 Acetaminophen (Tylenol Tab) 650 mg Q6H PRN PO PAIN LEVEL 1-3 OR FEVER; Start at 18:30 Morphine Sulfate (morphine) 2 mg Q4H PRN IV PAIN LEVEL 7-10 Last administered on 04/03/16 01:13; Admin Dose 2 MG; Start 03/24/16 at 18:30 Atorvastatin Calcium (Lipitor) 40 mg QHS PO Last administered on 04/02/16 20: 26; Admin Dose 40 MG; Start 03/24/16 at 21:00 Donepezil HCl (Aricept) 5 mg QHS PO Last administered on 04/02/16 21:54; Admin Dose 5 MG; Start 03/24/16 at 21:00 Ferrous Sulfate (Ferrous Sulfate (Ec)) 325 mg BID PO Last administered on 07:43; Admin Dose 325 MG; Start 03/24/16 at 21:00 Memantine (Namenda) 5 mg BID PO Last administered on 04/03/16 07:43; Admin Dose 5 MG; Start 03/24/16 at 21:00 Hydromorphone HCl (Dilaudid) 1 mg Q4H PRN IV PAIN; Start 03/25/16 at 06:30 Metoprolol Tartrate (Lopressor) 25 mg BID PO Last administered on 04/03/16 07: 43; Admin Dose 25 MG; Start 03/25/16 at 21:00 Mupirocin (Bactroban) 1 applic BID TOP Last administered on 04/03/16 07:44; Admin Dose 1 APPLIC; Start 03/27/16 at 14:30 Pantoprazole 40 mg 40 mg DAILY@06 PO Last administered on 04/03/16 05:32; Admin Dose 40 MG; Start 03/28/16 at 06:00 Sodium Chloride (NS) 1,000 ml @ 50 mls/hr Q20H IV Last administered on 13:34; Admin Dose 50 MLS/HR; Start 03/29/16 at 17:30 Heparin Sodium (Porcine) (Heparin (5000 Units/0.5 ml)) 5,000 unit Q8 SC Last administered on 04/03/16 05:45; Admin Dose 5,000 UNIT; Start 03/29/16 at 22:00 IV Flush 10 ml 10 ml PRN PRN IV IV PROTOCOL; Start 03/31/16 at 18:00 Vancomycin HCl (Vancocin) 250 ml @ 125 mls/hr Q12H IVPB Last administered on 02:04; Admin Dose 125 MLS/HR; Start 04/03/16 at 02:00 Miscellaneous Information (*Rx Drug Level Order Reminder*) VANCOMYCIN TROUGH AT 1300 ONCE ONCE XX ; Start 04/04/16 at 13:00; Stop 04/04/16 at 13:01 DEMOND RAMNO Apr 03, 2016 11:23
--- NOTE | 2016-04-03 12:21 | CONS ---
Date/Time of Note Date/Time of Note DATE: 04/03/16 TIME: 12:18 Assessment/Plan Assessment/Plan Chief Complaint/Hosp Course IMPRESSION: 1. Abnormal electrocardiogram, assess for acute coronary syndrome.-negative troponin x 3/NL EF by echo. Lexiscan affected by artifact but no ischemia only scar. Thus at this time patient has no cardiac contraindication to proceeding to OR on current medications without further non-invasive evaluation. Patient is at moderate risk for CV complications. 2. Hypertension. 3. Peripheral arterial disease at aortoiliac bifurcation with likely embolic phenomenon/"Blue toes"-Now post-op s/p peripheral vascular surgery 4. Dyslipidemia. 5. Hypertension. 6. Diabetes mellitus. 7. Iliac artery aneurysm s/p endarterectomy 8. Coronary artery disease. 9. Dementia. 10. Permanent pacemaker. 11.H/O Hip replacement with possible need for revision 12.Hematuria 14. Hypokalemia Recc: -Tele -Continue statin -Continue Heparin Sq -Continue BB -Local wound care -ASA as possible given bleeding complications prior -Pain control -Follow volume status closely -Replete KCL Problems: Consultation Date/Type/Reason Admit Date/Time Mar 24, 2016 at 17:40 Initial Consult Date 03/24/16 Type of Consultation: Cardiology Reason for Consultation abnl ecg Referring Provider: LAVELL BRADLEY MD Exam/Review of Systems Vital Signs Vitals Vital Signs Date Time Temp Pulse Resp B/P Pulse Ox O2 Delivery O2 Flow Rate FiO2 04/03/16 12:05 59 04/03/16 11:05 98.4 18 129/67 97 04/02/16 04:12 Room Air 04/01/16 05:36 21 03/30/16 16:10 2.0 Intake and Output 04/02/16 04/02/16 04/03/16 15:00 23:00 07:00 Intake Total 450 ml 990 ml Output Total 720 ml 600 ml Balance -270 ml 390 ml Exam Review of Systems: CONSTITUTIONAL: No fevers, chills. PULMONARY: No sob CARDIOVASCULAR: No chest pain/palpitations GASTROINTESTINAL: No nausea/vomiting. GENITOURINARY: No hematuria/dysuria. MUSCULOSKELETAL: No myagias/arthalgias. PSYCHIATRIC: The patient denies depression. NEUROLOGIC: lethargic Constitutional: alert Psych: no complaints Head: normocephalic ENMT: mucosa pink and moist Neck: jvd (9 cm water), supple Respiratory: diminished breath sounds Cardiovascular: regular rate and rhythm Gastrointestinal: non-tender, soft Musculoskeletal: muscle weakness (generalized) Neurological: other (No focal deficits) Results Result Diagram: 04/02/1662404/02/16624 Results 24 hrs Laboratory Tests Test 04/03/16 00:25 Vancomycin Level Trough 7.9 L Medications Medications Current Medications Lorazepam (Ativan) 0.5 mg Q6H PRN IV ANXIETY Last administered on 04/01/16 22: 27; Admin Dose 0.5 MG; Start 03/24/16 at 18:30 Ondansetron HCl (Zofran Inj) 4 mg Q6H PRN IV NAUSEA AND/OR VOMITING; Start 03/24 at 18:30 Nitroglycerin (Nitroglycerin (Sl Tab) 0.4 Mg) 1 tab Q5M PRN SL CHEST PAIN; Start 03/24/16 at 18:30 Acetaminophen (Tylenol Tab) 650 mg Q6H PRN PO PAIN LEVEL 1-3 OR FEVER; Start at 18:30 Morphine Sulfate (morphine) 2 mg Q4H PRN IV PAIN LEVEL 7-10 Last administered on 04/03/16 01:13; Admin Dose 2 MG; Start 03/24/16 at 18:30 Atorvastatin Calcium (Lipitor) 40 mg QHS PO Last administered on 04/02/16 20: 26; Admin Dose 40 MG; Start 03/24/16 at 21:00 Donepezil HCl (Aricept) 5 mg QHS PO Last administered on 04/02/16 21:54; Admin Dose 5 MG; Start 03/24/16 at 21:00 Ferrous Sulfate (Ferrous Sulfate (Ec)) 325 mg BID PO Last administered on 07:43; Admin Dose 325 MG; Start 03/24/16 at 21:00 Memantine (Namenda) 5 mg BID PO Last administered on 04/03/16 07:43; Admin Dose 5 MG; Start 03/24/16 at 21:00 Hydromorphone HCl (Dilaudid) 1 mg Q4H PRN IV PAIN; Start 03/25/16 at 06:30 Metoprolol Tartrate (Lopressor) 25 mg BID PO Last administered on 04/03/16 07: 43; Admin Dose 25 MG; Start 03/25/16 at 21:00 Mupirocin (Bactroban) 1 applic BID TOP Last administered on 04/03/16 07:44; Admin Dose 1 APPLIC; Start 03/27/16 at 14:30 Pantoprazole 40 mg 40 mg DAILY@06 PO Last administered on 04/03/16 05:32; Admin Dose 40 MG; Start 03/28/16 at 06:00 Sodium Chloride (NS) 1,000 ml @ 50 mls/hr Q20H IV Last administered on 13:34; Admin Dose 50 MLS/HR; Start 03/29/16 at 17:30 Heparin Sodium (Porcine) (Heparin (5000 Units/0.5 ml)) 5,000 unit Q8 SC Last administered on 04/03/16 05:45; Admin Dose 5,000 UNIT; Start 03/29/16 at 22:00 IV Flush 10 ml 10 ml PRN PRN IV IV PROTOCOL; Start 03/31/16 at 18:00 Vancomycin HCl (Vancocin) 250 ml @ 125 mls/hr Q12H IVPB Last administered on 02:04; Admin Dose 125 MLS/HR; Start 04/03/16 at 02:00 Miscellaneous Information (*Rx Drug Level Order Reminder*) VANCOMYCIN TROUGH AT 1300 ONCE ONCE XX ; Start 04/04/16 at 13:00; Stop 04/04/16 at 13:01 NICANOR VARGAS Apr 03, 2016 12:21
[2016-04-03] MEDS ORDERED: POTASSIUM CHLORIDE (SR) 20 MEQ TAB PO SCH (12:30)
--- NOTE | 2016-04-03 13:35 | CONS ---
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 capitis Transthoracic echo did no demonstrate valvular vegetation - Aortoiliac atherosclerotic disease, ectatic right common iliac artery with thrombus s/p EVAR 03/29/16 - h/o blue toe syndrome - h/o funguria - CAD, PPM - DM - ACD s/p 1 unit PRBC 03/29/16 - dementia recommendations: - continue IV vancomycin d/w Dr Alexis Consultation Date/Type/Reason Admit Date/Time Mar 24, 2016 at 17:40 Initial Consult Date 03/29/16 Type of Consultation: ID Referring Provider: LAVELL BRADLEY MD 24 HR Interval Summary Free Text/Dictation Opens eyes. Does not respond to my questions CoNS ID'd as S. capitis Subjective hx not possible: pt non-verbal Exam/Review of Systems Vital Signs Vitals Vital Signs Date Time Temp Pulse Resp B/P Pulse Ox O2 Delivery O2 Flow Rate FiO2 04/03/16 12:05 59 04/03/16 11:05 98.4 18 129/67 97 04/02/16 04:12 Room Air 04/01/16 05:36 21 03/30/16 16:10 2.0 Intake and Output 04/02/16 04/02/16 04/03/16 15:00 23:00 07:00 Intake Total 450 ml 990 ml Output Total 720 ml 600 ml Balance -270 ml 390 ml Exam Constitutional: non-verbal Head: atraumatic, normocephalic Neck: other (cannot assess) Respiratory: clear to auscultation, normal air movement Cardiovascular: regular rate and rhythm Gastrointestinal: bowel sounds, non-tender, soft Genitourinary - Male: other (doss cath present. o/p sl cloudy) Results Result Diagram: 04/02/16 0625 04/02/16 0625 Results 24 hrs Laboratory Tests Test 04/03/16 00:25 Vancomycin Level Trough 7.9 L Medications Medications Current Medications Lorazepam (Ativan) 0.5 mg Q6H PRN IV ANXIETY Last administered on 04/01/16 22: 27; Admin Dose 0.5 MG; Start 03/24/16 at 18:30 Ondansetron HCl (Zofran Inj) 4 mg Q6H PRN IV NAUSEA AND/OR VOMITING; Start 03/24 at 18:30 Nitroglycerin (Nitroglycerin (Sl Tab) 0.4 Mg) 1 tab Q5M PRN SL CHEST PAIN; Start 03/24/16 at 18:30 Acetaminophen (Tylenol Tab) 650 mg Q6H PRN PO PAIN LEVEL 1-3 OR FEVER; Start at 18:30 Morphine Sulfate (morphine) 2 mg Q4H PRN IV PAIN LEVEL 7-10 Last administered on 04/03/16 01:13; Admin Dose 2 MG; Start 03/24/16 at 18:30 Atorvastatin Calcium (Lipitor) 40 mg QHS PO Last administered on 04/02/16 20: 26; Admin Dose 40 MG; Start 03/24/16 at 21:00 Donepezil HCl (Aricept) 5 mg QHS PO Last administered on 04/02/16 21:54; Admin Dose 5 MG; Start 03/24/16 at 21:00 Ferrous Sulfate (Ferrous Sulfate (Ec)) 325 mg BID PO Last administered on 07:43; Admin Dose 325 MG; Start 03/24/16 at 21:00 Memantine (Namenda) 5 mg BID PO Last administered on 04/03/16 07:43; Admin Dose 5 MG; Start 03/24/16 at 21:00 Hydromorphone HCl (Dilaudid) 1 mg Q4H PRN IV PAIN; Start 03/25/16 at 06:30 Metoprolol Tartrate (Lopressor) 25 mg BID PO Last administered on 04/03/16 07: 43; Admin Dose 25 MG; Start 03/25/16 at 21:00 Mupirocin (Bactroban) 1 applic BID TOP Last administered on 04/03/16 07:44; Admin Dose 1 APPLIC; Start 03/27/16 at 14:30 Pantoprazole 40 mg 40 mg DAILY@06 PO Last administered on 04/03/16 05:32; Admin Dose 40 MG; Start 03/28/16 at 06:00 Sodium Chloride (NS) 1,000 ml @ 50 mls/hr Q20H IV Last administered on 13:34; Admin Dose 50 MLS/HR; Start 03/29/16 at 17:30 Heparin Sodium (Porcine) (Heparin (5000 Units/0.5 ml)) 5,000 unit Q8 SC Last administered on 04/03/16 05:45; Admin Dose 5,000 UNIT; Start 03/29/16 at 22:00 IV Flush 10 ml 10 ml PRN PRN IV IV PROTOCOL; Start 03/31/16 at 18:00 Vancomycin HCl (Vancocin) 250 ml @ 125 mls/hr Q12H IVPB Last administered on 02:04; Admin Dose 125 MLS/HR; Start 04/03/16 at 02:00 Miscellaneous Information (*Rx Drug Level Order Reminder*) VANCOMYCIN TROUGH AT 1300 ONCE ONCE XX ; Start 04/04/16 at 13:00; Stop 04/04/16 at 13:01 Potassium Chloride (Klor-Con 20) 40 meq DAILY PO ; Start 04/03/16 at 12:30 GEOVANNA ALEXIS M.D. 04/04/16 0227: Assessment/Plan Assessment/Plan Additional Assessment/Plan Vanesa attestation: I discussed the management with EDDIE Simental and agree with above. Exam/Review of Systems Results Result Diagram: 04/02/1662404/02/1625 TAB SIMENTAL Apr 03, 2016 13:35 GEOVANNA ALEXIS M.D. Apr 04, 2016 02:27
[2016-04-03] MEDS: DONEPEZIL 5 MG TAB PO SCH (20:39)
[2016-04-03] MEDS: ATORVASTATIN 40 MG TAB PO SCH (20:39)
[2016-04-04] VITALS (13 sets, daily range): BP systolic 120–157; BP diastolic 60–94; PULSE 60–77; RESP 17–61
[2016-04-04] MEDS: VANCOMYCIN 1 GM in NS 250 ML IVPB SCH ×2 (01:50→14:52)
[2016-04-04] MEDS: PANTOPRAZOLE (EC) 40 MG TAB PO SCH (05:50)
[2016-04-04] MEDS: HEPARIN 5,000 UNIT/0.5 ML SYG SC SCH ×3 (05:50→21:52)
[2016-04-04 06:51] LABS: CREATININE 0.59 mg/dl (0.61-1.24)
[2016-04-04] MEDS: METOPROLOL 25 MG TAB PO SCH ×2 (09:52→21:50)
[2016-04-04] MEDS: MEMANTINE 5 MG TAB PO SCH ×2 (09:52→21:50)
[2016-04-04] MEDS: FERROUS SULFATE (EC) 325 MG TAB PO SCH ×2 (09:52→21:49)
[2016-04-04] MEDS: POTASSIUM CHLORIDE 20 MEQ POWDER FOR ORAL SOLN PO SCH (09:53)
[2016-04-04] MEDS: MUPIROCIN 2% 22 GM OINT TOP SCH ×2 (09:53→21:51)
--- NOTE | 2016-04-04 12:32 | CONS ---
Date/Time of Note Date/Time of Note DATE: 04/04/16 TIME: 12:30 Assessment/Plan Assessment/Plan Chief Complaint/Hosp Course IMPRESSION: 1. Abnormal electrocardiogram, assess for acute coronary syndrome.-negative troponin x 3/NL EF by echo. Lexiscan affected by artifact but no ischemia only scar. Thus at this time patient has no cardiac contraindication to proceeding to OR on current medications without further non-invasive evaluation. Patient is at moderate risk for CV complications. 2. Hypertension. 3. Peripheral arterial disease at aortoiliac bifurcation with likely embolic phenomenon/"Blue toes"-Now post-op s/p peripheral vascular surgery 4. Dyslipidemia. 5. Hypertension. 6. Diabetes mellitus. 7. Iliac artery aneurysm s/p endarterectomy 8. Coronary artery disease. 9. Dementia. 10. Permanent pacemaker. 11.H/O Hip replacement with possible need for revision 12.Hematuria 14. Hypokalemia Recc: -Tele -Continue statin -Continue Heparin Sq -Continue BB -Local wound care -ASA as possible given bleeding complications prior -Pain control -Follow volume status closely -Replete KCL and f/u levels -venous CARLEY to rule out DVT LLE Problems: Consultation Date/Type/Reason Admit Date/Time Mar 24, 2016 at 17:40 Initial Consult Date 03/24/16 Type of Consultation: Cardiology Reason for Consultation cad/HTN Referring Provider: LAVELL BRADLEY MD Exam/Review of Systems Vital Signs Vitals Vital Signs Date Time Temp Pulse Resp B/P Pulse Ox O2 Delivery O2 Flow Rate FiO2 04/04/16 11:40 97.9 65 19 135/63 97 04/02/16 04:12 Room Air 04/01/16 05:36 21 Intake and Output 04/03/16 04/03/16 04/04/16 15:00 23:00 07:00 Intake Total 1260 ml 950 ml Output Total 800 ml 750 ml Balance 460 ml 200 ml Exam Review of Systems: CONSTITUTIONAL: No fevers, chills. PULMONARY: No sob CARDIOVASCULAR: No chest pain/palpitations GASTROINTESTINAL: No nausea/vomiting. GENITOURINARY: No hematuria/dysuria. MUSCULOSKELETAL: No myagias/arthalgias. PSYCHIATRIC: The patient denies depression. NEUROLOGIC: lethargic Constitutional: alert Psych: other (non-communicative) Head: normocephalic ENMT: mucosa pink and moist Neck: jvd (8 cm water), supple Respiratory: clear to auscultation Cardiovascular: regular rate and rhythm Gastrointestinal: non-tender, soft Musculoskeletal: muscle tone (normal) Extremities: edema (assymetric L>R LE) Neurological: lethargic Results Result Diagram: 04/02/16 0625 04/04/16 0604 Results 24 hrs Laboratory Tests Test 04/04/16 06:04 Blood Urea Nitrogen 9 Creatinine 0.59 L Medications Medications Current Medications Lorazepam (Ativan) 0.5 mg Q6H PRN IV ANXIETY Last administered on 04/01/16 22: 27; Admin Dose 0.5 MG; Start 03/24/16 at 18:30 Ondansetron HCl (Zofran Inj) 4 mg Q6H PRN IV NAUSEA AND/OR VOMITING; Start 03/24 at 18:30 Nitroglycerin (Nitroglycerin (Sl Tab) 0.4 Mg) 1 tab Q5M PRN SL CHEST PAIN; Start 03/24/16 at 18:30 Acetaminophen (Tylenol Tab) 650 mg Q6H PRN PO PAIN LEVEL 1-3 OR FEVER Last administered on 04/04/16 12:27; Admin Dose 650 MG; Start 03/24/16 at 18:30 Morphine Sulfate (morphine) 2 mg Q4H PRN IV PAIN LEVEL 7-10 Last administered on 04/03/16 22:21; Admin Dose 2 MG; Start 03/24/16 at 18:30 Atorvastatin Calcium (Lipitor) 40 mg QHS PO Last administered on 04/03/16 20: 39; Admin Dose 40 MG; Start 03/24/16 at 21:00 Donepezil HCl (Aricept) 5 mg QHS PO Last administered on 04/03/16 20:39; Admin Dose 5 MG; Start 03/24/16 at 21:00 Ferrous Sulfate (Ferrous Sulfate (Ec)) 325 mg BID PO Last administered on 09:52; Admin Dose 325 MG; Start 03/24/16 at 21:00 Memantine (Namenda) 5 mg BID PO Last administered on 04/04/16 09:52; Admin Dose 5 MG; Start 03/24/16 at 21:00 Hydromorphone HCl (Dilaudid) 1 mg Q4H PRN IV PAIN; Start 03/25/16 at 06:30 Metoprolol Tartrate (Lopressor) 25 mg BID PO Last administered on 04/04/16 09: 52; Admin Dose 25 MG; Start 03/25/16 at 21:00 Mupirocin (Bactroban) 1 applic BID TOP Last administered on 04/04/16 09:53; Admin Dose 1 APPLIC; Start 03/27/16 at 14:30 Pantoprazole 40 mg 40 mg DAILY@06 PO Last administered on 04/04/16 05:50; Admin Dose 40 MG; Start 03/28/16 at 06:00 Sodium Chloride (NS) 1,000 ml @ 50 mls/hr Q20H IV Last administered on 13:40; Admin Dose 50 MLS/HR; Start 03/29/16 at 17:30 Heparin Sodium (Porcine) (Heparin (5000 Units/0.5 ml)) 5,000 unit Q8 SC Last administered on 04/04/16 05:50; Admin Dose 5,000 UNIT; Start 03/29/16 at 22:00 IV Flush 10 ml 10 ml PRN PRN IV IV PROTOCOL; Start 03/31/16 at 18:00 Vancomycin HCl (Vancocin) 250 ml @ 125 mls/hr Q12H IVPB Last administered on 01:50; Admin Dose 125 MLS/HR; Start 04/03/16 at 02:00 Miscellaneous Information (*Rx Drug Level Order Reminder*) VANCOMYCIN TROUGH AT 1300 ONCE ONCE XX ; Start 04/04/16 at 13:00; Stop 04/04/16 at 13:01 Potassium Chloride (Potassium Chloride Pwd/Soln) 40 meq DAILY PO Last administered on 04/04/16 09:53; Admin Dose 40 MEQ; Start 04/04/16 at 09:30 NICANOR VARGAS Apr 04, 2016 12:32
--- NOTE | 2016-04-04 12:33 | CONS ---
MARIANA ZUNIGA [employer] 04/04/16 1224: Date/Time of Note Date/Time of Note DATE: 04/04/16 TIME: 12:13 Assessment/Plan Assessment/Plan Chief Complaint/Hosp Course - SIRS vs early sepsis. Leukocytosis and tachycardia resolved. 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 capitis on 03/31/16. TTE did not demonstrate valvular vegetation - Aortoiliac atherosclerotic disease, ectatic right common iliac artery with thrombus s/p EVAR 03/29/16 - Blue toe syndrome - Funguria (s/p Vfend 03/28-03/30) - CAD - PPM - T2DM Hgb A1c 5.5% - HTN associated with DM - HLD associated with DM - ACD s/p 1 unit PRBC 03/29/16 - Hypokalemia - dementia - DNR Recommendations: - Called [facility] to f/u sensitivity of strains of CoNS and Yelena said she would follow up. If only one species is identified, favor blood stream infection instead of colonization - F/u final blood cx 04/02/16 (Negative to date) - Continue IV Vanco (03/31/16-) - We recommend diagnostic arthrocentesis to determine duration of abx - Management d/w pt's RN - Above d/w Dr. Alexis Problems: Consultation Date/Type/Reason Admit Date/Time Mar 24, 2016 at 17:40 Initial Consult Date 03/28/16 Type of Consultation: Infectious Disease Referring Provider: LAVELL BRADLEY MD 24 HR Interval Summary Free Text/Dictation Afebrile and clinically unchanged per EVAN Reeves. Nods yes to c/o pain and points to right foot when asked where pain is located. Nods no to SOB. ROS limited d/t baseline dementia. Exam/Review of Systems Vital Signs Vitals Vital Signs Date Time Temp Pulse Resp B/P Pulse Ox O2 Delivery O2 Flow Rate FiO2 04/04/16 11:40 97.9 65 19 135/63 97 04/02/16 04:12 Room Air 04/01/16 05:36 21 Intake and Output 04/03/16 04/03/16 04/04/16 15:00 23:00 07:00 Intake Total 1260 ml 950 ml Output Total 800 ml 750 ml Balance 460 ml 200 ml Exam Constitutional: awake, alert, non-verbal, other (somewhat cachectic) Head: atraumatic, normocephalic Eyes: nl conjunctiva Neck: supple, No jvd Respiratory: clear to auscultation, normal air movement. Left chest wall PM noted intact. Cardiovascular: regular rate and rhythm, Normal S1 and S2 Gastrointestinal: non-tender, soft Genitourinary - Male: other (condom catheter intact with hazy yellow urine) Extremities: cyanosis (LLE all toes and RLE 2nd toe bluish discoloration noted) , edema (1+ edema on LLE), other (DP palpable on R and faintly palpable on L), No clubbing. RUE PICC line c/d/i. Neurological: nods to simple questions. LEVIN with generalized weakness. Skin: nl turgor, other (multiple pressure ulcers - see Nurse's notes for detials; RLQ dressing c/d/i; surgical glue on LLQ c/d/i) Results Blood cx 04/02/16: BLOOD CULTURE Preliminary NO GROWTH AFTER 1 DAY Result Diagram: 04/02/16 0625 04/04/16 0604 Results 24 hrs Laboratory Tests Test 04/04/16 06:04 Blood Urea Nitrogen 9 Creatinine 0.59 L Medications Medications Current Medications Lorazepam (Ativan) 0.5 mg Q6H PRN IV ANXIETY Last administered on 04/01/16 22: 27; Admin Dose 0.5 MG; Start 03/24/16 at 18:30 Ondansetron HCl (Zofran Inj) 4 mg Q6H PRN IV NAUSEA AND/OR VOMITING; Start 03/24 at 18:30 Nitroglycerin (Nitroglycerin (Sl Tab) 0.4 Mg) 1 tab Q5M PRN SL CHEST PAIN; Start 03/24/16 at 18:30 Acetaminophen (Tylenol Tab) 650 mg Q6H PRN PO PAIN LEVEL 1-3 OR FEVER; Start at 18:30 Morphine Sulfate (morphine) 2 mg Q4H PRN IV PAIN LEVEL 7-10 Last administered on 04/03/16 22:21; Admin Dose 2 MG; Start 03/24/16 at 18:30 Atorvastatin Calcium (Lipitor) 40 mg QHS PO Last administered on 04/03/16 20: 39; Admin Dose 40 MG; Start 03/24/16 at 21:00 Donepezil HCl (Aricept) 5 mg QHS PO Last administered on 04/03/16 20:39; Admin Dose 5 MG; Start 03/24/16 at 21:00 Ferrous Sulfate (Ferrous Sulfate (Ec)) 325 mg BID PO Last administered on 09:52; Admin Dose 325 MG; Start 03/24/16 at 21:00 Memantine (Namenda) 5 mg BID PO Last administered on 04/04/16 09:52; Admin Dose 5 MG; Start 03/24/16 at 21:00 Hydromorphone HCl (Dilaudid) 1 mg Q4H PRN IV PAIN; Start 03/25/16 at 06:30 Metoprolol Tartrate (Lopressor) 25 mg BID PO Last administered on 04/04/16 09: 52; Admin Dose 25 MG; Start 03/25/16 at 21:00 Mupirocin (Bactroban) 1 applic BID TOP Last administered on 04/04/16 09:53; Admin Dose 1 APPLIC; Start 03/27/16 at 14:30 Pantoprazole 40 mg 40 mg DAILY@06 PO Last administered on 04/04/16 05:50; Admin Dose 40 MG; Start 03/28/16 at 06:00 Sodium Chloride (NS) 1,000 ml @ 50 mls/hr Q20H IV Last administered on 13:40; Admin Dose 50 MLS/HR; Start 03/29/16 at 17:30 Heparin Sodium (Porcine) (Heparin (5000 Units/0.5 ml)) 5,000 unit Q8 SC Last administered on 04/04/16 05:50; Admin Dose 5,000 UNIT; Start 03/29/16 at 22:00 IV Flush 10 ml 10 ml PRN PRN IV IV PROTOCOL; Start 03/31/16 at 18:00 Vancomycin HCl (Vancocin) 250 ml @ 125 mls/hr Q12H IVPB Last administered on 01:50; Admin Dose 125 MLS/HR; Start 04/03/16 at 02:00 Miscellaneous Information (*Rx Drug Level Order Reminder*) VANCOMYCIN TROUGH AT 1300 ONCE ONCE XX ; Start 04/04/16 at 13:00; Stop 04/04/16 at 13:01 Potassium Chloride (Potassium Chloride Pwd/Soln) 40 meq DAILY PO Last administered on 04/04/16t 09:53; Admin Dose 40 MEQ; Start 04/04/16 at 09:30 Procedures Procedures TTE 03/24/16: Conclusions 1. Normal left ventricular systolic function. Normal left ventricular cavity size. Normal left ventricular wall thickness. Ejection fraction is visually estimated at 55 %. Tissue Doppler/Mitral Doppler indices are consistent with impaired relaxation (Stage I diastolic dysfunction). 2. Normal right ventricular size. Normal right ventricular systolic function. Pacemaker right heart. 3. Mitral valve leaflets appear mildly thickened. Mild mitral annular calcification. Trace mitral regurgitation. 4. Normal appearance of the tricuspid valve. Estimated peak PA systolic pressure 21 mmHg. There is trace tricuspid regurgitation. GEOVANNA ALEXIS M.D. 04/11/16 0850: Assessment/Plan Assessment/Plan Additional Assessment/Plan Vanesa attestation: I discussed the management with OPAL Zuniga and agree with above. Exam/Review of Systems Results Result Diagram: 04/02/16 0625 04/04/16 0604 MARIANA ZUNIGA NP Apr 04, 2016 12:24 GEOVANNA ALEXIS M.D. Apr 11, 2016 08:50
--- NOTE | 2016-04-04 13:52 | RADRPT ---
PROCEDURE: US DVT. CLINICAL INDICATION: Left lower extremity edema. TECHNIQUE: Multiple longitudinal and transverse images of the left lower extremity veins were obta ined with simon scale and color Doppler imaging. 2D grayscale measurements with compression, color D oppler flow, and augmentation was performed. The calf veins were interrogated as well. COMPARISON: No prior studies are available for comparison. FINDINGS: The left common femoral, superficial femoral and popliteal veins are normally compressible throughou t. Color flow demonstrates normal filling of the vessel. Normal waveforms are visualized and there is normal response to augmentation. The calf veins are visualized and are equally unremarkable. IMPRESSION: 1. No evidence of a deep vein thrombosis involving the left lower extremity. RPTAT: [facility] Physician Vale Date Time Electronically viewed and signed by Physician Vale on 04/04/2016 13:52 /
[2016-04-04] MEDS: SOD CHLORIDE 0.9% 1,000 ML IV SCH (14:51)
[2016-04-04] MEDS: HYDROmorphONE 1 MG/ML SYG IV PRN (16:31)
--- NOTE | 2016-04-04 17:43 | PN ---
Date/Time of Note Date/Time of Note DATE: 04/04/16 TIME: 17:36 Assessment/Plan VTE Prophylaxis VTE Prophylaxis Intervention: SCD's Lines/Catheters IV Catheter Type (from [facility]): PICC Line Central line still needed: Yes Assessment/Plan Chief Complaint/Hosp Course Assessment and plan - Probable Left hip prosthetic hardware infection. Dr. Maria is following from infectious disease standpoint. Continue antibiotics per ID. Status post evaluation by orthopedic surgeon with recommendation to follow-up with operating surgeon or to transfer patient to a high level of care. - Aortoiliac atherosclerotic disease, ectatic right common iliac artery with thrombus. Dr. Mondragon is following in vascular surgery consultation. S/p endovascular aortic aneurysm repair and right common femoral artery localized endarterectomy on 03/31. - Hematuria, resoled. - Blue toe syndrome, s/p revascularization procedure. - Dementia, continue Aricept and Namenda. - Diabetes mellitus type 2 - Coronary artery disease. Dr. Peters is following and cardiology consultation. - Hypertension, continue metoprolol. - Permanent pacemaker - Chronic anemia Continue Protonix for peptic ulcer disease prophylaxis Further recommendations based on clinical course. Plan of care discussed with Dr. Poole. Problems: Subjective 24 Hr Interval Summary Free Text/Dictation No acute events overnight, patient remains afebrile, good urine output, no nausea vomiting. Exam/Review of Systems Vital Signs Vitals Vital Signs Date Time Temp Pulse Resp B/P Pulse Ox O2 Delivery O2 Flow Rate FiO2 04/04/16 15:26 98.2 66 61 129/61 94 04/02/16 04:12 Room Air 04/01/16 05:36 21 Intake and Output 04/03/16 04/03/16 04/04/16 15:00 23:00 07:00 Intake Total 1260 ml 950 ml Output Total 800 ml 750 ml Balance 460 ml 200 ml Exam Constitutional: alert, well developed Head: atraumatic, normocephalic Eyes: nl conjunctiva ENMT: nl external ears & nose Neck: jvd, supple Respiratory: clear to auscultation Cardiovascular: regular rate and rhythm Gastrointestinal: nl liver, spleen, soft Genitourinary - Male: nl penis, other ( Torrez catheter ) Musculoskeletal: nl extremities to inspection, Extremities: normal pulses, bilateral LE s/p vascular intervention Results Result Diagram: 04/02/16 0625 04/04/16 0604 Results 24 hrs Laboratory Tests Test 04/04/16 06:04 04/04/16 13:20 Blood Urea Nitrogen 9 Creatinine 0.59 L Vancomycin Level Trough 15.2 Medications Medications Current Medications Lorazepam (Ativan) 0.5 mg Q6H PRN IV ANXIETY Last administered on 04/01/16 22: 27; Admin Dose 0.5 MG; Start 03/24/16 at 18:30 Ondansetron HCl (Zofran Inj) 4 mg Q6H PRN IV NAUSEA AND/OR VOMITING; Start 03/24 at 18:30 Nitroglycerin (Nitroglycerin (Sl Tab) 0.4 Mg) 1 tab Q5M PRN SL CHEST PAIN; Start 03/24/16 at 18:30 Acetaminophen (Tylenol Tab) 650 mg Q6H PRN PO PAIN LEVEL 1-3 OR FEVER Last administered on 04/04/16 12:27; Admin Dose 650 MG; Start 03/24/16 at 18:30 Morphine Sulfate (morphine) 2 mg Q4H PRN IV PAIN LEVEL 7-10 Last administered on 04/03/16 22:21; Admin Dose 2 MG; Start 03/24/16 at 18:30 Atorvastatin Calcium (Lipitor) 40 mg QHS PO Last administered on 04/03/16 20: 39; Admin Dose 40 MG; Start 03/24/16 at 21:00 Donepezil HCl (Aricept) 5 mg QHS PO Last administered on 04/03/16 20:39; Admin Dose 5 MG; Start 03/24/16 at 21:00 Ferrous Sulfate (Ferrous Sulfate (Ec)) 325 mg BID PO Last administered on 09:52; Admin Dose 325 MG; Start 03/24/16 at 21:00 Memantine (Namenda) 5 mg BID PO Last administered on 04/04/16 09:52; Admin Dose 5 MG; Start 03/24/16 at 21:00 Hydromorphone HCl (Dilaudid) 1 mg Q4H PRN IV PAIN Last administered on 16:31; Admin Dose 1 MG; Start 03/25/16 at 06:30 Metoprolol Tartrate (Lopressor) 25 mg BID PO Last administered on 04/04/16 09: 52; Admin Dose 25 MG; Start 03/25/16 at 21:00 Mupirocin (Bactroban) 1 applic BID TOP Last administered on 04/04/16 09:53; Admin Dose 1 APPLIC; Start 03/27/16 at 14:30 Pantoprazole 40 mg 40 mg DAILY@06 PO Last administered on 04/04/16 05:50; Admin Dose 40 MG; Start 03/28/16 at 06:00 Sodium Chloride (NS) 1,000 ml @ 50 mls/hr Q20H IV Last administered on 14:51; Admin Dose 50 MLS/HR; Start 03/29/16 at 17:30 Heparin Sodium (Porcine) (Heparin (5000 Units/0.5 ml)) 5,000 unit Q8 SC Last administered on 04/04/16 15:07; Admin Dose 5,000 UNIT; Start 03/29/16 at 22:00 IV Flush 10 ml 10 ml PRN PRN IV IV PROTOCOL; Start 03/31/16 at 18:00 Vancomycin HCl (Vancocin) 250 ml @ 125 mls/hr Q12H IVPB Last administered on 14:52; Admin Dose 125 MLS/HR; Start 04/03/16 at 02:00 Potassium Chloride (Potassium Chloride Pwd/Soln) 40 meq DAILY PO Last administered on 04/04/16 09:53; Admin Dose 40 MEQ; Start 04/04/16 at 09:30 LAICIA MONTGOMERY Apr 04, 2016 17:43
--- NOTE | 2016-04-04 20:25 | PN ---
Date/Time of Note Date/Time of Note DATE: 04/04/16 TIME: 20:14 Assessment/Plan Lines/Catheters IV [facility] Type ([facility]): PICC Line Assessment/Plan Chief Complaint/Hosp Course -Aortoiliac atherosclerotic disease, ectatic right common iliac artery with thrombus: S/P EVAR -No need for anticoagulation any longer. -PT/OT, pt has left hip dislocation - Orthopedics involved, There does not seem to be an infection of the hip. No fluctuance, no induration, no erythema, On CTA there was no fluid collection identified in the vicinity of the implant ( although artifact). Elevated WBC was likely reactive to Torrez catheter placement which was difficult preoperatively during his workup and reactive to his new abdominal surgery, unlikely for any infection. Blood cultures were likely a contaminated sample (likely staph epi) as no cultures have been positive upon new draws -Discharge planning -Discussed findings, plan and management with the patient's care provider. -Optimize vascular status (BP meds, diet, nutrition, exercise, sugar control, antiplatelets). -Thank you for allowing us to partake in the care of your patient. Please call with any questions. Problems: Subjective 24 Hr Interval Summary No new vascular events overnight Exam/Review of Systems Vital Signs Vitals Vital Signs Date Time Temp Pulse Resp B/P Pulse Ox O2 Delivery O2 Flow Rate FiO2 04/04/16 17:37 77 04/04/16 15:26 98.2 61 129/61 94 04/02/16 04:12 Room Air 04/01/16 05:36 21 Intake and Output 04/03/16 04/03/16 04/04/16 15:00 23:00 07:00 Intake Total 1260 ml 950 ml Output Total 800 ml 750 ml Balance 460 ml 200 ml Exam Free Text/Dictation GENERAL: Awake and alert and able to answer some questions. PULMONARY: Clear to auscultation bilaterally. CARDIOVASCULAR: S1, S2 present. ABDOMEN: Soft. NTND Bowel sounds positive. EXTREMITIES: RLE: Palpable femoral pulses, dressing removed and incision clean and dry, faint palpable pedal pulses. Motor, sensory intact. Capillary refill 2 seconds. On the right, the first 3 toes have bluish discoloration. LLE: Palpable femoral pulses, puncture site without hematoma and soft, nonpalpable pedal pulses. Motor, sensory intact. Capillary refill 2-3 seconds. all toes have bluish discoloration - improving. Edema 1+, dopplerable signal PT/DP. The staple line of the left hip incision has some staple line irritation, no fluctuance, no induration and no erythema Results Result Diagram: 04/02/16 0625 04/04/16 0604 ANN GROSS MD Apr 04, 2016 20:24
[2016-04-04] MEDS: ATORVASTATIN 40 MG TAB PO SCH (21:49)
[2016-04-04] MEDS: DONEPEZIL 5 MG TAB PO SCH (21:49)
[2016-04-05] VITALS (10 sets, daily range): BP systolic 123–149; BP diastolic 59–78; PULSE 59–65; RESP 17–19
[2016-04-05] MEDS: VANCOMYCIN 1 GM in NS 250 ML IVPB SCH (02:18)
[2016-04-05] MEDS: PANTOPRAZOLE (EC) 40 MG TAB PO SCH (05:21)
[2016-04-05] MEDS: HEPARIN 5,000 UNIT/0.5 ML SYG SC SCH ×3 (05:22→22:19)
[2016-04-05 08:13] LABS: POTASSIUM 3.5 mmol/L (3.5-5.1)
[2016-04-05 08:16] LABS: CREATININE 0.6 mg/dl (0.61-1.24)
[2016-04-05 08:17] LABS: CALCIUM 7.8 mg/dl (8.4-10.2)
[2016-04-05 09:01] LABS: BASOPHILS % 0.1 % (0.0-2.0); EOSINOPHILS # 0.6 10^3/ul (0.0-0.5); EOSINOPHILS % 7.1 % (0.0-7.0); HEMATOCRIT 29.8 % (42.0-52.0); HEMOGLOBIN 10.1 g/dl (14.0-18.0); LYMPHOCYTES # 1.1 10^3/ul (0.8-2.9); LYMPHOCYTES % 13.8 % (15.0-51.0); MEAN CORPUSCULAR HEMOGLOBIN 31.4 pg (29.0-33.0); MEAN CORPUSCULAR VOLUME 92.4 fl (82.0-101.0); MEAN PLATELET VOLUME 7.4 fl (7.4-10.4); MONOCYTE # 0.7 10^3/ul (0.3-0.9); MONOCYTES % 8.8 % (0.0-11.0); NEUTROPHIL # 5.8 10^3/ul (1.6-7.5); NEUTROPHILS % 70.2 % (39.0-77.0); PLATELET COUNT 349 10^3/UL (140-440); RED BLOOD COUNT 3.22 10^6/ul (4.70-6.10); RED CELL DISTRIBUTION WIDTH 16.1 % (11.5-14.5); UNCORRECTED WBC 8.3 10^3/ul (4.8-10.8); WHITE BLOOD COUNT 8.3 10^3/ul (4.8-10.8)
[2016-04-05 09:11] LABS: CONDITION 1; LH ANALYZER COMMENTS 1
[2016-04-05] MEDS: MEMANTINE 5 MG TAB PO SCH ×2 (09:52→22:16)
[2016-04-05] MEDS: METOPROLOL 25 MG TAB PO SCH ×2 (09:53→22:16)
[2016-04-05] MEDS: POTASSIUM CHLORIDE 20 MEQ POWDER FOR ORAL SOLN PO SCH (09:53)
[2016-04-05] MEDS: MUPIROCIN 2% 22 GM OINT TOP SCH ×2 (09:54→22:17)
[2016-04-05] MEDS: FERROUS SULFATE (EC) 325 MG TAB PO SCH ×2 (09:54→22:16)
--- NOTE | 2016-04-05 11:32 | CONS ---
Date/Time of Note Date/Time of Note DATE: 04/05/16 TIME: 11:22 Assessment/Plan Assessment/Plan Chief Complaint/Hosp Course - SIRS vs early sepsis. Leukocytosis and tachycardia resolved. 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 capitis on 03/31/16 and S. epidermidis on 03/30/16). TTE did not demonstrate valvular vegetation - Aortoiliac atherosclerotic disease, ectatic right common iliac artery with thrombus s/p EVAR 03/29/16 - Blue toe syndrome - Funguria (s/p Vfend 03/28-03/30) - CAD - PPM - T2DM Hgb A1c 5.5% - HTN associated with DM - HLD associated with DM - ACD s/p 1 unit PRBC 03/29/16 - Hypokalemia - dementia - DNR Recommendations: - Called Micro 04/04/16 to f/u sensitivity of strains of CoNS and Yelena said she would follow up; now listed in computer with two species identified which does not favor blood stream infection but does not necessarily rule out prosthetic joint infection - F/u final blood cx 04/02/16 (Negative to date) - Continue IV Vanco (03/31/16-) - We strongly recommend diagnostic arthrocentesis to determine duration of abx course - Management d/w pt's RN as well as with Claudette [employer] - Above d/w Dr. Maria Problems: Consultation Date/Type/Reason Admit Date/Time Mar 24, 2016 at 17:40 Initial Consult Date 03/28/16 Type of Consultation: Infectious Disease Referring Provider: LAVELL BRADLEY MD 24 HR Interval Summary Free Text/Dictation Afebrile; remains clinically unchanged per EVAN Reeves. Unable to do ROS d/t baseline dementia. Subjective hx not possible: pt non-verbal Exam/Review of Systems Vital Signs Vitals Vital Signs Date Time Temp Pulse Resp B/P Pulse Ox O2 Delivery O2 Flow Rate FiO2 04/05/16 11:07 97.6 64 18 123/62 96 04/02/16 04:12 Room Air Intake and Output 04/04/16 04/04/16 04/05/16 15:00 23:00 07:00 Intake Total 1200 ml 240 ml Output Total 100 ml 1400 ml Balance 1100 ml -1160 ml Exam Constitutional: awake, alert, non-verbal, other (somewhat cachectic) Head: atraumatic, normocephalic Eyes: nl conjunctiva Neck: supple, No jvd Respiratory: clear to auscultation, normal air movement. Left chest wall PM noted intact. Cardiovascular: regular rate and rhythm, Normal S1 and S2 Gastrointestinal: non-tender, soft Genitourinary - Male: other (condom catheter intact with slightly hazy yellow urine) Extremities: cyanosis (LLE all toes and RLE 1st & 2nd toe bluish discoloration noted), edema (1+ edema on LLE), other (DP palpable on R and faintly palpable on L), No clubbing. RUE PICC line c/d/i. Neurological: nods to simple questions. LEVIN with generalized weakness. Skin: nl turgor, other (multiple pressure ulcers - see Nurse's notes for detials; RLQ dressing c/d/i; surgical glue on LLQ c/d/i), wounds (Left hip with fidelina LINDA c/d/i with slight erythema and ?TTP) Results Result Diagram: 04/05/16 0731 04/05/16 0731 Results 24 hrs Laboratory Tests Test 04/04/16 13:20 04/05/16 07:31 Vancomycin Level Trough 15.2 Anion Gap 11 Basophils # 0.0 Basophils % 0.1 Blood Morphology Comment Blood Urea Nitrogen 9 Calcium Level 7.8 L Carbon Dioxide Level 27 Chloride Level 104 Creatinine 0.60 L Eosinophils # 0.6 H Eosinophils % 7.1 H Glucose Level 86 Hematocrit 29.8 L Hemoglobin 10.1 L Lymphocytes # 1.1 Lymphocytes % 13.8 L Mean Corpuscular Hemoglobin 31.4 Mean Corpuscular Hemoglobin Concent 34.0 Mean Corpuscular Volume 92.4 Mean Platelet Volume 7.4 Monocytes # 0.7 Monocytes % 8.8 Neutrophils # 5.8 Neutrophils % 70.2 Nucleated Red Blood Cells # 0.0 Nucleated Red Blood Cells % 0.0 Platelet Count 349 Potassium Level 3.5 Red Blood Count 3.22 L Red Cell Distribution Width 16.1 H Sodium Level 138 White Blood Count 8.3 Medications Medications Current Medications Lorazepam (Ativan) 0.5 mg Q6H PRN IV ANXIETY Last administered on 04/01/16 22: 27; Admin Dose 0.5 MG; Start 03/24/16 at 18:30 Ondansetron HCl (Zofran Inj) 4 mg Q6H PRN IV NAUSEA AND/OR VOMITING; Start 03/24 at 18:30 Nitroglycerin (Nitroglycerin (Sl Tab) 0.4 Mg) 1 tab Q5M PRN SL CHEST PAIN; Start 03/24/16 at 18:30 Acetaminophen (Tylenol Tab) 650 mg Q6H PRN PO PAIN LEVEL 1-3 OR FEVER Last administered on 04/04/16 12:27; Admin Dose 650 MG; Start 03/24/16 at 18:30 Morphine Sulfate (morphine) 2 mg Q4H PRN IV PAIN LEVEL 7-10 Last administered on 04/03/16 22:21; Admin Dose 2 MG; Start 03/24/16 at 18:30 Atorvastatin Calcium (Lipitor) 40 mg QHS PO Last administered on 04/04/16 21: 49; Admin Dose 40 MG; Start 03/24/16 at 21:00 Donepezil HCl (Aricept) 5 mg QHS PO Last administered on 04/04/16 21:49; Admin Dose 5 MG; Start 03/24/16 at 21:00 Ferrous Sulfate (Ferrous Sulfate (Ec)) 325 mg BID PO Last administered on 09:54; Admin Dose 325 MG; Start 03/24/16 at 21:00 Memantine (Namenda) 5 mg BID PO Last administered on 04/05/16 09:52; Admin Dose 5 MG; Start 03/24/16 at 21:00 Hydromorphone HCl (Dilaudid) 1 mg Q4H PRN IV PAIN Last administered on 16:31; Admin Dose 1 MG; Start 03/25/16 at 06:30 Metoprolol Tartrate (Lopressor) 25 mg BID PO Last administered on 04/05/16 09: 53; Admin Dose 25 MG; Start 03/25/16 at 21:00 Mupirocin (Bactroban) 1 applic BID TOP Last administered on 04/05/16 09:54; Admin Dose 1 APPLIC; Start 03/27/16 at 14:30 Pantoprazole 40 mg 40 mg DAILY@06 PO Last administered on 04/05/16 05:21; Admin Dose 40 MG; Start 03/28/16 at 06:00 Sodium Chloride (NS) 1,000 ml @ 50 mls/hr Q20H IV Last administered on 14:51; Admin Dose 50 MLS/HR; Start 03/29/16 at 17:30 Heparin Sodium (Porcine) (Heparin (5000 Units/0.5 ml)) 5,000 unit Q8 SC Last administered on 04/05/16 05:22; Admin Dose 5,000 UNIT; Start 03/29/16 at 22:00 IV Flush 10 ml 10 ml PRN PRN IV IV PROTOCOL; Start 03/31/16 at 18:00 Vancomycin HCl (Vancocin) 250 ml @ 125 mls/hr Q12H IVPB Last administered on 02:18; Admin Dose 125 MLS/HR; Start 04/03/16 at 02:00 Potassium Chloride (Potassium Chloride Pwd/Soln) 40 meq DAILY PO Last administered on 04/05/16 09:53; Admin Dose 40 MEQ; Start 04/04/16 at 09:30 Procedures Procedures LLE venous study 04/04/16: No evidence of a deep vein thrombosis involving the left lower extremity. MARIANA ZUNIGA NP Apr 05, 2016 11:32
[2016-04-05] MEDS: VANCOMYCIN 750 MG in SOD CHLORIDE 0.9% 150 ML IVPB SCH (14:40)
[2016-04-05] MEDS: SOD CHLORIDE 0.9% 1,000 ML IV SCH (14:40)
--- NOTE | 2016-04-05 15:24 | CONS ---
Date/Time of Note Date/Time of Note DATE: 04/05/16 TIME: 15:21 Assessment/Plan Assessment/Plan Chief Complaint/Hosp Course IMPRESSION: 1. Abnormal electrocardiogram, assess for acute coronary syndrome.-negative troponin x 3/NL EF by echo. Lexiscan affected by artifact but no ischemia only scar. Thus at this time patient has no cardiac contraindication to proceeding to OR on current medications without further non-invasive evaluation. Patient is at moderate risk for CV complications. 2. Hypertension. 3. Peripheral arterial disease at aortoiliac bifurcation with likely embolic phenomenon/"Blue toes"-Now post-op s/p peripheral vascular surgery 4. Dyslipidemia. 5. Hypertension. 6. Diabetes mellitus. 7. Iliac artery aneurysm s/p endarterectomy 8. Coronary artery disease. 9. Dementia. 10. Permanent pacemaker. 11.H/O Hip replacement with possible need for revision 12.Hematuria 14. Hypokalemia-improving s/p repletion 15. Edema-s/p venous CARLEY with no DVT Recc: -Tele -Continue statin -Continue Heparin Sq -Continue BB -Local wound care -ASA as possible given bleeding complications prior -Pain control -Follow volume status closely and will give dose of lasix Problems: Consultation Date/Type/Reason Admit Date/Time Mar 24, 2016 at 17:40 Initial Consult Date 03/24/16 Type of Consultation: Cardiology Reason for Consultation abnl ecg Referring Provider: LAVELL BRADLEY MD Exam/Review of Systems Vital Signs Vitals Vital Signs Date Time Temp Pulse Resp B/P Pulse Ox O2 Delivery O2 Flow Rate FiO2 04/05/16 12:05 65 04/05/16 11:07 97.6 18 123/62 96 04/02/16 04:12 Room Air Intake and Output 04/04/16 04/04/16 04/05/16 15:00 23:00 07:00 Intake Total 1200 ml 240 ml Output Total 100 ml 1400 ml Balance 1100 ml -1160 ml Exam Review of Systems: CONSTITUTIONAL: No fevers, chills. PULMONARY: No sob CARDIOVASCULAR: No chest pain/palpitations GASTROINTESTINAL: No nausea/vomiting. GENITOURINARY: No hematuria/dysuria. MUSCULOSKELETAL: No myagias/arthalgias. PSYCHIATRIC: The patient denies depression. NEUROLOGIC: lethargic Constitutional: alert Psych: no complaints Head: normocephalic ENMT: mucosa pink and moist Neck: jvd (9 cm water), supple Respiratory: diminished breath sounds (at bases/B) Cardiovascular: regular rate and rhythm Gastrointestinal: non-tender, soft Musculoskeletal: muscle tone (normal) Extremities: pitting pedal edema (assymetric) Neurological: lethargic Results Result Diagram: 04/05/16 0731 04/05/16 0731 Results 24 hrs Laboratory Tests Test 04/05/16 07:31 Anion Gap 11 Basophils # 0.0 Basophils % 0.1 Blood Morphology Comment Blood Urea Nitrogen 9 Calcium Level 7.8 L Carbon Dioxide Level 27 Chloride Level 104 Creatinine 0.60 L Eosinophils # 0.6 H Eosinophils % 7.1 H Glucose Level 86 Hematocrit 29.8 L Hemoglobin 10.1 L Lymphocytes # 1.1 Lymphocytes % 13.8 L Mean Corpuscular Hemoglobin 31.4 Mean Corpuscular Hemoglobin Concent 34.0 Mean Corpuscular Volume 92.4 Mean Platelet Volume 7.4 Monocytes # 0.7 Monocytes % 8.8 Neutrophils # 5.8 Neutrophils % 70.2 Nucleated Red Blood Cells # 0.0 Nucleated Red Blood Cells % 0.0 Platelet Count 349 Potassium Level 3.5 Red Blood Count 3.22 L Red Cell Distribution Width 16.1 H Sodium Level 138 White Blood Count 8.3 Medications Medications Current Medications Lorazepam (Ativan) 0.5 mg Q6H PRN IV ANXIETY Last administered on 04/01/16 22: 27; Admin Dose 0.5 MG; Start 03/24/16 at 18:30 Ondansetron HCl (Zofran Inj) 4 mg Q6H PRN IV NAUSEA AND/OR VOMITING; Start 03/24 at 18:30 Nitroglycerin (Nitroglycerin (Sl Tab) 0.4 Mg) 1 tab Q5M PRN SL CHEST PAIN; Start 03/24/16 at 18:30 Acetaminophen (Tylenol Tab) 650 mg Q6H PRN PO PAIN LEVEL 1-3 OR FEVER Last administered on 04/04/16 12:27; Admin Dose 650 MG; Start 03/24/16 at 18:30 Morphine Sulfate (morphine) 2 mg Q4H PRN IV PAIN LEVEL 7-10 Last administered on 04/03/16 22:21; Admin Dose 2 MG; Start 03/24/16 at 18:30 Atorvastatin Calcium (Lipitor) 40 mg QHS PO Last administered on 04/04/16 21: 49; Admin Dose 40 MG; Start 03/24/16 at 21:00 Donepezil HCl (Aricept) 5 mg QHS PO Last administered on 04/04/16 21:49; Admin Dose 5 MG; Start 03/24/16 at 21:00 Ferrous Sulfate (Ferrous Sulfate (Ec)) 325 mg BID PO Last administered on 09:54; Admin Dose 325 MG; Start 03/24/16 at 21:00 Memantine (Namenda) 5 mg BID PO Last administered on 04/05/16 09:52; Admin Dose 5 MG; Start 03/24/16 at 21:00 Hydromorphone HCl (Dilaudid) 1 mg Q4H PRN IV PAIN Last administered on 16:31; Admin Dose 1 MG; Start 03/25/16 at 06:30 Metoprolol Tartrate (Lopressor) 25 mg BID PO Last administered on 04/05/16 09: 53; Admin Dose 25 MG; Start 03/25/16 at 21:00 Mupirocin (Bactroban) 1 applic BID TOP Last administered on 04/05/16 09:54; Admin Dose 1 APPLIC; Start 03/27/16 at 14:30 Pantoprazole 40 mg 40 mg DAILY@06 PO Last administered on 04/05/16 05:21; Admin Dose 40 MG; Start 03/28/16 at 06:00 Sodium Chloride (NS) 1,000 ml @ 50 mls/hr Q20H IV Last administered on 14:40; Admin Dose 50 MLS/HR; Start 03/29/16 at 17:30 Heparin Sodium (Porcine) (Heparin (5000 Units/0.5 ml)) 5,000 unit Q8 SC Last administered on 04/05/16 05:22; Admin Dose 5,000 UNIT; Start 03/29/16 at 22:00 IV Flush (NS 10 ml) 10 ml PRN PRN IV IV PROTOCOL; Start 03/31/16 at 18:00 Potassium Chloride 40 meq 40 meq DAILY PO Last administered on 04/05/16 09:53 ; Admin Dose 40 MEQ; Start 04/04/16 at 09:30 Vancomycin HCl/ Sodium Chloride (Vancocin/NS) 150 ml @ 75 mls/hr Q12H IVPB Last administered on 04/05/16t 14:40; Admin Dose 75 MLS/HR; Start 04/05/16 at 14 :00 NICANOR VARGAS Apr 05, 2016 15:24
[2016-04-05] MEDS ORDERED: FUROSEMIDE 20 MG INJ IV ONE (15:30)
--- NOTE | 2016-04-05 16:54 | PN ---
Date/Time of Note Date/Time of Note DATE: 04/05/16 TIME: 16:52 Assessment/Plan VTE Prophylaxis VTE Prophylaxis Intervention: SCD's Lines/Catheters IV Catheter Type (from Nrsg): PICC Line Central line still needed: Yes Urinary Cath still in place: Yes Reason Cath still needed: urinary retention Assessment/Plan Chief Complaint/Hosp Course Assessment and plan - Probable Left hip prosthetic hardware infection. Dr. Maria is following from infectious disease standpoint. Continue antibiotics per ID. Status post evaluation by orthopedic surgeon with recommendation to follow-up with operating surgeon or to transfer patient to a high level of care. - Aortoiliac atherosclerotic disease, ectatic right common iliac artery with thrombus. Dr. Mondragon is following in vascular surgery consultation. S/p endovascular aortic aneurysm repair and right common femoral artery localized endarterectomy on 03/31. - Hematuria, resoled. - Blue toe syndrome, s/p revascularization procedure. - Dementia, continue Aricept and Namenda. - Diabetes mellitus type 2 - Coronary artery disease. Dr. Peters is following and cardiology consultation. - Hypertension, continue metoprolol. - Permanent pacemaker - Chronic anemia Vascular note noted, anticipate d/c home upon final recommendation from ID. Continue Protonix for peptic ulcer disease prophylaxis Further recommendations based on clinical course. Plan of care discussed with Dr. Poole. Problems: Subjective 24 Hr Interval Summary Free Text/Dictation Patient is afebrile, awake, alert to markell, UO is adequate via Torrez. Exam/Review of Systems Vital Signs Vitals Vital Signs Date Time Temp Pulse Resp B/P Pulse Ox O2 Delivery O2 Flow Rate FiO2 04/05/16 16:20 60 04/05/16 15:21 97.5 19 141/67 98 04/02/16 04:12 Room Air Intake and Output 04/04/16 04/04/16 04/05/16 14:59 22:59 06:59 Intake Total 1200 ml 240 ml Output Total 100 ml 1400 ml Balance 1100 ml -1160 ml Exam Constitutional: alert, well developed Head: atraumatic, normocephalic Eyes: nl conjunctiva ENMT: nl external ears & nose Neck: jvd, supple Respiratory: clear to auscultation Cardiovascular: regular rate and rhythm Gastrointestinal: nl liver, spleen, soft Genitourinary - Male: nl penis, other ( Torrez catheter ) Musculoskeletal: nl extremities to inspection, Extremities: normal pulses, bilateral LE s/p vascular intervention Results Result Diagram: 04/05/16 0731 04/05/16 0731 Results 24 hrs Laboratory Tests Test 04/05/16 07:31 Anion Gap 11 Basophils # 0.0 Basophils % 0.1 Blood Morphology Comment Blood Urea Nitrogen 9 Calcium Level 7.8 L Carbon Dioxide Level 27 Chloride Level 104 Creatinine 0.60 L Eosinophils # 0.6 H Eosinophils % 7.1 H Glucose Level 86 Hematocrit 29.8 L Hemoglobin 10.1 L Lymphocytes # 1.1 Lymphocytes % 13.8 L Mean Corpuscular Hemoglobin 31.4 Mean Corpuscular Hemoglobin Concent 34.0 Mean Corpuscular Volume 92.4 Mean Platelet Volume 7.4 Monocytes # 0.7 Monocytes % 8.8 Neutrophils # 5.8 Neutrophils % 70.2 Nucleated Red Blood Cells # 0.0 Nucleated Red Blood Cells % 0.0 Platelet Count 349 Potassium Level 3.5 Red Blood Count 3.22 L Red Cell Distribution Width 16.1 H Sodium Level 138 White Blood Count 8.3 Medications Medications Current Medications Lorazepam (Ativan) 0.5 mg Q6H PRN IV ANXIETY Last administered on 04/01/16 22: 27; Admin Dose 0.5 MG; Start 03/24/16 at 18:30 Ondansetron HCl (Zofran Inj) 4 mg Q6H PRN IV NAUSEA AND/OR VOMITING; Start 03/24 at 18:30 Nitroglycerin (Nitroglycerin (Sl Tab) 0.4 Mg) 1 tab Q5M PRN SL CHEST PAIN; Start 03/24/16 at 18:30 Acetaminophen (Tylenol Tab) 650 mg Q6H PRN PO PAIN LEVEL 1-3 OR FEVER Last administered on 04/04/16 12:27; Admin Dose 650 MG; Start 03/24/16 at 18:30 Morphine Sulfate (morphine) 2 mg Q4H PRN IV PAIN LEVEL 7-10 Last administered on 04/03/16 22:21; Admin Dose 2 MG; Start 03/24/16 at 18:30 Atorvastatin Calcium (Lipitor) 40 mg QHS PO Last administered on 04/04/16 21: 49; Admin Dose 40 MG; Start 03/24/16 at 21:00 Donepezil HCl (Aricept) 5 mg QHS PO Last administered on 04/04/16 21:49; Admin Dose 5 MG; Start 03/24/16 at 21:00 Ferrous Sulfate (Ferrous Sulfate (Ec)) 325 mg BID PO Last administered on 09:54; Admin Dose 325 MG; Start 03/24/16 at 21:00 Memantine (Namenda) 5 mg BID PO Last administered on 04/05/16 09:52; Admin Dose 5 MG; Start 03/24/16 at 21:00 Hydromorphone HCl (Dilaudid) 1 mg Q4H PRN IV PAIN Last administered on 16:31; Admin Dose 1 MG; Start 03/25/16 at 06:30 Metoprolol Tartrate (Lopressor) 25 mg BID PO Last administered on 04/05/16 09: 53; Admin Dose 25 MG; Start 03/25/16 at 21:00 Mupirocin (Bactroban) 1 applic BID TOP Last administered on 04/05/16 09:54; Admin Dose 1 APPLIC; Start 03/27/16 at 14:30 Pantoprazole 40 mg 40 mg DAILY@06 PO Last administered on 04/05/16 05:21; Admin Dose 40 MG; Start 03/28/16 at 06:00 Sodium Chloride (NS) 1,000 ml @ 50 mls/hr Q20H IV Last administered on 14:40; Admin Dose 50 MLS/HR; Start 03/29/16 at 17:30 Heparin Sodium (Porcine) (Heparin (5000 Units/0.5 ml)) 5,000 unit Q8 SC Last administered on 04/05/16 05:22; Admin Dose 5,000 UNIT; Start 03/29/16 at 22:00 IV Flush (NS 10 ml) 10 ml PRN PRN IV IV PROTOCOL; Start 03/31/16 at 18:00 Potassium Chloride 40 meq 40 meq DAILY PO Last administered on 04/05/16 09:53 ; Admin Dose 40 MEQ; Start 04/04/16 at 09:30 Vancomycin HCl/ Sodium Chloride (Vancocin/NS) 150 ml @ 75 mls/hr Q12H IVPB Last administered on 04/05/16 14:40; Admin Dose 75 MLS/HR; Start 2/21/17 at 14 :00 ALICIA MONTGOMERY Apr 05, 2016 16:54
[2016-04-05] MEDS: ATORVASTATIN 40 MG TAB PO SCH (22:16)
[2016-04-05] MEDS: DONEPEZIL 5 MG TAB PO SCH (22:22)
[2016-04-06] MEDS: VANCOMYCIN 750 MG in SOD CHLORIDE 0.9% 150 ML IVPB SCH ×2 (02:59→13:48)
[2016-04-06 04:18] VITALS: BP 135/65; RESP 17
[2016-04-06] MEDS: PANTOPRAZOLE (EC) 40 MG TAB PO SCH (05:25)
[2016-04-06] MEDS: HEPARIN 5,000 UNIT/0.5 ML SYG SC SCH ×3 (05:26→22:20)
[2016-04-06 07:40] LABS: POTASSIUM 4.2 mmol/L (3.5-5.1)
[2016-04-06 07:43] LABS: CALCIUM 8.5 mg/dl (8.4-10.2); CREATININE 0.74 mg/dl (0.61-1.24)
[2016-04-06 07:56] VITALS: BP 163/79; RESP 18
[2016-04-06] MEDS: POTASSIUM CHLORIDE 20 MEQ POWDER FOR ORAL SOLN PO SCH (08:46)
[2016-04-06] MEDS: METOPROLOL 25 MG TAB PO SCH ×2 (08:47→22:09)
[2016-04-06] MEDS: FERROUS SULFATE (EC) 325 MG TAB PO SCH ×2 (08:47→22:09)
[2016-04-06] MEDS: MEMANTINE 5 MG TAB PO SCH ×2 (08:47→22:09)
[2016-04-06] MEDS: MUPIROCIN 2% 22 GM OINT TOP SCH (09:35)
[2016-04-06 11:13] LABS: HEMATOCRIT 21.6 % (42.0-52.0); HEMOGLOBIN 9.6 g/dl (14.0-18.0); RED BLOOD COUNT 2.37 10^6/ul (4.70-6.10); WHITE BLOOD COUNT 8.7 10^3/ul (4.8-10.8)
[2016-04-06 11:15] LABS: MEAN CORPUSCULAR HEMOGLOBIN 40.4 pg (29.0-33.0); MEAN CORPUSCULAR HGB CONC 44.2 g/dl (32.0-37.0); MEAN CORPUSCULAR VOLUME 91.3 fl (82.0-101.0); MEAN PLATELET VOLUME 8.1 fl (7.4-10.4); PLATELET COUNT 427 10^3/UL (140-440); RED CELL DISTRIBUTION WIDTH 15.9 % (11.5-14.5)
[2016-04-06 11:16] LABS: BASOPHILS % 0.4 % (0.0-2.0); EOSINOPHILS # 0.5 10^3/ul (0.0-0.5); EOSINOPHILS % 5.9 % (0.0-7.0); LYMPHOCYTES # 1.5 10^3/ul (0.8-2.9); LYMPHOCYTES % 16.8 % (15.0-51.0); MONOCYTE # 0.9 10^3/ul (0.3-0.9); MONOCYTES % 10.7 % (0.0-11.0); NEUTROPHIL # 5.7 10^3/ul (1.6-7.5); NEUTROPHILS % 66.2 % (39.0-77.0)
--- NOTE | 2016-04-06 12:21 | CONS ---
Date/Time of Note Date/Time of Note DATE: 04/06/16 TIME: 12:20 Assessment/Plan Assessment/Plan Chief Complaint/Hosp Course - SIRS vs early sepsis. Leukocytosis and tachycardia resolved. 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 capitis on 03/31/16 and S. epidermidis on 03/30/16). TTE did not demonstrate valvular vegetation - Aortoiliac atherosclerotic disease, ectatic right common iliac artery with thrombus s/p EVAR 03/29/16 - Blue toe syndrome - Funguria (s/p Vfend 03/28-03/30) - CAD - PPM - T2DM Hgb A1c 5.5% - HTN associated with DM - HLD associated with DM - ACD s/p 1 unit PRBC 03/29/16 - Hypokalemia - dementia - DNR Recommendations: - Called Micro 04/04/16 to f/u sensitivity of strains of CoNS and Yelena said she would follow up; now listed in computer with two species identified which does not favor blood stream infection but does not necessarily rule out prosthetic joint infection - F/u final blood cx 04/02/16 (Negative to date) - Continue IV Vanco (03/31/16-) - We strongly recommend diagnostic arthrocentesis to determine duration of abx course Problems: Consultation Date/Type/Reason Admit Date/Time Mar 24, 2016 at 17:40 Initial Consult Date 03/29/16 Type of Consultation: id Referring Provider: LAVELL BRADLEY MD 24 HR Interval Summary Free Text/Dictation d/w clinical research analyst. emr reviewed. d/w clinical research analyst danielle. care coordinated. Exam/Review of Systems Vital Signs Vitals Vital Signs Date Time Temp Pulse Resp B/P Pulse Ox O2 Delivery O2 Flow Rate FiO2 04/06/16 07:56 98.0 70 18 163/79 98 Intake and Output 04/05/16 04/05/16 04/06/16 15:00 23:00 07:00 Intake Total 1150 ml 100 ml Output Total 2500 ml 500 ml Balance -1350 ml -400 ml Exam Constitutional: alert, oriented, well developed Psych: nl mood/affect, no complaints Head: atraumatic, normocephalic Eyes: EOMI, PERRL, nl conjunctiva, nl lids, nl sclera ENMT: nl external ears & nose, nl lips & teeth, nl nasal mucosa & septum Respiratory: clear to auscultation, normal air movement Cardiovascular: nl pulses, regular rate and rhythm Gastrointestinal: nl liver, spleen, non-tender, soft Results Result Diagram: 04/06/16 0700 04/06/16 0700 Results 24 hrs Laboratory Tests Test 04/06/16 07:00 Anion Gap 12 Basophils # 0.0 Basophils % 0.4 Blood Urea Nitrogen 9 Calcium Level 8.5 Carbon Dioxide Level 26 Chloride Level 103 Creatinine 0.74 Eosinophils # 0.5 Eosinophils % 5.9 Glucose Level 91 Hematocrit 21.6 #L Hemoglobin 9.6 L Lymphocytes # 1.5 Lymphocytes % 16.8 Mean Corpuscular Hemoglobin 40.4 #H Mean Corpuscular Hemoglobin Concent 44.2 #H Mean Corpuscular Volume 91.3 Mean Platelet Volume 8.1 Monocytes # 0.9 Monocytes % 10.7 Neutrophils # 5.7 Neutrophils % 66.2 Nucleated Red Blood Cells # 0.0 Nucleated Red Blood Cells % 0.0 Platelet Count 427 # Potassium Level 4.2 Red Blood Count 2.37 #L Red Cell Distribution Width 15.9 H Sodium Level 137 White Blood Count 8.7 Medications Medications Current Medications Lorazepam (Ativan) 0.5 mg Q6H PRN IV ANXIETY Last administered on 04/01/16 22: 27; Admin Dose 0.5 MG; Start 03/24/16 at 18:30 Ondansetron HCl (Zofran Inj) 4 mg Q6H PRN IV NAUSEA AND/OR VOMITING; Start 03/24 at 18:30 Nitroglycerin (Nitroglycerin (Sl Tab) 0.4 Mg) 1 tab Q5M PRN SL CHEST PAIN; Start 03/24/16 at 18:30 Acetaminophen (Tylenol Tab) 650 mg Q6H PRN PO PAIN LEVEL 1-3 OR FEVER Last administered on 04/04/16 12:27; Admin Dose 650 MG; Start 03/24/16 at 18:30 Morphine Sulfate (morphine) 2 mg Q4H PRN IV PAIN LEVEL 7-10 Last administered on 04/03/16 22:21; Admin Dose 2 MG; Start 03/24/16 at 18:30 Atorvastatin Calcium (Lipitor) 40 mg QHS PO Last administered on 04/05/16 22: 16; Admin Dose 40 MG; Start 03/24/16 at 21:00 Donepezil HCl (Aricept) 5 mg QHS PO Last administered on 04/05/16 22:22; Admin Dose 5 MG; Start 03/24/16 at 21:00 Ferrous Sulfate (Ferrous Sulfate (Ec)) 325 mg BID PO Last administered on 08:47; Admin Dose 325 MG; Start 03/24/16 at 21:00 Memantine (Namenda) 5 mg BID PO Last administered on 04/06/16 08:47; Admin Dose 5 MG; Start 03/24/16 at 21:00 Hydromorphone HCl (Dilaudid) 1 mg Q4H PRN IV PAIN Last administered on 16:31; Admin Dose 1 MG; Start 03/25/16 at 06:30 Metoprolol Tartrate (Lopressor) 25 mg BID PO Last administered on 04/06/16 08: 47; Admin Dose 25 MG; Start 03/25/16 at 21:00 Mupirocin (Bactroban) 1 applic BID TOP Last administered on 04/06/16 09:35; Admin Dose 1 APPLIC; Start 03/27/16 at 14:30 Pantoprazole 40 mg 40 mg DAILY@06 PO Last administered on 04/06/16 05:25; Admin Dose 40 MG; Start 03/28/16 at 06:00 Sodium Chloride (NS) 1,000 ml @ 50 mls/hr Q20H IV Last administered on 14:40; Admin Dose 50 MLS/HR; Start 03/29/16 at 17:30 Heparin Sodium (Porcine) (Heparin (5000 Units/0.5 ml)) 5,000 unit Q8 SC Last administered on 04/06/16 05:26; Admin Dose 5,000 UNIT; Start 03/29/16 at 22:00 IV Flush (NS 10 ml) 10 ml PRN PRN IV IV PROTOCOL; Start 03/31/16 at 18:00 Potassium Chloride 40 meq 40 meq DAILY PO Last administered on 04/06/16 08:46 ; Admin Dose 40 MEQ; Start 04/04/16 at 09:30 Vancomycin HCl/ Sodium Chloride (Vancocin/NS) 150 ml @ 75 mls/hr Q12H IVPB Last administered on 04/06/16t 02:59; Admin Dose 75 MLS/HR; Start 04/05/16 at 14 :00 Miscellaneous Information (*Rx Drug Level Order Reminder*) VANCO TR LEVEL PRIOR... ONCE ONCE XX ; Start 04/07/16 at 13:00; Stop 04/07/16 at 13:01 SHAHIDA MOORE MD Apr 06, 2016 12:21
[2016-04-06 12:28] VITALS: BP 124/73; RESP 19
--- NOTE | 2016-04-06 13:38 | CONS ---
Date/Time of Note Date/Time of Note DATE: 04/06/16 TIME: 13:35 Assessment/Plan Assessment/Plan Chief Complaint/Hosp Course IMPRESSION: 1. Abnormal electrocardiogram, assess for acute coronary syndrome.-negative troponin x 3/NL EF by echo. Lexiscan affected by artifact but no ischemia only scar. Thus at this time patient has no cardiac contraindication to proceeding to OR on current medications without further non-invasive evaluation. Patient is at moderate risk for CV complications- Now post-op s/p peripheral vascular surgery. 2. Hypertension. 3. Peripheral arterial disease at aortoiliac bifurcation with likely embolic phenomenon/"Blue toes"-Now post-op s/p peripheral vascular surgery 4. Dyslipidemia. 5. Hypertension. 6. Diabetes mellitus. 7. Iliac artery aneurysm s/p endarterectomy 8. Coronary artery disease. 9. Dementia. 10. Permanent pacemaker. 11.H/O Hip replacement with possible need for revision 12.Hematuria 14. Hypokalemia-improving s/p repletion 15. Edema-s/p venous CARLEY with no DVT Recc: -Tele -Continue statin -Continue Heparin Sq -Continue BB -Local wound care -ASA as possible given bleeding complications prior -Pain control -Follow volume status closely and will give dose of lasix Problems: Consultation Date/Type/Reason Admit Date/Time Mar 24, 2016 at 17:40 Initial Consult Date 03/24/16 Type of Consultation: Cardiology Reason for Consultation abnl ecg Referring Provider: LAVELL BRADLEY MD Exam/Review of Systems Vital Signs Vitals Vital Signs Date Time Temp Pulse Resp B/P Pulse Ox O2 Delivery O2 Flow Rate FiO2 04/06/16 12:28 98.0 78 19 124/73 98 Intake and Output 04/05/16 04/05/16 04/06/16 15:00 23:00 07:00 Intake Total 1150 ml 100 ml Output Total 2500 ml 500 ml Balance -1350 ml -400 ml Exam Review of Systems: CONSTITUTIONAL: No fevers, chills. PULMONARY: No sob CARDIOVASCULAR: No chest pain/palpitations GASTROINTESTINAL: No nausea/vomiting. GENITOURINARY: No hematuria/dysuria. MUSCULOSKELETAL: No myagias/arthalgias. PSYCHIATRIC: The patient denies depression. NEUROLOGIC: lethargic Constitutional: alert, oriented Psych: no complaints Head: normocephalic ENMT: mucosa pink and moist Neck: jvd, supple Respiratory: diminished breath sounds (at bases/B) Cardiovascular: regular rate and rhythm Gastrointestinal: non-tender, soft Musculoskeletal: muscle tone (Normal) Extremities: edema (none) Neurological: other (no focal deficits) Results Result Diagram: 04/06/16 0700 04/06/16 0700 Results 24 hrs Laboratory Tests Test 04/06/16 07:00 Anion Gap 12 Basophils # 0.0 Basophils % 0.4 Blood Urea Nitrogen 9 Calcium Level 8.5 Carbon Dioxide Level 26 Chloride Level 103 Creatinine 0.74 Eosinophils # 0.5 Eosinophils % 5.9 Glucose Level 91 Hematocrit 21.6 #L Hemoglobin 9.6 L Lymphocytes # 1.5 Lymphocytes % 16.8 Mean Corpuscular Hemoglobin 40.4 #H Mean Corpuscular Hemoglobin Concent 44.2 #H Mean Corpuscular Volume 91.3 Mean Platelet Volume 8.1 Monocytes # 0.9 Monocytes % 10.7 Neutrophils # 5.7 Neutrophils % 66.2 Nucleated Red Blood Cells # 0.0 Nucleated Red Blood Cells % 0.0 Platelet Count 427 # Potassium Level 4.2 Red Blood Count 2.37 #L Red Cell Distribution Width 15.9 H Sodium Level 137 White Blood Count 8.7 Medications Medications Current Medications Lorazepam (Ativan) 0.5 mg Q6H PRN IV ANXIETY Last administered on 04/01/16 22: 27; Admin Dose 0.5 MG; Start 03/24/16 at 18:30 Ondansetron HCl (Zofran Inj) 4 mg Q6H PRN IV NAUSEA AND/OR VOMITING; Start 03/24 at 18:30 Nitroglycerin (Nitroglycerin (Sl Tab) 0.4 Mg) 1 tab Q5M PRN SL CHEST PAIN; Start 03/24/16 at 18:30 Acetaminophen (Tylenol Tab) 650 mg Q6H PRN PO PAIN LEVEL 1-3 OR FEVER Last administered on 04/04/16 12:27; Admin Dose 650 MG; Start 03/24/16 at 18:30 Morphine Sulfate (morphine) 2 mg Q4H PRN IV PAIN LEVEL 7-10 Last administered on 04/03/16 22:21; Admin Dose 2 MG; Start 03/24/16 at 18:30 Atorvastatin Calcium (Lipitor) 40 mg QHS PO Last administered on 04/05/16 22: 16; Admin Dose 40 MG; Start 03/24/16 at 21:00 Donepezil HCl (Aricept) 5 mg QHS PO Last administered on 04/05/16 22:22; Admin Dose 5 MG; Start 03/24/16 at 21:00 Ferrous Sulfate (Ferrous Sulfate (Ec)) 325 mg BID PO Last administered on 08:47; Admin Dose 325 MG; Start 03/24/16 at 21:00 Memantine (Namenda) 5 mg BID PO Last administered on 04/06/16 08:47; Admin Dose 5 MG; Start 03/24/16 at 21:00 Hydromorphone HCl (Dilaudid) 1 mg Q4H PRN IV PAIN Last administered on 16:31; Admin Dose 1 MG; Start 03/25/16 at 06:30 Metoprolol Tartrate (Lopressor) 25 mg BID PO Last administered on 04/06/16 08: 47; Admin Dose 25 MG; Start 03/25/16 at 21:00 Mupirocin (Bactroban) 1 applic BID TOP Last administered on 04/06/16 09:35; Admin Dose 1 APPLIC; Start 03/27/16 at 14:30 Pantoprazole 40 mg 40 mg DAILY@06 PO Last administered on 04/06/16 05:25; Admin Dose 40 MG; Start 03/28/16 at 06:00 Sodium Chloride (NS) 1,000 ml @ 50 mls/hr Q20H IV Last administered on 14:40; Admin Dose 50 MLS/HR; Start 03/29/16 at 17:30 Heparin Sodium (Porcine) (Heparin (5000 Units/0.5 ml)) 5,000 unit Q8 SC Last administered on 04/06/16 05:26; Admin Dose 5,000 UNIT; Start 03/29/16 at 22:00 IV Flush (NS 10 ml) 10 ml PRN PRN IV IV PROTOCOL; Start 03/31/16 at 18:00 Potassium Chloride 40 meq 40 meq DAILY PO Last administered on 04/06/16 08:46 ; Admin Dose 40 MEQ; Start 04/04/16 at 09:30 Vancomycin HCl/ Sodium Chloride (Vancocin/NS) 150 ml @ 75 mls/hr Q12H IVPB Last administered on 04/06/16t 02:59; Admin Dose 75 MLS/HR; Start 04/05/16 at 14 :00 Miscellaneous Information (*Rx Drug Level Order Reminder*) VANCO TR LEVEL PRIOR... ONCE ONCE XX ; Start 04/07/16 at 13:00; Stop 04/07/16 at 13:01 NICANOR VARGAS Apr 06, 2016 13:38
[2016-04-06] MEDS: SOD CHLORIDE 0.9% 1,000 ML IV SCH (13:48)
[2016-04-06 15:28] VITALS: BP 135/68; RESP 18
--- NOTE | 2016-04-06 15:48 | PN ---
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 Dr. Maria is following from infectious disease standpoint. Continue antibiotics per ID. Status post evaluation by orthopedic surgeon with recommendation to follow-up with operating surgeon or to transfer patient to a high level of care. - Aortoiliac atherosclerotic disease, ectatic right common iliac artery with thrombus. Dr. Mondragon is following in vascular surgery consultation. S/p endovascular aortic aneurysm repair and right common femoral artery localized endarterectomy on 03/31. - Hematuria, resoled. - Blue toe syndrome, s/p revascularization procedure. - Dementia, continue Aricept and Namenda. - Diabetes mellitus type 2 - Coronary artery disease. Dr. Peters is following and cardiology consultation. - Hypertension, continue metoprolol. - Permanent pacemaker - Chronic anemia Vascular note noted, anticipate d/c home upon final recommendation from ID. Continue Protonix for peptic ulcer disease prophylaxis Further recommendations based on clinical course. Plan of care discussed with Dr. Poole. Problems: Subjective 24 Hr Interval Summary Free Text/Dictation Patient looks comfortable remains afebrile. Exam/Review of Systems Vital Signs Vitals Vital Signs Date Time Temp Pulse Resp B/P Pulse Ox O2 Delivery O2 Flow Rate FiO2 04/06/16 15:28 98.3 60 18 135/68 97 Intake and Output 04/05/16 04/05/16 04/06/16 15:00 23:00 07:00 Intake Total 1150 ml 100 ml Output Total 2500 ml 500 ml Balance -1350 ml -400 ml Exam Constitutional: alert, well developed Head: atraumatic, normocephalic Eyes: nl conjunctiva ENMT: nl external ears & nose Neck: jvd, supple Respiratory: clear to auscultation Cardiovascular: regular rate and rhythm Gastrointestinal: nl liver, spleen, soft Genitourinary - Male: nl penis, other ( Torrez catheter ) Musculoskeletal: nl extremities to inspection, Extremities: normal pulses, bilateral LE s/p vascular intervention Results Result Diagram: 04/06/16 0700 04/06/16 0700 Results 24 hrs Laboratory Tests Test 04/06/16 07:00 Anion Gap 12 Basophils # 0.0 Basophils % 0.4 Blood Urea Nitrogen 9 Calcium Level 8.5 Carbon Dioxide Level 26 Chloride Level 103 Creatinine 0.74 Eosinophils # 0.5 Eosinophils % 5.9 Glucose Level 91 Hematocrit 21.6 #L Hemoglobin 9.6 L Lymphocytes # 1.5 Lymphocytes % 16.8 Mean Corpuscular Hemoglobin 40.4 #H Mean Corpuscular Hemoglobin Concent 44.2 #H Mean Corpuscular Volume 91.3 Mean Platelet Volume 8.1 Monocytes # 0.9 Monocytes % 10.7 Neutrophils # 5.7 Neutrophils % 66.2 Nucleated Red Blood Cells # 0.0 Nucleated Red Blood Cells % 0.0 Platelet Count 427 # Potassium Level 4.2 Red Blood Count 2.37 #L Red Cell Distribution Width 15.9 H Sodium Level 137 White Blood Count 8.7 Medications Medications Current Medications Lorazepam (Ativan) 0.5 mg Q6H PRN IV ANXIETY Last administered on 04/01/16 22: 27; Admin Dose 0.5 MG; Start 03/24/16 at 18:30 Ondansetron HCl (Zofran Inj) 4 mg Q6H PRN IV NAUSEA AND/OR VOMITING; Start 03/24 at 18:30 Nitroglycerin (Nitroglycerin (Sl Tab) 0.4 Mg) 1 tab Q5M PRN SL CHEST PAIN; Start 03/24/16 at 18:30 Acetaminophen (Tylenol Tab) 650 mg Q6H PRN PO PAIN LEVEL 1-3 OR FEVER Last administered on 04/04/16 12:27; Admin Dose 650 MG; Start 03/24/16 at 18:30 Morphine Sulfate (morphine) 2 mg Q4H PRN IV PAIN LEVEL 7-10 Last administered on 04/03/16 22:21; Admin Dose 2 MG; Start 03/24/16 at 18:30 Atorvastatin Calcium (Lipitor) 40 mg QHS PO Last administered on 04/05/16 22: 16; Admin Dose 40 MG; Start 03/24/16 at 21:00 Donepezil HCl (Aricept) 5 mg QHS PO Last administered on 04/05/16 22:22; Admin Dose 5 MG; Start 03/24/16 at 21:00 Ferrous Sulfate (Ferrous Sulfate (Ec)) 325 mg BID PO Last administered on 08:47; Admin Dose 325 MG; Start 03/24/16 at 21:00 Memantine (Namenda) 5 mg BID PO Last administered on 04/06/16 08:47; Admin Dose 5 MG; Start 03/24/16 at 21:00 Hydromorphone HCl (Dilaudid) 1 mg Q4H PRN IV PAIN Last administered on 16:31; Admin Dose 1 MG; Start 03/25/16 at 06:30 Metoprolol Tartrate (Lopressor) 25 mg BID PO Last administered on 04/06/16 08: 47; Admin Dose 25 MG; Start 03/25/16 at 21:00 Mupirocin (Bactroban) 1 applic BID TOP Last administered on 04/06/16 09:35; Admin Dose 1 APPLIC; Start 03/27/16 at 14:30 Pantoprazole 40 mg 40 mg DAILY@06 PO Last administered on 04/06/16 05:25; Admin Dose 40 MG; Start 03/28/16 at 06:00 Sodium Chloride (NS) 1,000 ml @ 50 mls/hr Q20H IV Last administered on 13:48; Admin Dose 50 MLS/HR; Start 03/29/16 at 17:30 Heparin Sodium (Porcine) (Heparin (5000 Units/0.5 ml)) 5,000 unit Q8 SC Last administered on 04/06/16 14:06; Admin Dose 5,000 UNIT; Start 03/29/16 at 22:00 IV Flush (NS 10 ml) 10 ml PRN PRN IV IV PROTOCOL; Start 03/31/16 at 18:00 Potassium Chloride 40 meq 40 meq DAILY PO Last administered on 04/06/16 08:46 ; Admin Dose 40 MEQ; Start 04/04/16 at 09:30 Vancomycin HCl/ Sodium Chloride (Vancocin/NS) 150 ml @ 75 mls/hr Q12H IVPB Last administered on 04/06/16 13:48; Admin Dose 75 MLS/HR; Start 04/05/16 at 14 :00 Miscellaneous Information (*Rx Drug Level Order Reminder*) VANCO TR LEVEL PRIOR... ONCE ONCE XX ; Start 04/07/16 at 13:00; Stop 04/07/16 at 13:01 ALICIA MONTGOMERY Apr 06, 2016 15:48
[2016-04-06 19:26] VITALS: BP 134/58; RESP 15
[2016-04-06] MEDS: DONEPEZIL 5 MG TAB PO SCH (22:09)
[2016-04-06] MEDS: ATORVASTATIN 40 MG TAB PO SCH (22:09)
[2016-04-07] MEDS: VANCOMYCIN 750 MG in SOD CHLORIDE 0.9% 150 ML IVPB SCH ×2 (01:50→14:00)
[2016-04-07] MEDS: MUPIROCIN 2% 22 GM OINT TOP SCH ×3 (01:50→21:37)
[2016-04-07 02:49] VITALS: BP 155/74; PULSE 60; RESP 18
[2016-04-07] MEDS: PANTOPRAZOLE (EC) 40 MG TAB PO SCH (05:37)
[2016-04-07] MEDS: HEPARIN 5,000 UNIT/0.5 ML SYG SC SCH ×3 (05:38→23:07)
[2016-04-07 06:26] LABS: POTASSIUM 3.7 mmol/L (3.5-5.1)
[2016-04-07 06:28] LABS: CREATININE 0.72 mg/dl (0.61-1.24)
[2016-04-07 06:29] LABS: CALCIUM 8.2 mg/dl (8.4-10.2)
[2016-04-07 07:08] LABS: HEMATOCRIT 32.3 % (42.0-52.0); HEMOGLOBIN 10.6 g/dl (14.0-18.0); MEAN CORPUSCULAR HEMOGLOBIN 30.7 pg (29.0-33.0); MEAN CORPUSCULAR HGB CONC 32.8 g/dl (32.0-37.0); MEAN CORPUSCULAR VOLUME 93.6 fl (82.0-101.0); RED BLOOD COUNT 3.45 10^6/ul (4.70-6.10); WHITE BLOOD COUNT 8.1 10^3/ul (4.8-10.8)
[2016-04-07 07:09] LABS: BASOPHIL # 0.1 10^3/ul (0.0-0.1); BASOPHILS % 0.9 % (0.0-2.0); EOSINOPHILS # 0.4 10^3/ul (0.0-0.5); EOSINOPHILS % 4.9 % (0.0-7.0); LYMPHOCYTES # 1.7 10^3/ul (0.8-2.9); LYMPHOCYTES % 20.9 % (15.0-51.0); MEAN PLATELET VOLUME 9.2 fl (7.4-10.4); MONOCYTES % 12.8 % (0.0-11.0); NEUTROPHIL # 4.9 10^3/ul (1.6-7.5); NEUTROPHILS % 60.1 % (39.0-77.0); PLATELET COUNT 360 10^3/UL (140-440); RED CELL DISTRIBUTION WIDTH 15.3 % (11.5-14.5)
[2016-04-07 07:59] VITALS: BP 132/99; RESP 20
[2016-04-07] MEDS: MEMANTINE 5 MG TAB PO SCH ×2 (08:16→21:37)
[2016-04-07] MEDS: FERROUS SULFATE (EC) 325 MG TAB PO SCH ×2 (08:16→21:37)
[2016-04-07] MEDS: METOPROLOL 25 MG TAB PO SCH ×2 (08:17→21:38)
[2016-04-07] MEDS: POTASSIUM CHLORIDE 20 MEQ POWDER FOR ORAL SOLN PO SCH (08:17)
[2016-04-07] MEDS: SOD CHLORIDE 0.9% 1,000 ML IV SCH ×2 (10:34→16:16)
--- NOTE | 2016-04-07 11:10 | CONS ---
Date/Time of Note Date/Time of Note DATE: 04/07/16 TIME: 11:08 Assessment/Plan Assessment/Plan Chief Complaint/Hosp Course IMPRESSION: 1. Abnormal electrocardiogram, assess for acute coronary syndrome.-negative troponin x 3/NL EF by echo. Lexiscan affected by artifact but no ischemia only scar. Thus at this time patient has no cardiac contraindication to proceeding to OR on current medications without further non-invasive evaluation. Patient is at moderate risk for CV complications- Now post-op s/p peripheral vascular surgery. 2. Hypertension. 3. Peripheral arterial disease at aortoiliac bifurcation with likely embolic phenomenon/"Blue toes"-Now post-op s/p peripheral vascular surgery 4. Dyslipidemia. 5. Hypertension. 6. Diabetes mellitus. 7. Iliac artery aneurysm s/p endarterectomy 8. Coronary artery disease. 9. Dementia. 10. Permanent pacemaker. 11.H/O Hip replacement with possible need for revision 12.Hematuria 14. Hypokalemia-improving s/p repletion 15. Edema-s/p venous CARLEY with no DVT Recc: -Tele -Continue statin -Continue Heparin Sq -Continue BB -Local wound care -ASA as possible given bleeding complications prior -Pain control -Follow volume status closely -Continue abx's Problems: Consultation Date/Type/Reason Admit Date/Time Mar 24, 2016 at 17:40 Initial Consult Date 03/24/16 Type of Consultation: Cardiology Reason for Consultation abnl ecg Referring Provider: LAVELL BRADLEY MD Exam/Review of Systems Vital Signs Vitals Vital Signs Date Time Temp Pulse Resp B/P Pulse Ox O2 Delivery O2 Flow Rate FiO2 04/07/16 07:59 97.7 63 20 132/99 90 04/07/16 02:49 Room Air Intake and Output 04/06/16 04/06/16 04/07/16 15:00 23:00 07:00 Intake Total 300 ml 1000 ml 200 ml Output Total 1200 ml 900 ml Balance 300 ml -200 ml -700 ml Exam Review of Systems: CONSTITUTIONAL: No fevers, chills. PULMONARY: No sob CARDIOVASCULAR: No chest pain/palpitations GASTROINTESTINAL: No nausea/vomiting. GENITOURINARY: No hematuria/dysuria. MUSCULOSKELETAL: No myagias/arthalgias. PSYCHIATRIC: The patient denies depression. NEUROLOGIC: lethargic Constitutional: alert Psych: no complaints Head: normocephalic ENMT: mucosa pink and moist Neck: jvd (9 cm water), supple Respiratory: diminished breath sounds (at bases/B) Cardiovascular: regular rate and rhythm Gastrointestinal: non-tender, soft Musculoskeletal: muscle tone (normal) Extremities: edema (none) Neurological: other (No focal deficits) Results Result Diagram: 04/07/16 0539 04/07/16 0539 Results 24 hrs Laboratory Tests Test 04/07/16 05:39 Anion Gap 13 Basophils # 0.1 Basophils % 0.9 Blood Urea Nitrogen 8 Calcium Level 8.2 L Carbon Dioxide Level 29 Chloride Level 100 Creatinine 0.72 Eosinophils # 0.4 Eosinophils % 4.9 Glucose Level 85 Hematocrit 32.3 #L Hemoglobin 10.6 L Lymphocytes # 1.7 Lymphocytes % 20.9 Mean Corpuscular Hemoglobin 30.7 # Mean Corpuscular Hemoglobin Concent 32.8 # Mean Corpuscular Volume 93.6 Mean Platelet Volume 9.2 Monocytes # 1.0 H Monocytes % 12.8 H Neutrophils # 4.9 Neutrophils % 60.1 Nucleated Red Blood Cells # 0.0 Nucleated Red Blood Cells % 0.0 Platelet Count 360 Potassium Level 3.7 Red Blood Count 3.45 #L Red Cell Distribution Width 15.3 H Sodium Level 138 White Blood Count 8.1 Medications Medications Current Medications Lorazepam (Ativan) 0.5 mg Q6H PRN IV ANXIETY Last administered on 04/01/16 22: 27; Admin Dose 0.5 MG; Start 03/24/16 at 18:30 Ondansetron HCl (Zofran Inj) 4 mg Q6H PRN IV NAUSEA AND/OR VOMITING; Start 03/24 at 18:30 Nitroglycerin (Nitroglycerin (Sl Tab) 0.4 Mg) 1 tab Q5M PRN SL CHEST PAIN; Start 03/24/16 at 18:30 Acetaminophen (Tylenol Tab) 650 mg Q6H PRN PO PAIN LEVEL 1-3 OR FEVER Last administered on 04/04/16 12:27; Admin Dose 650 MG; Start 03/24/16 at 18:30 Morphine Sulfate (morphine) 2 mg Q4H PRN IV PAIN LEVEL 7-10 Last administered on 04/03/16 22:21; Admin Dose 2 MG; Start 03/24/16 at 18:30 Atorvastatin Calcium (Lipitor) 40 mg QHS PO Last administered on 04/06/16 22: 09; Admin Dose 40 MG; Start 03/24/16 at 21:00 Donepezil HCl (Aricept) 5 mg QHS PO Last administered on 04/06/16 22:09; Admin Dose 5 MG; Start 03/24/16 at 21:00 Ferrous Sulfate (Ferrous Sulfate (Ec)) 325 mg BID PO Last administered on 08:16; Admin Dose 325 MG; Start 03/24/16 at 21:00 Memantine (Namenda) 5 mg BID PO Last administered on 04/07/16 08:16; Admin Dose 5 MG; Start 03/24/16 at 21:00 Hydromorphone HCl (Dilaudid) 1 mg Q4H PRN IV PAIN Last administered on 16:31; Admin Dose 1 MG; Start 03/25/16 at 06:30 Metoprolol Tartrate (Lopressor) 25 mg BID PO Last administered on 04/07/16 08: 17; Admin Dose 25 MG; Start 03/25/16 at 21:00 Mupirocin (Bactroban) 1 applic BID TOP Last administered on 04/07/16 08:18; Admin Dose 1 APPLIC; Start 03/27/16 at 14:30 Pantoprazole 40 mg 40 mg DAILY@06 PO Last administered on 04/07/16 05:37; Admin Dose 40 MG; Start 03/28/16 at 06:00 Sodium Chloride (NS) 1,000 ml @ 50 mls/hr Q20H IV Last administered on 13:48; Admin Dose 50 MLS/HR; Start 03/29/16 at 17:30 Heparin Sodium (Porcine) (Heparin (5000 Units/0.5 ml)) 5,000 unit Q8 SC Last administered on 04/07/16 05:38; Admin Dose 5,000 UNIT; Start 03/29/16 at 22:00 IV Flush (NS 10 ml) 10 ml PRN PRN IV IV PROTOCOL; Start 03/31/16 at 18:00 Potassium Chloride 40 meq 40 meq DAILY PO Last administered on 04/07/16 08:17 ; Admin Dose 40 MEQ; Start 04/04/16 at 09:30 Vancomycin HCl/ Sodium Chloride (Vancocin/NS) 150 ml @ 75 mls/hr Q12H IVPB Last administered on 04/07/16t 01:50; Admin Dose 75 MLS/HR; Start 04/05/16 at 14 :00 Miscellaneous Information (*Rx Drug Level Order Reminder*) VANCO TR LEVEL PRIOR... ONCE ONCE XX ; Start 04/07/16 at 13:00; Stop 04/07/16 at 13:01 NICANOR VARGAS Apr 07, 2016 11:10
--- NOTE | 2016-04-07 11:32 | PN ---
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 Dr. Maria is following from infectious disease standpoint. Continue antibiotics per ID. Status post evaluation by orthopedic surgeon with recommendation to follow-up with operating surgeon or to transfer patient to a high level of care. - Aortoiliac atherosclerotic disease, ectatic right common iliac artery with thrombus. Dr. Mondragon is following in vascular surgery consultation. S/p endovascular aortic aneurysm repair and right common femoral artery localized endarterectomy on 03/31. - Hematuria, resoled. - Blue toe syndrome, s/p revascularization procedure. - Dementia, continue Aricept and Namenda. - Diabetes mellitus type 2 - Coronary artery disease. Dr. Peters is following and cardiology consultation. - Hypertension, continue metoprolol. - Permanent pacemaker - Chronic anemia - Continue Protonix for peptic ulcer disease prophylaxis Vascular note noted, anticipate d/c home upon final recommendation from ID. Further recommendations based on clinical course. Plan of care discussed with Dr. Poole. Subjective 24 Hr Interval Summary Free Text/Dictation NAD, alert but no verbal response, seems conferrable- left toe nail fell off last night, covered with sterile dssg- no discharge/ulcer/redness/noted, dw staff Exam/Review of Systems Vital Signs Vitals Vital Signs Date Time Temp Pulse Resp B/P Pulse Ox O2 Delivery O2 Flow Rate FiO2 04/07/16 07:59 97.7 63 20 132/99 90 04/07/16 02:49 Room Air Intake and Output 04/06/16 04/06/16 04/07/16 15:00 23:00 07:00 Intake Total 300 ml 1000 ml 200 ml Output Total 1200 ml 900 ml Balance 300 ml -200 ml -700 ml Exam Constitutional: alert, non-verbal Psych: nl mood/affect Head: atraumatic Eyes: PERRL, nl sclera ENMT: nl external ears & nose Neck: non-tender Respiratory: clear to auscultation Cardiovascular: nl pulses, other Gastrointestinal: non-tender, soft Extremities: other Neurological: confused Lymph: nontender Results Result Diagram: 04/07/16 0539 04/07/16 0539 Results 24 hrs Laboratory Tests Test 04/07/16 05:39 Anion Gap 13 Basophils # 0.1 Basophils % 0.9 Blood Urea Nitrogen 8 Calcium Level 8.2 L Carbon Dioxide Level 29 Chloride Level 100 Creatinine 0.72 Eosinophils # 0.4 Eosinophils % 4.9 Glucose Level 85 Hematocrit 32.3 #L Hemoglobin 10.6 L Lymphocytes # 1.7 Lymphocytes % 20.9 Mean Corpuscular Hemoglobin 30.7 # Mean Corpuscular Hemoglobin Concent 32.8 # Mean Corpuscular Volume 93.6 Mean Platelet Volume 9.2 Monocytes # 1.0 H Monocytes % 12.8 H Neutrophils # 4.9 Neutrophils % 60.1 Nucleated Red Blood Cells # 0.0 Nucleated Red Blood Cells % 0.0 Platelet Count 360 Potassium Level 3.7 Red Blood Count 3.45 #L Red Cell Distribution Width 15.3 H Sodium Level 138 White Blood Count 8.1 Medications Medications Current Medications Lorazepam (Ativan) 0.5 mg Q6H PRN IV ANXIETY Last administered on 04/01/16 22: 27; Admin Dose 0.5 MG; Start 03/24/16 at 18:30 Ondansetron HCl (Zofran Inj) 4 mg Q6H PRN IV NAUSEA AND/OR VOMITING; Start 03/24 at 18:30 Nitroglycerin (Nitroglycerin (Sl Tab) 0.4 Mg) 1 tab Q5M PRN SL CHEST PAIN; Start 03/24/16 at 18:30 Acetaminophen (Tylenol Tab) 650 mg Q6H PRN PO PAIN LEVEL 1-3 OR FEVER Last administered on 04/04/16 12:27; Admin Dose 650 MG; Start 03/24/16 at 18:30 Morphine Sulfate (morphine) 2 mg Q4H PRN IV PAIN LEVEL 7-10 Last administered on 04/03/16 22:21; Admin Dose 2 MG; Start 03/24/16 at 18:30 Atorvastatin Calcium (Lipitor) 40 mg QHS PO Last administered on 04/06/16 22: 09; Admin Dose 40 MG; Start 03/24/16 at 21:00 Donepezil HCl (Aricept) 5 mg QHS PO Last administered on 04/06/16 22:09; Admin Dose 5 MG; Start 03/24/16 at 21:00 Ferrous Sulfate (Ferrous Sulfate (Ec)) 325 mg BID PO Last administered on 08:16; Admin Dose 325 MG; Start 03/24/16 at 21:00 Memantine (Namenda) 5 mg BID PO Last administered on 04/07/16 08:16; Admin Dose 5 MG; Start 03/24/16 at 21:00 Hydromorphone HCl (Dilaudid) 1 mg Q4H PRN IV PAIN Last administered on 16:31; Admin Dose 1 MG; Start 03/25/16 at 06:30 Metoprolol Tartrate (Lopressor) 25 mg BID PO Last administered on 04/07/16 08: 17; Admin Dose 25 MG; Start 03/25/16 at 21:00 Mupirocin (Bactroban) 1 applic BID TOP Last administered on 04/07/16 08:18; Admin Dose 1 APPLIC; Start 03/27/16 at 14:30 Pantoprazole 40 mg 40 mg DAILY@06 PO Last administered on 04/07/16 05:37; Admin Dose 40 MG; Start 03/28/16 at 06:00 Sodium Chloride (NS) 1,000 ml @ 50 mls/hr Q20H IV Last administered on 13:48; Admin Dose 50 MLS/HR; Start 03/29/16 at 17:30 Heparin Sodium (Porcine) (Heparin (5000 Units/0.5 ml)) 5,000 unit Q8 SC Last administered on 04/07/16 05:38; Admin Dose 5,000 UNIT; Start 03/29/16 at 22:00 IV Flush (NS 10 ml) 10 ml PRN PRN IV IV PROTOCOL; Start 03/31/16 at 18:00 Potassium Chloride 40 meq 40 meq DAILY PO Last administered on 04/07/16 08:17 ; Admin Dose 40 MEQ; Start 04/04/16 at 09:30 Vancomycin HCl/ Sodium Chloride (Vancocin/NS) 150 ml @ 75 mls/hr Q12H IVPB Last administered on 04/07/16 01:50; Admin Dose 75 MLS/HR; Start 04/05/16 at 14 :00 Miscellaneous Information (*Rx Drug Level Order Reminder*) VANCO TR LEVEL PRIOR... ONCE ONCE XX ; Start 04/07/16 at 13:00; Stop 04/07/16 at 13:01 FLOR ALDANA Apr 07, 2016 11:32
--- NOTE | 2016-04-07 11:37 | PDOCDIS ---
Discharge Instructions CONDITION Patient Condition: Stable HOME CARE INSTRUCTIONS: Special Diet: Mechanical soft ACTIVITY: Activity Restrictions: Slowly Increase Activity Rest between Activity Avoid heavy lifting Do not operate Machinery Do not operate Power Tool FLOR ALDANA Apr 07, 2016 11:37
--- NOTE | 2016-04-07 11:37 | DS ---
Date/Time of Note Date/Time of Note DATE: 04/07/16 TIME: 11:37 Discharge Summary Admission/Discharge Info Admit Date/Time Mar 24, 2016 at 17:40 Discharge Date/Time Hx of Present Illness 70 yo male with a past medical history of dementia, type II DM, CAD, anemia - chronic, s/p pacemaker, who presents with "Blue Toe Syndrome". The patient was sent to the vascular surgeon's office, Dr. Mondragon, who was evaluating the patient for PAD/PVD. He noticed that bilateral lower extremities had decreased pulses, and discoloration. Otherwise no fevers/chills, nausea/vomiting/diarrhea or other constitutional symptoms. All the information was gathered from the chart and ER physician, as the patient is non-verbal. Hospital Course IMPRESSION: 1. Abnormal electrocardiogram, assess for acute coronary syndrome.-negative troponin x 3/NL EF by echo. Lexiscan affected by artifact but no ischemia only scar. Thus at this time patient has no cardiac contraindication to proceeding to OR on current medications without further non-invasive evaluation. Patient is at moderate risk for CV complications- Now post-op s/p peripheral vascular surgery. 2. Hypertension. 3. Peripheral arterial disease at aortoiliac bifurcation with likely embolic phenomenon/"Blue toes"-Now post-op s/p peripheral vascular surgery 4. Dyslipidemia. 5. Hypertension. 6. Diabetes mellitus. 7. Iliac artery aneurysm s/p endarterectomy 8. Coronary artery disease. 9. Dementia. 10. Permanent pacemaker. 11.H/O Hip replacement with possible need for revision 12.Hematuria 14. Hypokalemia-improving s/p repletion 15. Edema-s/p venous CARLEY with no DVT Recc: -Tele -Continue statin -Continue Heparin Sq -Continue BB -Local wound care -ASA as possible given bleeding complications prior -Pain control -Follow volume status closely -Continue abx's Home Meds Reported Medications Bisacodyl (Dulcolax) 10 Mg Supp.rect, 10 MG RC DAILY Y for CONSTIPATION, SUPP.RECT 03/24/16 Magnesium Hydroxide* (Milk Of Magnesia*) 400 Mg/5 Ml Oral.susp, 30 ML PO DAILY Y for CONSTIPATION, ML 03/24/16 Acetaminophen* (Acetaminophen*) 500 MG Extra Strength Tablet, 1000 MG PO Q4 Y for MODERATE PAIN LEVEL 4-6, TAB 03/24/16 Acetaminophen* (Acetaminophen*) 650 Mg Tablet, 650 MG PO Q4 Y for PAIN AND OR ELEVATED TEMP, #30 TAB 03/24/16 Hydrocodone/Acetaminophen (Whiting 5-325 Tablet) 1 Each Tablet, 1 EACH PO Q4H WHILE AWAKE Y for SEVERE PAIN LEVEL 7-10, TAB 03/24/16 Insulin Lispro (Humalog) 100 Unit/1 Ml Cartridge, 0 SQ AC MEALS AND BEDTIME SLIDING SCALE 150-199 = 1 UNIT 200-249 =2 UNITS 250-299 =3 UNITS 300-349 =4 UNITS 350-399 =5 UNITS 400 = 6 UNITS OVER 400 CALL MD BELOW 80 CALL MD MAY GIVE ORANGE JUICE BY MOUTH 03/24/16 Atorvastatin* (Atorvastatin*) 40 Mg Tablet, 40 MG PO QHS, #30 TAB 03/24/16 Clopidogrel Bisulfate (Clopidogrel) 75 Mg Tablet, 75 MG PO DAILY, #30 TAB 03/24/16 Docusate Sodium* (Colace*) 100 Mg Capsule, 200 MG PO DAILY, #30 CAP 03/24/16 Pantoprazole* (Protonix*) 40 Mg Tablet.dr, 40 MG PO DAILY, TAB 03/24/16 Multivitamin with Minerals (One Daily Complete) 1 Each Tablet, 1 EACH PO DAILY, TAB 03/24/16 Memantine* (Namenda*) 5 Mg Tablet, 5 MG PO BID, #60 TAB 03/24/16 Ferrous Sulfate* (Ferrous Sulfate*) 325 Mg Tabec, 325 MG PO BID, TAB 03/24/16 Enoxaparin Sodium* (Lovenox*) 40 Mg/0.4 Ml Syringe, 40 MG SC DAILY, SYR 03/24/16 Donepezil* (Donepezil*) 5 Mg Tablet, 5 MG PO QHS, #30 TAB 03/24/16 Pending Labs Laboratory Tests Test 04/07/16 05:39 Anion Gap 13 (8-16) Basophils # 0.110^3/ul (0.0-0.1) Basophils % 0.9% (0.0-2.0) Blood Urea Nitrogen 8mg/dl (7-20) Calcium Level 8.2mg/dl (8.4-10.2) Carbon Dioxide Level 29mmol/L (21-31) Chloride Level 100mmol/L (97-110) Creatinine 0.72mg/dl (0.61-1.24) Eosinophils # 0.410^3/ul (0.0-0.5) Eosinophils % 4.9% (0.0-7.0) Glucose Level 85mg/dl (70-220) Hematocrit 32.3% (42.0-52.0) Hemoglobin 10.6g/dl (14.0-18.0) Lymphocytes # 1.710^3/ul (0.8-2.9) Lymphocytes % 20.9% (15.0-51.0) Mean Corpuscular Hemoglobin 30.7pg (29.0-33.0) Mean Corpuscular Hemoglobin Concent 32.8g/dl (32.0-37.0) Mean Corpuscular Volume 93.6fl (82.0-101.0) Mean Platelet Volume 9.2fl (7.4-10.4) Monocytes # 1.010^3/ul (0.3-0.9) Monocytes % 12.8% (0.0-11.0) Neutrophils # 4.910^3/ul (1.6-7.5) Neutrophils % 60.1% (39.0-77.0) Nucleated Red Blood Cells # 0.010^3/ul (0.0-0.0) Nucleated Red Blood Cells % 0.0/100WBC (0.0-0.0) Platelet Count 62108^3/UL (140-440) Potassium Level 3.7mmol/L (3.5-5.1) Red Blood Count 3.4510^6/ul (4.70-6.10) Red Cell Distribution Width 15.3% (11.5-14.5) Sodium Level 138mmol/L (135-144) White Blood Count 8.110^3/ul (4.8-10.8) FLOR ALDANA Apr 07, 2016 11:37
[2016-04-07] MEDS: FUROSEMIDE 20 MG TAB PO SCH (12:14)
--- NOTE | 2016-04-07 13:03 | CONS ---
Date/Time of Note Date/Time of Note DATE: 04/07/16 TIME: 12:50 Assessment/Plan Assessment/Plan Chief Complaint/Hosp Course - SIRS vs early sepsis. Leukocytosis and tachycardia resolved. 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 capitis on 03/31/16 and S. epidermidis on 03/30/16). TTE did not demonstrate valvular vegetation - Aortoiliac atherosclerotic disease, ectatic right common iliac artery with thrombus s/p EVAR 03/29/16 - Blue toe syndrome - Funguria (s/p Vfend 03/28-03/30) - CAD - PPM - T2DM Hgb A1c 5.5% - HTN associated with DM - HLD associated with DM - ACD s/p 1 unit PRBC 03/29/16 - Hypokalemia - dementia - DNR Recommendations: - Continue IV Vanco (03/31/16-) - We strongly recommend diagnostic arthrocentesis to determine duration of abx course - Management d/w pt's RN as well as with Roberto MACHINE TESTER - Above d/w Dr. Maria Problems: Consultation Date/Type/Reason Admit Date/Time Mar 24, 2016 at 17:40 Initial Consult Date 03/28/16 Type of Consultation: Infectious Disease Referring Provider: LAVELL BRADLEY MD 24 HR Interval Summary Free Text/Dictation Left big toe with nail coming off with some bleeding and dressing recently changed per RN . ROS limited d/t pt non-communicative with baseline dementia. Subjective hx not possible: pt non-verbal Exam/Review of Systems Vital Signs Vitals Vital Signs Date Time Temp Pulse Resp B/P Pulse Ox O2 Delivery O2 Flow Rate FiO2 04/07/16 07:59 97.7 63 20 132/99 90 04/07/16 02:49 Room Air Intake and Output 04/06/16 04/06/16 04/07/16 15:00 23:00 07:00 Intake Total 300 ml 1000 ml 200 ml Output Total 1200 ml 900 ml Balance 300 ml -200 ml -700 ml Exam Constitutional: awake, alert, non-verbal, other (somewhat cachectic) Head: atraumatic, normocephalic Eyes: nl conjunctiva Neck: supple, No jvd Respiratory: clear to auscultation, normal air movement. Left chest wall PM noted intact. Cardiovascular: regular rate and rhythm, Normal S1 and S2 Gastrointestinal: non-tender, soft Genitourinary - Male: other (condom catheter intact with yellow urine) Extremities: cyanosis (LLE all toes and RLE 1st & 2nd toe bluish discoloration noted; Left big toe with dressing off, toenail off with trace bleeding noted), edema (1+ edema on LLE), other (DP palpable on R and faintly palpable on L), No clubbing. RUE PICC line c/d/i. Neurological: nods to simple questions. LEVIN with generalized weakness. Skin: nl turgor, other (multiple pressure ulcers - see Nurse's notes for detials; RLQ dressing c/d/i; derma henley on LLQ c/d/i) Results Result Diagram: 04/07/16 0539 04/07/16 0539 Results 24 hrs Laboratory Tests Test 04/07/16 05:39 Anion Gap 13 Basophils # 0.1 Basophils % 0.9 Blood Urea Nitrogen 8 Calcium Level 8.2 L Carbon Dioxide Level 29 Chloride Level 100 Creatinine 0.72 Eosinophils # 0.4 Eosinophils % 4.9 Glucose Level 85 Hematocrit 32.3 #L Hemoglobin 10.6 L Lymphocytes # 1.7 Lymphocytes % 20.9 Mean Corpuscular Hemoglobin 30.7 # Mean Corpuscular Hemoglobin Concent 32.8 # Mean Corpuscular Volume 93.6 Mean Platelet Volume 9.2 Monocytes # 1.0 H Monocytes % 12.8 H Neutrophils # 4.9 Neutrophils % 60.1 Nucleated Red Blood Cells # 0.0 Nucleated Red Blood Cells % 0.0 Platelet Count 360 Potassium Level 3.7 Red Blood Count 3.45 #L Red Cell Distribution Width 15.3 H Sodium Level 138 White Blood Count 8.1 Medications Medications Current Medications Lorazepam (Ativan) 0.5 mg Q6H PRN IV ANXIETY Last administered on 04/01/16t 22: 27; Admin Dose 0.5 MG; Start 03/24/16 at 18:30 Ondansetron HCl (Zofran Inj) 4 mg Q6H PRN IV NAUSEA AND/OR VOMITING; Start 03/24 at 18:30 Nitroglycerin (Nitroglycerin (Sl Tab) 0.4 Mg) 1 tab Q5M PRN SL CHEST PAIN; Start 03/24/16 at 18:30 Acetaminophen (Tylenol Tab) 650 mg Q6H PRN PO PAIN LEVEL 1-3 OR FEVER Last administered on 04/04/16 12:27; Admin Dose 650 MG; Start 03/24/16 at 18:30 Morphine Sulfate (morphine) 2 mg Q4H PRN IV PAIN LEVEL 7-10 Last administered on 04/03/16 22:21; Admin Dose 2 MG; Start 03/24/16 at 18:30 Atorvastatin Calcium (Lipitor) 40 mg QHS PO Last administered on 04/06/16 22: 09; Admin Dose 40 MG; Start 03/24/16 at 21:00 Donepezil HCl (Aricept) 5 mg QHS PO Last administered on 04/06/16 22:09; Admin Dose 5 MG; Start 03/24/16 at 21:00 Ferrous Sulfate (Ferrous Sulfate (Ec)) 325 mg BID PO Last administered on 08:16; Admin Dose 325 MG; Start 03/24/16 at 21:00 Memantine (Namenda) 5 mg BID PO Last administered on 04/07/16 08:16; Admin Dose 5 MG; Start 03/24/16 at 21:00 Hydromorphone HCl (Dilaudid) 1 mg Q4H PRN IV PAIN Last administered on 16:31; Admin Dose 1 MG; Start 03/25/16 at 06:30 Metoprolol Tartrate (Lopressor) 25 mg BID PO Last administered on 04/07/16 08: 17; Admin Dose 25 MG; Start 03/25/16 at 21:00 Mupirocin (Bactroban) 1 applic BID TOP Last administered on 04/07/16 08:18; Admin Dose 1 APPLIC; Start 03/27/16 at 14:30 Pantoprazole 40 mg 40 mg DAILY@06 PO Last administered on 04/07/16 05:37; Admin Dose 40 MG; Start 03/28/16 at 06:00 Sodium Chloride (NS) 1,000 ml @ 50 mls/hr Q20H IV Last administered on 13:48; Admin Dose 50 MLS/HR; Start 03/29/16 at 17:30 Heparin Sodium (Porcine) (Heparin (5000 Units/0.5 ml)) 5,000 unit Q8 SC Last administered on 04/07/16 05:38; Admin Dose 5,000 UNIT; Start 03/29/16 at 22:00 IV Flush (NS 10 ml) 10 ml PRN PRN IV IV PROTOCOL; Start 03/31/16 at 18:00 Potassium Chloride 40 meq 40 meq DAILY PO Last administered on 04/07/16 08:17 ; Admin Dose 40 MEQ; Start 04/04/16 at 09:30 Vancomycin HCl/ Sodium Chloride (Vancocin/NS) 150 ml @ 75 mls/hr Q12H IVPB Last administered on 04/07/16 01:50; Admin Dose 75 MLS/HR; Start 04/05/16 at 14 :00 Miscellaneous Information (*Rx Drug Level Order Reminder*) VANCO TR LEVEL PRIOR... ONCE ONCE XX ; Start 04/07/16 at 13:00; Stop 04/07/16 at 13:01 Furosemide (Lasix) 20 mg DAILY PO Last administered on 04/07/16 12:14; Admin Dose 20 MG; Start 04/07/16 at 12:00 MARIANA ZUNIGA NP Apr 07, 2016 13:01
[2016-04-07] MEDS: HYDROmorphONE 1 MG/ML SYG IV PRN (13:42)
[2016-04-07] MEDS: VANCOMYCIN 500MG/NS (PMX) 100 ML IVPB SCH (16:15)
[2016-04-07 20:37] VITALS: BP 175/77; RESP 16
--- NOTE | 2016-04-07 20:44 | PN ---
Date/Time of Note Date/Time of Note DATE: 04/07/16 TIME: 20:44 Assessment/Plan Lines/Catheters IV Catheter Type (from [facility]): PICC Line Torrez in Place (from [facility]): Yes Assessment/Plan Chief Complaint/Hosp Course Thank you very much for involving me in the care of this patient. As you very well know this is a 70-year-old male patient with multiple medical problems including type 2 diabetes mellitus, dementia, status post pacemaker who presented to the hospital with "blue toe syndrome". Patient is currently in the ICU. I was consulted for evaluation and treatment of feet. Patient's family was present in the room. Patient is noncommunicative to verbal command at this time. Problems: Exam/Review of Systems Vital Signs Vitals Vital Signs Date Time Temp Pulse Resp B/P Pulse Ox O2 Delivery O2 Flow Rate FiO2 04/07/16 20:37 97.4 59 16 175/77 97 04/07/16 02:49 Room Air Intake and Output 04/06/16 04/06/16 04/07/16 15:00 23:00 07:00 Intake Total 300 ml 1000 ml 200 ml Output Total 1200 ml 900 ml Balance 300 ml -200 ml -700 ml Results Result Diagram: 04/07/16 0539 04/07/16 0539 MERE BAPTISTE DPM Apr 07, 2016 20:44
[2016-04-07] MEDS: ATORVASTATIN 40 MG TAB PO SCH (21:37)
[2016-04-07] MEDS: DONEPEZIL 5 MG TAB PO SCH (21:38)
[2016-04-08] MEDS: VANCOMYCIN 500MG/NS (PMX) 100 ML IVPB SCH ×2 (04:16→15:33)
[2016-04-08] MEDS: PANTOPRAZOLE (EC) 40 MG TAB PO SCH (05:33)
[2016-04-08] MEDS: HEPARIN 5,000 UNIT/0.5 ML SYG SC SCH ×2 (05:42→15:17)
[2016-04-08 06:13] LABS: ADD SCAN DIFF NO
[2016-04-08] MEDS: SOD CHLORIDE 0.9% 1,000 ML IV SCH (06:34)
[2016-04-08 06:35] LABS: POTASSIUM 3.8 mmol/L (3.5-5.1)
[2016-04-08 06:37] LABS: CREATININE 0.71 mg/dl (0.61-1.24)
[2016-04-08 06:38] LABS: CALCIUM 8.4 mg/dl (8.4-10.2)
[2016-04-08 06:44] LABS: BASOPHIL # 0.1 10^3/ul (0.0-0.1); BASOPHILS % 0.7 % (0.0-2.0); EOSINOPHILS # 0.3 10^3/ul (0.0-0.5); EOSINOPHILS % 3.6 % (0.0-7.0); HEMATOCRIT 34.2 % (42.0-52.0); HEMOGLOBIN 11.2 g/dl (14.0-18.0); LYMPHOCYTES # 1.2 10^3/ul (0.8-2.9); LYMPHOCYTES % 17.3 % (15.0-51.0); MEAN CORPUSCULAR HEMOGLOBIN 30.5 pg (29.0-33.0); MEAN CORPUSCULAR HGB CONC 32.7 g/dl (32.0-37.0); MEAN CORPUSCULAR VOLUME 93.2 fl (82.0-101.0); MEAN PLATELET VOLUME 9.1 fl (7.4-10.4); MONOCYTE # 0.8 10^3/ul (0.3-0.9); MONOCYTES % 11.4 % (0.0-11.0); NEUTROPHIL # 4.6 10^3/ul (1.6-7.5); NEUTROPHILS % 66.4 % (39.0-77.0); PLATELET COUNT 387 10^3/UL (140-415); RED BLOOD COUNT 3.67 10^6/ul (4.70-6.10); RED CELL DISTRIBUTION WIDTH 15.2 % (11.5-14.5)
[2016-04-08 08:28] VITALS: BP 139/80; RESP 20
[2016-04-08] MEDS: METOPROLOL 25 MG TAB PO SCH (08:59)
[2016-04-08] MEDS: FERROUS SULFATE (EC) 325 MG TAB PO SCH (08:59)
[2016-04-08] MEDS: FUROSEMIDE 20 MG TAB PO SCH (08:59)
[2016-04-08] MEDS: MEMANTINE 5 MG TAB PO SCH (08:59)
[2016-04-08] MEDS: POTASSIUM CHLORIDE 20 MEQ POWDER FOR ORAL SOLN PO SCH (09:00)
[2016-04-08] MEDS: MUPIROCIN 2% 22 GM OINT TOP SCH (09:00)
--- NOTE | 2016-04-08 12:06 | CONS ---
Date/Time of Note Date/Time of Note DATE: 04/08/16 TIME: 12:02 Assessment/Plan Assessment/Plan Additional Assessment/Plan 1. CAD -negative troponin x 3/NL EF by echo. Lexiscan affected by artifact but no ischemia only scar. 2.PVD - post op s/p peripheral vascular surgery- vascular team follows 3 Hypertension- modest Rx, con't to adjust therapy as needed 4. Peripheral arterial disease at aortoiliac bifurcation with likely embolic phenomenon/"Blue toes"-Now post-op s/p peripheral vascular surgery 4. Dyslipidemia. 6. Diabetes mellitus. 7. Iliac artery aneurysm s/p endarterectomy 8. Coronary artery disease- no intervention planned given recent stress test. 9. Dementia. 10. Permanent pacemaker- good fxn, off tele now 11.H/O Hip replacement with possible need for revision 12.Hematuria 14. Hypokalemia-improving s/p repletion 15. Edema-s/p venous CARLEY with no DVT Consultation Date/Type/Reason Admit Date/Time Mar 24, 2016 at 17:40 Initial Consult Date 03/28/16 Type of Consultation: Infectious Disease Referring Provider: LAVELL BRADLEY MD 24 HR Interval Summary Free Text/Dictation NO acute change - off tele. No CP. Vascular team follows. ROS: No fever, no chills, no nausea, no vomiting, no diarrhea/constipation No recent weight changes No chest pain, no PND, no orthopnea No dizziness, blurred vision No thirst, no heat or cold intolerance Exam/Review of Systems Vital Signs Vitals Vital Signs Date Time Temp Pulse Resp B/P Pulse Ox O2 Delivery O2 Flow Rate FiO2 04/08/16 08:28 97.9 89 20 139/80 99 04/07/16 02:49 Room Air Intake and Output 04/07/16 04/07/16 04/08/16 15:00 23:00 07:00 Intake Total 720 ml 1100 ml Output Total 900 ml 600 ml Balance -180 ml 500 ml Exam General: WN/WD/NAD, AOx 1-2 HEENT: Unicetric/atraumatic/EOMI (follow some commands) NECK: JVD elevated, no thyromegaly Lymph: no lymphadenopathy HEART: regular with no S3, II/ systolic murmur at apex LUNGS: Coarse sounds ABD: soft, NT, ND, +BS : Intact Neuro: non focal SKIN: chronic changes EXT: trace edema, post op changes Results Result Diagram: 04/08/16 0530 04/08/16 0530 Results 24 hrs Laboratory Tests Test 04/07/16 13:25 04/08/16 05:30 Vancomycin Level Trough 17.6 Anion Gap 12 Basophils # 0.1 Basophils % 0.7 Blood Urea Nitrogen 10 Calcium Level 8.4 Carbon Dioxide Level 29 Chloride Level 101 Creatinine 0.71 Eosinophils # 0.3 Eosinophils % 3.6 Glucose Level 85 Hematocrit 34.2 L Hemoglobin 11.2 L Lymphocytes # 1.2 Lymphocytes % 17.3 Mean Corpuscular Hemoglobin 30.5 Mean Corpuscular Hemoglobin Concent 32.7 Mean Corpuscular Volume 93.2 Mean Platelet Volume 9.1 Monocytes # 0.8 Monocytes % 11.4 H Neutrophils # 4.6 Neutrophils % 66.4 Nucleated Red Blood Cells # 0.0 Nucleated Red Blood Cells % 0.0 Platelet Count 387 Potassium Level 3.8 Red Blood Count 3.67 L Red Cell Distribution Width 15.2 H Sodium Level 138 White Blood Count 7.0 Medications Medications Current Medications Lorazepam (Ativan) 0.5 mg Q6H PRN IV ANXIETY Last administered on 04/01/16 22: 27; Admin Dose 0.5 MG; Start 03/24/16 at 18:30 Ondansetron HCl (Zofran Inj) 4 mg Q6H PRN IV NAUSEA AND/OR VOMITING; Start 03/24 at 18:30 Nitroglycerin (Nitroglycerin (Sl Tab) 0.4 Mg) 1 tab Q5M PRN SL CHEST PAIN; Start 03/24/16 at 18:30 Acetaminophen (Tylenol Tab) 650 mg Q6H PRN PO PAIN LEVEL 1-3 OR FEVER Last administered on 04/04/16 12:27; Admin Dose 650 MG; Start 03/24/16 at 18:30 Morphine Sulfate (morphine) 2 mg Q4H PRN IV PAIN LEVEL 7-10 Last administered on 04/03/16 22:21; Admin Dose 2 MG; Start 03/24/16 at 18:30 Atorvastatin Calcium (Lipitor) 40 mg QHS PO Last administered on 04/07/16 21: 37; Admin Dose 40 MG; Start 03/24/16 at 21:00 Donepezil HCl (Aricept) 5 mg QHS PO Last administered on 04/07/16 21:38; Admin Dose 5 MG; Start 03/24/16 at 21:00 Ferrous Sulfate (Ferrous Sulfate (Ec)) 325 mg BID PO Last administered on 08:59; Admin Dose 325 MG; Start 03/24/16 at 21:00 Memantine (Namenda) 5 mg BID PO Last administered on 04/08/16 08:59; Admin Dose 5 MG; Start 03/24/16 at 21:00 Hydromorphone HCl (Dilaudid) 1 mg Q4H PRN IV PAIN Last administered on 13:42; Admin Dose 1 MG; Start 03/25/16 at 06:30 Metoprolol Tartrate (Lopressor) 25 mg BID PO Last administered on 04/08/16 08: 59; Admin Dose 25 MG; Start 03/25/16 at 21:00 Mupirocin (Bactroban) 1 applic BID TOP Last administered on 04/08/16 09:00; Admin Dose 1 APPLIC; Start 03/27/16 at 14:30 Pantoprazole 40 mg 40 mg DAILY@06 PO Last administered on 04/08/16 05:33; Admin Dose 40 MG; Start 03/28/16 at 06:00 Sodium Chloride (NS) 1,000 ml @ 50 mls/hr Q20H IV Last administered on 16:16; Admin Dose 50 MLS/HR; Start 03/29/16 at 17:30 Heparin Sodium (Porcine) (Heparin (5000 Units/0.5 ml)) 5,000 unit Q8 SC Last administered on 04/08/16 05:42; Admin Dose 5,000 UNIT; Start 03/29/16 at 22:00 IV Flush (NS 10 ml) 10 ml PRN PRN IV IV PROTOCOL; Start 03/31/16 at 18:00 Potassium Chloride (Potassium Chloride Pwd/Soln) 40 meq DAILY PO Last administered on 04/08/16 09:00; Admin Dose 40 MEQ; Start 04/04/16 at 09:30 Furosemide 20 mg 20 mg DAILY PO Last administered on 04/08/16 08:59; Admin Dose 20 MG; Start 04/07/16 at 12:00 Vancomycin HCl (Vancocin) 100 ml @ 100 mls/hr Q12H IVPB Last administered on t 04:16; Admin Dose 100 MLS/HR; Start 04/07/16 at 16:00 LEORA SARAVIA MD Apr 08, 2016 12:05
--- NOTE | 2016-04-08 13:33 | CONS ---
Date/Time of Note Date/Time of Note DATE: 04/08/16 TIME: 13:33 Assessment/Plan Assessment/Plan Chief Complaint/Hosp Course Case d/w OPAL Grossman. EMR reviewed. plan coordinated. Problems: Consultation Date/Type/Reason Admit Date/Time Mar 24, 2016 at 17:40 Initial Consult Date 03/29/16 Type of Consultation: Infectious Disease Referring Provider: LAVELL BRADLEY MD Exam/Review of Systems Vital Signs Vitals Vital Signs Date Time Temp Pulse Resp B/P Pulse Ox O2 Delivery O2 Flow Rate FiO2 04/08/16 08:28 97.9 89 20 139/80 99 04/07/16 02:49 Room Air Intake and Output 04/07/16 04/07/16 04/08/16 15:00 23:00 07:00 Intake Total 720 ml 1100 ml Output Total 900 ml 600 ml Balance -180 ml 500 ml Results Result Diagram: 04/08/16 0530 04/08/16 0530 Results 24 hrs Laboratory Tests Test 04/08/16 05:30 Anion Gap 12 Basophils # 0.1 Basophils % 0.7 Blood Urea Nitrogen 10 Calcium Level 8.4 Carbon Dioxide Level 29 Chloride Level 101 Creatinine 0.71 Eosinophils # 0.3 Eosinophils % 3.6 Glucose Level 85 Hematocrit 34.2 L Hemoglobin 11.2 L Lymphocytes # 1.2 Lymphocytes % 17.3 Mean Corpuscular Hemoglobin 30.5 Mean Corpuscular Hemoglobin Concent 32.7 Mean Corpuscular Volume 93.2 Mean Platelet Volume 9.1 Monocytes # 0.8 Monocytes % 11.4 H Neutrophils # 4.6 Neutrophils % 66.4 Nucleated Red Blood Cells # 0.0 Nucleated Red Blood Cells % 0.0 Platelet Count 387 Potassium Level 3.8 Red Blood Count 3.67 L Red Cell Distribution Width 15.2 H Sodium Level 138 White Blood Count 7.0 Medications Medications Current Medications Lorazepam (Ativan) 0.5 mg Q6H PRN IV ANXIETY Last administered on 04/01/16t 22: 27; Admin Dose 0.5 MG; Start 03/24/16 at 18:30 Ondansetron HCl (Zofran Inj) 4 mg Q6H PRN IV NAUSEA AND/OR VOMITING; Start 03/24 at 18:30 Nitroglycerin (Nitroglycerin (Sl Tab) 0.4 Mg) 1 tab Q5M PRN SL CHEST PAIN; Start 03/24/16 at 18:30 Acetaminophen (Tylenol Tab) 650 mg Q6H PRN PO PAIN LEVEL 1-3 OR FEVER Last administered on 04/04/16 12:27; Admin Dose 650 MG; Start 03/24/16 at 18:30 Morphine Sulfate (morphine) 2 mg Q4H PRN IV PAIN LEVEL 7-10 Last administered on 04/03/16 22:21; Admin Dose 2 MG; Start 03/24/16 at 18:30 Atorvastatin Calcium (Lipitor) 40 mg QHS PO Last administered on 04/07/16 21: 37; Admin Dose 40 MG; Start 03/24/16 at 21:00 Donepezil HCl (Aricept) 5 mg QHS PO Last administered on 04/07/16 21:38; Admin Dose 5 MG; Start 03/24/16 at 21:00 Ferrous Sulfate (Ferrous Sulfate (Ec)) 325 mg BID PO Last administered on 08:59; Admin Dose 325 MG; Start 03/24/16 at 21:00 Memantine (Namenda) 5 mg BID PO Last administered on 04/08/16 08:59; Admin Dose 5 MG; Start 03/24/16 at 21:00 Hydromorphone HCl (Dilaudid) 1 mg Q4H PRN IV PAIN Last administered on 13:42; Admin Dose 1 MG; Start 03/25/16 at 06:30 Metoprolol Tartrate (Lopressor) 25 mg BID PO Last administered on 04/08/16 08: 59; Admin Dose 25 MG; Start 03/25/16 at 21:00 Mupirocin (Bactroban) 1 applic BID TOP Last administered on 04/08/16 09:00; Admin Dose 1 APPLIC; Start 03/27/16 at 14:30 Pantoprazole 40 mg 40 mg DAILY@06 PO Last administered on 04/08/16 05:33; Admin Dose 40 MG; Start 03/28/16 at 06:00 Sodium Chloride (NS) 1,000 ml @ 50 mls/hr Q20H IV Last administered on 16:16; Admin Dose 50 MLS/HR; Start 03/29/16 at 17:30 Heparin Sodium (Porcine) (Heparin (5000 Units/0.5 ml)) 5,000 unit Q8 SC Last administered on 04/08/16 05:42; Admin Dose 5,000 UNIT; Start 03/29/16 at 22:00 IV Flush (NS 10 ml) 10 ml PRN PRN IV IV PROTOCOL; Start 03/31/16 at 18:00 Potassium Chloride (Potassium Chloride Pwd/Soln) 40 meq DAILY PO Last administered on 04/08/16 09:00; Admin Dose 40 MEQ; Start 04/04/16 at 09:30 Furosemide 20 mg 20 mg DAILY PO Last administered on 04/08/16 08:59; Admin Dose 20 MG; Start 04/07/16 at 12:00 Vancomycin HCl (Vancocin) 100 ml @ 100 mls/hr Q12H IVPB Last administered on 04:16; Admin Dose 100 MLS/HR; Start 04/07/16 at 16:00 Miscellaneous Information (*Rx Drug Level Order Reminder*) VANCO TROUGH @ 0, 300 ON... ONCE ONCE XX ; Start 04/09/16 at 03:00; Stop 04/09/16 at 03:01 SHAHIDA MOORE MD Apr 08, 2016 13:33
--- NOTE | 2016-04-08 13:36 | CONS ---
Date/Time of Note Date/Time of Note DATE: 04/08/16 TIME: 13:35 Assessment/Plan Assessment/Plan Chief Complaint/Hosp Course - SIRS vs early sepsis. Leukocytosis and tachycardia resolved. 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 capitis on 03/31/16 and S. epidermidis on 03/30/16). TTE did not demonstrate valvular vegetation - Aortoiliac atherosclerotic disease, ectatic right common iliac artery with thrombus s/p EVAR 03/29/16 - Blue toe syndrome - Funguria (s/p Vfend 03/28-03/30) - CAD - PPM - T2DM Hgb A1c 5.5% - HTN associated with DM - HLD associated with DM - ACD s/p 1 unit PRBC 03/29/16 - dementia - DNR Recommendations: - Continue IV Vanco (03/31/16-) for six weeks for probable prosthetic joint infection of L hip - Out-patient f/u with Ortho - Management d/w Claudette DOMINATRIX - Above d/w Dr. Maria Problems: Consultation Date/Type/Reason Admit Date/Time Mar 24, 2016 at 17:40 Initial Consult Date 03/28/16 Type of Consultation: Infectious Disease Referring Provider: LAVELL BRADLEY MD 24 HR Interval Summary Free Text/Dictation No new clinical changes per EVAN Guzman. DC planning to SNF today per OPAL Wilkins. Pt remains non-communicative. Exam/Review of Systems Vital Signs Vitals Vital Signs Date Time Temp Pulse Resp B/P Pulse Ox O2 Delivery O2 Flow Rate FiO2 04/08/16 08:28 97.9 89 20 139/80 99 04/07/16 02:49 Room Air Intake and Output 04/07/16 04/07/16 04/08/16 15:00 23:00 07:00 Intake Total 720 ml 1100 ml Output Total 900 ml 600 ml Balance -180 ml 500 ml Exam Constitutional: awake, alert, non-verbal, other (somewhat cachectic) Head: atraumatic, normocephalic Eyes: nl conjunctiva Neck: supple, No jvd Respiratory: clear to auscultation, normal air movement. Left chest wall PM noted intact. Cardiovascular: regular rate and rhythm, Normal S1 and S2 Gastrointestinal: non-tender, soft Genitourinary - Male: other (condom catheter intact with yellow urine with sediments) Extremities: cyanosis (LLE all toes and RLE 1st & 2nd toe bluish discoloration noted; Left big toe dressing c/d/i; trace edema on LLE), other (DP palpable on R and faintly palpable on L), No clubbing. RUE PICC line c/d/i. Neurological: nods to simple questions. LEVIN with generalized weakness. Skin: nl turgor, other (multiple pressure ulcers - see Nurse's notes for detials; RLQ dressing c/d/i; derma henley on LLQ c/d/i) Results Result Diagram: 04/08/16 0530 04/08/16 0530 Results 24 hrs Laboratory Tests Test 04/08/16 05:30 Anion Gap 12 Basophils # 0.1 Basophils % 0.7 Blood Urea Nitrogen 10 Calcium Level 8.4 Carbon Dioxide Level 29 Chloride Level 101 Creatinine 0.71 Eosinophils # 0.3 Eosinophils % 3.6 Glucose Level 85 Hematocrit 34.2 L Hemoglobin 11.2 L Lymphocytes # 1.2 Lymphocytes % 17.3 Mean Corpuscular Hemoglobin 30.5 Mean Corpuscular Hemoglobin Concent 32.7 Mean Corpuscular Volume 93.2 Mean Platelet Volume 9.1 Monocytes # 0.8 Monocytes % 11.4 H Neutrophils # 4.6 Neutrophils % 66.4 Nucleated Red Blood Cells # 0.0 Nucleated Red Blood Cells % 0.0 Platelet Count 387 Potassium Level 3.8 Red Blood Count 3.67 L Red Cell Distribution Width 15.2 H Sodium Level 138 White Blood Count 7.0 Medications Medications Current Medications Lorazepam (Ativan) 0.5 mg Q6H PRN IV ANXIETY Last administered on 04/01/16t 22: 27; Admin Dose 0.5 MG; Start 03/24/16 at 18:30 Ondansetron HCl (Zofran Inj) 4 mg Q6H PRN IV NAUSEA AND/OR VOMITING; Start 03/24 at 18:30 Nitroglycerin (Nitroglycerin (Sl Tab) 0.4 Mg) 1 tab Q5M PRN SL CHEST PAIN; Start 03/24/16 at 18:30 Acetaminophen (Tylenol Tab) 650 mg Q6H PRN PO PAIN LEVEL 1-3 OR FEVER Last administered on 04/04/16 12:27; Admin Dose 650 MG; Start 03/24/16 at 18:30 Morphine Sulfate (morphine) 2 mg Q4H PRN IV PAIN LEVEL 7-10 Last administered on 04/03/16 22:21; Admin Dose 2 MG; Start 03/24/16 at 18:30 Atorvastatin Calcium (Lipitor) 40 mg QHS PO Last administered on 04/07/16 21: 37; Admin Dose 40 MG; Start 03/24/16 at 21:00 Donepezil HCl (Aricept) 5 mg QHS PO Last administered on 04/07/16 21:38; Admin Dose 5 MG; Start 03/24/16 at 21:00 Ferrous Sulfate (Ferrous Sulfate (Ec)) 325 mg BID PO Last administered on 08:59; Admin Dose 325 MG; Start 03/24/16 at 21:00 Memantine (Namenda) 5 mg BID PO Last administered on 04/08/16 08:59; Admin Dose 5 MG; Start 03/24/16 at 21:00 Hydromorphone HCl (Dilaudid) 1 mg Q4H PRN IV PAIN Last administered on 13:42; Admin Dose 1 MG; Start 03/25/16 at 06:30 Metoprolol Tartrate (Lopressor) 25 mg BID PO Last administered on 04/08/16 08: 59; Admin Dose 25 MG; Start 03/25/16 at 21:00 Mupirocin (Bactroban) 1 applic BID TOP Last administered on 04/08/16 09:00; Admin Dose 1 APPLIC; Start 03/27/16 at 14:30 Pantoprazole 40 mg 40 mg DAILY@06 PO Last administered on 04/08/16 05:33; Admin Dose 40 MG; Start 03/28/16 at 06:00 Sodium Chloride (NS) 1,000 ml @ 50 mls/hr Q20H IV Last administered on 16:16; Admin Dose 50 MLS/HR; Start 03/29/16 at 17:30 Heparin Sodium (Porcine) (Heparin (5000 Units/0.5 ml)) 5,000 unit Q8 SC Last administered on 04/08/16 05:42; Admin Dose 5,000 UNIT; Start 03/29/16 at 22:00 IV Flush (NS 10 ml) 10 ml PRN PRN IV IV PROTOCOL; Start 03/31/16 at 18:00 Potassium Chloride (Potassium Chloride Pwd/Soln) 40 meq DAILY PO Last administered on 04/08/16 09:00; Admin Dose 40 MEQ; Start 04/04/16 at 09:30 Furosemide 20 mg 20 mg DAILY PO Last administered on 04/08/16 08:59; Admin Dose 20 MG; Start 04/07/16 at 12:00 Vancomycin HCl (Vancocin) 100 ml @ 100 mls/hr Q12H IVPB Last administered on 04:16; Admin Dose 100 MLS/HR; Start 04/07/16 at 16:00 Miscellaneous Information (*Rx Drug Level Order Reminder*) VANCO TROUGH @ 0, 300 ON... ONCE ONCE XX ; Start 04/09/16 at 03:00; Stop 04/09/16 at 03:01 MARIANA ZUNIGA NP Apr 08, 2016 13:36
--- NOTE | 2016-04-08 13:43 | PN ---
Date/Time of Note Date/Time of Note DATE: 04/08/16 TIME: 13:38 Assessment/Plan VTE Prophylaxis VTE Prophylaxis Intervention: SCD's Lines/Catheters IV Catheter Type (from Nrs): PICC Line Central line still needed: Yes Urinary Cath still in place: Yes Reason Cath still needed: urinary retention Assessment/Plan Chief Complaint/Hosp Course Assessment and plan - Probable Left hip prosthetic hardware infection. Dr. Maria is following from infectious disease standpoint. Continue antibiotics per ID. Status post evaluation by orthopedic surgeon with recommendation to follow-up with operating surgeon or to transfer patient to a high level of care. - Aortoiliac atherosclerotic disease, ectatic right common iliac artery with thrombus. Dr. Mondragon is following in vascular surgery consultation. S/p endovascular aortic aneurysm repair and right common femoral artery localized endarterectomy on 03/31. - Hematuria, resoled. - Blue toe syndrome, s/p revascularization procedure. - Dementia, continue Aricept and Namenda. - Diabetes mellitus type 2 - Coronary artery disease. Dr. Peters is following and cardiology consultation. - Hypertension, continue metoprolol. - Permanent pacemaker - Chronic anemia D/W [employer] for Dr Maria, d/c patient on Vanco RX to dose until 05-10. F/up with orthopedic surgeon for original hip surgery( pt still has fidelina) Continue Protonix for peptic ulcer disease prophylaxis Further recommendations based on clinical course. Plan of care discussed with Dr. Poole. Problems: Subjective 24 Hr Interval Summary Free Text/Dictation patient is awake, alert, no fever. Exam/Review of Systems Vital Signs Vitals Vital Signs Date Time Temp Pulse Resp B/P Pulse Ox O2 Delivery O2 Flow Rate FiO2 04/08/16 08:28 97.9 89 20 139/80 99 04/07/16 02:49 Room Air Intake and Output 04/07/16 04/07/16 04/08/16 15:00 23:00 07:00 Intake Total 720 ml 1100 ml Output Total 900 ml 600 ml Balance -180 ml 500 ml Exam Constitutional: alert, well developed Head: atraumatic, normocephalic Eyes: nl conjunctiva ENMT: nl external ears & nose Neck: jvd, supple Respiratory: clear to auscultation Cardiovascular: regular rate and rhythm Gastrointestinal: nl liver, spleen, soft Genitourinary - Male: nl penis, other ( Torrez catheter ) Extremities: normal pulses, bilateral LE s/p vascular intervention Results Result Diagram: 04/08/16 0530 04/08/16 0530 Results 24 hrs Laboratory Tests Test 04/08/16 05:30 Anion Gap 12 Basophils # 0.1 Basophils % 0.7 Blood Urea Nitrogen 10 Calcium Level 8.4 Carbon Dioxide Level 29 Chloride Level 101 Creatinine 0.71 Eosinophils # 0.3 Eosinophils % 3.6 Glucose Level 85 Hematocrit 34.2 L Hemoglobin 11.2 L Lymphocytes # 1.2 Lymphocytes % 17.3 Mean Corpuscular Hemoglobin 30.5 Mean Corpuscular Hemoglobin Concent 32.7 Mean Corpuscular Volume 93.2 Mean Platelet Volume 9.1 Monocytes # 0.8 Monocytes % 11.4 H Neutrophils # 4.6 Neutrophils % 66.4 Nucleated Red Blood Cells # 0.0 Nucleated Red Blood Cells % 0.0 Platelet Count 387 Potassium Level 3.8 Red Blood Count 3.67 L Red Cell Distribution Width 15.2 H Sodium Level 138 White Blood Count 7.0 Medications Medications Current Medications Lorazepam (Ativan) 0.5 mg Q6H PRN IV ANXIETY Last administered on 04/01/16 22: 27; Admin Dose 0.5 MG; Start 03/24/16 at 18:30 Ondansetron HCl (Zofran Inj) 4 mg Q6H PRN IV NAUSEA AND/OR VOMITING; Start 03/24 at 18:30 Nitroglycerin (Nitroglycerin (Sl Tab) 0.4 Mg) 1 tab Q5M PRN SL CHEST PAIN; Start 03/24/16 at 18:30 Acetaminophen (Tylenol Tab) 650 mg Q6H PRN PO PAIN LEVEL 1-3 OR FEVER Last administered on 04/04/16 12:27; Admin Dose 650 MG; Start 03/24/16 at 18:30 Morphine Sulfate (morphine) 2 mg Q4H PRN IV PAIN LEVEL 7-10 Last administered on 04/03/16 22:21; Admin Dose 2 MG; Start 03/24/16 at 18:30 Atorvastatin Calcium (Lipitor) 40 mg QHS PO Last administered on 04/07/16 21: 37; Admin Dose 40 MG; Start 03/24/16 at 21:00 Donepezil HCl (Aricept) 5 mg QHS PO Last administered on 04/07/16 21:38; Admin Dose 5 MG; Start 03/24/16 at 21:00 Ferrous Sulfate (Ferrous Sulfate (Ec)) 325 mg BID PO Last administered on 08:59; Admin Dose 325 MG; Start 03/24/16 at 21:00 Memantine (Namenda) 5 mg BID PO Last administered on 04/08/16 08:59; Admin Dose 5 MG; Start 03/24/16 at 21:00 Hydromorphone HCl (Dilaudid) 1 mg Q4H PRN IV PAIN Last administered on 13:42; Admin Dose 1 MG; Start 03/25/16 at 06:30 Metoprolol Tartrate (Lopressor) 25 mg BID PO Last administered on 04/08/16 08: 59; Admin Dose 25 MG; Start 03/25/16 at 21:00 Mupirocin (Bactroban) 1 applic BID TOP Last administered on 04/08/16 09:00; Admin Dose 1 APPLIC; Start 03/27/16 at 14:30 Pantoprazole 40 mg 40 mg DAILY@06 PO Last administered on 04/08/16 05:33; Admin Dose 40 MG; Start 03/28/16 at 06:00 Sodium Chloride (NS) 1,000 ml @ 50 mls/hr Q20H IV Last administered on 16:16; Admin Dose 50 MLS/HR; Start 03/29/16 at 17:30 Heparin Sodium (Porcine) (Heparin (5000 Units/0.5 ml)) 5,000 unit Q8 SC Last administered on 04/08/16 05:42; Admin Dose 5,000 UNIT; Start 03/29/16 at 22:00 IV Flush (NS 10 ml) 10 ml PRN PRN IV IV PROTOCOL; Start 03/31/16 at 18:00 Potassium Chloride (Potassium Chloride Pwd/Soln) 40 meq DAILY PO Last administered on 04/08/16 09:00; Admin Dose 40 MEQ; Start 04/04/16 at 09:30 Furosemide 20 mg 20 mg DAILY PO Last administered on 04/08/16 08:59; Admin Dose 20 MG; Start 04/07/16 at 12:00 Vancomycin HCl (Vancocin) 100 ml @ 100 mls/hr Q12H IVPB Last administered on t 04:16; Admin Dose 100 MLS/HR; Start 04/07/16 at 16:00 Miscellaneous Information (*Rx Drug Level Order Reminder*) VANCO TROUGH @ 0, 300 ON... ONCE ONCE XX ; Start 04/09/16 at 03:00; Stop 04/09/16 at 03:01 ALICIA MONTGOMERY Apr 08, 2016 13:43
== END 2016-04-08 18:35 | DRG 268 ==
LOC: E/R 15:42 → TEL 17:40 → ICU 03-29 13:15 → TEL 04-01 23:40 → MS2 04-07 02:18
PROVIDERS: ADMIT Internal Medicine; ATTEND Internal Medicine
PROC: 04CC0ZZ Extirpation of Matter from Right Common Iliac Artery, Open Approach (ICD-10-PCS; 2016-03-29)
PROC: 30233N1 Transfusion of Nonautologous Red Blood Cells into Peripheral Vein, Percutaneous Approach (ICD-10-PCS; 2016-03-29)
PROC: 04V03EZ Restriction of Abdominal Aorta with Branched or Fenestrated Intraluminal Device, One or Two Arteries, Percutaneous Approach (ICD-10-PCS; principal; 2016-03-29 12:00)
PROC: 02HV33Z Insertion of Infusion Device into Superior Vena Cava, Percutaneous Approach (ICD-10-PCS; 2016-03-31)
DX: I74.5 Embolism and thrombosis of iliac artery (principal); I71.02 Dissection of abdominal aorta; A41.1 Sepsis due to other specified staphylococcus; G93.40 Encephalopathy, unspecified; L89.151 Pressure ulcer of sacral region, stage 1; R65.20 Severe sepsis without septic shock; R64 Cachexia; T84.52XA Infection and inflammatory reaction due to internal left hip prosthesis, initial encounter; T84.021A Dislocation of internal left hip prosthesis, initial encounter; Z68.1 Body mass index [BMI] 19.9 or less, adult; B37.49 Other urogenital candidiasis; I72.3 Aneurysm of iliac artery; F03.90 Unspecified dementia, unspecified severity, without behavioral disturbance, psychotic disturbance, mood disturbance, and anxiety; I70.223 Atherosclerosis of native arteries of extremities with rest pain, bilateral legs; E11.9 Type 2 diabetes mellitus without complications; D64.9 Anemia, unspecified; I25.10 Atherosclerotic heart disease of native coronary artery without angina pectoris; Z79.02 Long term (current) use of antithrombotics/antiplatelets; R31.9 Hematuria, unspecified; Z96.642 Presence of left artificial hip joint; Z87.891 Personal history of nicotine dependence; Y84.6 Urinary catheterization as the cause of abnormal reaction of the patient, or of later complication, without mention of misadventure at the time of the procedure; Y92.239 Unspecified place in hospital as the place of occurrence of the external cause; Z66 Do not resuscitate; Z78.1 Physical restraint status; L89.621 Pressure ulcer of left heel, stage 1; L89.611 Pressure ulcer of right heel, stage 1
CPT/HCPCS: 36415; 36430; 36569; 71010; 73500; 73510; 75625; 76937; 78452; 80048; 80053; 80061; 80202; 81001; 81003; 82550; 82553; 82565; 82962; 83036; 83690; 83735; 84132; 84145; 84443; 84484; 84520; 85014; 85018; 85025; 85610; 85651; 85730; 86140; 86850; 86900; 86901; 86920; 87040; 87081; 87086; 90686; 93005; 93017; 93306; 93923; 93970; 93971; 96374; 96375; J1940; A9500; A9505; C1769; C9113; J0360; J1170; J1644; J1815; J2060; J2250; J2270; J2370; J2405; J2710; J2720; J2785; J3010; J3370; J3465; J3480; J7030; P9016; Q9967